=== PATIENT | female | born 1990 | race Caucasian/White ===

== ENCOUNTER 2017-09-09 11:28 | Emergency (ER) | payer MEDICAID, SELFPAY ==
[2017-09-09 11:29] VITALS: BP 152/120; PULSE 106; RESP 18; TEMP 37.2; O2SAT 98; BMI 27.8
[2017-09-09] MEDS: 0.9% Normal Saline 1,000 ML 1000 ML IV (12:28)
[2017-09-09] MEDS: proMETHazine 25 MG/ML Syringe 12.5 MG IV ×2 (12:28→13:21)
[2017-09-09 13:51] VITALS: BP 133/89; PULSE 85; RESP 16; O2SAT 100
[2017-09-09] MEDS: Ondansetron 4 MG/2 ML Vial IV (14:03)
[2017-09-09 14:20] VITALS: TEMP 37.2
[2017-09-09 14:34] LABS: Absolute Lymphocyte Count 2.16 X10^3/ul (0.83-4.51); Absolute Neutrophil Count 10.6 X10^3/uL (2.0-7.7); Basophil# 0.02 X10^3/uL; Basophil% 0.1 % (0-1); Hematocrit 43.4 % (37-47); Hemoglobin 14.8 g/dl (12.0-15.0); Lymphocyte # 2.16 X10^3/ul (4.0); Lymphocyte % 15.5 % (19-41); Mean Corp Hgb Conc 34.1 g/gl (32-36); Mean Corpuscular Volume 84.9 fL (81-99); Mean Platelet Vol. 9.8 fl (6.2-12.0); Monocyte# 1.13 X10^3/uL; Monocyte% 8.1 % (0-10); Neutrophil # 10.59 X10^3/uL (2.7-7.7); Platelet Count 330 K/mm3 (150-450); RBC Distribution Width CV 13.2 % (11.6-14.6); RBC Distribution Width SD 40.5 fl (35.1-43.9); Red Blood Count 5.11 M/mm3 (4.2-5.4); White Blood Count 13.9 K/mm3 (4.4-11.0)
[2017-09-09 14:36] LABS: POSITIVE COUNT NO; POSITIVE DIFFERENTIAL NO; POSITIVE MORPHOLOGY NO
[2017-09-09 14:54] LABS: AST(SGOT) 46 U/L (15-37); Alanine Aminotransfer ALT/SGPT 60 U/L (13-56); Albumin, Serum 3.9 g/dL (3.2-5.0); Alkaline Phosphatase 70 U/L (45-117); Anion Gap 11 (5-15); BUN 10 mg/dL (7-18); BUN/Creat Ratio 17.2 RATIO (10-20); Bilirubin, Direct 0.28 mg/dL (0.00-0.30); Calcium,Total 7.9 mg/dL (8.5-10.1); Chloride 103 mmol/L (98-107); Creatinine, Serum 0.58 mg/dL (0.55-1.02); EST Glomerular Filtration Rate 133 mL/min (>60); Est Glom Filt Rate - Afr Amer 161 mL/min (>60); Estimated Creatinine Clearance 132.26 ml/min; Globulin 3.6 g/dL (2.2-4.2); Glucose 91 mg/dL (74-106); Lipase 107 U/L (73-393); Potassium 3.1 mmol/L (3.5-5.1); Protein, Total 7.5 g/dL (6.4-8.2); Sodium Level 140 mmol/L (136-145)
[2017-09-09 16:26] VITALS: RESP 18
--- NOTE | 2017-09-09 17:14 | ED.VISSUMM ---
- ER Visit Summary Date of Service: 09/09/17 Chief Complaint: Nausea and vomiting History of Present Illness: The patient is a 27 F prior cholecystectomy and prior . Patient complaining of nausea and vomiting for the last 4 days. Subjective fever no chills. No dysuria. No melena. She did have some loose stools since resolved. Her last menstrual period was 3 weeks ago. She was seen in [facility] ER ?2. States she has Zofran but even morning it underneath her tongue she continues to vomit. She denies any significant abdominal pain. She denies any melena. Physical Examination: Female no acute distress vital signs are stable. Her initial blood pressure is 152/120. However that is improved. Current blood pressure is 133/89. HEENT exam unremarkable. Mildly dry mucous membranes. Neck nontender no meningismus. No lymphadenopathy. Lungs clear to auscultation bilaterally. Heart regular rhythm rate about 105 no murmur. Abdomen is soft. Nondistended normal bowel sounds no peritoneal signs. No hernias or masses. No signs of obstruction. Patient is moving all 4 extremities. Neurovascularly intact. Calves nontender without edema. Neurologically she is awake and alert. Back exam nontender. She has no focal motor deficits. Test Results: CBC shows white count 13.9 which I think is secondary to her vomiting. H&H normal. No bands. Electrolytes show potassium at 3.1 otherwise normal gap and normal creatinine. Liver enzymes are unremarkable and actually bilirubin 1.1. Lipase is normal. Emergency Department Course and Treatment: Treated with a liter normal saline. Initially given Phenergan IV. Second dose of Phenergan along with IV Pepcid. And then most recently Zofran. Clinically she is doing better. And will be discharged home. Treatment Plan: [] Disposition: Discharge Impression: Acute nausea and vomiting of uncertain etiology Mild hypokalemia This note was generated with [employer] dictation software. It may contain incorrect words, spelling, and punctuation that were not noted in review of the chart prior to signing ED Disposition - Plan for ED Patient: Chief Complaint: Nausea/Vomiting Referrals: Benedict Sharp DO [Primary Care Provider] -
--- NOTE | 2017-09-09 17:18 | ED.DEP ---
ED Disposition - Plan for ED Patient: Disposition: Home or Assisted Living Chief Complaint: Nausea/Vomiting Instructions: ED Nausea Vomiting Prescriptions: proMETHazine suppository [Phenergan] 25 mg RECTAL Q4H PRN PRN #10 suppos. PRN Reason: Nausea Referrals: Benedict Sharp DO [Primary Care Provider] - Additional Instructions: Plenty of fluids and rest. Will increase diet as tolerated. Zofran as needed for nausea which he may swallow or hold underneath her tongue. If that is not working you can use the rectal suppository Phenergan.
[2017-09-09 17:37] VITALS: BP 140/87; PULSE 87; RESP 14; O2SAT 100
== END 2017-09-09 17:38 | disposition home or self-care (01) ==
PROVIDERS: Emergency Provider Emergency Medicine; Family Provider Preventive Medicine Occupational Medicine; PCP Preventive Medicine Occupational Medicine
DX: R11.2 Nausea with vomiting, unspecified (principal); E87.6 Hypokalemia; Z90.49 Acquired absence of other specified parts of digestive tract
CPT/HCPCS: 80048; 80076; 83690; 85025; 96365; 96375; 96376; 99283; J7030; A4216; J2405

== ENCOUNTER 2017-09-10 17:51 | Observation (INO) | payer MEDICAID, SELFPAY ==
[2017-09-10 17:52] VITALS: BP 164/114; PULSE 110; RESP 18; TEMP 36.9; O2SAT 94; BMI 27.6
[2017-09-10] MEDS: proMETHazine 25 MG/ML Syringe 6.25 MG IV (18:37)
[2017-09-10] MEDS: 0.9% Normal Saline 1,000 ML 1000 ML IV (18:37)
[2017-09-10 18:44] LABS: Absolute Lymphocyte Count 1.68 X10^3/ul (0.83-4.51); Absolute Neutrophil Count 15.9 X10^3/uL (2.0-7.7); Basophil# 0.03 X10^3/uL; Basophil% 0.2 % (0-1); Eosinophil# 0.02 X10^3/uL; Eosinophils% 0.1 % (0-5); Hematocrit 45.2 % (37-47); Hemoglobin 15.4 g/dl (12.0-15.0); Lymphocyte # 1.68 X10^3/ul (4.0); Lymphocyte % 8.8 % (19-41); Mean Corp Hgb Conc 34.1 g/gl (32-36); Mean Corpuscular Hgb 28.8 pg (27.0-32.0); Mean Corpuscular Volume 84.5 fL (81-99); Mean Platelet Vol. 9.7 fl (6.2-12.0); Monocyte# 1.33 X10^3/uL; Neutrophil # 15.88 X10^3/uL (2.7-7.7); Neutrophil % 83.6 % (47-70); Platelet Count 393 K/mm3 (150-450); RBC Distribution Width SD 39.6 fl (35.1-43.9); Red Blood Count 5.35 M/mm3 (4.2-5.4)
[2017-09-10 18:45] LABS: POSITIVE COUNT NO; POSITIVE DIFFERENTIAL NO; POSITIVE MORPHOLOGY NO
[2017-09-10] MEDS: LORazepam 2 MG/ML Syringe 1 MG IV (19:06)
[2017-09-10 19:19] LABS: AST(SGOT) 43 U/L (15-37); Alanine Aminotransfer ALT/SGPT 79 U/L (13-56); Albumin, Serum 4.2 g/dL (3.2-5.0); Alkaline Phosphatase 79 U/L (45-117); Anion Gap 9 (5-15); BUN 16 mg/dL (7-18); BUN/Creat Ratio 17.1 RATIO (10-20); Calcium,Total 9.1 mg/dL (8.5-10.1); Chloride 98 mmol/L (98-107); Creatinine, Serum 0.94 mg/dL (0.55-1.02); EST Glomerular Filtration Rate 77 mL/min (>60); Est Glom Filt Rate - Afr Amer 93 mL/min (>60); Estimated Creatinine Clearance 81.61 ml/min; Globulin 4.1 g/dL (2.2-4.2); Glucose 105 mg/dL (74-106); Lipase 103 U/L (73-393); Potassium 2.9 mmol/L (3.5-5.1); Protein, Total 8.3 g/dL (6.4-8.2); Sodium Level 137 mmol/L (136-145)
[2017-09-10 19:40] LABS: Bacteria 0 SEEN /hpf (None Seen); Squamous Epithelial Cells - UA 0 SEEN /hpf (5-10); White Blood Cells 0 SEEN /hpf (0-5)
[2017-09-10] MEDS: DiphenhydrAMINE 50 MG/ML Syringe 25 MG IV (19:43)
[2017-09-10] MEDS: proCHLORPERazine 10 MG/2 ML Vial IV (19:43)
[2017-09-10 19:54] VITALS: RESP 14
[2017-09-10 19:55] LABS: Color, Urine Yellow (Yellow); Glucose, Dipstick Normal (Normal); Leukocyte Esterase-Dipstick Negative /ul (Negative); Nitrite-Dipstick Negative (Negative); Occult Blood-Urine 10 /ul (Negative); Protein-Dipstick 15 mg/dl (Negative); Specific Gravity, Urine 1.015 (1.002-1.030); Urine Bilirubin Dipstick Negative (Negative); Urine Clarity Clear (Clear); Urine Urobilinogen 1 mg/dl (Normal)
[2017-09-10 19:56] LABS: Ketone-Dipstick 150 mg/dl (Negative)
[2017-09-10 19:57] LABS: Internal QC Validated? YES +Cl - CLEAR BKGD; Pregnancy, Urine Negative Negative
--- NOTE | 2017-09-10 19:58 | ED.RN ---
lab called with critical lab results. urine ketones 150. Dr. Quintero made aware. no new orders at this time
[2017-09-10 20:09] LABS: Mucous, Urine 1+ /hpf (<or=2+); Red Blood Cells-Urine 0-5 SEEN /hpf (0-5)
--- NOTE | 2017-09-10 20:52 | CT_ITS ---
STUDY: CT ABDOMEN AND PELVIS WITHOUT CONTRAST REASON FOR EXAM: Female, 27 years old. History, Signs T Symptoms N/V/D/ X 5 DAYS, GB, HX KS RADIATION DOSAGE (If Supplied By Facility): CTDIvol = ( 6.96 ) mGy, DLP = ( 394.70 ) mGycm TECHNIQUE: Transaxial images were obtained from the dome of the diaphragm to the symphysis pubis without oral contrast, and without intravenous contrast. Sagittal and coronal images were reconstructed. Individualized dose optimization techniques were used for this CT. COMPARISON: None. FINDINGS: The visualized lung bases are unremarkable. The visualized portions of the heart are within normal limits. Normal liver. There are surgical clips in the gallbladder fossa consistent with a prior cholecystectomy. Normal spleen. Normal pancreas. Normal bilateral adrenal glands. Normal right kidney. Normal left kidney. Normal visualized stomach. Normal small intestine. Normal colon. The appendix is visualized and appears normal. Normal abdominal aorta. Normal inferior vena cava. Normal retroperitoneum. Normal urinary bladder. Normal visualized uterus. There is a linear heterogeneous density in the vagina. This a tampon. There is a small umbilical hernia containing fat. Normal osseous structures. CT/Abdomen/Pelvis without Cont IMPRESSION: Normal unenhanced CT of the abdomen and pelvis. Electronically Signed: Aristeo Blount MD at 22:09 EDT , Service support ,
[2017-09-10 21:50] VITALS: BP 163/104; PULSE 94; RESP 14; O2SAT 97
--- NOTE | 2017-09-10 22:40 | ED.VISSUMM ---
- ER Visit Summary Date of Service: 09/10/17 Chief Complaint: Nausea and vomiting History of Present Illness: The patient is a 27 F who presents with nausea and vomiting that has been constant for the past 5 days. Patient was seen here recently and had lab work done which showed a mild leukocytosis of 13. Patient states she has been unable to keep anything down for the past 5 days. Patient denies any fevers or chills. Patient admits to pain over the upper abdomen. Patient admits to some diarrhea but denies any melena or hematochezia. Patient states she has a history of irritable bowel syndrome and kidney stones. Patient denies any alcohol or drug use. Patient denies any urinary complaints. Physical Examination: Vital signs showed a blood pressure of 164/114 and a tachycardia of 110. Patient is afebrile. Oral mucosa is pink and moist. Neck is supple. Trachea is midline. Heart was regular and tachycardic. Lungs are clear and equal bilaterally. There is good respiratory effort noted. Abdomen is soft. There is upper abdominal tenderness. There is no rebound or guarding noted. Skin is warm and dry. There is a superficial ulceration over the right breast. There were no masses palpated. Cranial nerves II through XII are intact. There are no focal motor or sensory deficits noted. The remaining physical exam is within normal limits. Test Results: CBC shows a leukocytosis of 19 today. Potassium was low at 2.9. Total bilirubin was elevated at 1.7. ALT was slightly elevated at 79 AST was slightly elevated at 43. Urinalysis showed elevated ketones of 150 but no signs of urinary tract infection. Emergency Department Course and Treatment: Patient was given IV fluids, Phenergan, Ativan, Compazine, and Benadryl. Patient had minimal relief of her nausea and vomiting after this. Case was discussed with the hospitalist. We will admit the patient to the hospital for observation. Patient and family understood and were agreeable with the plan. All questions were answered. Disposition: Admit for observation Impression: Abdominal pain, leukocytosis This note was generated with [employer] dictation software. It may contain incorrect words, spelling, and punctuation that were not noted in review of the chart prior to signing ED Disposition - Plan for ED Patient: Disposition: Acute Care Hospital [facility] Chief Complaint: Nausea/Vomiting Diagnosis: Abdominal pain, Leukocytosis, unspecified Referrals: Benedict Sharp DO [Primary Care Provider] -
[2017-09-10] MEDS: BACITRACIN/POLYMYXIN B 15 GM Tube 1 APPLIC TOPICAL (23:13)
[2017-09-10 23:14] LABS: Magnesium 2.1 mg/dL (1.6-2.6); Phosphorus 1.5 mg/dL (2.5-4.9)
--- NOTE | 2017-09-10 23:14 | HP.PCM_ITS ---
Problem List (1) Intractable nausea and vomiting Status: Acute (2) Abdominal pain Status: Acute (3) Leukocytosis, unspecified Status: Acute (4) Diarrhea Status: Acute Qualifiers: Diarrhea type: presumed infectious Qualified Code(s): R19.7 - Diarrhea, unspecified (5) Gastroenteritis Status: Acute (6) Nausea and vomiting Status: Acute Qualifiers: Vomiting type: unspecified Vomiting Intractability: non-intractable Qualified Code(s): R11.2 - Nausea with vomiting, unspecified (7) Hx of cannabis abuse Status: Chronic (8) Viable intrauterine Status: Chronic (9) Hyperemesis gravidarum Status: Suspected History of Present Illness Date of Admission: 09/10/17 Chief Complaint: Intractable nausea and vomiting for 5 days and recurrent ER visits The patient is a 27 year old F with history of IBS, hyperemesis gravidarum came to ER with severe nausea and vomiting and had 2 ER visits in [place] ER and here ER yesterday for similar problem. Patient having vomiting for almost 1 week and complain of epigastric pain along with lower lip pain most probably secondary to retching from vomiting. No GI bleed. Patient also had lose bowel movement about 1 or 2 per day, today had 2 bowel movement. Denies fever but sometimes feel cold. No sore throat or sinus symptoms. Patient has history of recurrent vomiting and IBS has been ER for multiple times . CT abdomen does not show any acute change. Basic lab work in ER is suggestive of leukocytosis with left shift, K2.9 and elevated LFT with ALT 79, AST 43 and total bili 1.7. Magnesium is 2.1, phosphorus 1.5. [] Past Medical History Past Medical History (Chronic Problems): Chronic Problems Viable intrauterine (Chronic) Hx of cannabis abuse (Chronic) Allergies No Known Allergies Allergy (Verified 09/10/17 17:51) Home Medications: Ambulatory Orders Medication Instructions Recorded proMETHazine suppository 25 mg RECTAL Q4H PRN PRN #10 09/09/17 [Phenergan] suppos. Dicyclomine HCl [Bentyl] 20 mg PO ACHS 09/10/17 Surgical History: cholecystectomy, - - x 1. Psychiatric History: No pertinent psych hx [employer] History: No pertinent [employer] history Smoking Status: Never smoker - *Family History Maternal History Items: No pertinent history Paternal History Items: No pertinent history VTE Information - Inpt Only VTE Present on Admission: No VTE Mechan Device Prophylaxis: None Reason prophylaxis not ordered:: Procedure Not Indicated - Low risk Patient Problems: Active and Suspected Problems Abdominal pain (Acute) Leukocytosis, unspecified (Acute) Intractable nausea and vomiting (Acute) - Physical Exam General: Alert, Oriented x3, Cooperative HEENT: Atraumatic, PERRLA, EOMI, Normocephalic Oral: Dry Mucosa Neck: Supple, No JVD, Negative Carotid Bruits Lungs: Clear to auscultation, Normal air movement Cardiovascular: Regular rate, Regular Rhythm, Normal S1, Normal S2, No murmurs Abdomen: Bowel Sounds Present, Soft, Non-Distended, No Hepato-splenomegaly, Tender - Mild epigastric tenderness Extremities: No edema, Capillary Refill Less than 3 Seconds Skin: No rashes, No breakdown Musculoskeletal: No Tenderness to Palpation of Joints or Extremities Neurological: Cranial nerves II-XII grossly intact Psych/Mental Status: Normal Affect, Appropriate Vital Signs Temp Pulse Resp BP Pulse Ox 98.4 F 94 14 163/104 H 97 09/10/17 17:52 09/10/17 21:50 09/10/17 21:50 09/10/17 21:50 09/10/17 21:50 Oxygen Delivery Method Room Air Weight: 166 lb 0.129 oz Body Mass Index (BMI) 27.6 Laboratory Tests Past 24 Hrs 09/10/17 09/10/17 09/10/17 18:28 18:28 18:28 WBC 19.0 H RBC 5.35 Hgb 15.4 H Hct 45.2 MCV 84.5 MCH 28.8 MCHC 34.1 RDW 13.0 RDW Differential 39.6 Plt Count 393 MPV 9.7 Immature Gran % (Auto) 0.300 Neut % (Auto) 83.6 H Lymph % (Auto) 8.8 L [place] % (Auto) 7.0 Eos % (Auto) 0.1 Baso % (Auto) 0.2 Absolute Neuts (auto) 15.9 H Absolute Lymphs (auto) 1.68 Total Counted Not Reportable Sodium 137 Potassium 2.9 L Chloride 98 Carbon Dioxide 30.0 Anion Gap 9 BUN 16 Creatinine 0.94 Estim Creat Clear Calc 81.61 Est GFR (MDRD) Af Amer 93 Est GFR (MDRD) Non-Af 77 BUN/Creatinine Ratio 17.1 Glucose 105 Calcium 9.1 Phosphorus Pending Magnesium Pending Total Bilirubin 1.70 H AST 43 H ALT 79 H Alkaline Phosphatase 79 Total Protein 8.3 H Albumin 4.2 Globulin 4.1 Albumin/Globulin Ratio 1.0 Lipase 103 Urine Color Urine Clarity Urine pH Ur Specific [place] Urine Protein Urine Glucose (UA) Urine Ketones Urine Occult Blood Urine Nitrite Urine Bilirubin Urine Urobilinogen Ur Leukocyte Esterase Urine RBC Urine WBC Ur Squamous Epith Cells Urine Bacteria Urine Mucus Urine Test 09/10/17 09/10/17 19:34 19:34 WBC RBC Hgb Hct MCV MCH MCHC RDW RDW Differential Plt Count MPV Immature Gran % (Auto) Neut % (Auto) Lymph % (Auto) [place] % (Auto) Eos % (Auto) Baso % (Auto) Absolute Neuts (auto) Absolute Lymphs (auto) Total Counted Sodium Potassium Chloride Carbon Dioxide Anion Gap BUN Creatinine Estim Creat Clear Calc Est GFR (MDRD) Af Amer Est GFR (MDRD) Non-Af BUN/Creatinine Ratio Glucose Calcium Phosphorus Magnesium Total Bilirubin AST ALT Alkaline Phosphatase Total Protein Albumin Globulin Albumin/Globulin Ratio Lipase Urine Color Yellow Urine Clarity Clear Urine pH 7.0 Ur Specific [place] 1.015 Urine Protein 15 H Urine Glucose (UA) Normal Urine Ketones 150 H Urine Occult Blood 10 H Urine Nitrite Negative Urine Bilirubin Negative Urine Urobilinogen 1 H Ur Leukocyte Esterase Negative Urine RBC 0-5 SEEN Urine WBC 0 SEEN Ur Squamous Epith Cells 0 SEEN Urine Bacteria 0 SEEN Urine Mucus 1+ Urine Test Negative Assessment/Plan Active and Suspected Problems Abdominal pain (Acute) Leukocytosis, unspecified (Acute) Intractable nausea and vomiting (Acute) The patient is a 27 year old F with history of IBS, hyperemesis gravidarum came to ER with severe nausea and vomiting and had 2 ER visits in [place] ER and here ER yesterday for similar problem. Patient having vomiting for almost 1 week and complain of epigastric pain along with lower lip pain most probably secondary to retching from vomiting. No GI bleed. Patient also had lose bowel movement about 1 or 2 per day, today had 2 bowel movement. Denies fever but sometimes feel cold. No sore throat or sinus symptoms. Patient has history of recurrent vomiting and IBS has been ER for multiple times . CT abdomen does not show any acute change. Basic lab work in ER is suggestive of leukocytosis with left shift, K2.9 and elevated LFT with ALT 79, AST 43 and total bili 1.7. Magnesium is 2.1, phosphorus 1.5. 1. Intractable nausea no vomiting, acute on recurrent in nature etiology unclear possible history of cyclical vomiting syndrome; possible viral gastroenteritis: [facility] Symptomatic management for nausea and vomiting. Normal saline 1 L bolus and then 150 mL/h. IV fluid rehydration, aggressive with monitoring of intake and output. Stool for occult blood, leukocytosis and enteric bacteriology panel ordered. 2. Electrolyte disturbance: Severe hypokalemia and hypophosphatemia: K-Phos ordered. Monitor and replace accordingly. 3. Epigastric abdominal pain most probably secondary to retching from vomiting : Normal abdominal exam and abdominal CT is benign 4. Elevated LFT; possible secondary to severe dehydration/rule out viral hepatitis or drug-induced liver injury: Patient has elevated transaminases which got worse as compared to yesterday. total bili 1.5 possible secondary to severe dehydration. Right upper quadrant sonogram ordered. Viral hepatitis panel ordered. Monitor LFT. Serum alcohol, GGT and U tox ordered. Hold dicyclomine. DVT prophylaxis, low risk does not require prophylaxis. Early ambulation encouraged Code Visit OBSV E&M: [id number] Initial observation care L3
[2017-09-10 23:20] VITALS: BP 169/115; PULSE 97; RESP 20; TEMP 37.2; O2SAT 95
[2017-09-11 00:14] VITALS: BMI 27.6
[2017-09-11 00:20] VITALS: BMI 27.6
[2017-09-11 00:24] VITALS: BP 157/97; PULSE 89; RESP 18; TEMP 37.2; O2SAT 97
[2017-09-11] MEDS: 0.9% Normal Saline 1,000 ML 999 ML IV (00:36)
[2017-09-11 00:50] LABS: GGTP 25 U/L (5-55)
[2017-09-11 01:03] LABS: Amphetamine Urine VISTA NEGATIVE (<1000 ng/mL); Barbiturate Urine VISTA NEGATIVE (< 200 ng/mL); Benzodiazepine Urine VISTA NEGATIVE (< 200 ng/mL); Cocaine Urine VISTA NEGATIVE (< 300 ng/mL); Ecstacy Urine VISTA NEGATIVE (< 500 ng/mL); Methadone Urine VISTA NEGATIVE (< 300 ng/mL); PCP Urine VISTA NEGATIVE (< 25 ng/mL); THC Urine VISTA POSITIVE (< 50 ng/mL)
[2017-09-11 01:12] LABS: Alcohol, Blood (Medical)-Serum < 3.0 mg/dL
[2017-09-11] MEDS: proCHLORPERazine 10 MG/2 ML Vial IV (04:15)
[2017-09-11] MEDS: 0.9% NaCl Peripheral Flush Adult/Peds IV (04:15)
[2017-09-11 06:02] VITALS: BP 102/62; PULSE 71; RESP 14; TEMP 36.9; O2SAT 99
[2017-09-11 06:16] LABS: Absolute Lymphocyte Count 2.25 X10^3/ul (0.83-4.51); Absolute Neutrophil Count 6.8 X10^3/uL (2.0-7.7); Basophil# 0.03 X10^3/uL; Basophil% 0.3 % (0-1); Eosinophil# 0.02 X10^3/uL; Eosinophils% 0.2 % (0-5); Hematocrit 40.8 % (37-47); Hemoglobin 13.9 g/dl (12.0-15.0); Lymphocyte # 2.25 X10^3/ul (4.0); Lymphocyte % 22.7 % (19-41); Mean Corp Hgb Conc 34.1 g/gl (32-36); Mean Corpuscular Volume 85.2 fL (81-99); Monocyte# 0.82 X10^3/uL; Monocyte% 8.3 % (0-10); Neutrophil # 6.76 X10^3/uL (2.7-7.7); Neutrophil % 68.3 % (47-70); Platelet Count 296 K/mm3 (150-450); RBC Distribution Width CV 12.9 % (11.6-14.6); RBC Distribution Width SD 39.6 fl (35.1-43.9); Red Blood Count 4.79 M/mm3 (4.2-5.4); White Blood Count 9.9 K/mm3 (4.4-11.0)
[2017-09-11 06:17] LABS: POSITIVE COUNT NO; POSITIVE DIFFERENTIAL NO; POSITIVE MORPHOLOGY NO
[2017-09-11 06:52] LABS: AST(SGOT) 29 U/L (15-37); Alanine Aminotransfer ALT/SGPT 55 U/L (13-56); Albumin, Serum 3.2 g/dL (3.2-5.0); Alkaline Phosphatase 66 U/L (45-117); Anion Gap 9 (5-15); BUN 6 mg/dL (7-18); BUN/Creat Ratio 12.8 RATIO (10-20); Bilirubin, Direct 0.23 mg/dL (0.00-0.30); Calcium,Total 7.3 mg/dL (8.5-10.1); Chloride 107 mmol/L (98-107); Creatinine, Serum 0.47 mg/dL (0.55-1.02); EST Glomerular Filtration Rate 170 mL/min (>60); Est Glom Filt Rate - Afr Amer 206 mL/min (>60); Estimated Creatinine Clearance 163.22 ml/min; Globulin 3.4 g/dL (2.2-4.2); Glucose 91 mg/dL (74-106); Phosphorus 2.3 mg/dL (2.5-4.9); Potassium 3.4 mmol/L (3.5-5.1); Protein, Total 6.6 g/dL (6.4-8.2); Sodium Level 140 mmol/L (136-145)
[2017-09-11 07:22] LABS: Vista UDS pH Range 6
[2017-09-11 08:04] VITALS: BP 109/69; PULSE 65; RESP 16; TEMP 37.1; O2SAT 99
[2017-09-11] MEDS: Famotidine 20 MG Tablet PO (09:00)
--- NOTE | 2017-09-11 09:19 | PCM.DC ---
- Discharge Diagnoses Current Active Problems: Current Active and Chronic Problems Abdominal pain (Acute) Leukocytosis, unspecified (Acute) Intractable nausea and vomiting (Acute) You will use the following diet at home:: No restrictions Discharge Activity: Return to Normal Activity Allergies/Adverse Reactions: Allergies No Known Allergies Allergy (Verified 09/10/17 17:51) Medications to take at Discharge proMETHazine suppository [Phenergan Suppository] 25 mg RECTAL Q4H PRN PRN #10 suppos. 09/09/17 Dicyclomine HCl [Bentyl] 20 mg PO ACHS 09/10/17 Primary Care Physician: Benedict Sharp DO [Primary Care Provider] - Please follow up with your Primary Care Physician in: 1 Week Proposed Discharge Date: 09/11/17
--- NOTE | 2017-09-11 09:22 | PCM.DC.SUM ---
Discharge Date and Diagnosis Date of Admission: 09/10/17 Date of Discharge: 09/11/17 - Primary Discharge Diagnosis Active and Suspected Problems 1. 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 Hypokalemia 3. Hypophosphatemia - Secondary Discharge Diagnosis Chronic Problems Viable intrauterine (Chronic) Hx of cannabis abuse (Chronic) Hospital Course and Treatment Imaging Results: Diagnostic Data Abdomen/Pelvis CT 09/10/17 20:52 IMPRESSION: Normal unenhanced CT of the abdomen and pelvis. Electronically Signed: Aristeo Blount MD at 22:09 EDT , Service support , Operations: None Procedures: None Summary of Care Provided: The patient is a 27 year old F admitted 09/10/2017 due to intractable nausea and vomiting for 5 days with recurrent emergency room visits. She has a past medical history of irritable bowel syndrome. CT of abdomen and pelvis unremarkable. Urine tox screen positive for cannabinoids. Urinalysis unremarkable. Cyclical vomiting syndrome suspected secondary to marijuana use. Patient was advised to discontinue marijuana use. Patient was noted to have hypokalemia and hypophosphatemia secondary to nausea, vomiting. Replaced per protocol and stable at discharge. Patient with leukocytosis on admission which resolved, suspect reactive secondary to dehydration. Patient was also noted to have elevated AST and ALT, suspected secondary to dehydration. Now within normal limits. Hepatitis panel was drawn during admission and pending at discharge. To be followed by primary care physician. Patient has had no further nausea, vomiting overnight. Afebrile. Vital signs stable. Patient seen and examined prior to discharge. Heart rate regular rate and rhythm. Lungs clear. Abdomen soft, nontender. Neuro grossly intact. Patient stable for discharge home with follow-up with primary care physician in 1 week. This patient was seen by STEFANIA Quintero under the supervision of Dr. Clemens. Discharge Diet: No Restrictions Discharge Activity: Return to Normal Activity Home Medications: Medications to take at Discharge proMETHazine suppository [Phenergan Suppository] 25 mg RECTAL Q4H PRN PRN #10 suppos. 09/09/17 Dicyclomine HCl [Bentyl] 20 mg PO ACHS 09/10/17 Primary Care Physician: Benedict Sharp DO [Primary Care Provider] - Please follow up with your Primary Care Physician in: 1 Week Disposition: Home Minutes spent on discharge:: 35 Patient Condition:: Stable Medical Necessity - Tobacco Use Smoking Status: Never smoker Meaningful Use Info Meaningful Use Diagnoses (Choose all that apply): None applicable
[2017-09-11 11:21] VITALS: BP 125/85; PULSE 78; RESP 18; TEMP 37; O2SAT 98
[2017-09-12 09:38] LABS: HEPATITIS B SURFACE AG Negative (Negative); Hepatitis A IgM Antibody Negative (Negative); Hepatitis B Core AB IgM Negative (Negative)
[2017-09-12 11:48] LABS: Hep C Antibodies <0.1 s/co ratio (0.0-0.9)
== END 2017-09-11 11:23 | disposition home or self-care (01) ==
LOC: ED 22:47 → MS2 23:53
PROVIDERS: Admitting Provider Internal Medicine; Emergency Provider Emergency Medicine; Family Provider Preventive Medicine Occupational Medicine; PCP Preventive Medicine Occupational Medicine; Visit Provider Internal Medicine
DX: G43.A0 Cyclical vomiting, in migraine, not intractable (principal); E87.6 Hypokalemia; E83.39 Other disorders of phosphorus metabolism; K58.9 Irritable bowel syndrome, unspecified; F12.10 Cannabis abuse, uncomplicated
CPT/HCPCS: 36415; 74176; 80048; 80053; 80074; 80076; 80307; 80320; 81001; 81025; 82977; 83690; 83735; 84100; 85025; 96361; 96365; 96375; 96376; 99218; 99283; J7030; J7050; A4216; G0378; G0480

== ENCOUNTER 2017-09-12 19:24 | Emergency (ER) | payer MEDICAID, SELFPAY ==
[2017-09-12 19:26] VITALS: BP 167/126; PULSE 127; RESP 16; TEMP 37.1; O2SAT 98; BMI 29.1
[2017-09-12] MEDS: proMETHazine 25 MG/ML Syringe 12.5 MG IV (21:22)
[2017-09-12] MEDS: 0.9% Normal Saline 1,000 ML 1000 ML IV (21:23)
[2017-09-12 21:26] VITALS: BP 169/117; PULSE 107; RESP 22; TEMP 37; O2SAT 99
[2017-09-12 21:34] LABS: Absolute Lymphocyte Count 1.52 X10^3/ul (0.83-4.51); Absolute Neutrophil Count 9.5 X10^3/uL (2.0-7.7); Basophil# 0.01 X10^3/uL; Basophil% 0.1 % (0-1); Hematocrit 43.4 % (37-47); Hemoglobin 14.7 g/dl (12.0-15.0); Lymphocyte # 1.52 X10^3/ul (4.0); Mean Corp Hgb Conc 33.9 g/gl (32-36); Mean Corpuscular Hgb 28.5 pg (27.0-32.0); Mean Corpuscular Volume 84.1 fL (81-99); Mean Platelet Vol. 9.6 fl (6.2-12.0); Monocyte# 0.65 X10^3/uL; Monocyte% 5.5 % (0-10); Neutrophil # 9.53 X10^3/uL (2.7-7.7); Neutrophil % 81.2 % (47-70); POSITIVE COUNT NO; POSITIVE DIFFERENTIAL NO; POSITIVE MORPHOLOGY NO; Platelet Count 382 K/mm3 (150-450); RBC Distribution Width SD 39.8 fl (35.1-43.9); Red Blood Count 5.16 M/mm3 (4.2-5.4); White Blood Count 11.7 K/mm3 (4.4-11.0)
[2017-09-12 21:57] LABS: AST(SGOT) 18 U/L (15-37); Alanine Aminotransfer ALT/SGPT 44 U/L (13-56); Albumin, Serum 4.1 g/dL (3.2-5.0); Alkaline Phosphatase 72 U/L (45-117); Anion Gap 10 (5-15); BUN 7 mg/dL (7-18); BUN/Creat Ratio 11.4 RATIO (10-20); Bilirubin, Direct 0.24 mg/dL (0.00-0.30); Calcium,Total 8.6 mg/dL (8.5-10.1); Chloride 102 mmol/L (98-107); Creatinine, Serum 0.61 mg/dL (0.55-1.02); EST Glomerular Filtration Rate 125 mL/min (>60); Est Glom Filt Rate - Afr Amer 151 mL/min (>60); Estimated Creatinine Clearance 125.76 ml/min; Globulin 3.7 g/dL (2.2-4.2); Glucose 98 mg/dL (74-106); Potassium 3.3 mmol/L (3.5-5.1); Protein, Total 7.8 g/dL (6.4-8.2); Sodium Level 138 mmol/L (136-145)
[2017-09-12] MEDS: Haloperidol Lactate 5 MG/ML Vial 1 MG IM (21:57)
[2017-09-12 23:00] VITALS: RESP 16
--- NOTE | 2017-09-13 00:20 | ED.VISSUMM ---
- ER Visit Summary Date of Service: 09/13/17 Chief Complaint: Abdominal pain, nausea, vomiting History of Present Illness: The patient is a 27 F discharged from the hospital yesterday after an overnight admission for nausea and vomiting. She also been seen in the emergency room earlier in the week. Patient states she is out of her Zofran at home and has had continuous vomiting today. She is complaining some upper abdominal pain. She has had prior cholecystectomy. Patient does admit to a history of marijuana use and states that her last use was 1 week ago. Her vomiting is felt to be secondary to hyperemesis from cannabis. Physical Examination: Blood pressure is 167/126, temperature 98.8, heart rate 127, respiratory rate 16, pulse ox 98% on room air. Line patient's lying on her side. She is in no acute distress but does appear uncomfortable. Heart is tachycardic and regular. Lung sounds are clear. Abdomen is soft with mild tenderness in the upper abdomen. There is no guarding or rebound and she allows deep palpation throughout. Hypoactive bowel sounds are present. Test Results: CBC was a white count 11.7 with 81% neutrophils. This is decreased when compared to prior labs. Chemistry studies are significant only for potassium of 3.3. LFTs are normal. Emergency Department Course and Treatment: I did review the patient's recent visits and admission along with her imaging studies. Patient was given IV fluids, IV Phenergan, and 1 mg of IM Haldol. On repeat evaluation patient is resting comfortably. At this time she is able to tolerate ice chips. She will be discharged with prescriptions for Phenergan and Zofran. I she is working on finding a ride home at this time. Treatment Plan: [] Disposition: Discharge Impression: Nausea and vomiting, improved This note was generated with [employer] dictation software. It may contain incorrect words, spelling, and punctuation that were not noted in review of the chart prior to signing ED Disposition - Plan for ED Patient: Chief Complaint: Nausea/Vomiting Referrals: Benedict Sharp DO [Primary Care Provider] -
--- NOTE | 2017-09-13 00:41 | ED.DEP ---
ED Disposition - Plan for ED Patient: Disposition: Home or Assisted Living Chief Complaint: Nausea/Vomiting Instructions: ED Nausea Vomiting Prescriptions: proMETHazine tablet [Phenergan] 25 mg PO Q6H PRN PRN #10 tablet PRN Reason: Nausea Ondansetron [Zofran Odt] 4 mg PO Q8H PRN PRN #10 tablet PRN Reason: Nausea Referrals: Benedict Sharp DO [Primary Care Provider] - 1 Week
[2017-09-13 01:10] VITALS: BP 143/77; PULSE 91; RESP 18; O2SAT 97
[2017-09-13] MEDS: Ondansetron ODT 4 MG Tablet PO (01:10)
== END 2017-09-13 01:59 | disposition home or self-care (01) ==
PROVIDERS: Emergency Provider Emergency Medicine; Family Provider Preventive Medicine Occupational Medicine; PCP Preventive Medicine Occupational Medicine
DX: R11.2 Nausea with vomiting, unspecified (principal); R10.9 Unspecified abdominal pain; F12.90 Cannabis use, unspecified, uncomplicated; Z90.49 Acquired absence of other specified parts of digestive tract
CPT/HCPCS: 80048; 80076; 85025; 99283; J7030; A4216

== ENCOUNTER 2017-09-16 12:53 | Observation (INO) | payer MEDICAID, SELFPAY ==
[2017-09-16 12:53] VITALS: BP 155/112; PULSE 119; RESP 26; TEMP 36.6; O2SAT 96; BMI 29.2
--- NOTE | 2017-09-16 13:19 | CT_ITS ---
STUDY: CT ABDOMEN AND PELVIS WITH CONTRAST REASON FOR EXAM: Female, 27 years old. Severe pain cholecystectomy RADIATION DOSAGE (If Supplied By Facility): CTDIvol = ( 8.12 ) mGy, DLP = ( 567.51 ) mGycm TECHNIQUE: Transaxial images were obtained from the dome of the diaphragm to the symphysis pubis with oral contrast. 100 ml of Isovue 300 contrast was administered. Sagittal and coronal images were reconstructed. Individualized dose optimization techniques were used for this CT. COMPARISON: September 10, 2017 CT scan abdomen and pelvis FINDINGS: The visualized lung bases are unremarkable. The visualized portions of the heart are within normal limits. There is mild intrahepatic ductal dilatation. There is mild extrahepatic ductal dilatation up to 8.5 mm. This is newly visualized since prior study. There are surgical clips in the gallbladder fossa consistent with a prior cholecystectomy. Normal spleen. Normal pancreas. Normal bilateral adrenal glands. Normal right kidney. Normal left kidney. There is contrast in the stomach. There mildly distended loops of small bowel. There is a decompressed appearance of most of the colon. The appendix is visualized and appears normal. Normal abdominal aorta. Normal inferior vena cava. Normal retroperitoneum. Normal urinary bladder. Normal visualized uterus. Normal abdominal wall. Normal osseous structures. CT/Abdomen/Pelvis WITH Contrast IMPRESSION: Since prior study there is been interval distention of the intra and extrahepatic ducts. There is a small focal echogenicity just at the sphincter of [place] which potentially represent a small focus of sludge or stones. Recommend consideration for follow-up ultrasound potentially HIDA scan. Status post cholecystectomy. Electronically Signed: Tejal Carbajal MD at 16:22 EDT Tel , Service support ,
--- NOTE | 2017-09-16 13:27 | ED.DCSUM_ITS ---
- ER Visit Summary Date of Service: 09/16/17 Chief Complaint: Abdominal pain History of Present Illness: The patient is a 27 F presenting with abdominal pain which started today. Patient states she has been vomiting for the past 6 days. She has a history of gastroparesis. She called her GI doctor and they were unable to see her until February. She complains of diffuse abdominal cramping. She denies possibility of . Denies fever. She has history of previous cholecystectomy. Denies other complaints. Physical Examination: Vitals are stable. Patient is afebrile. Alert no acute distress. HEENT exam is unremarkable. Neck is supple. Lungs are clear and equal bilaterally. Heart is regular rate and rhythm. Abdomen is soft diffuse tenderness with no rebound or guarding. Extremities are unremarkable. Skin is warm and dry. No focal neurologic deficit. Remainder of exam is unremarkable. Emergency Department Course and Treatment: Patient is given IV fluids, morphine , Phenergan. She continues to have nausea and was given Zofran. CBC shows white count of 12.7. Urinalysis is contaminated with 10-25 epithelial cells. HCG negative. Chemistry normal except for potassium 2.9. Liver enzymes show total bili 1.2, ALT 78, AST 41, lipase is 91. CT abdomen pelvis with IV and oral contrast shows since prior study there is been interval distention of the intra and extrahepatic ducts. There is a small focal echogenicity just at the sphincter of Panchito which potentially represent a small focus of sludge or stones. Recommend consideration for follow-up ultrasound potentially HIDA scan. Status post cholecystectomy. Discussed with Dr. Morris who discussed with Dr. Vazquez. Patient will be admitted to surgery. Disposition: Admission Impression: Abdominal pain This note was generated with Synchro dictation software. It may contain incorrect words, spelling, and punctuation that were not noted in review of the chart prior to signing ED Disposition - Plan for ED Patient: Chief Complaint: Abd Pain Referrals: Benedict Sharp DO [Primary Care Provider] -
[2017-09-16] MEDS: Morphine 4 MG/ML Syringe IV ×3 (13:37→19:47)
[2017-09-16] MEDS: proMETHazine 25 MG/ML Syringe 6.25 MG IV (13:37)
[2017-09-16] MEDS: 0.9% Normal Saline 1,000 ML 1000 ML IV (13:38)
[2017-09-16 13:52] LABS: Red Blood Cells-Urine 0 SEEN /hpf (0-5)
--- NOTE | 2017-09-16 13:52 | ED.RN ---
PT IS WAITING A BIT TO SEE IF NAUSEA/VOMITING CALMS DOWN WITH MEDS. SHE DID VOMIT AFTER MEDS, SHE WAS WALKING TO BATHROOM FOR URINE SAMPLE.
[2017-09-16 13:56] LABS: Color, Urine Yellow (Yellow); Glucose, Dipstick Normal (Normal); Leukocyte Esterase-Dipstick 500 /ul (Negative); Nitrite-Dipstick Negative (Negative); Occult Blood-Urine 250 /ul (Negative); Protein-Dipstick 30 mg/dl (Negative); Urine Clarity Sl. Cloudy (Clear); Urine Urobilinogen 4 mg/dl (Normal)
[2017-09-16 13:58] LABS: Absolute Lymphocyte Count 1.79 X10^3/ul (0.83-4.51); Absolute Neutrophil Count 10.1 X10^3/uL (2.0-7.7); Basophil# 0.02 X10^3/uL; Basophil% 0.2 % (0-1); Hematocrit 43.8 % (37-47); Hemoglobin 15.3 g/dl (12.0-15.0); Lymphocyte # 1.79 X10^3/ul (4.0); Lymphocyte % 14.1 % (19-41); Mean Corp Hgb Conc 34.9 g/gl (32-36); Mean Corpuscular Volume 83.1 fL (81-99); Monocyte# 0.69 X10^3/uL; Monocyte% 5.5 % (0-10); Neutrophil # 10.12 X10^3/uL (2.7-7.7); Neutrophil % 79.9 % (47-70); Platelet Count 426 K/mm3 (150-450); RBC Distribution Width SD 38.9 fl (35.1-43.9); Red Blood Count 5.27 M/mm3 (4.2-5.4); White Blood Count 12.7 K/mm3 (4.4-11.0)
[2017-09-16 13:59] LABS: POSITIVE COUNT NO; POSITIVE DIFFERENTIAL NO; POSITIVE MORPHOLOGY NO
[2017-09-16 14:08] LABS: Urine Bilirubin Dipstick 1 mg/dL (Negative)
[2017-09-16 14:09] LABS: Bacteria 2+ /hpf (None Seen); Ketone-Dipstick 150 mg/dl (Negative); Mucous, Urine 3+ /hpf (<or=2+); Squamous Epithelial Cells - UA 10-25 SEEN /hpf (5-10); White Blood Cells 5-10 SEEN /hpf (0-5)
[2017-09-16 14:18] LABS: Pregnancy, Serum, hCG Quali. NEGATIVE Negative (0-9 Nonpreg)
[2017-09-16] MEDS: Ondansetron 4 MG/2 ML Vial IV (14:31)
[2017-09-16] MEDS: Ketorolac 30 MG/ML Syringe IV (14:46)
--- NOTE | 2017-09-16 15:55 | ED.RN ---
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 She is actively looking for tube and/or results.
[2017-09-16 16:10] LABS: AST(SGOT) 41 U/L (15-37); Alanine Aminotransfer ALT/SGPT 78 U/L (13-56); Albumin, Serum 4.2 g/dL (3.2-5.0); Alkaline Phosphatase 70 U/L (45-117); Anion Gap 15 (5-15); BUN 9 mg/dL (7-18); Calcium,Total 9.2 mg/dL (8.5-10.1); Chloride 98 mmol/L (98-107); Creatinine, Serum 0.82 mg/dL (0.55-1.02); EST Glomerular Filtration Rate 89 mL/min (>60); Est Glom Filt Rate - Afr Amer 108 mL/min (>60); Estimated Creatinine Clearance 93.55 ml/min; Glucose 100 mg/dL (74-106); Lipase 91 U/L (73-393); Potassium 2.9 mmol/L (3.5-5.1); Protein, Total 8.2 g/dL (6.4-8.2); Sodium Level 136 mmol/L (136-145)
--- NOTE | 2017-09-16 16:29 | ED.RN ---
wants to hold k-dur until further notice, possible surgical candidate.
[2017-09-16 16:59] VITALS: BP 140/90; PULSE 90; RESP 16; O2SAT 100
[2017-09-16 18:19] VITALS: BP 132/94; PULSE 110; RESP 16; TEMP 36.9; O2SAT 95; O2SAT 96
--- NOTE | 2017-09-16 18:22 | ED.RN ---
DR. KWOK AT BEDSIDE WITH PT, S/O AND MOM.
--- NOTE | 2017-09-16 18:27 | PCM.HP.STD ---
Problem List (1) Obstructive jaundice Status: Acute (2) Cholangitis due to bile duct calculus with obstruction Status: Acute History of Present Illness Date of Admission: 09/16/17 The patient is a 27 year old F who has been having 10 days of nausea and vomiting and right upper quadrant pain as well as fevers and chills. She was recently seen in several emergency rooms and had a CT scan done last week which was normal. She reports she was recently discharged home but she continues to have vomiting and pain and chills. Today she reported to the emergency room saying that she was unable to tolerate any food. She reports she is having right upper quadrant pain as well as epigastric pain. She also reports that she has been having darkening of urine and lightening of her stools. She had a cholecystectomy 5 years ago but does not remember where. Past Medical History Past Medical History (Chronic Problems): Chronic Problems Viable intrauterine (Chronic) Hx of cannabis abuse (Chronic) Allergies No Known Allergies Allergy (Verified 09/16/17 12:56) Home Medications: Ambulatory Orders Medication Instructions Recorded proMETHazine suppository 25 mg RECTAL Q4H PRN PRN #10 09/09/17 [Phenergan Suppository] suppos. Dicyclomine HCl [Bentyl] 20 mg PO ACHS 09/10/17 Ondansetron [Zofran Odt] 4 mg PO Q8H PRN PRN #10 tablet 09/13/17 proMETHazine tablet [Phenergan] 25 mg PO Q6H PRN PRN #10 tablet 09/13/17 Surgical History: cholecystectomy, - - x 2. 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 Smoking Status: Current every day smoker Alcohol: None Drugs: Marijuana - *Family History Maternal History Items: Asthma, Stroke Paternal History Items: No pertinent history Review of Systems Constitutional: Reports: Anorexia, Chills HEENT: Denies: Difficulty Swallowing Cardiovascular: Denies: Chest Pain Respiratory: Denies: Cough, Shortness of Breath Gastrointestinal: Reports: Abdominal Pain, Nausea, Vomiting Genitourinary: Denies: Dysuria Musculoskeletal: Denies: Joint Tenderness Skin: Denies: Dryness Neurological: Denies: Difficulty swallowing Psychiatric: Denies: Anxiety, Depression Hematologic/ Lymphatic: Denies: Anemia VTE Information - Inpt Only VTE Present on Admission: No VTE Mechan Device Prophylaxis: SCD's VTE Pharm Prophylaxis ordered?: No Patient Problems: Active and Suspected Problems Obstructive jaundice (Acute) Cholangitis due to bile duct calculus with obstruction (Acute) - Physical Exam General: Alert, Oriented x3, Cooperative HEENT: Atraumatic Oral: Dry Mucosa Lungs: Normal air movement Cardiovascular: Regular rate, Regular Rhythm Abdomen: Soft, Non-Distended, Tender - Tender in the epigastric and right upper quadrants. No guarding. Extremities: No clubbing Skin: No rashes Musculoskeletal: No Muscle Wasting Neurological: Cranial nerves II-XII grossly intact Psych/Mental Status: Normal Affect Vital Signs Temp Pulse Resp BP Pulse Ox 98.4 F 110 H 16 132/94 H 96 09/16/17 18:19 09/16/17 18:19 09/16/17 18:19 09/16/17 18:19 09/16/17 18:19 Oxygen Delivery Method Room Air Weight: 175 lb 12.943 oz Body Mass Index (BMI) 29.2 Laboratory Tests Past 24 Hrs 09/16/17 09/16/17 09/16/17 13:30 13:30 13:30 WBC 12.7 H RBC 5.27 Hgb 15.3 H Hct 43.8 MCV 83.1 MCH 29.0 MCHC 34.9 RDW 13.0 RDW Differential 38.9 Plt Count 426 MPV 10.0 Immature Gran % (Auto) 0.300 Neut % (Auto) 79.9 H Lymph % (Auto) 14.1 L [place] % (Auto) 5.5 Eos % (Auto) 0.0 Baso % (Auto) 0.2 Absolute Neuts (auto) 10.1 H Absolute Lymphs (auto) 1.79 Total Counted Not Reportable Sodium 136 Potassium 2.9 L Chloride 98 Carbon Dioxide 23.0 Anion Gap 15 BUN 9 Creatinine 0.82 Estim Creat Clear Calc 93.55 Est GFR (MDRD) Af Amer 108 Est GFR (MDRD) Non-Af 89 BUN/Creatinine Ratio 11.0 Glucose 100 Calcium 9.2 Total Bilirubin 1.20 H AST 41 H ALT 78 H Alkaline Phosphatase 70 Total Protein 8.2 Albumin 4.2 Globulin 4.0 Albumin/Globulin Ratio 1.0 Lipase 91 Serum , Qual NEGATIVE Urine Color Urine Clarity Urine pH Ur Specific [place] Urine Protein Urine Glucose (UA) Urine Ketones Urine Occult Blood Urine Nitrite Urine Bilirubin Urine Urobilinogen Ur Leukocyte Esterase Urine RBC Urine WBC Ur Squamous Epith Cells Urine Bacteria Urine Mucus 09/16/17 13:43 WBC RBC Hgb Hct MCV MCH MCHC RDW RDW Differential Plt Count MPV Immature Gran % (Auto) Neut % (Auto) Lymph % (Auto) [place] % (Auto) Eos % (Auto) Baso % (Auto) Absolute Neuts (auto) Absolute Lymphs (auto) Total Counted Sodium Potassium Chloride Carbon Dioxide Anion Gap BUN Creatinine Estim Creat Clear Calc Est GFR (MDRD) Af Amer Est GFR (MDRD) Non-Af BUN/Creatinine Ratio Glucose Calcium Total Bilirubin AST ALT Alkaline Phosphatase Total Protein Albumin Globulin Albumin/Globulin Ratio Lipase Serum , Qual Urine Color Yellow Urine Clarity Sl. Cloudy Urine pH 6.0 Ur Specific [place] 1.020 Urine Protein 30 H Urine Glucose (UA) Normal Urine Ketones 150 H Urine Occult Blood 250 H Urine Nitrite Negative Urine Bilirubin 1 H Urine Urobilinogen 4 H Ur Leukocyte Esterase 500 H Urine RBC 0 SEEN Urine WBC 5-10 SEEN Ur Squamous Epith Cells 10-25 SEEN Urine Bacteria 2+ Urine Mucus 3+ Clinical Impression(s) from Imaging Studies Abdomen/Pelvis CT 09/16/17 13:19 IMPRESSION: Since prior study there is been interval distention of the intra and extrahepatic ducts. There is a small focal echogenicity just at the sphincter of Panchito which potentially represent a small focus of sludge or stones. Recommend consideration for follow-up ultrasound potentially HIDA scan. Status post cholecystectomy. Electronically Signed: Tejal Carbajal MD at 16:22 EDT Tel , Service support , Assessment/Plan Active and Suspected Problems Obstructive jaundice (Acute) Cholangitis due to bile duct calculus with obstruction (Acute) 27-year-old female with obstructive jaundice possible CBD stone 1. The patient has developed dilated intra-and extrahepatic bile ducts on her CT scan. Her LFTs are elevated. She is also having right upper quadrant pain and subjective chills. She may have cholangitis and bile duct obstruction. 2. Plan is to admit her to the floor and give her IV hydration as well as IV antibiotics. I will recheck LFTs in the morning and if LFTs are still elevated and she still having pain I will take her for ERCP. 3. I explained ERCP in detail to the patient and her family. I explained the risks including but not limited to bleeding, infection, perforation of the bile duct or bowel, pancreatitis. I also explained the possibility of placing a stent if I encountered any purulent material or what I was unable to remove the stone. The patient and her family understand the risks and are willing to proceed. 4. Hypokalemia--will replace 5. N.p.o./IV fluids. Antibiotics. Anti-nausea medicine. SCDs. Mikal Vazquez MD Pager: [facility] [address] [place] [address], [address] [place] [address] Office:
--- NOTE | 2017-09-16 18:33 | HP.PCM_ITS ---
Problem List (1) Obstructive jaundice Status: Acute (2) Cholangitis due to bile duct calculus with obstruction Status: Acute History of Present Illness Date of Admission: 09/16/17 The patient is a 27 year old F who has been having 10 days of nausea and vomiting and right upper quadrant pain as well as fevers and chills. She was recently seen in several emergency rooms and had a CT scan done last week which was normal. She reports she was recently discharged home but she continues to have vomiting and pain and chills. Today she reported to the emergency room saying that she was unable to tolerate any food. She reports she is having right upper quadrant pain as well as epigastric pain. She also reports that she has been having darkening of urine and lightening of her stools. She had a cholecystectomy 5 years ago but does not remember where. Past Medical History Past Medical History (Chronic Problems): Chronic Problems Viable intrauterine (Chronic) Hx of cannabis abuse (Chronic) Allergies No Known Allergies Allergy (Verified 09/16/17 12:56) Home Medications: Ambulatory Orders Medication Instructions Recorded proMETHazine suppository 25 mg RECTAL Q4H PRN PRN #10 09/09/17 [Phenergan Suppository] suppos. Dicyclomine HCl [Bentyl] 20 mg PO ACHS 09/10/17 Ondansetron [Zofran Odt] 4 mg PO Q8H PRN PRN #10 tablet 09/13/17 proMETHazine tablet [Phenergan] 25 mg PO Q6H PRN PRN #10 tablet 09/13/17 Surgical History: cholecystectomy, - - x 2. 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 Smoking Status: Current every day smoker Alcohol: None Drugs: Marijuana - *Family History Maternal History Items: Asthma, Stroke Paternal History Items: No pertinent history Review of Systems Constitutional: Reports: Anorexia, Chills HEENT: Denies: Difficulty Swallowing Cardiovascular: Denies: Chest Pain Respiratory: Denies: Cough, Shortness of Breath Gastrointestinal: Reports: Abdominal Pain, Nausea, Vomiting Genitourinary: Denies: Dysuria Musculoskeletal: Denies: Joint Tenderness Skin: Denies: Dryness Neurological: Denies: Difficulty swallowing Psychiatric: Denies: Anxiety, Depression Hematologic/ Lymphatic: Denies: Anemia VTE Information - Inpt Only VTE Present on Admission: No VTE Mechan Device Prophylaxis: SCD's VTE Pharm Prophylaxis ordered?: No Patient Problems: Active and Suspected Problems Obstructive jaundice (Acute) Cholangitis due to bile duct calculus with obstruction (Acute) - Physical Exam General: Alert, Oriented x3, Cooperative HEENT: Atraumatic Oral: Dry Mucosa Lungs: Normal air movement Cardiovascular: Regular rate, Regular Rhythm Abdomen: Soft, Non-Distended, Tender - Tender in the epigastric and right upper quadrants. No guarding. Extremities: No clubbing Skin: No rashes Musculoskeletal: No Muscle Wasting Neurological: Cranial nerves II-XII grossly intact Psych/Mental Status: Normal Affect Vital Signs Temp Pulse Resp BP Pulse Ox 98.4 F 110 H 16 132/94 H 96 09/16/17 18:19 09/16/17 18:19 09/16/17 18:19 09/16/17 18:19 09/16/17 18:19 Oxygen Delivery Method Room Air Weight: 175 lb 12.943 oz Body Mass Index (BMI) 29.2 Laboratory Tests Past 24 Hrs 09/16/17 09/16/17 09/16/17 13:30 13:30 13:30 WBC 12.7 H RBC 5.27 Hgb 15.3 H Hct 43.8 MCV 83.1 MCH 29.0 MCHC 34.9 RDW 13.0 RDW Differential 38.9 Plt Count 426 MPV 10.0 Immature Gran % (Auto) 0.300 Neut % (Auto) 79.9 H Lymph % (Auto) 14.1 L [place] % (Auto) 5.5 Eos % (Auto) 0.0 Baso % (Auto) 0.2 Absolute Neuts (auto) 10.1 H Absolute Lymphs (auto) 1.79 Total Counted Not Reportable Sodium 136 Potassium 2.9 L Chloride 98 Carbon Dioxide 23.0 Anion Gap 15 BUN 9 Creatinine 0.82 Estim Creat Clear Calc 93.55 Est GFR (MDRD) Af Amer 108 Est GFR (MDRD) Non-Af 89 BUN/Creatinine Ratio 11.0 Glucose 100 Calcium 9.2 Total Bilirubin 1.20 H AST 41 H ALT 78 H Alkaline Phosphatase 70 Total Protein 8.2 Albumin 4.2 Globulin 4.0 Albumin/Globulin Ratio 1.0 Lipase 91 Serum , Qual NEGATIVE Urine Color Urine Clarity Urine pH Ur Specific [place] Urine Protein Urine Glucose (UA) Urine Ketones Urine Occult Blood Urine Nitrite Urine Bilirubin Urine Urobilinogen Ur Leukocyte Esterase Urine RBC Urine WBC Ur Squamous Epith Cells Urine Bacteria Urine Mucus 09/16/17 13:43 WBC RBC Hgb Hct MCV MCH MCHC RDW RDW Differential Plt Count MPV Immature Gran % (Auto) Neut % (Auto) Lymph % (Auto) [place] % (Auto) Eos % (Auto) Baso % (Auto) Absolute Neuts (auto) Absolute Lymphs (auto) Total Counted Sodium Potassium Chloride Carbon Dioxide Anion Gap BUN Creatinine Estim Creat Clear Calc Est GFR (MDRD) Af Amer Est GFR (MDRD) Non-Af BUN/Creatinine Ratio Glucose Calcium Total Bilirubin AST ALT Alkaline Phosphatase Total Protein Albumin Globulin Albumin/Globulin Ratio Lipase Serum , Qual Urine Color Yellow Urine Clarity Sl. Cloudy Urine pH 6.0 Ur Specific [place] 1.020 Urine Protein 30 H Urine Glucose (UA) Normal Urine Ketones 150 H Urine Occult Blood 250 H Urine Nitrite Negative Urine Bilirubin 1 H Urine Urobilinogen 4 H Ur Leukocyte Esterase 500 H Urine RBC 0 SEEN Urine WBC 5-10 SEEN Ur Squamous Epith Cells 10-25 SEEN Urine Bacteria 2+ Urine Mucus 3+ Clinical Impression(s) from Imaging Studies Abdomen/Pelvis CT 09/16/17 13:19 IMPRESSION: Since prior study there is been interval distention of the intra and extrahepatic ducts. There is a small focal echogenicity just at the sphincter of Panchito which potentially represent a small focus of sludge or stones. Recommend consideration for follow-up ultrasound potentially HIDA scan. Status post cholecystectomy. Electronically Signed: Tejal Carbajal MD at 16:22 EDT Tel , Service support , Assessment/Plan Active and Suspected Problems Obstructive jaundice (Acute) Cholangitis due to bile duct calculus with obstruction (Acute) 27-year-old female with obstructive jaundice possible CBD stone 1. The patient has developed dilated intra-and extrahepatic bile ducts on her CT scan. Her LFTs are elevated. She is also having right upper quadrant pain and subjective chills. She may have cholangitis and bile duct obstruction. 2. Plan is to admit her to the floor and give her IV hydration as well as IV antibiotics. I will recheck LFTs in the morning and if LFTs are still elevated and she still having pain I will take her for ERCP. 3. I explained ERCP in detail to the patient and her family. I explained the risks including but not limited to bleeding, infection, perforation of the bile duct or bowel, pancreatitis. I also explained the possibility of placing a stent if I encountered any purulent material or what I was unable to remove the stone. The patient and her family understand the risks and are willing to proceed. 4. Hypokalemia--will replace 5. N.p.o./IV fluids. Antibiotics. Anti-nausea medicine. SCDs. Mikal Vazquez MD Pager: [facility] [address] [place] [address], [address] [place] [address] Office:
[2017-09-16] MEDS: 0.9% Normal Saline 1,000 ML 999 ML IV (19:47)
[2017-09-16 19:50] VITALS: BMI 26.7; BMI 26.8
[2017-09-16 20:06] VITALS: BP 136/89; PULSE 79; RESP 16; TEMP 36.9; O2SAT 95
[2017-09-16] MEDS: Dextrose 5%-Lactated Ringers 1,000 ML 125 ML IV (20:27)
[2017-09-16] MEDS: HYDROmorphone 0.5 MG/0.5 ML SYRINGE IV ×2 (21:33→23:34)
[2017-09-16] MEDS: 0.9% NaCl Peripheral Flush Adult/Peds IV ×2 (21:33→23:34)
[2017-09-16] MEDS: DiphenhydrAMINE 25 MG Capsule PO (23:08)
[2017-09-17] VITALS (12 sets, daily range): BP systolic 117–151; BP diastolic 78–98; PULSE 60–108; RESP 16–18; TEMP 36.6–37.7; O2SAT 91–99; BMI 26.7
[2017-09-17 02:19] LABS: Absolute Lymphocyte Count 3.42 X10^3/ul (0.83-4.51); Basophil# 0.02 X10^3/uL; Basophil% 0.2 % (0-1); Eosinophil# 0.08 X10^3/uL; Hematocrit 36.6 % (37-47); Hemoglobin 12.8 g/dl (12.0-15.0); Lymphocyte # 3.42 X10^3/ul (4.0); Lymphocyte % 41.9 % (19-41); Mean Corpuscular Hgb 29.6 pg (27.0-32.0); Mean Corpuscular Volume 84.7 fL (81-99); Mean Platelet Vol. 9.7 fl (6.2-12.0); Monocyte# 0.69 X10^3/uL; Monocyte% 8.4 % (0-10); Neutrophil # 3.95 X10^3/uL (2.7-7.7); Neutrophil % 48.4 % (47-70); Platelet Count 343 K/mm3 (150-450); RBC Distribution Width CV 12.8 % (11.6-14.6); RBC Distribution Width SD 38.8 fl (35.1-43.9); Red Blood Count 4.32 M/mm3 (4.2-5.4); White Blood Count 8.2 K/mm3 (4.4-11.0)
[2017-09-17 02:20] LABS: POSITIVE COUNT NO; POSITIVE DIFFERENTIAL NO; POSITIVE MORPHOLOGY NO
[2017-09-17 02:35] LABS: ALB/GLOB Ratio 1.1 RATIO (0.9-2.4); AST(SGOT) 23 U/L (15-37); Alanine Aminotransfer ALT/SGPT 55 U/L (13-56); Albumin, Serum 3.3 g/dL (3.2-5.0); Alkaline Phosphatase 52 U/L (45-117); Anion Gap 7 (5-15); BUN 5 mg/dL (7-18); BUN/Creat Ratio 9.1 RATIO (10-20); Calcium,Total 7.9 mg/dL (8.5-10.1); Chloride 104 mmol/L (98-107); Creatinine, Serum 0.55 mg/dL (0.55-1.02); EST Glomerular Filtration Rate 142 mL/min (>60); Est Glom Filt Rate - Afr Amer 172 mL/min (>60); Estimated Creatinine Clearance 139.48 ml/min; Globulin 2.9 g/dL (2.2-4.2); Glucose 102 mg/dL (74-106); Magnesium 1.8 mg/dL (1.6-2.6); Phosphorus 2.6 mg/dL (2.5-4.9); Potassium 3.1 mmol/L (3.5-5.1); Protein, Total 6.2 g/dL (6.4-8.2); Sodium Level 137 mmol/L (136-145)
[2017-09-17] MEDS: 0.9% NaCl Peripheral Flush Adult/Peds IV ×9 (04:42→22:20)
[2017-09-17] MEDS: Dextrose 5%-Lactated Ringers 1,000 ML 125 ML IV ×2 (04:42→14:38)
[2017-09-17] MEDS: HYDROmorphone 0.5 MG/0.5 ML SYRINGE IV ×7 (04:43→22:20)
[2017-09-17] MEDS: Piperacil/Tazobactam 3.375 GM/50 ML ML IV ×3 (06:33→22:23)
[2017-09-17] MEDS: Ondansetron 4 MG/2 ML Vial IV ×2 (07:20→18:59)
--- NOTE | 2017-09-17 08:54 | NURSING ---
Report called to Blanquita SNEED.
--- NOTE | 2017-09-17 08:57 | PN.SURG_ITS ---
Patient Problems: Active and Suspected Problems Obstructive jaundice (Acute) Cholangitis due to bile duct calculus with obstruction (Acute) Subjective: Patient reports she is still having epigastric pain. No vomiting overnight. - Physical Exam General: Alert, Oriented x3, Cooperative HEENT: Atraumatic Lungs: Normal air movement Cardiovascular: Regular rate, Regular Rhythm Abdomen: Soft, Non-Distended, Tender - Epigastric tenderness Psych/Mental Status: Normal Affect Vital Signs Temp Pulse Resp BP Pulse Ox 97.9 F 60 18 117/78 99 09/17/17 08:29 09/17/17 08:29 09/17/17 08:29 09/17/17 08:29 09/17/17 08:29 Oxygen Delivery Method Room Air Weight: 160 lb 14.999 oz Body Mass Index (BMI) 26.7 Intake and Output for Last 24 Hours 09/15/17 09/16/17 09/17/17 23:59 23:59 23:59 Intake Total 2801 / 2801 Balance 2801 / 2801 Laboratory Tests Past 24 Hrs 09/17/17 09/17/17 09/17/17 02:00 02:00 02:00 WBC 8.2 RBC 4.32 Hgb 12.8 Hct 36.6 L MCV 84.7 MCH 29.6 MCHC 35.0 RDW 12.8 RDW Differential 38.8 Plt Count 343 MPV 9.7 Immature Gran % (Auto) 0.100 Neut % (Auto) 48.4 Lymph % (Auto) 41.9 H [place] % (Auto) 8.4 Eos % (Auto) 1.0 Baso % (Auto) 0.2 Absolute Neuts (auto) 4.0 Absolute Lymphs (auto) 3.42 Total Counted Not Reportable Sodium Cancelled 137 Potassium Cancelled 3.1 L Chloride Cancelled 104 Carbon Dioxide Cancelled 26.0 Anion Gap Cancelled 7 BUN Cancelled 5 L Creatinine Cancelled 0.55 Estim Creat Clear Calc Cancelled 139.48 Est GFR (MDRD) Af Amer Cancelled 172 Est GFR (MDRD) Non-Af Cancelled 142 BUN/Creatinine Ratio Cancelled 9.1 L Glucose Cancelled 102 Calcium Cancelled 7.9 L Phosphorus Cancelled 2.6 Magnesium Cancelled 1.8 Total Bilirubin Cancelled 0.90 AST Cancelled 23 ALT Cancelled 55 Alkaline Phosphatase Cancelled 52 Total Protein Cancelled 6.2 L Albumin Cancelled 3.3 Globulin Cancelled 2.9 Albumin/Globulin Ratio Cancelled 1.1 Clinical Impression(s) from Imaging Studies Abdomen/Pelvis CT 09/16/17 13:19 IMPRESSION: Since prior study there is been interval distention of the intra and extrahepatic ducts. There is a small focal echogenicity just at the sphincter of Panchito which potentially represent a small focus of sludge or stones. Recommend consideration for follow-up ultrasound potentially HIDA scan. Status post cholecystectomy. Electronically Signed: Tejal Carbajal MD at 16:22 EDT Tel , Service support , Medical Necessity - Tobacco Use Smoking Status: Never smoker Assessment/Plan Active and Suspected Problems Obstructive jaundice (Acute) Cholangitis due to bile duct calculus with obstruction (Acute) 27-year-old female with possible choledocholithiasis 1. The patient's CT scan yesterday showed dilated intra-and extrahepatic bile ducts. It also showed a possible stone in the common bile duct. Today her LFTs have decreased slightly but she is still having epigastric pain. I would still proceed with ERCP as the stone may have just moved out of the way to allow the LFTs decreased with the patient still having pain. 2. Plan for ERCP this morning. Mikal Vazquez MD Pager: [facility] [address] [place] [address], [address] [place] [address] Office:
--- NOTE | 2017-09-17 10:30 | RAD_ITS ---
STUDY: ERCP. REASON FOR EXAM: Female, 27 years old. Possible common bile duct stones. FLUOROSCOPY TIME (if supplied): (7:27) minutes/seconds TECHNIQUE: An ERCP was performed by the surgeon. Imaging was provided. COMPARISON: None. FINDINGS: The patient is status post cholecystectomy. The common bile duct is not dilated. No intraluminal filling defect is seen. A balloon catheter is seen sweeping the common bile duct. RAD/ERCP Biliary Only IMPRESSION: Unremarkable examination. Electronically Signed: Addi Nails MD at 14:47 EDT Tel [phone], Service support ,
--- NOTE | 2017-09-17 11:58 | PCA ---
pt off floor
--- NOTE | 2017-09-17 12:38 | PCM.OPRPT ---
Problem List (1) Obstructive jaundice Status: Acute (2) Cholangitis due to bile duct calculus with obstruction Status: Acute Report of Operation Date of Procedure: 09/17/17 Pre-Operative Diagnosis: Elevated LFTs and common bile duct dilation Post-Operative Diagnosis: Common bile duct dilation Surgery/Procedure Performed:: ERCP with sphincterotomy Description of Procedure: After describing the risks of the procedure as well as the procedure in detail informed consent was obtained. Patient was brought to the operating room and general anesthesia was induced. The patient was then placed in a semi-prone position. Next, the side-viewing endoscope was placed into the mouth and down into the stomach and advanced into the duodenum. The ampulla was located. A sphinctertome was used to cannulate the common bile duct and location was confirmed on fluoroscopy. The common bile duct was difficult to cannulate. There was a very tight area in the ampulla. The guidewire was placed in the common bile duct and using sphincterotome and electrocautery a sphincterotomy was performed. There was good bile drainage of the common bile duct. The bile appeared clear and there was no purulence. I was unsure if there was a stone as after the sphincterotomy many bubbles went up into the common bile duct. Next the sphincterotome was removed leaving the guidewire in the common bile duct. A balloon was then introduced over the guidewire and the common bile duct and several sweeps were performed. There did not appear to be any filling defects while the sweeps were being performed. No obvious stone was removed from the common bile duct. The balloon was removed and a trapezoid basket was placed in the common bile duct. This was brought out of the bile duct and no stones were caught in it. Next the guidewire was removed. The side-viewing scope was then withdrawn back into the stomach and the stomach was suctioned. Next, the scope was removed. The patient was taken to PACU in stable condition. The patient tolerated the procedure well. - Admit VTE Documentation VTE Mechan Device Prophylaxis: SCD's
[2017-09-17] MEDS: Phenol/Sodium Phenolate 180ML 3 SPRAY MM ×2 (16:59→18:58)
--- NOTE | 2017-09-17 20:15 | NURSING ---
Pt called out, passed some blood vaginally, Valerie, CABINET BUILDER saw a tampax in toilet with blood on it. Pt denied being on her menses. Stated she was on her menses a week ago, but still had a tampax in. About 30 minutes later pt vomited brown emesis (not coffee grounds substance), per Valerie, approx. 120cc.
--- NOTE | 2017-09-17 23:53 | NURSING ---
Pt up to bathroom and then vomited water brown of about 200cc.
[2017-09-18] MEDS: Dextrose 5%-Lactated Ringers 1,000 ML 125 ML IV (00:01)
[2017-09-18] MEDS: Ondansetron 4 MG/2 ML Vial IV ×3 (01:14→15:53)
[2017-09-18 03:15] VITALS: BP 118/72; PULSE 71; RESP 16; TEMP 37; O2SAT 96
[2017-09-18] MEDS: Piperacil/Tazobactam 3.375 GM/50 ML ML IV (05:56)
[2017-09-18 08:13] VITALS: BP 134/77; PULSE 85; RESP 18; TEMP 37.1; O2SAT 100
[2017-09-18] MEDS: HYDROmorphone 0.5 MG/0.5 ML SYRINGE IV ×2 (08:20→11:03)
[2017-09-18] MEDS: Dextrose 5%-Lactated Ringers 1,000 ML 60 ML IV (08:21)
--- NOTE | 2017-09-18 13:27 | PCM.DC ---
- Discharge Diagnoses Current Active Problems: Current Active and Chronic Problems Obstructive jaundice (Acute) Cholangitis due to bile duct calculus with obstruction (Acute) You will use the following diet at home:: No restrictions Your food should be the consistency of: Regular Discharge Activity: Return to Normal Activity, No Restrictions Call your doctor if you observe: Fever of 101 or Higher, Uncontrolled pain Allergies/Adverse Reactions: Allergies No Known Allergies Allergy (Verified 09/16/17 12:56) Medications to take at Discharge proMETHazine suppository [Phenergan Suppository] 25 mg RECTAL Q4H PRN PRN #10 suppos. 09/09/17 Dicyclomine HCl [Bentyl] 20 mg PO ACHS 09/10/17 Ondansetron [Zofran Odt] 4 mg PO Q8H PRN PRN #10 tablet 09/13/17 proMETHazine tablet [Phenergan tablet] 25 mg PO Q6H PRN PRN #10 tablet 09/13/17 Primary Care Physician: Benedict Sharp DO [Primary Care Provider] -
--- NOTE | 2017-09-18 13:28 | PCM.DC.SUM ---
Discharge Date and Diagnosis Date of Admission: 09/16/17 Date of Discharge: 09/18/17 - Primary Discharge Diagnosis Active and Suspected Problems Obstructive jaundice (Acute) Cholangitis due to bile duct calculus with obstruction (Acute) - Secondary Discharge Diagnosis Chronic Problems Viable intrauterine (Chronic) Hx of cannabis abuse (Chronic) Hospital Course and Treatment Imaging Results: Clinical Impression(s) from Imaging Studies Abdomen/Pelvis CT 09/16/17 13:19 IMPRESSION: Since prior study there is been interval distention of the intra and extrahepatic ducts. There is a small focal echogenicity just at the sphincter of Panchito which potentially represent a small focus of sludge or stones. Recommend consideration for follow-up ultrasound potentially HIDA scan. Status post cholecystectomy. Electronically Signed: Tejal Carbajal MD at 16:22 EDT Tel , Service support , ERCP X-Ray 09/17/17 10:30 IMPRESSION: Unremarkable examination. Electronically Signed: Addi Nails MD at 14:47 EDT Tel [phone], Service support , Operations: ERCP Procedures: None Summary of Care Provided: The patient is a 27 year old F presented to the emergency department with abdominal pain. CT revealed dilated common bile duct. There was a concern for a stone on the CT scan. She was admitted and the following morning she was taken for ERCP with sphincterotomy. She was admitted to the floor postoperatively but was still having abdominal pain and nausea. Following day her abdominal pain was much improved and she was tolerating a diet and discharged home in stable condition. Discharge Activity: Return to Normal Activity, No Restrictions Call your doctor if you observe: Fever of 101 or Higher, Uncontrolled pain Home Medications: Medications to take at Discharge proMETHazine suppository [Phenergan Suppository] 25 mg RECTAL Q4H PRN PRN #10 suppos. 09/09/17 Dicyclomine HCl [Bentyl] 20 mg PO ACHS 09/10/17 Ondansetron [Zofran Odt] 4 mg PO Q8H PRN PRN #10 tablet 09/13/17 proMETHazine tablet [Phenergan tablet] 25 mg PO Q6H PRN PRN #10 tablet 09/13/17 Primary Care Physician: Benedict Sharp DO [Primary Care Provider] - Medical Necessity - Tobacco Use Smoking Status: Never smoker Meaningful Use Info Meaningful Use Diagnoses (Choose all that apply): None applicable
[2017-09-18 13:53] VITALS: BP 139/90; PULSE 88; RESP 18; TEMP 36.9; O2SAT 98
[2017-09-18] MEDS: 0.9% NaCl Peripheral Flush Adult/Peds IV (15:53)
== END 2017-09-18 16:20 | disposition home or self-care (01) ==
LOC: ED 18:53 → MS3 19:08
PROVIDERS: Admitting Provider Surgery; Emergency Provider Emergency Medicine; Family Provider Preventive Medicine Occupational Medicine; PCP Preventive Medicine Occupational Medicine; Visit Provider Surgery
PROC: (CPT 43260; principal; 2017-09-17 10:00)
DX: K80.33 Calculus of bile duct with acute cholangitis with obstruction (principal); F17.200 Nicotine dependence, unspecified, uncomplicated; E87.6 Hypokalemia; K58.9 Irritable bowel syndrome, unspecified; Z79.899 Other long term (current) drug therapy
CPT/HCPCS: 43262; 36415; 74177; 74328; 76000; 80053; 81001; 83690; 83735; 84100; 84703; 85025; 93005; 96361; 96365; 96366; 96367; 96375; 96376; 99218; 99282; J7030; Q9967; A4216; G0378; J2405

== ENCOUNTER 2017-12-06 13:30 | Emergency (ER) | payer MEDICAID, SELFPAY ==
[2017-12-06 13:31] VITALS: BP 154/93; PULSE 115; RESP 18; TEMP 36.6; O2SAT 97; BMI 28.1
[2017-12-06 14:11] VITALS: BP 145/113; PULSE 72; RESP 15; O2SAT 100
[2017-12-06 14:33] LABS: Absolute Lymphocyte Count 1.33 X10^3/ul (0.83-4.51); Absolute Neutrophil Count 10.1 X10^3/uL (2.0-7.7); Basophil# 0.04 X10^3/uL; Basophil% 0.3 % (0-1); Eosinophil# 0.01 X10^3/uL; Eosinophils% 0.1 % (0-5); Hematocrit 43.9 % (37-47); Hemoglobin 15.3 g/dl (12.0-15.0); Lymphocyte # 1.33 X10^3/ul (4.0); Lymphocyte % 11.1 % (19-41); Mean Corp Hgb Conc 34.9 g/gl (32-36); Mean Corpuscular Hgb 29.5 pg (27.0-32.0); Mean Corpuscular Volume 84.7 fL (81-99); Mean Platelet Vol. 9.5 fl (6.2-12.0); Monocyte# 0.41 X10^3/uL; Monocyte% 3.4 % (0-10); Neutrophil # 10.14 X10^3/uL (2.7-7.7); Neutrophil % 84.9 % (47-70); POSITIVE COUNT NO; POSITIVE DIFFERENTIAL NO; POSITIVE MORPHOLOGY NO; Platelet Count 425 K/mm3 (150-450); RBC Distribution Width CV 12.9 % (11.6-14.6); RBC Distribution Width SD 40.2 fl (35.1-43.9); Red Blood Count 5.18 M/mm3 (4.2-5.4)
[2017-12-06] MEDS: Haloperidol Lactate 5 MG/ML Vial IV ×2 (14:34→16:12)
[2017-12-06] MEDS: 0.9% Normal Saline 1,000 ML 1000 ML IV (14:34)
[2017-12-06] MEDS: Ondansetron 4 MG/2 ML Vial IV (14:35)
[2017-12-06] MEDS: LORazepam 2 MG/ML Syringe 1 MG IV (14:35)
[2017-12-06 14:49] LABS: ALB/GLOB Ratio 0.9 RATIO (0.9-2.4); AST(SGOT) 16 U/L (15-37); Alanine Aminotransfer ALT/SGPT 14 U/L (13-56); Albumin, Serum 4.1 g/dL (3.2-5.0); Alkaline Phosphatase 83 U/L (45-117); Anion Gap 8 (5-15); BUN 10 mg/dL (7-18); BUN/Creat Ratio 11.6 RATIO (10-20); Calcium,Total 9.1 mg/dL (8.5-10.1); Chloride 104 mmol/L (98-107); Creatinine, Serum 0.86 mg/dL (0.55-1.02); EST Glomerular Filtration Rate 84 mL/min (>60); Est Glom Filt Rate - Afr Amer 102 mL/min (>60); Globulin 4.6 g/dL (2.2-4.2); Glucose 112 mg/dL (74-106); Lipase 70 U/L (73-393); Potassium 3.4 mmol/L (3.5-5.1); Protein, Total 8.7 g/dL (6.4-8.2); Sodium Level 139 mmol/L (136-145)
[2017-12-06 15:09] LABS: Pregnancy, Serum, hCG Quali. NEGATIVE Negative (0-9 Nonpreg)
--- NOTE | 2017-12-06 15:41 | ED.DCSUM_ITS ---
- ER Visit Summary Date of Service: 12/06/17 Chief Complaint: Persistent vomiting History of Present Illness: The patient is a 27 F who states that beginning last night she began to have vomiting. It is more severe today. She did smoke some marijuana today. She states that cyclic vomiting syndrome has been mentioned to her in the past. She has had ERCP. She has had cholecystectomy. She is seeing Dr. Vazquez. No fever or diarrhea. Patient states that she is only bringing up bile at this time. Physical Examination: Afebrile vital signs are stable Gen: Well-nourished well-developed patient is actively retching Head: Normocephalic atraumatic Eyes: Perrl EOMI ENT: TMs clear no rhinorrhea moist mucous membranes Neck: Supple no lymphadenopathy no JVD nontender CVS: Regular rate and tachycardic rhythm no murmurs normal S1-S2 Respiratory: No distress clear to auscultation bilaterally chest nontender Abdomen: Soft nondistended normal bowel sounds no masses Back: Nontender Extremity: Nontender no edema Skin: Normal color no rash Neuro: alert orientated ?3 CN II-XII intact normal strength sensation reflexes gait cerebellar Psych: Normal affect normal mood Test Results: White count slightly elevated at 12. CMP lipase negative. HCG is negative Emergency Department Course and Treatment: I believe this most likely cyclic vomiting syndrome. I gave the patient Haldol Ativan Zofran and fluids. Impression: 1. Cyclic vomiting syndrome This note was generated with [email or web address] dictation software. It may contain incorrect words, spelling, and punctuation that were not noted in review of the chart prior to signing <AntonioShahriar - Last Filed: 12/06/17 15:37> - ER Visit Summary Patient was turned over to me to check CT scan and reevaluate her. CT scan reveals pancolitis/gastritis. Findings could be seen in Crohn's disease. She denies a history of Crohn's disease but she does follow with a surgeon. On reexamination, her abdomen is soft and nontender. She is feeling completely back to normal. She is tolerating p.o. No evidence of an acute surgical abdomen. I talked at length with her regarding the importance of close follow- up with a surgeon. Because of her CT findings, I do think it is reasonable to treat her with Cipro and Flagyl and have her follow closely with her surgeon. She will return to the emergency department if she is any worse. In terms of her vomiting, she does have a history of one abuse and what sounds like hyperemesis based on the history she reports. This certainly could be related to cannabis use and I discussed this with her. She looks well and I do feel she can safely be discharged home at this point but I strongly encouraged her to return if worse. #1-nausea vomiting #2-pancolitis This note was generated with [employer] dictation software. It may contain incorrect words, spelling, and punctuation that were not noted in review of the chart prior to signing <Jagdish Degroot - Last Filed: 12/06/17 19:09> ED Disposition <Shahriar Alvarez - Last Filed: 12/06/17 15:37> <Jagdish Degroot - Last Filed: 12/06/17 19:09> - Plan for ED Patient: Disposition: Home or Assisted Living Chief Complaint: Nausea/Vomiting Instructions: When Your Child Has Cyclic Vomiting Syndrome ([facility]), ED Marijuana Abuse Prescriptions: Ondansetron [Zofran Odt] 4 mg PO Q8H PRN PRN #10 tab PRN Reason: Nausea Ondansetron [Zofran Odt] 4 mg PO Q8H PRN PRN #10 tablet PRN Reason: Nausea Metronidazole [Flagyl] 500 mg PO Q8H #21 tablet Ciprofloxacin [Cipro] 500 mg PO BID #14 tablet Referrals: Mikal Vazquez MD [STAFF PHYSICIAN] -
[2017-12-06] MEDS: Morphine 4 MG/ML Syringe IV (16:13)
[2017-12-06] MEDS: Ketorolac 30 MG/ML Syringe IV (16:15)
[2017-12-06] MEDS: proMETHazine 25 MG/ML Syringe 12.5 MG IV (16:16)
[2017-12-06 18:28] VITALS: PULSE 89; RESP 18; O2SAT 98
--- NOTE | 2017-12-06 19:10 | ED.VISSUMM ---
- ER Visit Summary Date of Service: 12/06/17 Chief Complaint: [] History of Present Illness: The patient is a 27 F [] Physical Examination: [] Test Results: [] Emergency Department Course and Treatment: [] Treatment Plan: [] Disposition: [] Impression: [] This note was generated with [employer] dictation software. It may contain incorrect words, spelling, and punctuation that were not noted in review of the chart prior to signing ED Disposition - Plan for ED Patient: Disposition: Home or Assisted Living Chief Complaint: Nausea/Vomiting Instructions: When Your Child Has Cyclic Vomiting Syndrome ([facility]), ED Marijuana Abuse Prescriptions: Ondansetron [Zofran Odt] 4 mg PO Q8H PRN PRN #10 tab PRN Reason: Nausea Ondansetron [Zofran Odt] 4 mg PO Q8H PRN PRN #10 tablet PRN Reason: Nausea Metronidazole [Flagyl] 500 mg PO Q8H #21 tablet Ciprofloxacin [Cipro] 500 mg PO BID #14 tablet Referrals: Mikal Vazquez MD [STAFF PHYSICIAN] -
[2017-12-06 19:29] VITALS: PULSE 102; RESP 18
== END 2017-12-06 19:30 | disposition home or self-care (01) ==
PROVIDERS: Emergency Provider Emergency Medicine; Family Provider Preventive Medicine Occupational Medicine; PCP Preventive Medicine Occupational Medicine
DX: G43.A0 Cyclical vomiting, in migraine, not intractable (principal); K51.00 Ulcerative (chronic) pancolitis without complications; Z90.49 Acquired absence of other specified parts of digestive tract
CPT/HCPCS: 74177; 80053; 83690; 84703; 85025; 99283; J7030; Q9967; A4216; J2405

== ENCOUNTER 2017-12-07 16:31 | Inpatient (IN) | payer MEDICAID, SELFPAY ==
[2017-12-07 16:32] VITALS: BP 145/80; PULSE 111; RESP 22; TEMP 36.6; BMI 28.2
[2017-12-07] MEDS: Metoclopramide 10 MG/2 ML Vial IV (17:53)
[2017-12-07] MEDS: 0.9% Normal Saline 1,000 ML 1000 ML IV (17:53)
[2017-12-07 17:54] LABS: Absolute Lymphocyte Count 1.83 X10^3/ul (0.83-4.51); Absolute Neutrophil Count 7.8 X10^3/uL (2.0-7.7); Basophil# 0.05 X10^3/uL; Basophil% 0.5 % (0-1); Hematocrit 41.3 % (37-47); Hemoglobin 14.2 g/dl (12.0-15.0); Lymphocyte # 1.83 X10^3/ul (4.0); Lymphocyte % 17.7 % (19-41); Mean Corp Hgb Conc 34.4 g/gl (32-36); Mean Corpuscular Hgb 29.3 pg (27.0-32.0); Mean Corpuscular Volume 85.2 fL (81-99); Mean Platelet Vol. 9.4 fl (6.2-12.0); Monocyte# 0.68 X10^3/uL; Monocyte% 6.6 % (0-10); Neutrophil # 7.75 X10^3/uL (2.7-7.7); Neutrophil % 75.1 % (47-70); Platelet Count 389 K/mm3 (150-450); RBC Distribution Width CV 12.9 % (11.6-14.6); RBC Distribution Width SD 39.8 fl (35.1-43.9); Red Blood Count 4.85 M/mm3 (4.2-5.4); White Blood Count 10.3 K/mm3 (4.4-11.0)
[2017-12-07 18:00] LABS: POSITIVE COUNT NO; POSITIVE DIFFERENTIAL NO; POSITIVE MORPHOLOGY NO
[2017-12-07 18:03] LABS: Anion Gap 8 (5-15); BUN 9 mg/dL (7-18); BUN/Creat Ratio 11.5 RATIO (10-20); Calcium,Total 8.6 mg/dL (8.5-10.1); Chloride 105 mmol/L (98-107); Creatinine, Serum 0.78 mg/dL (0.55-1.02); EST Glomerular Filtration Rate 94 mL/min (>60); Est Glom Filt Rate - Afr Amer 114 mL/min (>60); Estimated Creatinine Clearance 98.35 ml/min; Glucose 103 mg/dL (74-106); Potassium 3.1 mmol/L (3.5-5.1); Sodium Level 140 mmol/L (136-145)
[2017-12-07] MEDS: Ondansetron 4 MG/2 ML Vial IV (18:50)
[2017-12-07] MEDS: LORazepam 2 MG/ML Syringe 0.5 MG IV (18:50)
[2017-12-07 18:56] VITALS: BP 133/86; PULSE 64; RESP 22; O2SAT 98
[2017-12-07] MEDS: Ciprofloxacin 400 MG/200 ML BAG 200 MG IV (19:02)
--- NOTE | 2017-12-07 19:04 | ED.VISSUMM ---
- ER Visit Summary Date of Service: 12/07/17 Chief Complaint: Patient was seen yesterday returns because of nausea vomiting abdominal pain History of Present Illness: The patient is a 27 F who presents because of persistent nausea and vomiting abdominal pain. She was seen yesterday. Records were reviewed and CT of the abdomen pelvis reveals pancolitis and findings suggestive of Crohn's disease. She has no history of inflammatory bowel disorder. There is no family history of inflammatory bowel disorder. She lives with her 1 and 5-year-old. Parents are helping her since she is single mom. She denies fever, chills night sweats. She denies any ocular, visual auditory symptoms. She denies any cardiac or respiratory symptoms. He does report decreased urine output. She denies dysuria, urgency or hematuria. She denies history of renal or ureteral calculi. There is no history of trauma. Please read written note for complete detail Physical Examination: Patient appears anxious. She is actively vomiting. Vital signs are marked for an elevated blood pressure 145/80. Heart rate is 111. Respiratory is 22. HEENT exam is remarkable dry mucosa. Sclerae anicteric. Conjunctive is not injected. Heart is rapid and regular without murmur, gallop or rub. Lungs are clear to auscultation. Abdomen minimal tenderness epigastric and right lower quadrant greater than left lower quadrant. There is no CVA tenderness noted. There is no skin lesions noted. Neuro exam is nonfocal. Please read written note for complete detail Test Results: White count is unremarkable. Electro panel reveals slight decrease potassium 3.1. Imaging was not repeated. Emergency Department Course and Treatment: Patient initially was treated with Reglan 10 mg. Since she had continued vomiting cyclic vomiting order set was initiated. After reading yesterday's report and specifically CAT scan results. Patient was treated with 400 mg of ciprofloxacin 500 mg of metronidazole. Treatment Plan: IV hydration, antibiotics and anti-emetics Disposition: Medical surgical unit Impression: 1. Pancolitis evaluate for new diagnosis Crohn's disease 2. Intractable vomiting 3. Hypokalemia 4. Dehydration This note was generated with [employer] dictation software. It may contain incorrect words, spelling, and punctuation that were not noted in review of the chart prior to signing ED Disposition - Plan for ED Patient: Chief Complaint: Nausea/Vomiting Referrals: Beneidct Sharp DO [Primary Care Provider] -
[2017-12-07] MEDS: Morphine 4 MG/ML Syringe IV (19:21)
[2017-12-07 20:16] VITALS: BMI 28.3
[2017-12-07 20:17] VITALS: BMI 28.3
[2017-12-07 20:40] VITALS: BP 108/61; PULSE 111; RESP 18; TEMP 37.3; O2SAT 92
[2017-12-07] MEDS: 0.9% Normal Saline 1,000 ML 150 ML IV (21:01)
[2017-12-07 21:08] LABS: Lipase 72 U/L (73-393)
--- NOTE | 2017-12-07 21:09 | PCM.HP.STD ---
Problem List (1) Pancolitis Status: Acute (2) Abdominal pain Status: Acute (3) Cholangitis due to bile duct calculus with obstruction Status: Acute (4) Diarrhea Status: Acute Qualifiers: Diarrhea type: presumed infectious Qualified Code(s): R19.7 - Diarrhea, unspecified (5) Gastroenteritis Status: Acute (6) Intractable nausea and vomiting Status: Acute (7) Nausea and vomiting Status: Acute Qualifiers: Vomiting type: unspecified Vomiting Intractability: non-intractable Qualified Code(s): R11.2 - Nausea with vomiting, unspecified (8) Obstructive jaundice Status: Acute History of Present Illness Date of Admission: 12/07/17 Chief Complaint: Pancolitis The patient is a 27 year old female w/ h/o marijuana abuse, obstructive jaundice, and hypokalemia admitted for pancolitis. She lives with her son and boyfriend. She developed sudden onset lower abdominal pain yesterday. Pain is cramping and occasional dull aching. Pain is severe. Nothing made pain better or worse. Pain is constant. Pain is not associated food. She also has been n/v. N/v is persistent and severe. She is not able to tolerate any PO intake. She want to the ED yesterday and workup disclosed pancolitis. She came back to the ED given that there is no improvement of her symptoms. Past Medical History Past Medical History (Chronic Problems): Chronic Problems Viable intrauterine (Chronic) Hx of cannabis abuse (Chronic) Allergies No Known Allergies Allergy (Verified 12/06/17 13:31) Home Medications: Ambulatory Orders Medication Instructions Recorded Dicyclomine HCl [Bentyl] 20 mg PO ACHS 09/10/17 Ondansetron [Zofran Odt] 4 mg PO Q8H PRN PRN #10 tablet 09/13/17 Ciprofloxacin [Cipro] 500 mg PO BID #14 tablet 12/06/17 Metronidazole [Flagyl] 500 mg PO Q8H #21 tablet 12/06/17 Ondansetron [Zofran Odt] 4 mg PO Q8H PRN PRN #10 tab 12/06/17 Ondansetron [Zofran Odt] 4 mg PO Q8H PRN PRN #10 tablet 12/06/17 Surgical History: cholecystectomy, - - x 2. Psychiatric History: No pertinent psych hx [employer] History: No pertinent [employer] history Lives: With Family Smoking Status: Never smoker Alcohol: None - *Family History Maternal History Items: Asthma, Stroke Paternal History Items: No pertinent history Review of Systems Constitutional: Denies: Chills, Fever, Weight Change HEENT: Denies: Head Aches, Sinus Congestion, Sinus Drainage Cardiovascular: Denies: Chest Pain, Palpitations Respiratory: Denies: Cough, Shortness of breath at rest, Sputum production Gastrointestinal: Reports: Abdominal Pain, Nausea, Vomiting Genitourinary: Denies: Dysuria Musculoskeletal: Denies: Joint Pain, Joint Tenderness Skin: Denies: Rash, Wounds Neurological: Denies: Numbness, Tingling, Focal weakness Psychiatric: Denies: Anxiety, Depression, Homicidal Ideations, Suicidal Ideations Hematologic/ Lymphatic: Denies: Easy Bruising, Easy Bleeding VTE Information - Inpt Only VTE Present on Admission: No VTE Mechan Device Prophylaxis: SCD's VTE Pharm Prophylaxis ordered?: Yes Patient Problems: Active and Suspected Problems Pancolitis (Acute) - Physical Exam General: Alert, Oriented x3, Cooperative HEENT: Atraumatic, PERRLA, EOMI, Normocephalic Neck: Supple, No JVD, Negative Carotid Bruits Lungs: Clear to auscultation, Normal air movement Cardiovascular: Regular rate, No murmurs Abdomen: Bowel Sounds Present, Soft, Tender Extremities: No edema, Capillary Refill Less than 3 Seconds Skin: No rashes, No breakdown Musculoskeletal: No Tenderness to Palpation of Joints or Extremities Neurological: Cranial nerves II-XII grossly intact Psych/Mental Status: Normal Affect, Appropriate Vital Signs Temp Pulse Resp BP Pulse Ox 97.9 F 64 22 H 133/86 H 98 12/07/17 16:32 12/07/17 18:56 12/07/17 18:56 12/07/17 18:56 12/07/17 18:56 Weight: 77.2 kg Body Mass Index (BMI) 28.3 Laboratory Tests Past 24 Hrs 12/07/17 20:15 Lipase 72 L Assessment/Plan All Active Problems Obstructive jaundice (Acute) Cholangitis due to bile duct calculus with obstruction (Acute) Pancolitis (Acute) Abdominal pain (Acute) Leukocytosis, unspecified (Acute) Intractable nausea and vomiting (Acute) Gastroenteritis (Acute) Diarrhea (Acute) Nausea and vomiting (Acute) 27 year old female w/ h/o marijuana abuse, obstructive jaundice, and hypokalemia admitted for pancolitis. 1) Pancolitis: CT disclosed pancolitis and gastritis, concerning for crohn's disease. Extensive workup in the past for possible Crohn's disease including colonoscopy. Past workup negative. Will start cipro and flagyl. Will send for C. diff and stool cultures. Hydration and pain controlled. Will get LFTs. May need colonoscopy outpt. 2) Gastritis: Will start protonix. Supportive care. 3) Hypokalemia: Replace. Serial labs. 4) Prophylaxis: SCD / lovenox.
[2017-12-07 22:24] VITALS: PULSE 106
[2017-12-07 22:25] VITALS: BP 107/64; PULSE 95; RESP 16; TEMP 37.3; O2SAT 96
[2017-12-08] VITALS (10 sets, daily range): BP systolic 115–150; BP diastolic 69–91; PULSE 64–98; RESP 16–20; TEMP 36.6–36.9; O2SAT 97–100
[2017-12-08] MEDS: 0.9% NaCl Peripheral Flush Adult/Peds IV ×3 (01:58→18:26)
[2017-12-08] MEDS: Morphine 2 MG/ML Syringe IV ×3 (01:58→10:12)
[2017-12-08] MEDS: 0.9% Normal Saline 1,000 ML 150 ML IV ×2 (03:01→10:16)
[2017-12-08 06:56] LABS: ALB/GLOB Ratio 0.9 RATIO (0.9-2.4); AST(SGOT) 12 U/L (15-37); Alanine Aminotransfer ALT/SGPT 10 U/L (13-56); Albumin, Serum 2.9 g/dL (3.2-5.0); Alkaline Phosphatase 56 U/L (45-117); Anion Gap 7 (5-15); BUN 6 mg/dL (7-18); BUN/Creat Ratio 11.4 RATIO (10-20); Calcium,Total 7.6 mg/dL (8.5-10.1); Chloride 111 mmol/L (98-107); Creatinine, Serum 0.52 mg/dL (0.55-1.02); EST Glomerular Filtration Rate 149 mL/min (>60); Est Glom Filt Rate - Afr Amer 180 mL/min (>60); Estimated Creatinine Clearance 147.52 ml/min; Globulin 3.2 g/dL (2.2-4.2); Glucose 84 mg/dL (74-106); Potassium 3.6 mmol/L (3.5-5.1); Protein, Total 6.1 g/dL (6.4-8.2); Sodium Level 144 mmol/L (136-145)
[2017-12-08] MEDS: Ciprofloxacin 400 MG/200 ML BAG 200 MG IV ×2 (10:16→23:09)
[2017-12-08] MEDS: Enoxaparin 40 MG/0.4 ML Syringe SC (10:18)
--- NOTE | 2017-12-08 11:01 | PCM.PN.HOSP ---
Patient Problems: Active and Suspected Problems Pancolitis (Acute) Subjective: Still in significant pain and would not tolerate PO. Most of her pain is on the right side of her abdomen. No N/V Vitals/I&O's: Vital Signs Temp Pulse Resp BP Pulse Ox 98.0 F 75 16 127/83 H 100 12/08/17 10:28 12/08/17 10:28 12/08/17 10:28 12/08/17 10:28 12/08/17 10:28 Oxygen Delivery Method Room Air Weight: 170 lb 3.15 oz Body Mass Index (BMI) 28.3 Intake and Output for Last 24 Hours 12/06/17 12/07/17 12/08/17 23:59 23:59 23:59 Intake Total 929 / 929 Balance 929 / 929 General: Alert, Oriented x3, Cooperative HEENT: Atraumatic, EOMI, Normocephalic Oral: Moist Mucosa Neck: Supple, No JVD Lungs: Clear to auscultation, Normal air movement, No rhonchi, No wheeze, No rales Cardiovascular: Regular rate, Regular Rhythm, Normal S1, Normal S2, No murmurs Abdomen: Soft, Non-Distended, No Hepato-splenomegaly, Tender - mostly in RLQ Extremities: No edema Psych/Mental Status: Normal Affect, Appropriate Laboratory Results 12/07/17 20:15: Lipase 72 L 12/08/17 05:35: WBC Pending, RBC Pending, Hgb Pending, Hct Pending, MCV Pending, MCH Pending, MCHC Pending, RDW Pending, RDW Differential Pending, Plt Count Pending, Neut % (Auto) Pending, Absolute Neuts (auto) Pending, Total Counted Pending 12/08/17 05:35: Sodium 144, Potassium 3.6, Chloride 111 H, Carbon Dioxide 26.0, Anion Gap 7, BUN 6 L, Creatinine 0.52 L, Estim Creat Clear Calc 147.52, Est GFR (MDRD) Af Amer 180, Est GFR (MDRD) Non-Af 149, BUN/Creatinine Ratio 11.4, Glucose 84, Calcium 7.6 L, Total Bilirubin 0.60, AST 12 L, ALT 10 L, Alkaline Phosphatase 56, Total Protein 6.1 L, Albumin 2.9 L, Globulin 3.2, Albumin/Globulin Ratio 0.9 Current Medications Enoxaparin Sodium (Lovenox) 40 mg SC DAILY [facility] Last Admin: 12/08/17 10:18 Dose: 40 mg Hydromorphone HCl (Dilaudid Inj) 1 mg IV Q2H PRN PRN PRN Reason: SEVERE PAIN (6-10/10) Diphenhydramine HCl 25 mg/Chlorpromazine HCl 35 mg/Sodium Chloride 51.9 mls @ 202 mls/hr IV X1 PRN PRN Reason: IF UNRESOLVED AFTER STEP #1 Last Admin: 12/07/17 19:42 Dose: 202 mls/hr Sodium Chloride () 1,000 mls @ 150 mls/hr IV .[id number] [facility] Last Admin: 12/08/17 10:16 Dose: 150 mls/hr Ciprofloxacin (Cipro) 400 mg in 200 mls @ 200 mls/hr IV Q12 [facility] Last Admin: 12/08/17 10:16 Dose: 200 mls/hr Metronidazole (Flagyl) 500 mg in 100 mls @ 100 mls/hr IV Q8 [facility] Last Admin: 12/08/17 06:18 Dose: 100 mls/hr Pantoprazole Sodium 40 mg/ (Sodium Chloride) 110 mls @ 330 mls/hr IV Q12 [facility] Last Admin: 12/08/17 10:10 Dose: 330 mls/hr Sodium Chloride () 250 mls @ 15 mls/hr IV .[id number] PRN PRN Reason: SALINE FLUSH Morphine Sulfate () 2 mg IV Q2H PRN PRN PRN Reason: SEVERE PAIN (6-10/10) Last Admin: 12/08/17 10:12 Dose: 2 mg Ondansetron HCl (Zofran) 4 mg IV Q6H PRN PRN PRN Reason: NAUSEA/VOMITING Prochlorperazine Edisylate (Compazine Iv) 5 mg IV Q4H PRN PRN PRN Reason: NAUSEA/VOMITING Sodium Chloride () 5 - 30 ml IV UD PRN PRN Reason: SALINE FLUSH Last Admin: 12/08/17 01:58 Dose: 10 ml Medical Necessity - Tobacco Use Smoking Status: Never smoker Assessment/Plan All Active Problems Obstructive jaundice (Acute) Cholangitis due to bile duct calculus with obstruction (Acute) Pancolitis (Acute) Abdominal pain (Acute) Leukocytosis, unspecified (Acute) Intractable nausea and vomiting (Acute) Gastroenteritis (Acute) Diarrhea (Acute) Nausea and vomiting (Acute) 1. Pancolitis and gastritis - I am concerned for IBD over infectious colitis given that she has been having symptoms intermittently since she was 15 yo - stool studies are pending, and will continue with cipro/flagyl for now - If the stool studies are negative and she continues to not improve, will start steroids and see if they help - CT abdomen with a normal appendix and wall thickening most evident in the cecum, very little fat stranding - c/w pain control, zofran and compazine - IVF@150 will monitor for now DVT: Lovenox Diet: NPO Code: FULL Dispo: Pending Code Visit Inpatient E&M: [id number] Subs Hosp L2
--- NOTE | 2017-12-08 11:45 | CASEMGMT ---
NAREN CHAVEZ Face to Face with patient for initial transition planning/care coordination assessment. RN CM introduced self and role at [facility]. Patient lying in bed, alert and oriented. Patient willing to participate in assessment and is able to answer all questions appropriately. Care providers, pharmacy, and demographics verified. Patient live with fiance and children in 2nd floor apt. Patient independent at home and drives self. Patient wishes to discharge home, denies need for home health at this time. Patient states she has no further needs or concerns at this time. CM to follow for discharge planning needs that may arise. Disposition Plan: Patient to discharge home with family support and follow-up plans in place.
[2017-12-08] MEDS: HYDROmorphone 1 MG/ML Syringe IV ×4 (12:38→21:17)
[2017-12-08 15:28] LABS: Absolute Lymphocyte Count 2.59 X10^3/ul (0.83-4.51); Absolute Neutrophil Count 4.1 X10^3/uL (2.0-7.7); Basophil# 0.02 X10^3/uL; Basophil% 0.3 % (0-1); Eosinophil# 0.05 X10^3/uL; Eosinophils% 0.7 % (0-5); Hematocrit 35.9 % (37-47); Hemoglobin 11.5 g/dl (12.0-15.0); Lymphocyte # 2.59 X10^3/ul (4.0); Lymphocyte % 35.4 % (19-41); Mean Corpuscular Hgb 28.4 pg (27.0-32.0); Mean Corpuscular Volume 88.6 fL (81-99); Mean Platelet Vol. 9.5 fl (6.2-12.0); Monocyte# 0.54 X10^3/uL; Monocyte% 7.4 % (0-10); Neutrophil % 56.1 % (47-70); Platelet Count 287 K/mm3 (150-450); RBC Distribution Width CV 13.2 % (11.6-14.6); RBC Distribution Width SD 42.7 fl (35.1-43.9); Red Blood Count 4.05 M/mm3 (4.2-5.4); White Blood Count 7.3 K/mm3 (4.4-11.0)
[2017-12-08 15:42] LABS: POSITIVE COUNT NO; POSITIVE DIFFERENTIAL NO; POSITIVE MORPHOLOGY NO
[2017-12-08] MEDS: 0.9% Normal Saline 1,000 ML 100 ML IV (18:28)
--- NOTE | 2017-12-08 19:45 | NURSING ---
Upon review of telemetry alarms, noted a strip where pt. was in 2:1 heart block at 0514. This strip was not posted in chart. This nurse charted on this and posted in chart. No further alarms noted for a Mobitz type 2 block. Continue to monitor.
[2017-12-08] MEDS: Ondansetron 4 MG/2 ML Vial IV (21:33)
[2017-12-09] VITALS (11 sets, daily range): BP systolic 112–149; BP diastolic 70–88; PULSE 58–121; RESP 16–20; TEMP 36.4–36.8; O2SAT 94–99
[2017-12-09] MEDS: HYDROmorphone 1 MG/ML Syringe IV ×5 (01:12→14:56)
[2017-12-09 05:42] LABS: Absolute Neutrophil Count 3.7 X10^3/uL (2.0-7.7); Basophil# 0.03 X10^3/uL; Basophil% 0.5 % (0-1); Eosinophils% 1.6 % (0-5); Hematocrit 35.5 % (37-47); Hemoglobin 11.7 g/dl (12.0-15.0); Lymphocyte % 32.9 % (19-41); Mean Corpuscular Hgb 28.7 pg (27.0-32.0); Mean Platelet Vol. 9.2 fl (6.2-12.0); Monocyte# 0.44 X10^3/uL; Monocyte% 6.9 % (0-10); Neutrophil % 57.9 % (47-70); Platelet Count 273 K/mm3 (150-450); RBC Distribution Width CV 12.7 % (11.6-14.6); RBC Distribution Width SD 39.7 fl (35.1-43.9); Red Blood Count 4.08 M/mm3 (4.2-5.4); White Blood Count 6.4 K/mm3 (4.4-11.0)
[2017-12-09 05:51] LABS: POSITIVE COUNT NO; POSITIVE DIFFERENTIAL NO; POSITIVE MORPHOLOGY NO
[2017-12-09 06:03] LABS: Anion Gap 11 (5-15); BUN 3 mg/dL (7-18); BUN/Creat Ratio 5.5 RATIO (10-20); Calcium,Total 7.8 mg/dL (8.5-10.1); Chloride 104 mmol/L (98-107); Creatinine, Serum 0.55 mg/dL (0.55-1.02); EST Glomerular Filtration Rate 141 mL/min (>60); Est Glom Filt Rate - Afr Amer 171 mL/min (>60); Estimated Creatinine Clearance 139.48 ml/min; Glucose 80 mg/dL (74-106); Potassium 3.3 mmol/L (3.5-5.1); Sodium Level 141 mmol/L (136-145)
[2017-12-09] MEDS: 0.9% Normal Saline 1,000 ML 100 ML IV ×2 (06:27→17:47)
[2017-12-09] MEDS: Ciprofloxacin 400 MG/200 ML BAG 200 MG IV ×2 (10:28→22:15)
[2017-12-09] MEDS: Enoxaparin 40 MG/0.4 ML Syringe SC (10:32)
--- NOTE | 2017-12-09 10:41 | PCM.PN.HOSP ---
Patient Problems: Active and Suspected Problems Pancolitis (Acute) Subjective: States that her pain is improving though not resolved and she still has discomfort in the RLQ Objective: General: Alert, Oriented x3, Cooperative HEENT: Atraumatic, EOMI, Normocephalic Oral: Moist Mucosa Neck: Supple, No JVD Lungs: Clear to auscultation, Normal air movement, No rhonchi, No wheeze, No rales Cardiovascular: Regular rate, Regular Rhythm, Normal S1, Normal S2, No murmurs Abdomen: Soft, Non-Distended, No Hepato-splenomegaly, Tender - mostly in RLQ Extremities: No edema Skin: Bruise with edema and ecchymosis at lovenox injection site Psych/Mental Status: Normal Affect, Appropriate Vitals/I&O's: Vital Signs Temp Pulse Resp BP Pulse Ox 97.5 F L 58 L 20 H 149/88 H 94 12/09/17 02:00 12/09/17 02:54 12/09/17 02:00 12/09/17 02:00 12/09/17 02:00 Oxygen Delivery Method Room Air Weight: 170 lb 3.15 oz Body Mass Index (BMI) 28.3 Intake and Output for Last 24 Hours 12/07/17 12/08/17 12/09/17 23:59 23:59 23:59 Intake Total 929 / 929 2582 / 2582 285 / 285 Output Total 900 / 900 350 / 350 Balance 929 / 929 1682 / 1682 -65 / -65 Microbiology Past 72 Hours 12/08/17 00:20 Urine, Clean Catch Urine Culture - Preliminary Culture exhibits no growth. 12/07/17 20:15 Blood Culture (Wb) #2 - Line Draw Blood Culture - Preliminary 12/07/17 20:15 Blood Culture (Wb) #2 - Line Draw Blood Culture - Preliminary Laboratory Results 12/08/17 05:35: WBC 7.3, RBC 4.05 L, Hgb 11.5 L, Hct 35.9 L, MCV 88.6, MCH 28.4, MCHC 32.0, RDW 13.2, RDW Differential 42.7, Plt Count 287, MPV 9.5, Immature Gran % (Auto) 0.100, Neut % (Auto) 56.1, Lymph % (Auto) 35.4, [place] % (Auto) 7.4, Eos % (Auto) 0.7, Baso % (Auto) 0.3, Absolute Neuts (auto) 4.1, Absolute Lymphs (auto) 2.59, Total Counted Not Reportable 12/08/17 20:18: Stool H. pylori Ag Pending 12/09/17 05:10: WBC 6.4, RBC 4.08 L, Hgb 11.7 L, Hct 35.5 L, MCV 87.0, MCH 28.7, MCHC 33.0, RDW 12.7, RDW Differential 39.7, Plt Count 273, MPV 9.2, Immature Gran % (Auto) 0.200, Neut % (Auto) 57.9, Lymph % (Auto) 32.9, [place] % (Auto) 6.9, Eos % (Auto) 1.6, Baso % (Auto) 0.5, Absolute Neuts (auto) 3.7, Absolute Lymphs (auto) 2.10, Total Counted Not Reportable 12/09/17 05:10: Sodium 141, Potassium 3.3 L, Chloride 104, Carbon Dioxide 26.0, Anion Gap 11, BUN 3 L, Creatinine 0.55, Estim Creat Clear Calc 139.48, Est GFR (MDRD) Af Amer 171, Est GFR (MDRD) Non-Af 141, BUN/Creatinine Ratio 5.5 L, Glucose 80, Calcium 7.8 L Current Medications Enoxaparin Sodium (Lovenox) 40 mg SC DAILY [facility] Last Admin: 12/09/17 10:32 Dose: 40 mg Hydromorphone HCl (Dilaudid Inj) 1 mg IV Q2H PRN PRN PRN Reason: SEVERE PAIN (6-10/10) Last Admin: 12/09/17 10:24 Dose: 1 mg Diphenhydramine HCl 25 mg/Chlorpromazine HCl 35 mg/Sodium Chloride 51.9 mls @ 202 mls/hr IV X1 PRN PRN Reason: IF UNRESOLVED AFTER STEP #1 Last Admin: 12/07/17 19:42 Dose: 202 mls/hr Ciprofloxacin (Cipro) 400 mg in 200 mls @ 200 mls/hr IV Q12 [facility] Last Admin: 12/09/17 10:28 Dose: 200 mls/hr Metronidazole (Flagyl) 500 mg in 100 mls @ 100 mls/hr IV Q8 [facility] Last Admin: 12/09/17 06:03 Dose: 100 mls/hr Pantoprazole Sodium 40 mg/ (Sodium Chloride) 110 mls @ 330 mls/hr IV Q12 [facility] Last Admin: 12/09/17 10:24 Dose: 330 mls/hr Sodium Chloride () 250 mls @ 15 mls/hr IV .[id number] PRN PRN Reason: SALINE FLUSH Sodium Chloride () 1,000 mls @ 100 mls/hr IV .Q10H [facility] Last Admin: 12/09/17 06:27 Dose: 100 mls/hr Morphine Sulfate () 2 mg IV Q2H PRN PRN PRN Reason: SEVERE PAIN (6-10/10) Last Admin: 12/08/17 10:12 Dose: 2 mg Ondansetron HCl (Zofran) 4 mg IV Q6H PRN PRN PRN Reason: NAUSEA/VOMITING Last Admin: 12/08/17 21:33 Dose: 4 mg Prochlorperazine Edisylate (Compazine Iv) 5 mg IV Q4H PRN PRN PRN Reason: NAUSEA/VOMITING Sodium Chloride () 5 - 30 ml IV UD PRN PRN Reason: SALINE FLUSH Last Admin: 12/08/17 18:26 Dose: 10 ml Medical Necessity - Tobacco Use Smoking Status: Never smoker Assessment/Plan All Active Problems Obstructive jaundice (Acute) Cholangitis due to bile duct calculus with obstruction (Acute) Pancolitis (Acute) Abdominal pain (Acute) Leukocytosis, unspecified (Acute) Intractable nausea and vomiting (Acute) Gastroenteritis (Acute) Diarrhea (Acute) Nausea and vomiting (Acute) 1. Pancolitis and gastritis - I am concerned for IBD over infectious colitis given that she has been having symptoms intermittently since she was 15 yo - stool studies have not been collected as she has not had a BM, and will continue with cipro/flagyl for now - Since she states that she feels better will c/w abx for now and try her later on today on a full liquid diet, will ADAT - If she has worsening symptoms with the diet will start steroids - CT abdomen with a normal appendix and wall thickening most evident in the cecum, very little fat stranding - c/w pain control, zofran and compazine - IVF@100 DVT: Lovenox Diet: NPO Code: FULL Dispo: Pending Code Visit Inpatient E&M: 56367 Subs Hosp L2
[2017-12-09] MEDS: proCHLORPERazine 10 MG/2 ML Vial 5 MG IV ×2 (11:00→20:35)
[2017-12-09] MEDS: 0.9% NaCl Peripheral Flush Adult/Peds IV (14:14)
[2017-12-09] MEDS: Ondansetron 4 MG/2 ML Vial IV (14:14)
--- NOTE | 2017-12-09 15:05 | NURSING ---
Short episode of tachycardia noted on monitor, HR 140's. This nurse into room, pt had small light brown emesis. Pt stated that RN had just given her medicine for nausea. Support given, pt denies further needs at this time. Will monitor.
[2017-12-09] MEDS: Acetaminophen 325 MG Tablet 650 MG PO (20:35)
[2017-12-10] VITALS (10 sets, daily range): BP systolic 115–137; BP diastolic 62–90; PULSE 57–105; RESP 16–18; TEMP 36.3–37.1; O2SAT 94–98
[2017-12-10 06:53] LABS: Anion Gap 15 (5-15); BUN 5 mg/dL (7-18); BUN/Creat Ratio 9.2 RATIO (10-20); Calcium,Total 8.5 mg/dL (8.5-10.1); Chloride 106 mmol/L (98-107); Creatinine, Serum 0.54 mg/dL (0.55-1.02); EST Glomerular Filtration Rate 144 mL/min (>60); Est Glom Filt Rate - Afr Amer 174 mL/min (>60); Estimated Creatinine Clearance 142.06 ml/min; Glucose 69 mg/dL (74-106); Potassium 3.8 mmol/L (3.5-5.1); Sodium Level 140 mmol/L (136-145)
[2017-12-10] MEDS: Morphine 2 MG/ML Syringe IV ×3 (07:02→23:12)
[2017-12-10] MEDS: 0.9% NaCl Peripheral Flush Adult/Peds IV ×7 (07:03→23:04)
[2017-12-10] MEDS: 0.9% Normal Saline 1,000 ML 100 ML IV ×2 (10:18→23:45)
[2017-12-10] MEDS: Enoxaparin 40 MG/0.4 ML Syringe SC (10:22)
[2017-12-10] MEDS: Ciprofloxacin 400 MG/200 ML BAG 200 MG IV ×2 (11:13→22:58)
--- NOTE | 2017-12-10 12:29 | PCM.PN.HOSP ---
Patient Problems: Active and Suspected Problems Pancolitis (Acute) Subjective: Hungry but still with pain to palpation on the right. Last night she did have emesis with broth. Objective: General: Alert, Oriented x3, Cooperative HEENT: Atraumatic, EOMI, Normocephalic Oral: Moist Mucosa Neck: Supple, No JVD Lungs: Clear to auscultation, Normal air movement, No rhonchi, No wheeze, No rales Cardiovascular: Regular rate, Regular Rhythm, Normal S1, Normal S2, No murmurs Abdomen: Soft, Non-Distended, No Hepato-splenomegaly, Tender - mostly in RLQ Extremities: No edema Psych/Mental Status: Normal Affect, Appropriate Vitals/I&O's: Vital Signs Temp Pulse Resp BP Pulse Ox 98.7 F 94 17 137/69 H 98 12/10/17 08:10 12/10/17 11:09 12/10/17 08:10 12/10/17 08:10 12/10/17 08:10 Oxygen Delivery Method Room Air Weight: 170 lb 3.15 oz Body Mass Index (BMI) 28.3 Intake and Output for Last 24 Hours 12/08/17 12/09/17 12/10/17 23:59 23:59 23:59 Intake Total 2582 / 2582 3982 / 3982 1742 / 1742 Output Total 900 / 900 850 / 850 Balance 1682 / 1682 3132 / 3132 1742 / 1742 Microbiology Past 72 Hours 12/08/17 00:20 Urine, Clean Catch Urine Culture - Final Culture exhibits no growth. 12/07/17 20:15 Blood Culture (Wb) #2 - Line Draw Blood Culture - Preliminary 12/07/17 20:15 Blood Culture (Wb) #2 - Line Draw Blood Culture - Preliminary Laboratory Results 12/10/17 05:30: Sodium 140, Potassium 3.8, Chloride 106, Carbon Dioxide 19.0 L, Anion Gap 15, BUN 5 L, Creatinine 0.54 L, Estim Creat Clear Calc 142.06, Est GFR (MDRD) Af Amer 174, Est GFR (MDRD) Non-Af 144, BUN/Creatinine Ratio 9.2 L, Glucose 69 L, Calcium 8.5 Current Medications Acetaminophen (Tylenol) 650 mg PO Q4H PRN PRN PRN Reason: PAIN Last Admin: 12/09/17 20:35 Dose: 650 mg Enoxaparin Sodium (Lovenox) 40 mg SC DAILY [facility] Last Admin: 12/10/17 10:22 Dose: 40 mg Hydromorphone HCl (Dilaudid Inj) 1 mg IV Q2H PRN PRN PRN Reason: SEVERE PAIN (6-10/10) Last Admin: 12/09/17 14:56 Dose: 1 mg Diphenhydramine HCl 25 mg/Chlorpromazine HCl 35 mg/Sodium Chloride 51.9 mls @ 202 mls/hr IV X1 PRN PRN Reason: IF UNRESOLVED AFTER STEP #1 Last Admin: 12/07/17 19:42 Dose: 202 mls/hr Ciprofloxacin (Cipro) 400 mg in 200 mls @ 200 mls/hr IV Q12 [facility] Last Admin: 12/10/17 11:13 Dose: 200 mls/hr Metronidazole (Flagyl) 500 mg in 100 mls @ 100 mls/hr IV Q8 [facility] Last Admin: 12/10/17 06:34 Dose: 100 mls/hr Pantoprazole Sodium 40 mg/ (Sodium Chloride) 110 mls @ 330 mls/hr IV Q12 [facility] Last Admin: 12/10/17 10:20 Dose: 330 mls/hr Sodium Chloride () 250 mls @ 15 mls/hr IV .[id number] PRN PRN Reason: SALINE FLUSH Sodium Chloride () 1,000 mls @ 100 mls/hr IV .Q10H [facility] Last Admin: 12/10/17 10:18 Dose: 100 mls/hr Methylprednisolone (Solu-Medrol) 40 mg IV BID [facility] Last Admin: 12/10/17 11:49 Dose: 40 mg Morphine Sulfate () 2 mg IV Q2H PRN PRN PRN Reason: SEVERE PAIN (6-10/10) Last Admin: 12/10/17 10:15 Dose: 2 mg Ondansetron HCl (Zofran) 4 mg IV Q6H PRN PRN PRN Reason: NAUSEA/VOMITING Last Admin: 12/09/17 14:14 Dose: 4 mg Prochlorperazine Edisylate (Compazine Iv) 5 mg IV Q4H PRN PRN PRN Reason: NAUSEA/VOMITING Last Admin: 12/09/17 20:35 Dose: 5 mg Sodium Chloride () 5 - 30 ml IV UD PRN PRN Reason: SALINE FLUSH Last Admin: 12/10/17 11:52 Dose: 20 ml Medical Necessity - Tobacco Use Smoking Status: Never smoker Assessment/Plan All Active Problems Obstructive jaundice (Acute) Cholangitis due to bile duct calculus with obstruction (Acute) Pancolitis (Acute) Abdominal pain (Acute) Leukocytosis, unspecified (Acute) Intractable nausea and vomiting (Acute) Gastroenteritis (Acute) Diarrhea (Acute) Nausea and vomiting (Acute) 1. Pancolitis and gastritis - I am concerned for IBD over infectious colitis given that she has been having symptoms intermittently since she was 15 yo - stool studies have not been collected as she has not had a BM, and will continue with cipro/flagyl for now - Since she states that she feels better will c/w abx for now and try her later on today on a full liquid diet, will ADAT - Start with solumedrol 40 mg IV BID, if improved by tomorrow, will DC on a taper and finish PO abx - CT abdomen with a normal appendix and wall thickening most evident in the cecum, very little fat stranding - c/w pain control, zofran and compazine - IVF@100 DVT: Lovenox Diet: ADAT (low fat) Code: FULL Dispo: Pending Code Visit Inpatient E&M: 18915 Subs Hosp L2
[2017-12-10] MEDS: HYDROmorphone 1 MG/ML Syringe IV ×3 (13:07→20:11)
[2017-12-10] MEDS: proCHLORPERazine 10 MG/2 ML Vial 5 MG IV (18:45)
[2017-12-11 02:15] VITALS: BP 132/88; PULSE 67; RESP 18; TEMP 37.1; O2SAT 95
[2017-12-11 03:00] VITALS: PULSE 64
[2017-12-11] MEDS: Morphine 2 MG/ML Syringe IV ×2 (04:09→08:57)
[2017-12-11] MEDS: 0.9% NaCl Peripheral Flush Adult/Peds IV (04:10)
[2017-12-11 07:12] VITALS: PULSE 79
[2017-12-11 08:15] VITALS: BP 126/80; PULSE 66; RESP 16; TEMP 36.4; O2SAT 95
[2017-12-11] MEDS: proCHLORPERazine 10 MG/2 ML Vial 5 MG IV (08:57)
[2017-12-11] MEDS: Enoxaparin 40 MG/0.4 ML Syringe SC (09:01)
[2017-12-11] MEDS: Ciprofloxacin 400 MG/200 ML BAG 200 MG IV (09:30)
--- NOTE | 2017-12-11 12:55 | PCM.DC ---
- Discharge Diagnoses Current Active Problems: Current Active and Chronic Problems Pancolitis (Acute) You will use the following diet at home:: No restrictions Your food should be the consistency of: Regular Your liquids should be the consistency of: Regular/Thin Discharge Activity: Return to Normal Activity Allergies/Adverse Reactions: Allergies No Known Allergies Allergy (Verified 12/06/17 13:31) Medications to take at Discharge Ondansetron [Zofran Odt] 4 mg PO Q8H PRN PRN #10 tablet 09/13/17 Ciprofloxacin [Cipro] 500 mg PO BID #14 tablet 12/11/17 Metronidazole [Flagyl] 500 mg PO Q8H #21 tablet 12/11/17 Prednisone 20 mg PO BID #14 tab 12/11/17 The following prescriptions were given: Prednisone 20 mg PO BID #14 tab Primary Care Physician: Benedict Sharp DO [Primary Care Provider] - Please follow up with your Primary Care Physician in: In 3-5 days Test Results: Test results from this visit will be discussed in further detail at your follow-up appointment, if applicable.
--- NOTE | 2017-12-11 12:57 | PCM.DC.SUM ---
Discharge Date and Diagnosis - Problem List Patient Problems: Active and Suspected Problems Pancolitis (Acute) Date of Admission: 12/07/17 Date of Discharge: 12/11/17 - Primary Discharge Diagnosis Active and Suspected Problems Pancolitis (Acute) - Secondary Discharge Diagnosis Chronic Problems Viable intrauterine (Chronic) Hx of cannabis abuse (Chronic) Hospital Course and Treatment Imaging Results: CT abd/pel 12/06/2017: FINDINGS: The visualized lung bases are unremarkable. The visualized portions of the heart are within normal limits. There is intrahepatic ductal dilation. There are surgical clips in the gallbladder fossa consistent with a prior cholecystectomy. Normal spleen. Normal pancreas. Normal bilateral adrenal glands. Normal right kidney. Normal left kidney. Retroaortic left renal vein. Focal wall thickening of the antrum of stomach. This can suggest a gastritis. Normal small intestine. There is wall thickening of the entire colon. There is also questionable inflammation around the colon. This can suggest a colitis. The appendix is visualized and appears normal. Normal abdominal aorta. Normal inferior vena cava. Normal retroperitoneum. Normal urinary bladder. Normal visualized uterus. Ovaries appear normal. There is a small umbilical hernia containing fat. Normal osseous structures. Consults: None Operations: None Procedures: None Summary of Care Provided: HPI: The patient is a 27 year old female w/ h/o marijuana abuse, obstructive jaundice, and hypokalemia admitted for pancolitis. She lives with her son and boyfriend. She developed sudden onset lower abdominal pain yesterday. Pain is cramping and occasional dull aching. Pain is severe. Nothing made pain better or worse. Pain is constant. Pain is not associated food. She also has been n/v. N/v is persistent and severe. She is not able to tolerate any PO intake. She want to the ED yesterday and workup disclosed pancolitis. She came back to the ED given that there is no improvement of her symptoms. Vital Signs - 24 hr Temp Pulse Resp BP Pulse Ox 12/11/17 08:15 97.6 F L 66 16 126/80 H 95 12/11/17 07:12 79 12/11/17 03:00 64 12/11/17 02:15 98.7 F 67 18 132/88 H 95 12/10/17 23:00 69 12/10/17 20:10 98.3 F 88 16 122/90 H 98 12/10/17 19:00 83 12/10/17 15:48 105 H 12/10/17 14:20 97.9 F 104 H 18 115/85 H 94 General: Alert, Oriented x3, Cooperative HEENT: Atraumatic, EOMI, Normocephalic Oral: Moist Mucosa Neck: Supple, No JVD Lungs: Clear to auscultation, Normal air movement, No rhonchi, No wheeze, No rales Cardiovascular: Regular rate, Regular Rhythm, Normal S1, Normal S2, No murmurs Abdomen: Soft, Non-Distended, No Hepato-splenomegaly, Tender - mostly in RLQ Extremities: No edema Psych/Mental Status: Normal Affect, Appropriate Hospital Course: 1. Pancolitis and gastritis - Based on her history I am concerned that she has IBD. She has had a colonoscopy at 15 for symptoms but she states she was told she had crohns but her father was told she has IBS. That said, IBS does not cause colitis. She was initially discharged from the ER on cipro/flagyl but came back the next day and was admitted. She was continued on IV fluids and the IV abx, however she did not have much improvement until she was started on solumedrol. The day after she was started on solumedrol she was stable for DC. 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 In the mean time, she will complete the course of cipro/flagyl and she will also be discharged on a prednisone taper as well and will need outpatient follow-up. She also has zofran at home for any nausea. She is to return if she has worsening symptoms. Discharge Activity: Return to Normal Activity Call your doctor if you observe: Fever of 101 or Higher Home Medications: Medications to take at Discharge Ondansetron [Zofran Odt] 4 mg PO Q8H PRN PRN #10 tablet 09/13/17 Ciprofloxacin [Cipro] 500 mg PO BID #14 tablet 12/11/17 Metronidazole [Flagyl] 500 mg PO Q8H #21 tablet 12/11/17 Prednisone 20 mg PO BID #14 tab 12/11/17 Following Prescrptions Were Given to Patient: Prednisone 20 mg PO BID #14 tab Primary Care Physician: Benedict Sharp DO [Primary Care Provider] - Please follow up with your Primary Care Physician in: In 3-5 days Disposition: Home Minutes spent on discharge:: 35 Patient Condition:: Good Medical Necessity - Tobacco Use Smoking Status: Never smoker Meaningful Use Info Meaningful Use Diagnoses (Choose all that apply): None applicable Code Visit Inpatient E&M: 87691 Disch Hosp
[2017-12-11 14:47] VITALS: BP 132/85; PULSE 72; RESP 14; TEMP 36.6; O2SAT 100
[2017-12-12 13:39] LABS: H. PYLORI STOOL AG Negative (Negative)
--- NOTE | 2017-12-12 14:52 | CASEMGMT ---
RN CM Discharge Follow-up Phone Call: AMBER: Mando Strata: 3 Call Date: 12/12/17 Discharge Date: 12/11/17 Time of Call: 1450 Duration: 1 min Admitting Diagnosis: Dehydration, Pain colitis RN CM attempted to complete follow-up phone call after recent hospitalization. No answer and no voice mail set up to leave message.
== END 2017-12-11 15:24 | disposition home or self-care (01) | DRG 179 ==
LOC: ED 17:35 → MS3 19:32
PROVIDERS: Admitting Provider Internal Medicine; Emergency Provider Emergency Medicine; Family Provider Preventive Medicine Occupational Medicine; PCP Preventive Medicine Occupational Medicine; Visit Provider Family Medicine
DX: K51.00 Ulcerative (chronic) pancolitis without complications (principal); E87.6 Hypokalemia; K29.70 Gastritis, unspecified, without bleeding
CPT/HCPCS: 36415; 74018; 74177; 80048; 80053; 82274; 83630; 83690; 84703; 85025; 87040; 87086; 96361; 96374; 96375; 96376; 99282; 99283; J7030; Q9967; A4216; J0744; J2405; J3490

== ENCOUNTER 2017-12-23 22:41 | Emergency (ER) | payer MEDICAID, SELFPAY ==
[2017-12-23 22:45] VITALS: BP 160/100; PULSE 118; RESP 19; TEMP 36.4; O2SAT 97; BMI 27.4
[2017-12-23 23:28] LABS: Absolute Lymphocyte Count 2.71 X10^3/ul (0.83-4.51); Absolute Neutrophil Count 6.5 X10^3/uL (2.0-7.7); Basophil# 0.02 X10^3/uL; Basophil% 0.2 % (0-1); Eosinophil# 0.03 X10^3/uL; Eosinophils% 0.3 % (0-5); Hematocrit 41.2 % (37-47); Hemoglobin 13.7 g/dl (12.0-15.0); Lymphocyte # 2.71 X10^3/ul (4.0); Lymphocyte % 27.3 % (19-41); Mean Corp Hgb Conc 33.3 g/gl (32-36); Mean Corpuscular Hgb 28.5 pg (27.0-32.0); Mean Corpuscular Volume 85.8 fL (81-99); Mean Platelet Vol. 9.5 fl (6.2-12.0); Monocyte# 0.61 X10^3/uL; Monocyte% 6.2 % (0-10); Neutrophil # 6.54 X10^3/uL (2.7-7.7); Platelet Count 458 K/mm3 (150-450); RBC Distribution Width CV 13.8 % (11.6-14.6); RBC Distribution Width SD 43.2 fl (35.1-43.9); White Blood Count 9.9 K/mm3 (4.4-11.0)
[2017-12-23 23:31] LABS: POSITIVE COUNT NO; POSITIVE DIFFERENTIAL NO; POSITIVE MORPHOLOGY NO
[2017-12-23 23:32] LABS: Anion Gap 12 (5-15); BUN 11 mg/dL (7-18); BUN/Creat Ratio 13.3 RATIO (10-20); Chloride 106 mmol/L (98-107); Creatinine, Serum 0.83 mg/dL (0.55-1.02); EST Glomerular Filtration Rate 88 mL/min (>60); Est Glom Filt Rate - Afr Amer 107 mL/min (>60); Estimated Creatinine Clearance 92.42 ml/min; Glucose 122 mg/dL (74-106); Potassium 3.2 mmol/L (3.5-5.1); Sodium Level 139 mmol/L (136-145)
--- NOTE | 2017-12-23 23:35 | ED.VISSUMM ---
- ER Visit Summary Date of Service: 12/23/17 Chief Complaint: Abdominal pain, nausea and vomiting History of Present Illness: The patient is a 27 F who presents with 1 day of abdominal pain, nausea and vomiting. Patient has recurrent episodes, and was recently hospitalized for the same. She has a colonoscopy scheduled on the of this month for further workup. Patient has been taking ODT Zofran without relief. Abdominal pain is epigastric in nature. Patient denies fever or diarrhea. No urinary symptoms. Patient has history of cannabis use but states she has not smoked for 2 weeks since her last hospitalization. Physical Examination: Vital signs: afebrile, hemodynamically stable, no hypoxia on room air General: well nourished, well developed, appears uncomfortable, dry heaving in bed Skin: warm, moist, pale, no rash HEENT: normocephalic and atraumatic; PERRL, EOMI, moist mucous membranes Cardiovascular: Tachycardic rate and rhythm without murmurs, no peripheral edema, 2+ pulses all distal extremities Respiratory: No increased work of breathing, lungs are clear to auscultation bilaterally, no rales, rhonchi or wheezing Abdominal: Abdomen is soft, mild tenderness in the epigastrium with normoactive bowel sounds, no guarding or rebound, no masses MSK: Moves all extremities, no deformities, normal strength Neuro: Awake and alert, oriented ?4. No facial droop, sensation and motor function intact and symmetric Test Results: Abnormal Lab Results 12/23/17 12/23/17 12/23/17 23:15 23:15 23:15 WBC 9.9 RBC 4.80 Hgb 13.7 Hct 41.2 MCV 85.8 MCH 28.5 MCHC 33.3 RDW 13.8 RDW Differential 43.2 Plt Count 458 H MPV 9.5 Immature Gran % (Auto) 0.000 Neut % (Auto) 66.0 Lymph % (Auto) 27.3 [place] % (Auto) 6.2 Eos % (Auto) 0.3 Baso % (Auto) 0.2 Absolute Neuts (auto) 6.5 Absolute Lymphs (auto) 2.71 Total Counted Not Reportable Sodium 139 Potassium 3.2 L Chloride 106 Carbon Dioxide 21.0 Anion Gap 12 BUN 11 Creatinine 0.83 Estim Creat Clear Calc 92.42 Est GFR (MDRD) Af Amer 107 Est GFR (MDRD) Non-Af 88 BUN/Creatinine Ratio 13.3 Glucose 122 H Calcium 9.0 Total Bilirubin Direct Bilirubin AST ALT Alkaline Phosphatase Total Protein Albumin Globulin Serum , Qual NEGATIVE Urine Color Urine Clarity Urine pH Ur Specific [place] Urine Protein Urine Glucose (UA) Urine Ketones Urine Occult Blood Urine Nitrite Urine Bilirubin Urine Urobilinogen Ur Leukocyte Esterase Urine RBC Urine WBC Ur Squamous Epith Cells Urine Bacteria Urine Mucus 12/23/17 12/24/17 23:15 00:20 WBC RBC Hgb Hct MCV MCH MCHC RDW RDW Differential Plt Count MPV Immature Gran % (Auto) Neut % (Auto) Lymph % (Auto) [place] % (Auto) Eos % (Auto) Baso % (Auto) Absolute Neuts (auto) Absolute Lymphs (auto) Total Counted Sodium Potassium Chloride Carbon Dioxide Anion Gap BUN Creatinine Estim Creat Clear Calc Est GFR (MDRD) Af Amer Est GFR (MDRD) Non-Af BUN/Creatinine Ratio Glucose Calcium Total Bilirubin 1.20 H Direct Bilirubin 0.22 AST 16 ALT 23 Alkaline Phosphatase 70 Total Protein 7.8 Albumin 4.1 Globulin 3.7 Serum , Qual Urine Color Yellow Urine Clarity Cloudy Urine pH 6.0 Ur Specific [place] 1.025 Urine Protein 30 H Urine Glucose (UA) Normal Urine Ketones 150 H Urine Occult Blood 10 H Urine Nitrite Negative Urine Bilirubin Negative Urine Urobilinogen 1 H Ur Leukocyte Esterase 500 H Urine RBC 0 SEEN Urine WBC 5-10 SEEN Ur Squamous Epith Cells 50-100 SEEN Urine Bacteria 0 SEEN Urine Mucus 3+ Medications Given Capsaicin (Zostrix) 1 applic TOPICAL TID PRN PRN; Protocol PRN Reason: NAUSEA Last Admin: 12/23/17 23:43 Dose: 1 applicatio Sodium Chloride () 1,000 mls @ 999 mls/hr IV .Q1H1M ONE Stop: 12/24/17 02:29 Last Admin: 12/24/17 01:32 Dose: 999 mls/hr Discontinued Medications Al Hydroxide/Mg Hydroxide (Mylanta Ii) 30 ml PO X1 ONE Stop: 12/24/17 02:15 Haloperidol Lactate (Haldol) 5 mg IV X1 ONE Stop: 12/23/17 23:34 Last Admin: 12/23/17 23:39 Dose: 5 mg Sodium Chloride () 1,000 mls @ 999 mls/hr IV .Q1H1M ONE Stop: 12/24/17 01:43 Last Admin: 12/24/17 01:00 Dose: 999 mls/hr Lidocaine HCl (Xylocaine Viscous) 15 ml PO X1 ONE Stop: 12/24/17 02:15 Lorazepam (Ativan) 1 mg IV X1 ONE Stop: 12/24/17 01:10 Last Admin: 12/24/17 01:14 Dose: 1 mg Multi-Ingredient GI Drug () 1 ea PO X1 ONE Stop: 12/24/17 02:15 Emergency Department Course and Treatment: Patient presents for nausea, vomiting and abdominal pain. Patient has these recurrent symptoms and has had multiple workups and hospitalizations for the same. Patient was given IV fluids and Haldol for her symptoms. Patient had improvement but then return of the nausea and vomiting. She was then given IV Ativan for additional symptomatic relief. Capsaicin cream was tried on her abdomen topically, but patient stated she got no relief from and it just burned. On reevaluation patient was sleeping. When awakened she stated that she still felt uncomfortable and nauseated. We discussed possible admission for intractable nausea and abdominal pain, and patient stated she needed to go home because of family. She was offered and accepted a GI cocktail. Patient felt well enough to go home. She was discharged with a ride. Treatment Plan: [] Disposition: [] Impression: Cyclic vomiting syndrome This note was generated with [employer] dictation software. It may contain incorrect words, spelling, and punctuation that were not noted in review of the chart prior to signing ED Disposition - Plan for ED Patient: Disposition: Home or Assisted Living Chief Complaint: Abd Pain Instructions: ED Nausea Vomiting Prescriptions: proMETHazine tablet [Phenergan] 25 mg PO Q6H PRN PRN #10 tab PRN Reason: Nausea Referrals: Benedict Sharp DO [Primary Care Provider] - 1-2 Days if not improving Additional Instructions: Keep your appointment as scheduled for your colonoscopy. Use the promethazine as needed for further nausea and vomiting. You may find some relief from [id number] stomach medicines to help with abdominal pain, such as Mylanta or Pepto-Bismol. If you have any worsening of your condition or any new concerning symptoms, please return immediately to the emergency department for another evaluation.
[2017-12-23] MEDS: Haloperidol Lactate 5 MG/ML Vial IV (23:39)
[2017-12-23] MEDS: Capsaicin 0.025% 1 APPLIC Tube TOPICAL (23:43)
[2017-12-24 00:01] LABS: AST(SGOT) 16 U/L (15-37); Alanine Aminotransfer ALT/SGPT 23 U/L (13-56); Albumin, Serum 4.1 g/dL (3.2-5.0); Alkaline Phosphatase 70 U/L (45-117); Bilirubin, Direct 0.22 mg/dL (0.00-0.30); Globulin 3.7 g/dL (2.2-4.2); Protein, Total 7.8 g/dL (6.4-8.2)
[2017-12-24 00:04] LABS: Pregnancy, Serum, hCG Quali. NEGATIVE Negative (0-9 Nonpreg)
[2017-12-24 00:29] LABS: Bacteria 0 SEEN /hpf (None Seen); Red Blood Cells-Urine 0 SEEN /hpf (0-5)
[2017-12-24 00:30] LABS: Color, Urine Yellow (Yellow); Glucose, Dipstick Normal (Normal); Leukocyte Esterase-Dipstick 500 /ul (Negative); Nitrite-Dipstick Negative (Negative); Occult Blood-Urine 10 /ul (Negative); Protein-Dipstick 30 mg/dl (Negative); Specific Gravity, Urine 1.025 (1.002-1.030); Urine Bilirubin Dipstick Negative (Negative); Urine Clarity Cloudy (Clear); Urine Urobilinogen 1 mg/dl (Normal)
[2017-12-24 00:41] LABS: Ketone-Dipstick 150 mg/dl (Negative); Mucous, Urine 3+ /hpf (<or=2+); Squamous Epithelial Cells - UA 50-100 SEEN /hpf (5-10); White Blood Cells 5-10 SEEN /hpf (0-5)
--- NOTE | 2017-12-24 00:41 | ED.RN ---
lab called with critical lab results. urine ketones 150. Dr. Lawson made aware. no new orders at this time
[2017-12-24] MEDS: 0.9% Normal Saline 1,000 ML 999 ML IV ×2 (01:00→01:32)
[2017-12-24 01:05] VITALS: RESP 18
[2017-12-24] MEDS: LORazepam 2 MG/ML Syringe 1 MG IV (01:14)
[2017-12-24] MEDS: Mag Hydrox/Al Hydrox/Simeth 30 ML UDC PO (02:46)
[2017-12-24 03:25] VITALS: BP 127/70; PULSE 90; RESP 18; O2SAT 94
--- NOTE | 2017-12-24 03:31 | DCINST.ED_ITS ---
ED Disposition - Plan for ED Patient: Disposition: Home or Assisted Living Chief Complaint: Abd Pain Instructions: ED Nausea Vomiting Prescriptions: proMETHazine tablet [Phenergan] 25 mg PO Q6H PRN PRN #10 tab PRN Reason: Nausea Referrals: Benedict Sharp DO [Primary Care Provider] - 1-2 Days if not improving Additional Instructions: Keep your appointment as scheduled for your colonoscopy. Use the promethazine as needed for further nausea and vomiting. You may find some relief from over- the-counter stomach medicines to help with abdominal pain, such as Mylanta or Pepto-Bismol. If you have any worsening of your condition or any new concerning symptoms, please return immediately to the emergency department for another evaluation.
[2017-12-24] MEDS: proMETHazine 25 MG/ML Syringe 12.5 MG IV (03:42)
[2017-12-24 03:51] VITALS: BP 123/78; PULSE 88; RESP 17; O2SAT 99
== END 2017-12-24 03:53 | disposition home or self-care (01) ==
PROVIDERS: Emergency Provider Emergency Medicine; Family Provider Preventive Medicine Occupational Medicine; PCP Preventive Medicine Occupational Medicine
DX: G43.A0 Cyclical vomiting, in migraine, not intractable (principal)
CPT/HCPCS: 80048; 80076; 81001; 84703; 85025; 96374; 96375; 99285; J7030; A4216

== ENCOUNTER 2018-06-12 11:33 | Emergency (ER) | payer SELFPAY ==
[2018-06-12 11:34] VITALS: BP 169/99; PULSE 85; RESP 16; TEMP 36.6; BMI 26.8
--- NOTE | 2018-06-12 11:52 | ED.DCSUM_ITS ---
History of Present Illness Chief Complaint: Sore Throat Informant: Patient Onset: Yesterday Context: Sudden Onset Timing: Continuous Quality: Pain Location: Throat Current Severity: Mild Maximum Severity: Severe Worsened by: Swallowing Relieved by: Nothing Associated Symptoms: Respiratory and GI Narrative: Patient is a 28-year-old female who presents with nasal congestion, sore throat, nonproductive cough, mild headache, nausea with diarrhea. She has a child at home that has viral-like symptoms. Child was ill before her. She is a non- smoker. She denies skin lesions or rash. She denies auditory or visual symptoms. She denies photophobia, neck pain or neck stiffness. She denies urologic symptoms. She states she was concerned because she had a white coat on her tongue. Prior similar symptoms: No Recent Illness/Hospitalization: No Past Medical History - Allergies and Home Meds Allergies/Adverse Reactions: Allergies No Known Allergies Allergy (Verified 12/23/17 22:49) Primary Care Physician: Benedict Sharp DO [Primary Care Provider] - Past Medical History: - - Migraine headaches and vomiting Surgical History: cholecystectomy, - - x 2. Lives: With Family Smoking Status: Never smoker Alcohol: None Drugs: None - Family History Maternal Family History: Reports: Asthma, Stroke Paternal Family History: Reports: No pertinent history Review of Systems General: Reports: Fever, Subjective. Denies: Chills, Sweats, Weight loss Eyes: Denies: Visual changes - bilaterally, Blurred Vision - bilaterally, Diplopia ENT: Reports: Rhinorrhea, Sore throat. Denies: Bilateral ear pain Cardiovascular: Denies: Chest pain, Palpitations Respiratory: Reports: Cough. Denies: Dyspnea, Sputum, Dyspnea on exertion Gastrointestinal: Reports: Nausea. Denies: Abdominal pain, Vomiting, Diarrhea Genitourinary: Denies: Dysuria, Hematuria, Frequency Musculoskeletal: Reports: Myalgias, Arthralgias. Denies: Neck pain, Back pain, Swelling Neurological: Reports: Headache. Denies: Weakness, Parasthesia, Numbness Hematologic: Denies: Easy bruising, Easy bleeding Allergy: Denies: Uticaria, Swelling of the mouth Physical Exam Vital Signs/Narrative: Vital Signs Temp Pulse Resp BP 06/12/18 11:34 97.9 F 85 16 169/99 H Inital Vital Signs reviewed: Yes General: Well nourished, Well developed, No Acute Distress Head: Normocephalic, Atraumatic Eyes: Perrl, EOMI. Negative for: Pale conjunctiva, Scleral icterus ENT: Moist mucous membranes, TM's clear, Nasal congestion. Negative for: No rhinorrhea Neck: Supple, Nontender. Negative for: No lymphadenopathy Cardiovascular: Regular rate, Regular rhythm, No murmurs Respiratory: No distress, CTA bilaterally, Chest nontender Abdomen: Soft, Nontender, Nondistended, Normal bowel sounds, No masses. Negative for: Hepatomegaly, Splenomegaly Extremities: Nontender, No edema Skin: Normal color, No rash Neurological: Alert, Oriented x3, Cranial nerves II-XII grossly intact, Normal Strength, Normal Sensation Psychological: Normal affect Diagnostic/Tx/Re-eval - Medical Decision Making Patient appears no distress. Patient's history is consistent with a viral illn ess. With a unremarkable exam will treat symptomatically. There is no need or indication for imaging or laboratory testing. ED Disposition - Plan for ED Patient: Disposition: Home or Assisted Living Diagnosis: Acute viral disease, Diarrhea Instructions: ED Viral Syndrome Referrals: Benedict Sharp DO [Primary Care Provider] - 1 Week if not improving Additional Instructions: Drink plenty of fluids. Take Tylenol or ibuprofen for subjective fever and discomfort. You may be ill for additional 7-10 days.
== END 2018-06-12 12:06 | disposition home or self-care (01) ==
PROVIDERS: Emergency Provider Emergency Medicine; Family Provider Preventive Medicine Occupational Medicine; PCP Preventive Medicine Occupational Medicine
DX: B34.9 Viral infection, unspecified (principal); R19.7 Diarrhea, unspecified; Z90.49 Acquired absence of other specified parts of digestive tract
CPT/HCPCS: 99282

== ENCOUNTER 2018-06-17 00:31 | Emergency (ER) | payer MEDICAID, SELFPAY ==
[2018-06-17 00:32] VITALS: PULSE 76; RESP 12; TEMP 36.7; O2SAT 100; BMI 26.7
--- NOTE | 2018-06-17 00:39 | ED.DCSUM_ITS ---
- ER Visit Summary Date of Service: 06/17/18 Chief Complaint: Nausea, vomiting History of Present Illness: The patient is a 28 F with history of recurrent nausea and vomiting presents to the emergency department with nausea and vomiting. The patient symptoms began tonight about 630. She states that it hap pens every time that she ate [employer]. She had [employer] this evening and shortly after developed cramping abdominal pain. She is had multiple episodes of nausea and vomiting. She states that she is vomited so much, she is had chest tightness. The patient does have a history of IBS. She also has a history of marijuana abuse. She denies any fevers or chills. She denies any focal points of pain. She denies any weight loss, night sweats, or other systemic symptoms. She denies any change in bowel habits. Physical Examination: Vital signs reviewed General: Well-nourished, well-developed Head: Normocephalic, atraumatic Eyes: Pupils equal and reactive, extraocular muscles intact Neck, supple, no lymphadenopathy Heart: Regular rate and rhythm Respiratory: No distress, clear bilaterally Abdomen: Soft, nontender, nondistended, no peritoneal signs Back: Nontender Extremities: Nontender, no edema, no cords Skin: Normal color no rash Neuro: Alert and oriented, no focal or lateralizing deficits Test Results: [] Emergency Department Course and Treatment: The patient presents with midepigastric abdominal pain, nausea, and vomiting. IV was established. EKG was obtained as the patient had complained of chest pain after vomiting. This is unremarkable. She is a normal axis and intervals. Patient was given IV fluids, Phenergan, morphine. She did have improvement of her pain but still had persistent nausea. Screening labs are unremarkable except for hypokalemia. This was replaced. In review of the records, patient has had hyperemesis before thought to be secondary to marijuana use. Patient was given Ativan and Haldol and was observed. She was given 2 L of fluids. She had no further vomiting. On reevaluation, she is resting comfortably. At this time, I do feel that the patient is safe for outpatient therapy. I will prescribe Zofran and Phenergan for symptom control. She was counseled to abstain from marijuana. Treatment Plan: [] Disposition: Discharge Impression: 1. Nausea and vomiting This note was generated with Dragon dictation software. It may contain incorrect words, spelling, and punctuation that were not noted in review of the chart prior to signing ED Disposition - Plan for ED Patient: Instructions: ED Nausea Vomiting Prescriptions: proMETHazine suppository [Phenergan Suppository] 25 mg RECTAL Q6H PRN PRN #6 suppos. PRN Reason: Nausea Ondansetron [Zofran Odt] 4 mg PO Q8H PRN PRN #10 tab PRN Reason: Nausea Dicyclomine HCl [Bentyl] 20 mg PO TIDAC #20 cap Referrals: Benedict Sharp DO [Primary Care Provider] -
[2018-06-17] MEDS: proMETHazine 25 MG/ML Syringe 12.5 MG IV (00:42)
[2018-06-17] MEDS: 0.9% Normal Saline 1,000 ML 1000 ML IV (00:42)
[2018-06-17] MEDS: Morphine 4 MG/ML Syringe IV (00:43)
[2018-06-17 00:45] LABS: Absolute Lymphocyte Count 1.01 X10^3/ul (0.83-4.51); Absolute Neutrophil Count 6.9 X10^3/uL (2.0-7.7); Basophil# 0.03 X10^3/uL; Basophil% 0.4 % (0-1); Hematocrit 43.7 % (37-47); Hemoglobin 14.5 g/dl (12.0-15.0); Lymphocyte # 1.01 X10^3/ul (4.0); Lymphocyte % 12.3 % (19-41); Mean Corp Hgb Conc 33.2 g/gl (32-36); Mean Corpuscular Hgb 28.6 pg (27.0-32.0); Mean Corpuscular Volume 86.2 fL (81-99); Mean Platelet Vol. 10.3 fl (6.2-12.0); Monocyte# 0.32 X10^3/uL; Monocyte% 3.9 % (0-10); Neutrophil # 6.86 X10^3/uL (2.7-7.7); Neutrophil % 83.2 % (47-70); POSITIVE COUNT NO; POSITIVE DIFFERENTIAL NO; POSITIVE MORPHOLOGY NO; Platelet Count 470 K/mm3 (150-450); RBC Distribution Width CV 13.1 % (11.6-14.6); RBC Distribution Width SD 40.7 fl (35.1-43.9); Red Blood Count 5.07 M/mm3 (4.2-5.4); White Blood Count 8.2 K/mm3 (4.4-11.0)
[2018-06-17 00:59] LABS: ALB/GLOB Ratio 0.9 RATIO (0.9-2.4); AST(SGOT) 18 U/L (15-37); Alanine Aminotransfer ALT/SGPT 20 U/L (13-56); Albumin, Serum 3.8 g/dL (3.2-5.0); Alkaline Phosphatase 70 U/L (45-117); Anion Gap 10 (5-15); BUN 6 mg/dL (7-18); BUN/Creat Ratio 6.7 RATIO (10-20); Chloride 102 mmol/L (98-107); EST Glomerular Filtration Rate 80 mL/min (>60); Est Glom Filt Rate - Afr Amer 96 mL/min (>60); Globulin 4.2 g/dL (2.2-4.2); Glucose 147 mg/dL (74-106); Lipase 76 U/L (73-393); Potassium 2.9 mmol/L (3.5-5.1); Sodium Level 139 mmol/L (136-145)
[2018-06-17] MEDS: Potassium Chloride 10mEq/100mL 10 MEQ/100 ML IV.SOLN. 100 MEQ IV BOLUS ×2 (01:21→02:31)
[2018-06-17 01:25] LABS: Pregnancy, Serum, hCG Quali. NEGATIVE Negative (0-9 Nonpreg)
[2018-06-17] MEDS: Haloperidol Lactate 5 MG/ML Vial 2 MG IV (01:57)
[2018-06-17] MEDS: LORazepam 2 MG/ML Syringe 1 MG IV (01:57)
[2018-06-17 02:32] VITALS: BP 154/104; PULSE 60; RESP 18; O2SAT 98
[2018-06-17 04:03] VITALS: BP 154/100; PULSE 78; RESP 14; O2SAT 100
== END 2018-06-17 04:04 | disposition home or self-care (01) ==
PROVIDERS: Emergency Provider Emergency Medicine; Family Provider Preventive Medicine Occupational Medicine; PCP Preventive Medicine Occupational Medicine
DX: R11.2 Nausea with vomiting, unspecified (principal); R10.9 Unspecified abdominal pain; F12.10 Cannabis abuse, uncomplicated
CPT/HCPCS: 80053; 83690; 84703; 85025; 99283; J7030; A4216

== ENCOUNTER 2018-06-17 17:46 | Emergency (ER) | payer SELFPAY ==
[2018-06-17 00:32] VITALS: BMI 26.7
[2018-06-17 17:47] VITALS: BP 141/94; PULSE 87; RESP 18; TEMP 37.2; O2SAT 95; BMI 26.6
--- NOTE | 2018-06-17 18:12 | ED.DCSUM_ITS ---
- ER Visit Summary Date of Service: 06/17/18 Chief Complaint: Vomiting History of Present Illness: The patient is a 28 F who presents emergency department with nausea vomiting. She states that she was seen last night for the same. Patient states the symptoms began after eating [employer]. From reviewing the chart and speaking with the patient she has a history of cyclic vomiting syndrome. She still smokes marijuana and last smoked marijuana a few days ago. The patient did not fill her prescriptions for Zofran or Phenergan today because she states she was at home with the kids. She called an ambulance to bring her to the emergency department cb and her boyfriend is watching the kids. She states her mother will be up with her. She states she went to the vomiting to stop. She notes burning in her chest. EKG last night that was negative. Physical Examination: Afebrile vital signs are stable Gen: Well-nourished well-developed Head: Normocephalic atraumatic Eyes: Perrl EOMI ENT: TMs clear no rhinorrhea moist mucous membranes Neck: Supple no lymphadenopathy no JVD nontender CVS: Regular rate rhythm no murmurs normal S1-S2 Respiratory: No distress clear to auscultation bilaterally chest nontender Abdomen: Soft tender without guarding or rebound nondistended normal bowel sounds no masses Back: Nontender Extremity: Nontender no edema Skin: Normal color no rash Neuro: alert orientated ?3 CN II-XII intact normal strength Psych: Normal affect normal mood Test Results: Potassium returned low at 2.9. No evidence of biliary obstruction. Emergency Department Course and Treatment: IV was established and we found cyclic vomiting syndrome protocol. She received a liter of IV fluids and Zofran and Ativan. Patient was reassessed. She states that she is no better. Thorazine and Benadryl was ordered. Her mother is upset because she has not gotten the medicines yet and is explained to her that medicines were being mixed from pharmacy. Since the patient has had the Thorazine and Benadryl she has not had any vomiting. She is gotten up out of the bed to urinate. We gave her potassium chloride for her low potassium and she has kept that down. She states she does not understand why we cannot fix her. I asked what she needed to be fixed. She has soreness in her throat, soreness in her abdomen and soreness in her chest. This is probably because she has been vomiting. I advised her she needs to fill the Phenergan. She is to stop smoking marijuana. She needs to avoid the foods that trigger her cyclic vomiting such as talked about but she had yesterday. Her feeling poorly cannot be fixed with a simple pill. This will take time for her body to recover from this illness. Impression: 1. Cyclic vomiting syndrome This note was generated with [employer] dictation software. It may contain incorrect words, spelling, and punctuation that were not noted in review of the chart prior to signing ED Disposition - Plan for ED Patient: Disposition: Home or Assisted Living Instructions: When Your Child Has Cyclic Vomiting Syndrome ([facility]) Referrals: Benedict Sharp DO [Primary Care Provider] - 3-5 Days Additional Instructions: You must stop smoking marijuana
[2018-06-17] MEDS: 0.9% Normal Saline 1,000 ML 999 ML IV (18:40)
[2018-06-17] MEDS: Ondansetron 4 MG/2 ML Vial IV (18:44)
[2018-06-17] MEDS: LORazepam 2 MG/ML Syringe 0.5 MG IV (18:44)
[2018-06-17 19:01] LABS: ALB/GLOB Ratio 0.9 RATIO (0.9-2.4); AST(SGOT) 20 U/L (15-37); Alanine Aminotransfer ALT/SGPT 20 U/L (13-56); Albumin, Serum 4.1 g/dL (3.2-5.0); Alkaline Phosphatase 73 U/L (45-117); Anion Gap 11 (5-15); BUN 4 mg/dL (7-18); BUN/Creat Ratio 4.8 RATIO (10-20); Chloride 102 mmol/L (98-107); Creatinine, Serum 0.84 mg/dL (0.55-1.02); EST Glomerular Filtration Rate 87 mL/min (>60); Est Glom Filt Rate - Afr Amer 105 mL/min (>60); Estimated Creatinine Clearance 90.52 ml/min; Globulin 4.5 g/dL (2.2-4.2); Glucose 105 mg/dL (74-106); Potassium 2.9 mmol/L (3.5-5.1); Protein, Total 8.6 g/dL (6.4-8.2); Sodium Level 139 mmol/L (136-145)
[2018-06-17 20:01] VITALS: BP 154/72; PULSE 86; RESP 20; O2SAT 99
[2018-06-17] MEDS: DiphenhydrAMINE 50 MG/ML Syringe 25 MG IV (22:18)
[2018-06-17 22:23] VITALS: BP 161/84; PULSE 81; RESP 16; O2SAT 99
[2018-06-17 23:04] VITALS: BP 148/71; PULSE 78; RESP 16; O2SAT 99
== END 2018-06-17 23:10 | disposition home or self-care (01) ==
PROVIDERS: Emergency Provider Emergency Medicine; Family Provider Preventive Medicine Occupational Medicine; PCP Preventive Medicine Occupational Medicine
DX: G43.A0 Cyclical vomiting, in migraine, not intractable (principal); F12.90 Cannabis use, unspecified, uncomplicated; E87.6 Hypokalemia
CPT/HCPCS: 80053; 83690; 84703; 85025; 96361; 96365; 96366; 96374; 96375; 99283; 99284; J7030; J7040; A4216; J2405; J3490

== ENCOUNTER 2018-06-18 07:59 | Emergency (ER) | payer MEDICAID, SELFPAY ==
[2018-06-17 17:47] VITALS: BMI 26.6
[2018-06-18 08:01] VITALS: BP 138/104; PULSE 77; RESP 16; TEMP 36.6; O2SAT 97; BMI 27.1
--- NOTE | 2018-06-18 08:24 | ED.VISSUMM ---
- ER Visit Summary Date of Service: 06/18/18 Chief Complaint: Nausea and vomiting History of Present Illness: The patient is a 28 F who presents with nausea and vomiting for the past few days. Patient states she ate [employer] 2 days ago which triggered her cyclic vomiting syndrome. Patient was seen here in the emergency department the past 2 days. Patient was given antiemetics and fluids at that time. Patient was given a prescription for Phenergan. Patient states she has pain over the epigastric area. Patient describes the pain as cramping burning and aching. Patient denies any diarrhea. Patient denies any urinary complaints. Patient states her last menstrual period was 1 week ago and was normal. She states she has some pain in her chest with vomiting. Physical Examination: Vital signs are stable. Patient is afebrile. Patient is in no acute distress. Oral mucosa is pink and moist. Neck is supple. Trachea is midline. There is no JVD noted. Heart was regular rate and rhythm. Lungs are clear and equal bilateral. Abdomen is soft. Bowel sounds are normal. There is epigastric tenderness. There is no rebound or guarding noted. Skin is warm dry. Cranial nerves II through XII are intact. There are no focal motor or sensory deficits noted. The remaining physical exam is within normal limits. Test Results: CBC, comprehensive metabolic profile, lipase, and hCG were obtained. Potassium was low at 2.9. The remaining labs were all within normal limits. Emergency Department Course and Treatment: Patient was given IV fluids and Zofran. Patient had some vomiting after this. Patient was given Phenergan and Ativan. Patient was given potassium 10 mEq IV and 40 mEq p.o. Patient was resting comfortably on reevaluation. Patient was instructed to take her Phenergan as prescribed at home. Patient was instructed to start with sips of fluids and advance as tolerated. Patient was instructed to stop smoking marijuana. Patient understood and was agreeable with the plan. All questions were answered. Disposition: Discharge home Impression: Cyclic vomiting syndrome This note was generated with [employer] dictation software. It may contain incorrect words, spelling, and punctuation that were not noted in review of the chart prior to signing ED Disposition - Plan for ED Patient: Disposition: Home or Assisted Living Diagnosis: Nausea and vomiting, Cyclic vomiting syndrome Instructions: ED Nausea Vomiting Referrals: Benedict Sharp DO [Primary Care Provider] -
--- NOTE | 2018-06-18 08:27 | ED.DCSUM_ITS ---
- ER Visit Summary Date of Service: 06/18/18 Chief Complaint: Nausea and vomiting History of Present Illness: The patient is a 28 F who presents with nausea and vomiting for the past few days. Patient states she ate [employer] 2 days ago which triggered her cyclic vomiting syndrome. Patient was seen here in the emergency department the past 2 days. Patient was given antiemetics and fluids at that time. Patient was given a prescription for Phenergan. Patient states she has pain over the epigastric area. Patient describes the pain as cramping burning and aching. Patient denies any diarrhea. Patient denies any urinary complaints. Patient states her last menstrual period was 1 week ago and was n ormal. She states she has some pain in her chest with vomiting. Physical Examination: Vital signs are stable. Patient is afebrile. Patient is in no acute distress. Oral mucosa is pink and moist. Neck is supple. Trachea is midline. There is no JVD noted. Heart was regular rate and rhythm. Lungs are clear and equal bilateral. Abdomen is soft. Bowel sounds are normal. There is epigastric tenderness. There is no rebound or guarding noted. Skin is warm dry. Cranial nerves II through XII are intact. There are no focal motor or sensory deficits noted. The remaining physical exam is within normal limits. Test Results: CBC, comprehensive metabolic profile, lipase, and hCG were obtained. Potassium was low at 2.9. The remaining labs were all within normal limits. Emergency Department Course and Treatment: Patient was given IV fluids and Zofran. Patient had some vomiting after this. Patient was given Phenergan and Ativan. Patient was given potassium 10 mEq IV and 40 mEq p.o. Patient was resting comfortably on reevaluation. Patient was instructed to take her Phenergan as prescribed at home. Patient was instructed to start with sips of fluids and advance as tolerated. Patient was instructed to stop smoking marijuana. Patient understood and was agreeable with the plan. All questions were answered. Disposition: Discharge home Impression: Cyclic vomiting syndrome This note was generated with [employer] dictation software. It may contain incorrect words, spelling, and punctuation that were not noted in review of the chart prior to signing ED Disposition - Plan for ED Patient: Disposition: Home or Assisted Living Diagnosis: Nausea and vomiting, Cyclic vomiting syndrome Instructions: ED Nausea Vomiting Referrals: Benedict Sharp DO [Primary Care Provider] -
[2018-06-18] MEDS: 0.9% Normal Saline 1,000 ML 1000 ML IV (08:39)
[2018-06-18] MEDS: Ondansetron 4 MG/2 ML Vial IV (08:39)
[2018-06-18 08:42] LABS: Absolute Lymphocyte Count 1.55 X10^3/ul (0.83-4.51); Basophil# 0.02 X10^3/uL; Basophil% 0.3 % (0-1); Hematocrit 46.4 % (37-47); Hemoglobin 14.9 g/dl (12.0-15.0); Lymphocyte # 1.55 X10^3/ul (4.0); Lymphocyte % 22.2 % (19-41); Mean Corp Hgb Conc 32.1 g/gl (32-36); Mean Corpuscular Volume 87.1 fL (81-99); Mean Platelet Vol. 9.9 fl (6.2-12.0); Monocyte# 0.39 X10^3/uL; Monocyte% 5.6 % (0-10); Neutrophil % 71.6 % (47-70); Platelet Count 373 K/mm3 (150-450); RBC Distribution Width CV 13.5 % (11.6-14.6); RBC Distribution Width SD 42.8 fl (35.1-43.9); Red Blood Count 5.33 M/mm3 (4.2-5.4)
[2018-06-18 08:48] LABS: POSITIVE COUNT NO; POSITIVE DIFFERENTIAL NO; POSITIVE MORPHOLOGY NO
[2018-06-18 08:59] LABS: AST(SGOT) 17 U/L (15-37); Alanine Aminotransfer ALT/SGPT 19 U/L (13-56); Alkaline Phosphatase 71 U/L (45-117); Anion Gap 9 (5-15); BUN 4 mg/dL (7-18); BUN/Creat Ratio 4.9 RATIO (10-20); Calcium,Total 8.7 mg/dL (8.5-10.1); Chloride 103 mmol/L (98-107); Creatinine, Serum 0.81 mg/dL (0.55-1.02); EST Glomerular Filtration Rate 90 mL/min (>60); Est Glom Filt Rate - Afr Amer 109 mL/min (>60); Estimated Creatinine Clearance 93.88 ml/min; Globulin 4.1 g/dL (2.2-4.2); Glucose 108 mg/dL (74-106); Lipase 86 U/L (73-393); Potassium 2.9 mmol/L (3.5-5.1); Protein, Total 8.1 g/dL (6.4-8.2); Sodium Level 139 mmol/L (136-145)
[2018-06-18] MEDS: LORazepam 2 MG/ML Syringe 0.5 MG IV (08:59)
[2018-06-18] MEDS: proMETHazine 25 MG/ML Syringe 6.25 MG IV (08:59)
[2018-06-18 09:34] LABS: Pregnancy, Serum, hCG Quali. NEGATIVE Negative (0-9 Nonpreg)
[2018-06-18 10:27] VITALS: BP 119/62; PULSE 74; RESP 16; O2SAT 98
== END 2018-06-18 10:27 | disposition home or self-care (01) ==
PROVIDERS: Emergency Provider Emergency Medicine; Family Provider Preventive Medicine Occupational Medicine; PCP Preventive Medicine Occupational Medicine
DX: G43.A0 Cyclical vomiting, in migraine, not intractable (principal); M54.9 Dorsalgia, unspecified; G89.29 Other chronic pain; F12.90 Cannabis use, unspecified, uncomplicated
CPT/HCPCS: 80053; 83690; 84703; 85025; 99284; J7030; J2405

== ENCOUNTER 2018-06-18 21:07 | Emergency (ER) | payer SELFPAY ==
[2018-06-18 08:01] VITALS: BMI 27.1
[2018-06-18 21:08] VITALS: BP 134/101; PULSE 69; RESP 18; TEMP 36.6; O2SAT 94; BMI 27.9
[2018-06-18] MEDS: DiphenhydrAMINE 50 MG/ML Syringe 25 MG IV (21:49)
[2018-06-18] MEDS: Haloperidol Lactate 5 MG/ML Vial 2 MG IV (21:50)
[2018-06-18] MEDS: 0.9% Normal Saline 1,000 ML 999 ML IV ×2 (21:50→23:51)
--- NOTE | 2018-06-18 22:06 | ED.DCSUM_ITS ---
- ER Visit Summary Date of Service: 06/18/18 Chief Complaint: Nausea, vomiting History of Present Illness: The patient is a 28 F presenting with nausea, vomiting. Patient states this started 2 days ago. She was seen in the ED earlier with similar complaints. This is her fourth ED visit in 48 hours. She was sent home with Bentyl and Zofran. She states she was unable to fill these medications because she does not currently have insurance. She states she has continued to vomit all day at home. She has a history of cyclic vomiting syndrome, IBS, kidney stones. History of marijuana use she states she has not used in the past week. Denies other complaints. Physical Examination: Vitals are stable. Patient is afebrile. Alert no acute distress. HEENT exam is unremarkable. Neck is supple. Lungs are clear and equal bilaterally. Heart is regular rate and rhythm. Abdomen is soft epigastric tenderness with no rebound or guarding Extremities are unremarkable. Skin is warm and dry. Remainder of exam is unremarkable. Emergency Department Course and Treatment: Patient was given IV fluids, Haldol, Benadryl, topical capsaicin. Chemistries show potassium 2.6, lipase of 71. She was given KCL 40 meq IV over several hours. She will be checked out to the oncoming physician for re-evaluation. Disposition: pending Impression: Cyclic vomiting syndrome, hypokalemia This note was generated with [employer] dictation software. It may contain incorrect words, spelling, and punctuation that were not noted in review of the chart prior to signing ED Disposition - Plan for ED Patient: Instructions: ED Nausea Vomiting Referrals: Benedict Sharp DO [Primary Care Provider] -
[2018-06-18] MEDS: Capsaicin 0.025% 1 APPLIC Tube TOPICAL (22:26)
[2018-06-18 23:00] LABS: BUN 4 mg/dL (7-18); BUN/Creat Ratio 7.3 RATIO (10-20); Calcium,Total 7.7 mg/dL (8.5-10.1); Creatinine, Serum 0.55 mg/dL (0.55-1.02); Estimated Creatinine Clearance 138.25 ml/min; Glucose 95 mg/dL (74-106)
[2018-06-18 23:01] LABS: Anion Gap 8 (5-15); Chloride 104 mmol/L (98-107); Sodium Level 138 mmol/L (136-145)
--- NOTE | 2018-06-18 23:09 | ED.RN ---
lab called with critical lab results. potassium level 2.6. Dr. Alvarez made aware. orders to be placed at this time
[2018-06-18 23:10] LABS: Lipase 71 U/L (73-393)
[2018-06-18 23:11] LABS: EST Glomerular Filtration Rate 140 mL/min (>60); Est Glom Filt Rate - Afr Amer 170 mL/min (>60); Potassium 2.6 mmol/L (3.5-5.1)
[2018-06-18 23:49] VITALS: BP 124/78; PULSE 62; RESP 16; O2SAT 94
[2018-06-18] MEDS: Potassium Chloride 10mEq/100mL 10 MEQ/100 ML IV.SOLN. 100 MEQ IV BOLUS (23:53)
--- NOTE | 2018-06-19 00:11 | ED.DEP ---
ED Disposition - Plan for ED Patient: Instructions: ED Nausea Vomiting Referrals: Benedict Sharp DO [Primary Care Provider] -
[2018-06-19 00:22] VITALS: BP 126/81; PULSE 60; RESP 16; O2SAT 97
[2018-06-19] MEDS: Potassium Chloride 10mEq/100mL 10 MEQ/100 ML IV.SOLN. 100 MEQ IV BOLUS ×3 (01:06→04:04)
[2018-06-19 01:09] VITALS: BP 134/89; PULSE 57; RESP 16; O2SAT 97
[2018-06-19 02:33] VITALS: BP 119/71; PULSE 66; RESP 16; O2SAT 96
[2018-06-19] MEDS: Ondansetron 4 MG/2 ML Vial IV (03:08)
[2018-06-19] MEDS: LORazepam 2 MG/ML Syringe 1 MG IV (03:28)
[2018-06-19] MEDS: Ketorolac 15 MG/ML Vial IV (05:03)
[2018-06-19 06:34] VITALS: BP 156/78; PULSE 73; RESP 14; O2SAT 96
== END 2018-06-19 06:59 | disposition home or self-care (01) ==
PROVIDERS: Emergency Medicine; Emergency Provider Emergency Medicine; Family Provider Preventive Medicine Occupational Medicine; PCP Preventive Medicine Occupational Medicine
DX: G43.A0 Cyclical vomiting, in migraine, not intractable (principal); E87.6 Hypokalemia; K58.9 Irritable bowel syndrome, unspecified; Z87.442 Personal history of urinary calculi; F12.90 Cannabis use, unspecified, uncomplicated
CPT/HCPCS: 80048; 80053; 83690; 84703; 85025; 96361; 96374; 96375; 99283; 99284; J7030; J7050; A4216; J2405

== ENCOUNTER 2018-06-19 16:04 | Emergency (ER) | payer MEDICAID, SELFPAY ==
[2018-06-18 21:08] VITALS: BMI 27.9
[2018-06-19 16:05] VITALS: BP 149/122; PULSE 109; RESP 24; TEMP 37; O2SAT 98; BMI 26.4
--- NOTE | 2018-06-19 16:17 | ED.RN ---
PT DRINKING GATORADE IN THE WAITING ROOM
--- NOTE | 2018-06-19 16:45 | ED.DCSUM_ITS ---
- ER Visit Summary Date of Service: 06/19/18 Chief Complaint: Nausea and vomiting History of Present Illness: The patient is a 28 F history of irritable bowel and kidney stones. Questionable history of cyclic vomiting syndrome. Patient has been seen here for 5 times already this week since Friday for vomiting. He denies any fever. Normal bowel movements. No diarrhea. Physical Examination: Young female anxious but no acute distress. Vital signs are stable initial blood pressure 149/122 to be rechecked. HEENT exam arteries memories. Pupils round reactive light. Neck nontender no lymphadenopathy. Lungs clear to auscultation bilaterally. Heart regular rhythm rate about 105 no murmur. Abdomen is soft. Nondistended. Normal bowel sounds. No peritoneal signs. No hernias. No signs of obstruction. Patient moving all 4 extremities. Neurovascular intact. Back nontender. Skin unremarkable. No petechiae or purpura no rashes. Neurologically she is awake and alert with no focal motor deficits. Test Results: Patient was treated with a liter normal saline. IV Phenergan and IV Ativan. Reassess. Emergency Department Course and Treatment: Multiple repeat exams patient is doing well. She keeps requesting narcotic pain medications as I explained to her is not the way to treat nausea and vomiting. She will be discharged home with a Zofran home pack ODT. A prescription for Zofran and also for p.o. potassium. Treatment Plan: Discharged home. Fluids and rest. Disposition: Discharge Impression: Acute on chronic cyclic vomiting syndrome Hypokalemia This note was generated with [employer] dictation software. It may contain incorrect words, spelling, and punctuation that were not noted in review of the chart prior to signing ED Disposition - Plan for ED Patient: Referrals: Benedict Shrap DO [Primary Care Provider] -
[2018-06-19] MEDS: proMETHazine 25 MG/ML Syringe 12.5 MG IV ×2 (16:58→18:45)
[2018-06-19] MEDS: 0.9% Normal Saline 1,000 ML 1000 ML IV (16:58)
[2018-06-19] MEDS: LORazepam 2 MG/ML Syringe 1 MG IV ×2 (16:59→18:44)
[2018-06-19 19:02] LABS: Anion Gap 10 (5-15); BUN 5 mg/dL (7-18); BUN/Creat Ratio 6.8 RATIO (10-20); Calcium,Total 8.8 mg/dL (8.5-10.1); Chloride 99 mmol/L (98-107); Creatinine, Serum 0.74 mg/dL (0.55-1.02); EST Glomerular Filtration Rate 100 mL/min (>60); Est Glom Filt Rate - Afr Amer 122 mL/min (>60); Estimated Creatinine Clearance 102.76 ml/min; Glucose 96 mg/dL (74-106); Potassium 2.9 mmol/L (3.5-5.1); Sodium Level 135 mmol/L (136-145)
--- NOTE | 2018-06-19 20:35 | ED.DEP ---
ED Disposition - Plan for ED Patient: Disposition: Home or Assisted Living Instructions: ED Nausea Vomiting Prescriptions: Ondansetron [Zofran Odt] 4 mg PO Q8H PRN PRN #10 tab PRN Reason: Nausea Potassium Chloride [K-Dur] 40 meq PO DAILY 10 Days #10 tab Referrals: Benedict Sharp DO [Primary Care Provider] - 1-2 Days if not improving Additional Instructions: Fluids and rest. Increase diet slowly. Zofran as needed for nausea. Daily potassium to bring her potassium level up to normal.
[2018-06-19 20:46] VITALS: BP 182/104; PULSE 65; PULSE 66; RESP 17
[2018-06-19] MEDS: Ondansetron ODT 4 MG Tablet PO (20:53)
== END 2018-06-19 21:08 | disposition home or self-care (01) ==
PROVIDERS: Emergency Provider Emergency Medicine; Family Provider Preventive Medicine Occupational Medicine; PCP Preventive Medicine Occupational Medicine
DX: G43.A0 Cyclical vomiting, in migraine, not intractable (principal); E87.6 Hypokalemia; K58.9 Irritable bowel syndrome, unspecified; Z87.442 Personal history of urinary calculi
CPT/HCPCS: 80048; 96361; 96374; 96375; 96376; 99281; A4216; J2405; J3490

== ENCOUNTER 2018-06-20 06:32 | Observation (INO) | payer MEDICAID, SELFPAY ==
[2018-06-19 16:05] VITALS: BMI 26.4
[2018-06-20] VITALS (11 sets, daily range): BP systolic 117–157; BP diastolic 81–113; PULSE 87–141; RESP 13–20; TEMP 36.2–37; O2SAT 95–98; BMI 26.9; BMI 24.0; BMI 24.3
[2018-06-20] MEDS: Ketorolac 15 MG/ML Vial IV (07:11)
--- NOTE | 2018-06-20 07:12 | CT_ITS ---
STUDY: CT ABDOMEN AND PELVIS WITH CONTRAST REASON FOR EXAM: Female, 28 years old. Nausea and vomiting for 2 days. History of cholecystectomy and prior C-sections. RADIATION DOSAGE (If Supplied By Facility): CTDIvol = ( 13.99 ) mGy, DLP = ( 830.29 ) mGycm TECHNIQUE: Transaxial images were obtained from the dome of the diaphragm to the symphysis pubis without oral contrast. Isovue 300 100 IV was administered. Sagittal and coronal images were reconstructed. Individualized dose optimization techniques were used for this CT. COMPARISON: December 06, 2017 FINDINGS: The visualized lung bases are unremarkable. The visualized portions of the heart are within normal limits. Normal liver. Normal spleen. Normal pancreas. Normal bilateral adrenal glands. Normal right kidney. Normal left kidney. Normal visualized stomach. Normal small intestine. Again seen is nondistention of the colon from the cecum to the sigmoid. This appears unchanged from previous study suggesting colitis. The appendix is visualized and appears normal. Normal abdominal aorta. Normal inferior vena cava. Normal retroperitoneum. Normal urinary bladder. Normal uterus. There is thought to be 1.5 cm dominant follicle versus small cyst in the right ovary. Normal left ovary. No pelvic lymphadenopathy or mass. No free air or free fluid is seen within the peritoneal cavity. Normal abdominal wall. Normal osseous structures. CT/Abdomen/Pelvis W IV Cont ONLY IMPRESSION: 1. Nondistention of the colon from the cecum to the sigmoid which is unchanged from the prior study. Question colitis. 2. No other evidence of abdominal or pelvic abnormality. Electronically Signed: Jj George DO at 8:12 EST Tel [phone], Service support ,
[2018-06-20 07:16] LABS: Anion Gap 9 (5-15); BUN 7 mg/dL (7-18); Calcium,Total 8.6 mg/dL (8.5-10.1); Chloride 99 mmol/L (98-107); Creatinine, Serum 0.88 mg/dL (0.55-1.02); EST Glomerular Filtration Rate 82 mL/min (>60); Est Glom Filt Rate - Afr Amer 99 mL/min (>60); Estimated Creatinine Clearance 86.41 ml/min; Glucose 130 mg/dL (74-106); Potassium 2.9 mmol/L (3.5-5.1); Sodium Level 134 mmol/L (136-145)
--- NOTE | 2018-06-20 07:19 | EKG12_ITS ---
Test Reason : NAUSEA Blood Pressure : / mmHG Vent. Rate : 090 BPM Atrial Rate : 090 BPM P-R Int : 156 ms QRS Dur : 076 ms QT Int : 386 ms P-R-T Axes : 080 070 064 degrees QTc Int : 472 ms Sinus rhythm with marked sinus arrhythmia Right atrial enlargement Borderline ECG Confirmed by MARVA LOPEZ, LINA ([id number]), photograph editor JUNIOR CEVALLOS ([id number]) on 06/22/2018 2:08:41 PM Referred By: ALYX Confirmed By:LINA DURHAM MD
--- NOTE | 2018-06-20 07:20 | ED.VISSUMM ---
- ER Visit Summary Date of Service: 06/20/18 Chief Complaint: Vomiting History of Present Illness: The patient is a 28 F who has a history of cyclic vomiting syndrome. She was seen twice on every , twice on June 18, once on June 19, and again today. She has Phenergan and Zofran at home. Patient admitted to me the other day that she has marijuana several days before this episode began. She states that it is the only thing that helps her get an appetite she does not believe that it is a potential cause for cyclic vomiting. No fevers. Her blood work has shown hypokalemia. Physical Examination: 151/107 heart rate of 115 respirations are 16 pulse ox is 97% on room air temperature 97.2 Gen: Well-nourished well-developed Head: Normocephalic atraumatic Eyes: Perrl EOMI ENT: TMs clear no rhinorrhea moist mucous membranes Neck: Supple no lymphadenopathy no JVD nontender CVS: Regular rate tachycardic rhythm no murmurs normal S1-S2 Respiratory: No distress clear to auscultation bilaterally chest nontender Abdomen: Soft patient reports diffuse tenderness to palpation however the abdomen is soft. There is no rebound. Nondistended normal bowel sounds no masses Back: Nontender Extremity: Nontender no edema Skin: Normal color no rash Neuro: alert orientated ?3 CN II-XII intact normal strength sensation reflexes gait cerebellar Psych: Crying and shaking Test Results: White count is normal at 10.9. Potassium 2.9. Liver total bilirubin 1.4 [address] of [address] pelvis does not demonstrate any obstruction. Emergency Department Course and Treatment: Patient received IV fluids, IV potassium chloride, as well as Thorazine and Benadryl. Initial step 1 of cyclic vomiting protocol was bypassed as the patient has already been taking those medications. Given that this is her sixth visit since the of last plan will be admission. Impression: 1. Cyclic vomiting syndrome 2. Hypokalemia 3. Abdominal wall strain secondary to vomiting This note was generated with [employer] dictation software. It may contain incorrect words, spelling, and punctuation that were not noted in review of the chart prior to signing ED Disposition - Plan for ED Patient: Referrals: Benedict Sharp DO [Primary Care Provider] -
[2018-06-20 07:30] LABS: Absolute Lymphocyte Count 2.16 X10^3/ul (0.83-4.51); Absolute Neutrophil Count 7.7 X10^3/uL (2.0-7.7); Basophil# 0.06 X10^3/uL; Basophil% 0.5 % (0-1); Eosinophil# 0.01 X10^3/uL; Eosinophils% 0.1 % (0-5); Hematocrit 46.4 % (37-47); Hemoglobin 15.3 g/dl (12.0-15.0); Lymphocyte # 2.16 X10^3/ul (4.0); Lymphocyte % 19.7 % (19-41); Mean Corpuscular Hgb 27.9 pg (27.0-32.0); Mean Corpuscular Volume 84.7 fL (81-99); Mean Platelet Vol. 10.2 fl (6.2-12.0); Monocyte# 0.99 X10^3/uL; Neutrophil # 7.69 X10^3/uL (2.7-7.7); Neutrophil % 70.4 % (47-70); Platelet Count 463 K/mm3 (150-450); RBC Distribution Width CV 13.2 % (11.6-14.6); RBC Distribution Width SD 40.3 fl (35.1-43.9); Red Blood Count 5.48 M/mm3 (4.2-5.4); White Blood Count 10.9 K/mm3 (4.4-11.0)
[2018-06-20] MEDS: 0.9% Normal Saline 1,000 ML 150 ML IV ×2 (07:30→11:08)
[2018-06-20 07:35] LABS: POSITIVE COUNT NO; POSITIVE DIFFERENTIAL NO; POSITIVE MORPHOLOGY NO
[2018-06-20 07:39] LABS: AST(SGOT) 87 U/L (15-37); Alanine Aminotransfer ALT/SGPT 87 U/L (13-56); Albumin, Serum 3.9 g/dL (3.2-5.0); Alkaline Phosphatase 78 U/L (45-117); Lipase 97 U/L (73-393); Magnesium 1.8 mg/dL (1.6-2.6); Protein, Total 7.9 g/dL (6.4-8.2)
--- NOTE | 2018-06-20 07:54 | ED.RN ---
PT MOTHER IS RUDE AND DISRESPECTFUL TO STAFF, CONTINUES TO COMPLAIN ABOUT [facility].
[2018-06-20] MEDS: Potassium Chloride 10mEq/100mL 10 MEQ/100 ML IV.SOLN. 100 MEQ IV BOLUS (08:08)
--- NOTE | 2018-06-20 08:54 | HP.PCM_ITS ---
Problem List (1) Abdominal pain Status: Acute (2) Cholangitis due to bile duct calculus with obstruction Status: Acute (3) Diarrhea Status: Acute Qualifiers: Diarrhea type: presumed infectious Qualified Code(s): R19.7 - Diarrhea, unspecified (4) Gastroenteritis Status: Acute (5) Intractable nausea and vomiting Status: Acute (6) Leukocytosis, unspecified Status: Acute (7) Nausea and vomiting Status: Acute Qualifiers: Vomiting type: unspecified Vomiting Intractability: non-intractable Qualified Code(s): R11.2 - Nausea with vomiting, unspecified (8) Obstructive jaundice Status: Acute (9) Pancolitis Status: Acute (10) Hx of cannabis abuse Status: Chronic (11) Viable intrauterine Status: Chronic (12) Hyperemesis gravidarum Status: Suspected History of Present Illness Date of Admission: 06/20/18 Chief Complaint: Intractable nausea and vomiting The patient is a 28 year old F past medical history significant for irritable bowel syndrome, history of previous cholecystectomy, history of intermittent marijuana use who presents with intractable nausea and vomiting. Patient symptoms have been ongoing for the past 6 days. Had apparently been seen in the emergency department however symptoms have gotten progressively worse. Finally presented again on the day of admission found to have potassium of 2.9 with slightly elevated liver function test. Patient admitted to regular nursing floor for further management Past Medical History Past Medical History (Chronic Problems): Chronic Problems Viable intrauterine (Chronic) Hx of cannabis abuse (Chronic) Allergies No Known Allergies Allergy (Verified 06/20/18 06:38) Home Medications: Ambulatory Orders Medication Instructions Recorded Amitriptyline HCl 50 mg PO QHS 06/12/18 Ondansetron [Zofran Odt] 4 mg PO Q8H PRN PRN #10 tab 06/17/18 proMETHazine suppository 25 mg RECTAL Q6H PRN PRN #6 suppos. 06/17/18 [Phenergan Suppository] Potassium Chloride [K-Dur] 40 meq PO DAILY 10 Days #10 tab 06/19/18 Surgical History: cholecystectomy, - - x 2. Smoking Status: Never smoker - *Family History Maternal History Items: Asthma, Stroke Paternal History Items: No pertinent history Review of Systems Constitutional: Reports: Anorexia. Denies: Chills, Fever, Night Sweats, Weight Change HEENT: Denies: Head Aches, Sinus Congestion, Sinus Drainage Cardiovascular: Denies: Chest Pain, Orthopnea, Palpitations, Paroxysmal Noc. Dyspnea Respiratory: Denies: Cough, Shortness of breath at rest, Shortness of breath upon exertion, Sputum production Gastrointestinal: Reports: Abdominal Pain, Nausea, Vomiting. Denies: Hematemesis, Hematochezia, Melena Genitourinary: Denies: Dysuria, Frequency, Hematuria, Urgency Musculoskeletal: Denies: Joint Pain, Joint Tenderness Skin: Denies: Rash Neurological: Denies: Focal weakness, Numbness, Tingling Psychiatric: Denies: Homicidal Ideations, Suicidal Ideations Hematologic/ Lymphatic: Denies: Easy Bruising, Easy Bleeding VTE Information - Inpt Only VTE Present on Admission: No VTE Mechan Device Prophylaxis: None VTE Pharm Prophylaxis ordered?: No Reason prophylaxis not ordered:: Treatment Not Indicated Objective: GENERAL: cooperative HEENT: Atraumatic; moist oral mucosa EYES; Anicteric, Normal Conjunctiva NECK; supple, normal thyroid, n RESPIRATORY: Diminished to auscultation bilaterally, CARDIOVASCULAR: Regular S1 S2, GI: Epigastric tenderness : No Renal angle tenderness; EXTREMITIES: No edema, no clubbing, no cyanosis. MUSCULOSKELETAL: No Joint Tenderness; NEURO: Awake; no lateralizing signs. SKIN: No Rash PSYCH; Normal affect - Physical Exam Vital Signs Temp Pulse Resp BP Pulse Ox 97.2 F L 115 H 16 151/107 H 97 06/20/18 06:34 06/20/18 06:34 06/20/18 06:34 06/20/18 06:34 06/20/18 06:34 Oxygen Delivery Method Room Air Weight: 73.4 kg Body Mass Index (BMI) 26.9 Laboratory Tests Past 24 Hrs 06/20/18 06/20/18 06/20/18 06:42 06:42 06:42 WBC 10.9 RBC 5.48 H Hgb 15.3 H Hct 46.4 MCV 84.7 MCH 27.9 MCHC 33.0 RDW 13.2 RDW Differential 40.3 Plt Count 463 H MPV 10.2 Immature Gran % (Auto) 0.300 Neut % (Auto) 70.4 H Lymph % (Auto) 19.7 Meeker % (Auto) 9.0 Eos % (Auto) 0.1 Baso % (Auto) 0.5 Absolute Neuts (auto) 7.7 Absolute Lymphs (auto) 2.16 Total Counted Not Reportable Sodium 134 L Potassium 2.9 L Chloride 99 Carbon Dioxide 26.0 Anion Gap 9 BUN 7 Creatinine 0.88 Estim Creat Clear Calc 86.41 Est GFR (MDRD) Af Amer 99 Est GFR (MDRD) Non-Af 82 BUN/Creatinine Ratio 8.0 L Glucose 130 H Calcium 8.6 Magnesium Total Bilirubin 1.40 H Direct Bilirubin 0.30 AST 87 H ALT 87 H Alkaline Phosphatase 78 Total Protein 7.9 Albumin 3.9 Globulin 4.0 Lipase 06/20/18 06:42 WBC RBC Hgb Hct MCV MCH MCHC RDW RDW Differential Plt Count MPV Immature Gran % (Auto) Neut % (Auto) Lymph % (Auto) Meeker % (Auto) Eos % (Auto) Baso % (Auto) Absolute Neuts (auto) Absolute Lymphs (auto) Total Counted Sodium Potassium Chloride Carbon Dioxide Anion Gap BUN Creatinine Estim Creat Clear Calc Est GFR (MDRD) Af Amer Est GFR (MDRD) Non-Af BUN/Creatinine Ratio Glucose Calcium Magnesium 1.8 Total Bilirubin Direct Bilirubin AST ALT Alkaline Phosphatase Total Protein Albumin Globulin Lipase 97 Assessment/Plan All Active Problems Obstructive jaundice (Acute) Cholangitis due to bile duct calculus with obstruction (Acute) Pancolitis (Acute) Abdominal pain (Acute) Leukocytosis, unspecified (Acute) Intractable nausea and vomiting (Acute) Gastroenteritis (Acute) Diarrhea (Acute) Nausea and vomiting (Acute) Patient is a 28-year-old lady with history of marijuana use presented with intr actable nausea vomiting 1. Intractable nausea vomiting suspected to be secondary to cannabinoid induced hyperemesis: Patient has been admitted to regular nursing floor for symptomatic management with pain meds, as well as antinausea medication 2. Abnormal LFTs right upper quadrant ultrasound ordered for subsequent evaluation. Of note patient has had her gallbladder taken out 3. Hypokalemia corrected per protocol 4. Irritable bowel syndrome patient treated with amitriptyline 5. Marijuana use counseled on cessation Code Visit OBSV E&M: 09988 Initial observation care L3
--- NOTE | 2018-06-20 08:57 | ED.RN ---
per md slowed kcl to 50ml/hr.
--- NOTE | 2018-06-20 10:52 | US_ITS ---
STUDY: ABDOMINAL ULTRASOUND - RIGHT UPPER QUADRANT REASON FOR VISIT: Female, 28 years old. Elevated liver function tests TECHNIQUE: Ultrasound evaluation of the right upper quadrant was performed with real-time and static linder-scale imaging. TECHNICAL QUALITY: Adequate. COMPARISON: None. FINDINGS: Liver: The liver measures 12 cm. Relatively diminished echogenicity throughout the liver with prominent portal triad echogenicity ([place] pattern) can be associated with hepatitis. The bile ducts are within normal limits. There is hepatic color flow. The direction of portal flow is hepatopetal. There is no demonstrated mass lesion. Gallbladder: The gallbladder is not visualized. Common Bile Duct (C.B.D.): The common bile duct measures 5-6 mm. Pancreas: There is normal echogenicity of the visualized pancreas. There is no demonstrated pancreatic mass or cyst. Right Kidney: Normal size of the right kidney. The right kidney measures 10.9 cm. Normal renal cortex. The right cortex measures 1.6 cm. There is no demonstrated renal mass or cyst. There is no right hydronephrosis. US/Gallbladder IMPRESSION: 1. Echogenic portal triads with diminished hepatic echogenicity ([place] pattern) can be associated with hepatitis. 2. Cholecystectomy. Electronically Signed: Martir Morris MD at 14:31 EST , Service support ,
[2018-06-20] MEDS: Morphine 2 MG/ML Syringe IV (11:10)
[2018-06-20] MEDS: Ondansetron 4 MG/2 ML Vial IV (11:10)
[2018-06-20] MEDS: oxyCODONE 5 MG Tablet PO (13:25)
[2018-06-20] MEDS: proMETHazine 25 MG Suppos. RECTAL ×2 (13:40→19:29)
--- NOTE | 2018-06-20 13:47 | NURSING ---
pt vomitted oxyir and potassium pill right back up. BP still remains elevated, see intervention. Dr. Vidales aware and not concerned of high bp. Dr. Vidales was going to order potassium IV kriders.
[2018-06-20] MEDS: Morphine 4 MG/ML Syringe IV ×3 (14:13→21:12)
[2018-06-20] MEDS: 0.9% NaCl Peripheral Flush Adult/Peds IV (14:14)
--- NOTE | 2018-06-20 16:07 | NURSING ---
PT C/O INTENSE BURNING W/K-RIDER. RATE SLOWED TO 80M/HR. PRIMARY RN AWARE.
[2018-06-20] MEDS: Amitriptyline 25 MG Tablet 50 MG PO (21:36)
--- NOTE | 2018-06-20 21:49 | NURSING ---
Pt asked what patch was on arm, pointed to nicotine patch. Informed pt what it was. States she does not smoke cigarettes and never has. Removed patch at this time. Charge nurse made Karma aware.
[2018-06-21] VITALS (8 sets, daily range): BP systolic 112–129; BP diastolic 69–78; PULSE 60–91; RESP 16; TEMP 36.5–37.1; O2SAT 95–100
[2018-06-21] MEDS: Morphine 2 MG/ML Syringe IV (03:55)
[2018-06-21 07:13] LABS: Hematocrit 40.6 % (37-47); Hemoglobin 13.2 g/dl (12.0-15.0); Mean Corp Hgb Conc 32.5 g/gl (32-36); Mean Corpuscular Hgb 28.2 pg (27.0-32.0); Mean Corpuscular Volume 86.8 fL (81-99); Mean Platelet Vol. 9.8 fl (6.2-12.0); Platelet Count 296 K/mm3 (150-450); RBC Distribution Width CV 13.2 % (11.6-14.6); RBC Distribution Width SD 40.7 fl (35.1-43.9); Red Blood Count 4.68 M/mm3 (4.2-5.4); White Blood Count 5.5 K/mm3 (4.4-11.0)
[2018-06-21 07:24] LABS: Anion Gap 8 (5-15); BUN 4 mg/dL (7-18); BUN/Creat Ratio 6.8 RATIO (10-20); Calcium,Total 8.2 mg/dL (8.5-10.1); Chloride 106 mmol/L (98-107); Creatinine, Serum 0.59 mg/dL (0.55-1.02); EST Glomerular Filtration Rate 131 mL/min (>60); Est Glom Filt Rate - Afr Amer 158 mL/min (>60); Estimated Creatinine Clearance 128.88 ml/min; Glucose 85 mg/dL (74-106); Magnesium 1.6 mg/dL (1.6-2.6); Potassium 3.4 mmol/L (3.5-5.1); Scan Indicated on CBC? Y/N NO; Sodium Level 142 mmol/L (136-145)
[2018-06-21] MEDS: proMETHazine 25 MG Suppos. RECTAL ×2 (09:02→15:28)
[2018-06-21] MEDS: Morphine 4 MG/ML Syringe IV ×3 (09:02→16:11)
[2018-06-21] MEDS: 0.9% NaCl Peripheral Flush Adult/Peds IV ×3 (09:04→18:28)
--- NOTE | 2018-06-21 16:49 | PN_ITS ---
Subjective: She was seen and examined today, she still complains of some nausea and vague abdominal pain, patient states she ran out of her amitriptyline at home, she states she lost her insurance coverage and cannot afford to get it refilled. - Physical Exam General: Alert, Oriented x3, Cooperative, No apparent distress, Well developed, Well nourished HEENT: Atraumatic, PERRLA, EOMI, Normocephalic Oral: Moist Mucosa Neck: Supple, No Nuchal Rigidity, Trachea Midline, Thyroid Normal Size and Texture Lungs: Clear to auscultation, Normal air movement, No rhonchi, No wheeze, No rales Cardiovascular: Regular rate, Regular Rhythm, Normal S1, Normal S2, No murmurs, No Ectopic Activity, PMI Normal, No rub noted, No Gallop Abdomen: Bowel Sounds Present, Soft, Non Tender, Non-Distended, No hernias noted Extremities: No clubbing, No cyanosis, No edema, Capillary Refill Less than 3 Seconds Skin: No rashes, No breakdown Musculoskeletal: No Tenderness to Palpation of Joints or Extremities Neurological: Cranial nerves II-XII grossly intact, Sensory exam intact to light touch and pain Psych/Mental Status: Normal Affect, Appropriate, Alert and oriented to time, place, person, mood and affect Vital Signs Temp Pulse Resp BP Pulse Ox 98.0 F 91 16 115/78 98 06/21/18 15:00 06/21/18 15:00 06/21/18 15:00 06/21/18 15:00 06/21/18 15:00 Oxygen Delivery Method Room Air Weight: 66.224 kg Body Mass Index (BMI) 24.3 Intake and Output for Last 24 Hours 06/19/18 06/20/18 06/21/18 23:59 23:59 23:59 Intake Total 1278 / 1278 3141 / 3141 Output Total 500 / 500 1000 / 1000 Balance 778 / 778 2141 / 2141 Laboratory Tests Past 24 Hrs 06/21/18 06/21/18 05:46 05:46 WBC 5.5 RBC 4.68 Hgb 13.2 Hct 40.6 MCV 86.8 MCH 28.2 MCHC 32.5 RDW 13.2 RDW Differential 40.7 Plt Count 296 MPV 9.8 Sodium 142 Potassium 3.4 L Chloride 106 Carbon Dioxide 28.0 Anion Gap 8 BUN 4 L Creatinine 0.59 Estim Creat Clear Calc 128.88 Est GFR (MDRD) Af Amer 158 Est GFR (MDRD) Non-Af 131 BUN/Creatinine Ratio 6.8 L Glucose 85 Calcium 8.2 L Magnesium 1.6 Medical Necessity - Tobacco Use Smoking Status: Never smoker Assessment/Plan All Active Problems Obstructive jaundice (Resolved) Cholangitis due to bile duct calculus with obstruction (Resolved) Pancolitis (Resolved) Abdominal pain (Acute) Leukocytosis, unspecified (Resolved) Intractable nausea and vomiting (Acute) Hyperemesis gravidarum (Resolved) Viable intrauterine (Resolved) Gastroenteritis (Resolved) Diarrhea (Resolved) Nausea and vomiting (Acute) #1 hypokalemia-resolved at this time #2 intractable nausea and vomiting-questionable cyclic vomiting syndrome- continue antiemetics, encourage fluids, patient's Protonix will be switched to oral #3 elevated liver enzymes-etiology unclear at this point, gallbladder ultrasound showed diminished hepatic echogenicity-read out states that this could be associated with hepatitis, liver enzymes will be repeated tomorrow Code Visit OBSV E&M: 88417 Subsequent observation care L2
[2018-06-21] MEDS: Ondansetron 4 MG/2 ML Vial IV (18:28)
[2018-06-21] MEDS: oxyCODONE 5 MG Tablet PO (19:30)
[2018-06-21] MEDS: Amitriptyline 25 MG Tablet 50 MG PO (20:44)
[2018-06-22 05:52] VITALS: BP 113/60; PULSE 66; RESP 16; TEMP 36.5; O2SAT 98
[2018-06-22 06:29] LABS: Hematocrit 39.7 % (37-47); Hemoglobin 12.8 g/dl (12.0-15.0); Mean Corp Hgb Conc 32.2 g/gl (32-36); Mean Corpuscular Hgb 28.1 pg (27.0-32.0); Mean Corpuscular Volume 87.3 fL (81-99); Mean Platelet Vol. 9.7 fl (6.2-12.0); Platelet Count 288 K/mm3 (150-450); RBC Distribution Width CV 13.5 % (11.6-14.6); RBC Distribution Width SD 42.8 fl (35.1-43.9); Red Blood Count 4.55 M/mm3 (4.2-5.4); White Blood Count 6.9 K/mm3 (4.4-11.0)
[2018-06-22 06:35] LABS: AST(SGOT) 30 U/L (15-37); Alanine Aminotransfer ALT/SGPT 63 U/L (13-56); Albumin, Serum 2.9 g/dL (3.2-5.0); Alkaline Phosphatase 60 U/L (45-117); Anion Gap 9 (5-15); BUN 7 mg/dL (7-18); BUN/Creat Ratio 11.6 RATIO (10-20); Bilirubin, Direct 0.22 mg/dL (0.00-0.30); Calcium,Total 8.1 mg/dL (8.5-10.1); Chloride 104 mmol/L (98-107); EST Glomerular Filtration Rate 127 mL/min (>60); Est Glom Filt Rate - Afr Amer 154 mL/min (>60); Estimated Creatinine Clearance 126.73 ml/min; Globulin 2.8 g/dL (2.2-4.2); Glucose 85 mg/dL (74-106); Potassium 3.6 mmol/L (3.5-5.1); Protein, Total 5.7 g/dL (6.4-8.2); Sodium Level 139 mmol/L (136-145)
[2018-06-22 06:37] LABS: Scan Indicated on CBC? Y/N NO
[2018-06-22] MEDS: oxyCODONE 5 MG Tablet PO (07:23)
[2018-06-22] MEDS: proMETHazine 25 MG Suppos. RECTAL (07:24)
--- NOTE | 2018-06-22 09:49 | DCINST_ITS ---
You will use the following diet at home:: No restrictions Your food should be the consistency of: Regular Your liquids should be the consistency of: Regular/Thin Discharge Activity: Return to Normal Activity Weight Bearing Status: Full weight bearing Allergies/Adverse Reactions: Allergies No Known Allergies Allergy (Verified 06/20/18 06:38) Medications to take at Discharge Amitriptyline HCl 50 mg PO QHS #30 tablet 06/21/18 proMETHazine tablet [Phenergan tablet] 12.5 - 25 mg PO Q4H PRN PRN #30 tablet 06/21/18 The following prescriptions were given: proMETHazine tablet [Phenergan tablet] 12.5 - 25 mg PO Q4H PRN PRN #30 tablet PRN Reason: Nausea/Vomiting Amitriptyline HCl 50 mg PO QHS #30 tablet Primary Care Physician: Benedict Sharp DO [Primary Care Provider] - Please follow up with your Primary Care Physician in: in 2-3 weeks Test Results: Test results from this visit will be discussed in further detail at your follow- up appointment, if applicable.
[2018-06-22 10:41] VITALS: BP 114/67; PULSE 83; RESP 16; TEMP 36.7; O2SAT 99
--- NOTE | 2018-06-22 18:51 | PCM.DC.SUM ---
Discharge Date and Diagnosis Date of Admission: 06/20/18 Date of Discharge: 06/22/18 - Primary Discharge Diagnosis #1 hypokalemia-secondary to uncontrolled nausea and vomiting #2 intractable nausea and vomiting-secondary to cyclic vomiting syndrome #3 elevated liver enzymes-etiology unclear - Secondary Discharge Diagnosis Chronic Problems Hx of cannabis abuse (Chronic) Hospital Course and Treatment Operations: None Procedures: None Summary of Care Provided: The patient is a 28 year old F was seen in the emergency room at [facility] with chief complaint of uncontrolled nausea and vomiting. Patient had a history of cyclic vomiting syndrome and had been taking amitriptyline but she ran out of the medication at home due to finances. Patient also had ingested marijuana several days before her vomiting episode began. Lab work obtained in the emergency room showed a normal white blood cell count, potassium was low 2.9, bilirubin was slightly elevated at 1.4 and her AST and ALT were elevated also. Patient was placed in observation status on MedSurg 3, she was given IV fluids and supplemental potassium, labs were followed, and repeat liver enzymes declined. Patient had an ultrasound of the liver which showed indirect evidence of hepatitis-this examiner did not feel the patient had hepatitis. Patient was started back on her amitriptyline, patient's vomiting resolved. On 06/22/18, patient was seen and examined: On examination she appeared in good health and spirits. Vital signs as documented. Skin warm and dry and without overt rashes. Neck without JVD. Lungs clear. Heart exam notable for regular rhythm, normal sounds and absence of murmurs, rubs or gallops. Abdomen unremarkable and without evidence of organomegaly, masses, or abdominal aortic enlargement. Extremities nonedematous. Neuro: Cranial nerves II through XII are grossly intact, no focal motor deficits were noted, sensation to light touch and pinprick is intact. Psych: Patient is alert and oriented x3, she does not appear anxious or depressed On 06/22/18, patient was seen and examined and discharged home in stable condition. - Physical Exam Vital Signs Temp Pulse Resp BP Pulse Ox 98.0 F 83 16 114/67 99 06/22/18 10:41 06/22/18 10:41 06/22/18 10:41 06/22/18 10:41 06/22/18 10:41 Oxygen Delivery Method Room Air Weight: 66.224 kg Body Mass Index (BMI) 24.3 Intake and Output for Last 24 Hours 06/20/18 06/21/18 06/22/18 23:59 23:59 23:59 Intake Total 1278 / 1278 4028 / 4028 340 / 340 Output Total 500 / 500 1000 / 1000 Balance 778 / 778 3028 / 3028 340 / 340 Laboratory Tests Past 24 Hrs 06/22/18 06/22/18 06:00 06:00 WBC 6.9 RBC 4.55 Hgb 12.8 Hct 39.7 MCV 87.3 MCH 28.1 MCHC 32.2 RDW 13.5 RDW Differential 42.8 Plt Count 288 MPV 9.7 Sodium 139 Potassium 3.6 Chloride 104 Carbon Dioxide 26.0 Anion Gap 9 BUN 7 Creatinine 0.60 Estim Creat Clear Calc 126.73 Est GFR (MDRD) Af Amer 154 Est GFR (MDRD) Non-Af 127 BUN/Creatinine Ratio 11.6 Glucose 85 Calcium 8.1 L Total Bilirubin 0.90 Direct Bilirubin 0.22 AST 30 ALT 63 H Alkaline Phosphatase 60 Total Protein 5.7 L Albumin 2.9 L Globulin 2.8 Discharge Activity: Return to Normal Activity Weight Bearing Status: Full weight bearing Home Medications: Medications to take at Discharge Amitriptyline HCl 50 mg PO QHS #30 tablet 06/21/18 proMETHazine tablet [Phenergan tablet] 12.5 - 25 mg PO Q4H PRN PRN #30 tablet 06/21/18 Following Prescrptions Were Given to Patient: proMETHazine tablet [Phenergan tablet] 12.5 - 25 mg PO Q4H PRN PRN #30 tablet PRN Reason: Nausea/Vomiting Amitriptyline HCl 50 mg PO QHS #30 tablet Primary Care Physician: Benedict Sharp DO [Primary Care Provider] - Please follow up with your Primary Care Physician in: in 2-3 weeks Disposition: Home Minutes spent on discharge:: 30 Patient Condition:: Stable Medical Necessity - Tobacco Use Smoking Status: Never smoker Meaningful Use Info Meaningful Use Diagnoses (Choose all that apply): None applicable Code Visit OBSV E&M: 59149 Observation care discharge
== END 2018-06-22 11:35 | disposition home or self-care (01) ==
LOC: ED 07:20 → MS3 10:06
PROVIDERS: Admitting Provider Internal Medicine; Emergency Provider Emergency Medicine; Family Provider Preventive Medicine Occupational Medicine; PCP Preventive Medicine Occupational Medicine; Visit Provider Internal Medicine
DX: G43.A0 Cyclical vomiting, in migraine, not intractable (principal); E87.6 Hypokalemia; R74.8 Abnormal levels of other serum enzymes; S39.011A Strain of muscle, fascia and tendon of abdomen, initial encounter; X58.XXXA Exposure to other specified factors, initial encounter; Y93.89 Activity, other specified; Y92.9 Unspecified place or not applicable; K58.9 Irritable bowel syndrome, unspecified; Z79.899 Other long term (current) drug therapy; F12.10 Cannabis abuse, uncomplicated
CPT/HCPCS: 36415; 74177; 76705; 80048; 80076; 83690; 83735; 85025; 85027; 93005; 96361; 96365; 96366; 96367; 96375; 96376; 97802; 99218; 99285; J7030; Q9967; A4216; G0378; J2405; J3490

== ENCOUNTER 2018-06-23 16:18 | Emergency (ER) | payer MEDICAID, SELFPAY ==
[2018-06-20 11:27] VITALS: BMI 24.3
[2018-06-23 16:19] VITALS: BP 159/117; PULSE 108; RESP 28; TEMP 36.6; O2SAT 95; BMI 24.1
--- NOTE | 2018-06-23 16:26 | ED.VISSUMM ---
- ER Visit Summary Date of Service: 06/23/18 Chief Complaint: [] intractable vomiting history of cyclic vomiting syndrome History of Present Illness: The patient is a 28 F [] just discharged recently related to cyclic vomiting indicates eat chicken sandwich today and then began vomiting stomach content much indicates an extensive prior evaluation for her cyclic vomiting EGDs, ultrasound CAT scans no obstructive issues no history of hepatobiliary dysfunction just the vomiting, she indicates she was fine before she ate a sandwich she is actively vomiting up stomach content she denies Physical Examination: [] General vomiting HEENT is generally unremarkable The neck is supple no adenopathy Cardiovascular, regular rate and rhythm Lungs, clear bilateral Abdomen, soft nontender Extremities, no clubbing cyanosis or edema Neurologic, awake alert answering questions appropriately moving all 4 extremities Test Results: [] Emergency Department Course and Treatment: [] Is not indicating that she has a food impaction she indicates this happens to her when she eats this time we will medicate her and reevaluate her Treatment Plan: [] Patient's been medicated with Ativan and morphine Zofran Phenergan she is able to fall asleep she has no further vomiting no further issues she will be discharged home to continue all of her discharge instructions from her discharge to the hospital yesterday and follow-up with all of her outpatient providers return for change in symptoms, I should note that her white count was slightly elevated 16 but she is feeling better back to baseline and is comfortable discharge Disposition: [] Home stable Impression: [] Nausea and vomiting resolved history of cyclic vomiting syndrome This note was generated with [employer] dictation software. It may contain incorrect words, spelling, and punctuation that were not noted in review of the chart prior to signing ED Disposition - Plan for ED Patient: Referrals: Benedict Sharp DO [Primary Care Provider] -
[2018-06-23 16:54] LABS: Absolute Lymphocyte Count 1.12 X10^3/ul (0.83-4.51); Absolute Neutrophil Count 14.7 X10^3/uL (2.0-7.7); Basophil# 0.02 X10^3/uL; Basophil% 0.1 % (0-1); Eosinophil# 0.02 X10^3/uL; Eosinophils% 0.1 % (0-5); Hematocrit 45.5 % (37-47); Hemoglobin 15.1 g/dl (12.0-15.0); Lymphocyte # 1.12 X10^3/ul (4.0); Lymphocyte % 6.8 % (19-41); Mean Corp Hgb Conc 33.2 g/gl (32-36); Mean Corpuscular Hgb 28.3 pg (27.0-32.0); Mean Corpuscular Volume 85.4 fL (81-99); Mean Platelet Vol. 9.8 fl (6.2-12.0); Monocyte# 0.71 X10^3/uL; Monocyte% 4.3 % (0-10); Neutrophil # 14.67 X10^3/uL (2.7-7.7); Neutrophil % 88.5 % (47-70); Platelet Count 388 K/mm3 (150-450); RBC Distribution Width CV 13.6 % (11.6-14.6); RBC Distribution Width SD 41.9 fl (35.1-43.9); Red Blood Count 5.33 M/mm3 (4.2-5.4); White Blood Count 16.6 K/mm3 (4.4-11.0)
[2018-06-23] MEDS: morphine 8 MG/ML Syringe IV (16:56)
[2018-06-23] MEDS: 0.9% Normal Saline 1,000 ML 1000 ML IV (16:56)
[2018-06-23] MEDS: LORazepam 2 MG/ML Syringe 1 MG IV ×2 (16:57→17:26)
[2018-06-23] MEDS: Ondansetron 4 MG/2 ML Vial IV (16:57)
[2018-06-23 17:01] LABS: POSITIVE COUNT NO; POSITIVE DIFFERENTIAL NO; POSITIVE MORPHOLOGY NO
[2018-06-23 17:10] LABS: AST(SGOT) 25 U/L (15-37); Alanine Aminotransfer ALT/SGPT 58 U/L (13-56); Albumin, Serum 4.2 g/dL (3.2-5.0); Alkaline Phosphatase 84 U/L (45-117); Anion Gap 11 (5-15); BUN 7 mg/dL (7-18); BUN/Creat Ratio 7.9 RATIO (10-20); Bilirubin, Direct 0.23 mg/dL (0.00-0.30); Calcium,Total 9.1 mg/dL (8.5-10.1); Chloride 102 mmol/L (98-107); Creatinine, Serum 0.88 mg/dL (0.55-1.02); EST Glomerular Filtration Rate 81 mL/min (>60); Est Glom Filt Rate - Afr Amer 99 mL/min (>60); Estimated Creatinine Clearance 86.41 ml/min; Globulin 3.7 g/dL (2.2-4.2); Glucose 115 mg/dL (74-106); Lipase 88 U/L (73-393); Potassium 3.1 mmol/L (3.5-5.1); Protein, Total 7.9 g/dL (6.4-8.2); Sodium Level 138 mmol/L (136-145)
[2018-06-23] MEDS: Morphine 4 MG/ML Syringe IV (17:26)
[2018-06-23 17:28] VITALS: BP 159/113; PULSE 94; RESP 18; O2SAT 99
[2018-06-23] MEDS: proMETHazine 25 MG/ML Syringe 12.5 MG IV (17:40)
[2018-06-23 17:59] LABS: Pregnancy, Serum, hCG Quali. NEGATIVE Negative (0-9 Nonpreg)
--- NOTE | 2018-06-23 20:09 | ED.DEP ---
ED Disposition - Plan for ED Patient: Instructions: ED Nausea Vomiting Referrals: Benedict Sharp DO [Primary Care Provider] -
[2018-06-23 20:18] VITALS: BP 158/100; PULSE 100; RESP 18; O2SAT 99
== END 2018-06-23 20:19 | disposition home or self-care (01) ==
LOC: ED 16:51
PROVIDERS: Emergency Provider Emergency Medicine; Family Provider Preventive Medicine Occupational Medicine; PCP Preventive Medicine Occupational Medicine
DX: R11.2 Nausea with vomiting, unspecified (principal); R10.9 Unspecified abdominal pain
CPT/HCPCS: 80048; 80076; 83690; 84703; 85025; 96361; 96374; 96375; 96376; 99285; J7030; A4216; J2405

== ENCOUNTER 2018-06-25 02:28 | Emergency (ER) | payer MEDICAID, SELFPAY ==
[2018-06-25 02:30] VITALS: BP 174/130; PULSE 103; RESP 20; TEMP 36.2; O2SAT 96; BMI 23.3
--- NOTE | 2018-06-25 02:50 | ED.DCSUM_ITS ---
History of Present Illness Chief Complaint: Nausea/Vomiting Informant: Patient Narrative: Patient's had multiple visits for nausea and vomiting. Over the last 2 weeks she had daily nausea and vomiting. She had multiple visits to the emergency department. She was admitted last week for several days for treatment of this. She has history of reported cyclic vomiting syndrome and irritable bowel syndrome. She was discharged from the hospital and Phenergan and amitriptyline. She was just seen in the hospital 2 days ago after eating chicken and having vomiting again. She is been trying to use Phenergan but is having difficulty keeping it down. She has had multiple episodes of vomiting today after eating just chicken broth. She does have a history of chronic low potassium as well. This was replaced on her last admission. The patient has been seen many times in the last 2 weeks for this. 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 Her vomiting is intermittent. Current severity is moderate. Maximum severity is moderate to severe. Worsened by eating. Relieved by nothing. She denies any abdominal pain. Denies any diarrhea. Denies any other associated symptoms. She recently had ultrasound of her liver and CT of her abdomen pelvis while she was admitted. Past Medical History - Allergies and Home Meds Allergies/Adverse Reactions: Allergies No Known Allergies Allergy (Verified 06/25/18 02:29) Primary Care Physician: Benedict Sharp DO [Primary Care Provider] - Past Medical History: - - Cyclic vomiting, irritable bowel syndrome Surgical History: cholecystectomy, - - x 2. Lives: With Family Smoking Status: Never smoker - Family History Maternal Family History: Reports: Asthma, Stroke Paternal Family History: Reports: No pertinent history Review of Systems All systems negative except as indicated General: Denies: Chills, Fever, Sweats Eyes: Denies: Visual changes - bilaterally, Diplopia ENT: Denies: Rhinorrhea, Sore throat Cardiovascular: Denies: Chest pain, Palpitations Respiratory: Denies: Dyspnea, Cough, Dyspnea on exertion Gastrointestinal: Reports: Nausea, Vomiting. Denies: Abdominal pain, Diarrhea, Melena, Hematochezia Genitourinary: Denies: Dysuria, Hematuria, Frequency Musculoskeletal: Denies: Back pain, Extremity Pain Skin: Denies: Rash, Wounds Neurological: Denies: Headache, Weakness, Numbness Physical Exam Vital Signs/Narrative: Vital Signs Temp Pulse Resp BP Pulse Ox 06/25/18 02:30 97.2 F L 103 H 20 H 174/130 H 96 Inital Vital Signs reviewed: Yes General: Well nourished, Well developed, No Acute Distress Head: Normocephalic, Atraumatic Eyes: Perrl, EOMI ENT: Moist mucous membranes, No rhinorrhea Neck: Supple, Nontender Cardiovascular: Regular rate, Regular rhythm, No murmurs Respiratory: No distress, CTA bilaterally, Chest nontender Abdomen: Soft, Nontender, Nondistended, Normal bowel sounds Back: Nontender, Normal Inspection Extremities: Nontender, No edema Skin: Normal color, No rash Neurological: Alert, Oriented x3, Cranial nerves II-XII grossly intact, Normal Strength, Normal Sensation Psychological: Normal affect, Normal Mood Diagnostic/Tx/Re-eval - Medical Decision Making Patient given IV fluid bolus as well as Phenergan, Ativan, Benadryl to try to calm her vomiting. Lab work obtained lab work shows a white count of 11.9 down from 16.6. Glucose 125. Sodium and rest of her renal function unremarkable. Patient did calm down with treatment however continues to have intermittent vomiting. Was given Zofran as well as Toradol for stomach soreness. I do not think she needs to be readmitted. Discussed at length with the patient and her mother. This is her eighth visit in 14 days. She is having a cyclic vomiting exacerbation that will continue to have to run its course. Given a prescription for rectal Phenergan and Zofran home pack. She has amitriptyline at home. She will follow-up as an outpatient ED Disposition - Plan for ED Patient: Disposition: Against Medical Advice Diagnosis: Cyclic vomiting syndrome Instructions: ED Nausea Vomiting Prescriptions: proMETHazine suppository [Phenergan] 25 mg RECTAL Q4H PRN PRN #10 suppos. PRN Reason: Nausea/Vomiting Referrals: Benedict Sharp DO [Primary Care Provider] -
[2018-06-25] MEDS: 0.9% Normal Saline 1,000 ML 1000 ML IV (03:01)
[2018-06-25] MEDS: proMETHazine 25 MG/ML Syringe 12.5 MG IV (03:02)
[2018-06-25] MEDS: LORazepam 2 MG/ML Syringe 1 MG IV (03:04)
[2018-06-25] MEDS: DiphenhydrAMINE 50 MG/ML Syringe 25 MG IV (03:06)
[2018-06-25 03:16] LABS: Absolute Lymphocyte Count 1.32 X10^3/ul (0.83-4.51); Absolute Neutrophil Count 10.1 X10^3/uL (2.0-7.7); Basophil# 0.02 X10^3/uL; Basophil% 0.2 % (0-1); Hematocrit 45.4 % (37-47); Hemoglobin 14.9 g/dl (12.0-15.0); Lymphocyte # 1.32 X10^3/ul (4.0); Lymphocyte % 11.1 % (19-41); Mean Corp Hgb Conc 32.8 g/gl (32-36); Mean Corpuscular Volume 85.3 fL (81-99); Mean Platelet Vol. 10.1 fl (6.2-12.0); Monocyte% 4.2 % (0-10); Neutrophil # 10.05 X10^3/uL (2.7-7.7); Neutrophil % 84.2 % (47-70); POSITIVE COUNT NO; POSITIVE DIFFERENTIAL NO; POSITIVE MORPHOLOGY NO; Platelet Count 415 K/mm3 (150-450); RBC Distribution Width CV 13.7 % (11.6-14.6); RBC Distribution Width SD 42.2 fl (35.1-43.9); Red Blood Count 5.32 M/mm3 (4.2-5.4); White Blood Count 11.9 K/mm3 (4.4-11.0)
[2018-06-25 03:28] LABS: Anion Gap 12 (5-15); BUN 8 mg/dL (7-18); BUN/Creat Ratio 9.1 RATIO (10-20); Calcium,Total 9.1 mg/dL (8.5-10.1); Chloride 100 mmol/L (98-107); Creatinine, Serum 0.88 mg/dL (0.55-1.02); EST Glomerular Filtration Rate 81 mL/min (>60); Est Glom Filt Rate - Afr Amer 99 mL/min (>60); Estimated Creatinine Clearance 86.41 ml/min; Glucose 125 mg/dL (74-106); Potassium 3.7 mmol/L (3.5-5.1); Sodium Level 139 mmol/L (136-145)
[2018-06-25] MEDS: Ketorolac 15 MG/ML Vial IV (03:59)
[2018-06-25] MEDS: Ondansetron 4 MG/2 ML Vial IV (03:59)
[2018-06-25 04:30] VITALS: BP 160/120; PULSE 61; RESP 21; O2SAT 97
[2018-06-25] MEDS: Ondansetron ODT 4 MG Tablet PO (04:37)
== END 2018-06-25 04:39 | disposition left against medical advice (07) ==
PROVIDERS: Emergency Provider Emergency Medicine; Family Provider Preventive Medicine Occupational Medicine; PCP Preventive Medicine Occupational Medicine
DX: G43.A0 Cyclical vomiting, in migraine, not intractable (principal); Z90.49 Acquired absence of other specified parts of digestive tract; K58.9 Irritable bowel syndrome, unspecified
CPT/HCPCS: 80048; 85025; 96361; 96374; 96375; 99285; A4216; J2405

== ENCOUNTER 2018-10-19 19:12 | Emergency (ER) | payer MEDICAID, SELFPAY ==
[2018-10-19 19:13] VITALS: BP 179/113; PULSE 67; PULSE 76; RESP 18; TEMP 35.9; O2SAT 96; O2SAT 98; BMI 23.6
[2018-10-19] MEDS: LORazepam 2 MG/ML Syringe 0.5 MG IV (20:59)
[2018-10-19] MEDS: Ondansetron 4 MG/2 ML Vial IV (20:59)
[2018-10-19] MEDS: 0.9% Normal Saline 1,000 ML 150 ML IV (21:00)
[2018-10-19 21:10] LABS: Internal QC Validated? YES +Cl - CLEAR BKGD; Pregnancy, Serum, hCG Quali. NEGATIVE Negative
[2018-10-19 21:12] LABS: Absolute Lymphocyte Count 0.42 X10^3/ul (0.83-4.51); Absolute Neutrophil Count 9.9 X10^3/uL (2.0-7.7); Differential Indicated SCAN CRITERIA MET; Hematocrit 42.6 % (37-47); Hemoglobin 14.4 g/dl (12.0-15.0); Lymphocyte # 0.42 X10^3/ul (4.0); Mean Corp Hgb Conc 33.8 g/gl (32-36); Mean Corpuscular Hgb 29.5 pg (27.0-32.0); Mean Corpuscular Volume 87.3 fL (81-99); Mean Platelet Vol. 10.1 fl (6.2-12.0); Monocyte# 0.08 X10^3/uL; Monocyte% 0.8 % (0-10); Neutrophil # 9.89 X10^3/uL (2.7-7.7); Neutrophil % 95.1 % (47-70); POSITIVE COUNT NO; POSITIVE DIFFERENTIAL YES; POSITIVE MORPHOLOGY NO; Platelet Count 438 K/mm3 (150-450); RBC Distribution Width CV 13.8 % (11.6-14.6); RBC Distribution Width SD 43.7 fl (35.1-43.9); Red Blood Count 4.88 M/mm3 (4.2-5.4); White Blood Count 10.4 K/mm3 (4.4-11.0)
[2018-10-19 21:17] LABS: AST(SGOT) 12 U/L (15-37); Alanine Aminotransfer ALT/SGPT 16 U/L (13-56); Albumin, Serum 4.3 g/dL (3.2-5.0); Alkaline Phosphatase 77 U/L (45-117); Anion Gap 10 (5-15); BUN 8 mg/dL (7-18); BUN/Creat Ratio 9.9 RATIO (10-20); Calcium,Total 9.3 mg/dL (8.5-10.1); Chloride 107 mmol/L (98-107); Creatinine, Serum 0.81 mg/dL (0.55-1.02); EST Glomerular Filtration Rate 90 mL/min (>60); Est Glom Filt Rate - Afr Amer 109 mL/min (>60); Estimated Creatinine Clearance 93.88 ml/min; Globulin 4.1 g/dL (2.2-4.2); Glucose 150 mg/dL (74-106); Lipase 39 U/L (73-393); Potassium 3.6 mmol/L (3.5-5.1); Protein, Total 8.4 g/dL (6.4-8.2); Sodium Level 141 mmol/L (136-145)
[2018-10-19 21:25] VITALS: BP 177/100; PULSE 67; RESP 18; O2SAT 98
[2018-10-19 21:33] LABS: Differential Comment SCANNED
--- NOTE | 2018-10-19 22:59 | ED.DCSUM_ITS ---
- ER Visit Summary Date of Service: 10/19/18 Chief Complaint: [Nausea and vomiting] History of Present Illness: The patient is a 28 F [sent to the emergency department nausea and vomiting started 3 days ago. Patient states that she cannot keep anything down. Patient's been thrown up about every 30 minutes. Patient used her Phenergan suppository today but did not seem to help. Patient states she has similar episodes about every 3 months and last time she went to [facility] she was given some sort of a cocktail including Haldol which is really seem to help her. Patient has history of IBS as well as cyclic vomiting syndrome. She denies any fevers. She does not think she is . Symptoms are similar as her prior episodes of cyclic vomiting.] Physical Examination: [HEENT-PERRLA, EOMI. Cranial nerves II through XII grossly intact. TMs clear. Mucous membranes moist. No adenopathy. Cardiovascular-regular rate and rhythm without murmur or ectopy Lungs-clear to auscultation, chest wall stable without crepitus or subcu emphysema Abdomen-normoactive bowel sounds, soft. Patient has some mild diffuse tenderness palpation. There is no rebound, rigidity, cranial signs. Extremities-intact ?4, normal range of motion, normal pulses, atraumatic] Test Results: [CBC with differential 10.4, hemoglobin 14, hematocrit 43, platelet count was 430. Chemistries unremarkable. LFTs were normal. hCG was negative.] Emergency Department Course and Treatment: [Patient was medicated with Zofran, Ativan, Thorazine, and Benadryl. Patient was given normal saline. Patient had no further vomiting.] Treatment Plan: [Patient to continue with current antiemetics at home.] Disposition: [Discharged home stable condition. Patient advised to return if worsening abdominal pain, persistent vomiting, dehydration, or conditions worsen anyway.] Impression: [Cyclic vomiting syndrome] This note was generated with [employer]dor dictation software. It may contain incorrect words, spelling, and punctuation that were not noted in review of the chart prior to signing ED Disposition - Plan for ED Patient: Referrals: Benedict Sharp DO [Primary Care Provider] -
--- NOTE | 2018-10-19 23:03 | ED.DEP ---
ED Disposition - Plan for ED Patient: Instructions: When Your Child Has Cyclic Vomiting Syndrome ([facility]) Referrals: Benedict Sharp DO [Primary Care Provider] - 3-5 Days
[2018-10-19 23:38] VITALS: BP 155/104; PULSE 98; RESP 16; O2SAT 99
== END 2018-10-19 23:39 | disposition home or self-care (01) ==
PROVIDERS: Emergency Provider Emergency Medicine; Family Provider Preventive Medicine Occupational Medicine; PCP Preventive Medicine Occupational Medicine
DX: G43.A0 Cyclical vomiting, in migraine, not intractable (principal); K58.9 Irritable bowel syndrome, unspecified; Z90.49 Acquired absence of other specified parts of digestive tract
CPT/HCPCS: 80053; 83690; 84703; 85025; 99284; J7030; A4216; J2405; J3490

== ENCOUNTER 2018-10-20 09:40 | Emergency (ER) | payer MEDICAID, SELFPAY ==
[2018-10-19 19:13] VITALS: BMI 23.6
[2018-10-20 09:42] VITALS: BP 168/115; PULSE 74; RESP 18; TEMP 36.6; O2SAT 98; BMI 23.3
--- NOTE | 2018-10-20 09:54 | EKG12_ITS ---
Test Reason : N AND VOMIT Blood Pressure : / mmHG Vent. Rate : 063 BPM Atrial Rate : 063 BPM P-R Int : 140 ms QRS Dur : 094 ms QT Int : 434 ms P-R-T Axes : 056 071 060 degrees QTc Int : 444 ms Normal sinus rhythm Normal ECG Confirmed by PHILLY LOPEZ, GREG ([id number]), news copy editor ALRFED BRADY ([id number]) on 10/21/2018 12:26:57 PM Referred By: MR Confirmed By:GREG FRAGA MD
--- NOTE | 2018-10-20 10:08 | ED.VIS.GI ---
History of Present Illness Chief Complaint: Nausea/Vomiting Narrative: Patient presenting for evaluation secondary to nausea and vomiting. Patient has an underlying history of cyclic vomiting syndrome. Patient reports that over the course of the last 4 days she has been dealing with an exacerbation of this. She reports profuse nausea and vomiting and some epigastric crampy abdominal pain. She denies any presence of fevers diarrhea or constipation. Patient was seen in the emergency department for this yesterday and was treated with a dose of Thorazine and had laboratory work-up that was unremarkable and was discharged. She reports that when she woke up from the Thorazine at home, she started to feel nauseous and started vomiting again. Patient states that she has a very strict diet as multiple foods seem to trigger this, and she reports that she ate at a wedding on Friday and had something different than mashed potatoes and crackers which is what she typically eats and she feels that that may have caused this exacerbation. Past Medical History - Allergies and Home Meds Allergies/Adverse Reactions: Allergies No Known Allergies Allergy (Verified 10/20/18 09:43) Primary Care Physician: Benedict Sharp DO [Primary Care Provider] - Surgical History: cholecystectomy, - - x 2. Smoking Status: Never smoker - Family History Maternal Family History: Reports: Asthma, Stroke Paternal Family History: Reports: No pertinent history Review of Systems All systems negative except as indicated General: Denies: Fever Gastrointestinal: Reports: Abdominal pain, Nausea, Vomiting. Denies: Diarrhea, Constipation Physical Exam Vital Signs/Narrative: Vital Signs Temp Pulse Resp BP Pulse Ox 10/20/18 09:42 97.9 F 74 18 168/115 H 98 General: Well nourished, Well developed, No Acute Distress Head: Normocephalic, Atraumatic Eyes: Perrl, EOMI ENT: Moist mucous membranes, No rhinorrhea Neck: Supple, Nontender Cardiovascular: Regular rate, Regular rhythm, No murmurs Respiratory: No distress, CTA bilaterally, Chest nontender Abdomen: Soft, Nondistended, Normal bowel sounds, Tender - Minimal epigastric Back: Nontender, Normal Inspection Extremities: Nontender, No edema Skin: Normal color, No rash Neurological: Alert, Oriented x3, Cranial nerves II-XII grossly intact, Normal Strength, Normal Sensation Psychological: Tearful Diagnostic/Tx/Re-eval - EKG Initial EKG Interpretation: - - Normal sinus rhythm at [address] segments normal T waves normal GA and QTc intervals. QTc is 444. - Medical Decision Making Patient with a history of cyclic vomiting syndrome is presenting with an exacerbation. Patient's abdominal exam is benign, I do not believe that imaging is indicated. IV was established repeat labs were obtained and compared to yesterday's labs and were found to be grossly unremarkable except for mild hypokalemia. Patient was given IV saline hydration. Patient was given Ativan and Haldol and Benadryl this time, and on repeat evaluation after 2-1/2 hours of observation the patient was found to be sleeping and no longer having any more vomiting episodes. She continues to have a benign abdomen. I believe the patient's can be dispositioned to home at this point. She is recommended to take her home medications. She will follow-up with primary care. Disposition: Home ED Disposition - Plan for ED Patient: Disposition: Home or Assisted Living Diagnosis: Cyclic vomiting syndrome Referrals: Benedict Sharp DO [Primary Care Provider] - 1-2 Days if not improving
[2018-10-20] MEDS: Haloperidol Lactate 5 MG/ML Vial 2 MG IV (10:43)
[2018-10-20] MEDS: 0.9% Normal Saline 1,000 ML 1000 ML IV ×2 (10:43→10:54)
[2018-10-20 10:45] VITALS: BP 155/119; PULSE 88; RESP 20; O2SAT 97
[2018-10-20] MEDS: LORazepam 2 MG/ML Syringe 1 MG IV (10:45)
[2018-10-20] MEDS: DiphenhydrAMINE 50 MG/ML Syringe IV (11:00)
[2018-10-20 11:54] LABS: Absolute Lymphocyte Count 0.97 X10^3/ul (0.83-4.51); Absolute Neutrophil Count 7.4 X10^3/uL (2.0-7.7); Hematocrit 40.8 % (37-47); Hemoglobin 13.4 g/dl (12.0-15.0); Lymphocyte # 0.97 X10^3/ul (4.0); Lymphocyte % 10.8 % (19-41); Mean Corp Hgb Conc 32.8 g/gl (32-36); Mean Corpuscular Hgb 28.9 pg (27.0-32.0); Mean Corpuscular Volume 88.1 fL (81-99); Mean Platelet Vol. 9.6 fl (6.2-12.0); Monocyte# 0.61 X10^3/uL; Monocyte% 6.8 % (0-10); Neutrophil # 7.37 X10^3/uL (2.7-7.7); Neutrophil % 82.3 % (47-70); POSITIVE COUNT NO; POSITIVE DIFFERENTIAL NO; POSITIVE MORPHOLOGY NO; Platelet Count 333 K/mm3 (150-450); RBC Distribution Width CV 14.1 % (11.6-14.6); RBC Distribution Width SD 45.3 fl (35.1-43.9); Red Blood Count 4.63 M/mm3 (4.2-5.4)
[2018-10-20 11:56] LABS: Anion Gap 6 (5-15); BUN 7 mg/dL (7-18); BUN/Creat Ratio 11.1 RATIO (10-20); Calcium,Total 8.4 mg/dL (8.5-10.1); Chloride 107 mmol/L (98-107); Creatinine, Serum 0.63 mg/dL (0.55-1.02); EST Glomerular Filtration Rate 120 mL/min (>60); Est Glom Filt Rate - Afr Amer 146 mL/min (>60); Glucose 94 mg/dL (74-106); Potassium 3.3 mmol/L (3.5-5.1); Sodium Level 140 mmol/L (136-145)
[2018-10-20 12:04] LABS: Internal QC Validated? YES +Cl - CLEAR BKGD; Pregnancy, Serum, hCG Quali. NEGATIVE Negative
[2018-10-20 13:24] VITALS: BP 162/95
== END 2018-10-20 13:25 | disposition home or self-care (01) ==
PROVIDERS: Emergency Provider Emergency Medicine; Family Provider Preventive Medicine Occupational Medicine; PCP Preventive Medicine Occupational Medicine
DX: G43.A0 Cyclical vomiting, in migraine, not intractable (principal); Z90.49 Acquired absence of other specified parts of digestive tract
CPT/HCPCS: 36415; 80048; 84703; 85025; 93005

== ENCOUNTER 2018-10-20 17:43 | Emergency (ER) | payer MEDICAID, SELFPAY ==
[2018-10-20 09:42] VITALS: BMI 23.3
[2018-10-20 17:44] VITALS: BP 167/120; PULSE 67; RESP 16; TEMP 36.7; O2SAT 98; BMI 24.7
--- NOTE | 2018-10-20 17:58 | ED.DCSUM_ITS ---
- ER Visit Summary Date of Service: 10/20/18 Chief Complaint: Vomiting History of Present Illness: The patient is a 28 F presenting with vomiting. Patient has a history of cyclic vomiting syndrome. She states that she has had vomiting since Friday this feels typical of her cyclic vomiting flareups. She was seen in the ED earlier today. At that time she was given Ativan, Haldol, Benadryl. She states she felt sleepy when she left. When she returned home she began vomiting again. She complains of diffuse abdominal pain. Denies possibility of . Denies diarrhea or constipation. Denies other complaints. Physical Examination: Vitals are stable. Patient is afebrile. Alert no acute distress. HEENT exam is unremarkable. Neck is supple. Lungs are clear and equal bilaterally. Heart is regular rate and rhythm. Abdomen is soft mild epigastric tenderness with no rebound or guarding Extremities are unremarkable. Skin is warm and dry. No focal neurologic deficit. Remainder of exam is unremarkable. Emergency Department Course and Treatment: Patient given IV fluids, Ativan, Benadryl. Blood work from earlier showed mild hypokalemia, negative . On reevaluation, she is resting comfortably. She is requesting discharge home. Advised to follow-up with her primary care physician. Advised return to ED for worsening complaints. Disposition: Discharge home Impression: Cyclic vomiting syndrome This note was generated with [employer]back dictation software. It may contain incorrect words, spelling, and punctuation that were not noted in review of the chart prior to signing ED Disposition - Plan for ED Patient: Referrals: Benedict Sharp DO [Primary Care Provider] -
[2018-10-20] MEDS: 0.9% Normal Saline 1,000 ML 999 ML IV (18:07)
[2018-10-20] MEDS: Ondansetron 4 MG/2 ML Vial IV (18:08)
[2018-10-20] MEDS: LORazepam 2 MG/ML Syringe 0.5 MG IV (18:08)
--- NOTE | 2018-10-20 20:48 | ED.DEP ---
ED Disposition - Plan for ED Patient: Instructions: VOMITING (7y-Adult) Referrals: Benedict Sharp DO [Primary Care Provider] -
[2018-10-20 20:58] VITALS: BP 160/100; PULSE 80; RESP 17; O2SAT 100
== END 2018-10-20 20:59 | disposition home or self-care (01) ==
PROVIDERS: Emergency Provider Emergency Medicine; Family Provider Preventive Medicine Occupational Medicine; PCP Preventive Medicine Occupational Medicine
DX: G43.A0 Cyclical vomiting, in migraine, not intractable (principal)
CPT/HCPCS: 36415; 80048; 84703; 85025; 93005; 99285; J7030; A4216; J2405

== ENCOUNTER 2018-10-21 10:25 | Emergency (ER) | payer MEDICAID, SELFPAY ==
[2018-10-20 17:44] VITALS: BMI 24.7
[2018-10-21 10:25] VITALS: BP 141/116; PULSE 90; RESP 18; TEMP 36.9; O2SAT 98; BMI 23.3
--- NOTE | 2018-10-21 10:45 | ED.DCSUM_ITS ---
History of Present Illness Chief Complaint: Nausea/Vomiting Informant: Patient Onset: Days Current Severity: Mild Narrative: Protracted vomiting history of cyclic vomiting patient indicates 4 days she has had protracted vomiting she indicates she has a prior extensive history of vomiting syndrome, she is been seen by multiple outpatient providers including physicians either [facility] or who told her that she has what sounds like gastric outlet obstruction poor gi emptying at one time was told she requires a pacemaker for her stomach There were insurance issues other issues and she could not continue her care with these physicians in [place] she indicates that she lost her insurance so she has no real outpatient providers were manage her condition. She indicates a few days ago she developed protracted vomiting she is been seen in the emergency department for times the last few days she improved with therapy is able to go home and then the symptoms recur last time she was seen she was treated medicated indicates she improved had no vomiting went home and then a few hours ago began vomiting again, she indicates she has rectal Phenergan that is ineffective This is identical to prior episodes of vomiting and not different anyway she denies any exposures to sick individuals tainted food no antibiotics she is never been told she needs surgery for this condition she denies Past Medical History - Allergies and Home Meds Allergies/Adverse Reactions: Allergies No Known Allergies Allergy (Verified 10/21/18 10:30) Primary Care Physician: Benedict Sharp DO [Primary Care Provider] - Past Medical History: - - See above Surgical History: cholecystectomy, - - x 2. Smoking Status: Never smoker - Family History Maternal Family History: Reports: Asthma, Stroke Paternal Family History: Reports: No pertinent history Review of Systems General: Denies: Chills, Fever, Sweats Eyes: Denies: Visual changes - bilaterally, Diplopia ENT: Denies: Rhinorrhea, Sore throat Cardiovascular: Denies: Chest pain, Palpitations Respiratory: Denies: Dyspnea, Cough, Dyspnea on exertion Gastrointestinal: Reports: Nausea, Vomiting. Denies: Abdominal pain, Diarrhea, Melena, Hematochezia Genitourinary: Denies: Dysuria, Hematuria, Frequency Musculoskeletal: Denies: Back pain, Extremity Pain Skin: Denies: Rash, Wounds Neurological: Denies: Headache, Weakness, Numbness Physical Exam Vital Signs/Narrative: Vital Signs Temp Pulse Resp BP Pulse Ox 10/21/18 10:25 98.5 F 90 18 141/116 H 98 General: Well nourished, Well developed, No Acute Distress Head: Normocephalic, Atraumatic Eyes: Perrl, EOMI ENT: Moist mucous membranes, No rhinorrhea Neck: Supple, Nontender Cardiovascular: Regular rate, Regular rhythm, No murmurs Respiratory: No distress, CTA bilaterally, Chest nontender Abdomen: Soft, Nontender, Nondistended, Normal bowel sounds, - - She is dry heaving in the room at times producing clear stomach content, abdomen soft and nontender Back: Nontender, Normal Inspection Extremities: Nontender, No edema Skin: Normal color, No rash Neurological: Alert, Oriented x3, Cranial nerves II-XII grossly intact, Normal Strength, Normal Sensation Psychological: Normal affect, Normal Mood Diagnostic/Tx/Re-eval - Medical Decision Making At this time given all the above screening labs are obtained IV fluids management with different meds she has been medicated with Ativan psychotropic medication such as Haldol that have helped at this time we will try Ativan and Geodon IV fluids Zofran and attempt to break the cycle of vomiting, There does not appear to be any indication for imaging as again she is had multiple imaging procedures in the past she has a nontender abdomen and this by her history is identical to previous episodes On reevaluation the patient has no symptoms now she is no longer nauseated she is gone to the bathroom at least twice to urinate she feels better we discussed further management options she is comfortable with discharge home she again does have providers in the [facility] system she has been instructed to follow-up with them for further management of this condition Home stable Impression Final Recurrent vomiting syndrome ED Disposition - Plan for ED Patient: Diagnosis: Intractable nausea and vomiting Instructions: VOMITING AND DIARRHEA, Nonspecific (Adult) Referrals: Benedict Sharp DO [Primary Care Provider] -
[2018-10-21] MEDS: 0.9% Normal Saline 1,000 ML 1000 ML IV ×2 (11:12→12:07)
[2018-10-21] MEDS: Ondansetron 4 MG/2 ML Vial IV (11:12)
[2018-10-21] MEDS: LORazepam 2 MG/ML Syringe 1 MG IV (11:12)
[2018-10-21 11:24] LABS: Red Blood Cells-Urine 0 SEEN /hpf (0-5); Squamous Epithelial Cells - UA 0 SEEN /hpf (5-10)
[2018-10-21] MEDS: Ziprasidone IM 20 MG/ML VIAL IM (11:24)
[2018-10-21 11:27] LABS: Absolute Lymphocyte Count 1.48 X10^3/ul (0.83-4.51); Absolute Neutrophil Count 7.9 X10^3/uL (2.0-7.7); Basophil# 0.02 X10^3/uL; Basophil% 0.2 % (0-1); Hematocrit 46.6 % (37-47); Hemoglobin 15.7 g/dl (12.0-15.0); Lymphocyte # 1.48 X10^3/ul (4.0); Lymphocyte % 14.5 % (19-41); Mean Corp Hgb Conc 33.7 g/gl (32-36); Mean Corpuscular Hgb 28.4 pg (27.0-32.0); Mean Corpuscular Volume 84.4 fL (81-99); Mean Platelet Vol. 9.6 fl (6.2-12.0); Monocyte# 0.79 X10^3/uL; Monocyte% 7.7 % (0-10); Neutrophil # 7.89 X10^3/uL (2.7-7.7); Neutrophil % 77.4 % (47-70); Platelet Count 402 K/mm3 (150-450); RBC Distribution Width CV 13.3 % (11.6-14.6); RBC Distribution Width SD 41.2 fl (35.1-43.9); Red Blood Count 5.52 M/mm3 (4.2-5.4); White Blood Count 10.2 K/mm3 (4.4-11.0)
[2018-10-21 11:32] LABS: POSITIVE COUNT NO; POSITIVE DIFFERENTIAL NO; POSITIVE MORPHOLOGY NO
[2018-10-21 11:35] LABS: Color, Urine Yellow (Yellow); Glucose, Dipstick Normal (Normal); Leukocyte Esterase-Dipstick 100 /ul (Negative); Nitrite-Dipstick Positive (Negative); Occult Blood-Urine 25 /ul (Negative); Protein-Dipstick 100 mg/dl (Negative); Specific Gravity, Urine 1.015 (1.002-1.030); Urine Bilirubin Dipstick Negative (Negative); Urine Clarity Sl. Cloudy (Clear); Urine Urobilinogen 1 mg/dl (Normal)
[2018-10-21 11:40] LABS: Ketone-Dipstick 150 mg/dl (Negative)
[2018-10-21 11:47] LABS: AST(SGOT) 20 U/L (15-37); Alanine Aminotransfer ALT/SGPT 19 U/L (13-56); Albumin, Serum 4.4 g/dL (3.2-5.0); Alkaline Phosphatase 80 U/L (45-117); Anion Gap 7 (5-15); BUN 7 mg/dL (7-18); BUN/Creat Ratio 9.2 RATIO (10-20); Bilirubin, Direct 0.25 mg/dL (0.00-0.30); Calcium,Total 9.7 mg/dL (8.5-10.1); Chloride 99 mmol/L (98-107); Creatinine, Serum 0.76 mg/dL (0.55-1.02); EST Glomerular Filtration Rate 97 mL/min (>60); Est Glom Filt Rate - Afr Amer 117 mL/min (>60); Estimated Creatinine Clearance 100.05 ml/min; Globulin 4.1 g/dL (2.2-4.2); Glucose 106 mg/dL (74-106); Lipase 75 U/L (73-393); Potassium 3.2 mmol/L (3.5-5.1); Protein, Total 8.5 g/dL (6.4-8.2); Sodium Level 134 mmol/L (136-145); White Blood Cells 5-10 SEEN /hpf (0-5)
[2018-10-21 11:48] LABS: Bacteria 2+ /hpf (None Seen); Mucous, Urine 3+ /hpf (<or=2+)
[2018-10-21 12:08] VITALS: BP 125/82; PULSE 87; RESP 14; O2SAT 100
[2018-10-21 13:56] VITALS: BP 130/88; PULSE 87; RESP 16; O2SAT 99
== END 2018-10-21 14:04 | disposition home or self-care (01) ==
PROVIDERS: Emergency Provider Emergency Medicine; Family Provider Preventive Medicine Occupational Medicine; PCP Preventive Medicine Occupational Medicine
DX: R11.2 Nausea with vomiting, unspecified (principal); Z90.49 Acquired absence of other specified parts of digestive tract
CPT/HCPCS: 80048; 80076; 81001; 83690; 85025; 96361; 96372; 96374; 96375; 99285; J7030; J2405; J3486

== ENCOUNTER 2018-10-21 17:27 | Observation (INO) | payer MEDICAID, SELFPAY ==
[2018-10-21 10:25] VITALS: BMI 23.3
[2018-10-21 17:28] VITALS: BP 167/119; PULSE 116; RESP 20; TEMP 36.4; O2SAT 100; BMI 23.3
[2018-10-21] MEDS: LORazepam 2 MG/ML Syringe 0.5 MG IV (18:16)
[2018-10-21] MEDS: 0.9% Normal Saline 1,000 ML 1000 ML IV (18:16)
[2018-10-21] MEDS: Ondansetron 4 MG/2 ML Vial IV (18:16)
--- NOTE | 2018-10-21 18:42 | ED.VIS.GEN ---
History of Present Illness Chief Complaint: Nausea/Vomiting Narrative: 28-year-old female presents with nausea, vomiting, and abdominal cramps. She has a history of cyclic vomiting syndrome and she has been here twice a day for the past 3 days or a flareup. She also reports urinary tract infection symptoms-dysuria and frequency. She denies back pain or localized abdominal pain. No fever, chills, or other symptoms. This feels similar to her previous flareups. Past Medical History - Allergies and Home Meds Allergies/Adverse Reactions: Allergies No Known Allergies Allergy (Verified 10/21/18 17:34) Primary Care Physician: Benedict Sharp DO [Primary Care Provider] - Prior records reviewed: Yes Surgical History: cholecystectomy, - - x 2. Smoking Status: Never smoker - Family History Maternal Family History: Reports: Asthma, Stroke Paternal Family History: Reports: No pertinent history Review of Systems All systems negative except as indicated General: Denies: Chills, Fever, Sweats Eyes: Denies: Visual changes - bilaterally, Diplopia ENT: Denies: Rhinorrhea, Sore throat Cardiovascular: Denies: Chest pain, Palpitations Respiratory: Denies: Dyspnea, Cough, Dyspnea on exertion Gastrointestinal: Reports: Nausea, Vomiting. Denies: Abdominal pain, Diarrhea, Melena, Hematochezia Genitourinary: Denies: Dysuria, Hematuria, Frequency Musculoskeletal: Denies: Back pain, Extremity Pain Skin: Denies: Rash, Wounds Neurological: Denies: Headache, Weakness, Numbness Physical Exam Vital Signs/Narrative: Vital Signs Temp Pulse Resp BP Pulse Ox 10/21/18 17:28 97.5 F L 116 H 20 H 167/119 H 100 General: Well nourished, Well developed, No Acute Distress Head: Normocephalic, Atraumatic Eyes: Perrl, EOMI ENT: No rhinorrhea, Dry mucous membranes Neck: Supple, Nontender Cardiovascular: Regular rate, Regular rhythm, No murmurs Respiratory: No distress, CTA bilaterally, Chest nontender Abdomen: Soft, Nontender, Nondistended, Normal bowel sounds Back: Nontender, Normal Inspection Extremities: Nontender, No edema Skin: Normal color, No rash Neurological: Alert, Oriented x3, Cranial nerves II-XII grossly intact, Normal Strength, Normal Sensation Psychological: Normal affect, Normal Mood Diagnostic/Tx/Re-eval - Medical Decision Making I did not repeat her labs because they were just performed earlier today. She was given IV fluids and multiple antiemetics without improvement. She is still vomiting and unable to tolerate p.o. This is her fifth visit in 48 hours so I feel that she cannot safely be discharged home and I do feel she meets criteria for observation in the hospital, serial exams, and dehydration. ED Disposition - Plan for ED Patient: Disposition: Acute Care Hospital [facility] Diagnosis: Intractable nausea and vomiting Referrals: Benedict Sharp DO [Primary Care Provider] -
[2018-10-21 20:09] VITALS: BP 159/117; PULSE 72; RESP 18; O2SAT 97
--- NOTE | 2018-10-21 20:17 | HP.PCM_ITS ---
Problem List (1) Intractable nausea and vomiting Status: Acute History of Present Illness Date of Admission: 10/22/18 Chief Complaint: nausea and vomiting The patient is a 28 year old F with a significant history of irritable bowel syndrome; anxiety disorder; and cyclic vomiting who presented to the ED with persistent nausea and vomiting. Her symptoms started after eating at a friends wedding three days ago. This is patients 3rd visit to the ED in 3 days for the same symptom. Associated with abdominal pain that she rates as 7 on a scale of 1 to 10. Her last bowel movement was 2 days prior to presentation. Patient reports that at baseline her bowels move every day. Importantly she admits to smoking marijuana. In the past consideration was being made for gastric pacemaker. But because of insurance issues she could not follow through. Past Medical History Past Medical History (Chronic Problems): Chronic Problems Hx of cannabis abuse (Chronic) Allergies No Known Allergies Allergy (Verified 10/21/18 17:34) Home Medications: Ambulatory Orders Medication Instructions Recorded proMETHazine suppository 25 mg RECTAL Q4H PRN PRN #10 06/25/18 [Phenergan] suppos. Amitriptyline HCl 50 mg PO QHS 10/21/18 Surgical History: cholecystectomy, - - x 2. 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 Lives: With Family Smoking Status: Never smoker Drugs: Marijuana - *Family History Maternal History Items: Asthma, COPD, Stroke Paternal History Items: Heart Disease, Hypertension Review of Systems Constitutional: Denies: Chills, Fever, Weight Change HEENT: Denies: Head Aches, Sinus Congestion, Sinus Drainage Cardiovascular: Denies: Chest Pain, Palpitations Respiratory: Denies: Cough, Shortness of breath at rest, Sputum production Gastrointestinal: Reports: Abdominal Pain, Constipation, Nausea, Vomiting Genitourinary: Denies: Dysuria Musculoskeletal: Denies: Joint Pain, Joint Tenderness Skin: Denies: Rash, Wounds Neurological: Denies: Numbness, Tingling, Focal weakness Psychiatric: Denies: Anxiety, Depression, Homicidal Ideations, Suicidal Ideations Hematologic/ Lymphatic: Denies: Easy Bruising, Easy Bleeding VTE Information - Inpt Only VTE Present on Admission: No VTE Mechan Device Prophylaxis: None VTE Pharm Prophylaxis ordered?: No Reason prophylaxis not ordered:: Treatment Not Indicated - Low risk. Encouraged to ambulate Patient Problems: Active and Suspected Problems Intractable nausea and vomiting (Acute) - Physical Exam General: Alert, Oriented x3, Cooperative HEENT: Atraumatic, PERRLA, EOMI, Normocephalic Neck: Supple, No JVD, Negative Carotid Bruits Lungs: Clear to auscultation, Normal air movement Cardiovascular: Regular rate, No murmurs Abdomen: Bowel Sounds Present, Soft, Tender Extremities: No edema, Capillary Refill Less than 3 Seconds Skin: No rashes, No breakdown Musculoskeletal: No Tenderness to Palpation of Joints or Extremities Neurological: Neuro grossly intact Psych/Mental Status: Depressed Vital Signs Temp Pulse Resp BP Pulse Ox 97.5 F L 72 18 159/117 H 97 10/21/18 17:28 10/21/18 20:09 10/21/18 20:09 10/21/18 20:09 10/21/18 20:09 Oxygen Delivery Method Room Air Weight: 63.503 kg Body Mass Index (BMI) 23.3 Assessment/Plan All Active Problems Obstructive jaundice (Resolved) Cholangitis due to bile duct calculus with obstruction (Resolved) Pancolitis (Resolved) Abdominal pain (Acute) Leukocytosis, unspecified (Resolved) Intractable nausea and vomiting (Acute) Hyperemesis gravidarum (Resolved) Viable intrauterine (Resolved) Gastroenteritis (Resolved) Diarrhea (Resolved) Nausea and vomiting (Acute) The patient is a 28 year old F with a significant history of irritable bowel syndrome; anxiety disorder; and cyclic vomiting who presented to the ED with persistent nausea and vomiting. Intractable nausea and vomiting Cannot rule out cyclic vomiting due to marijuana use or gastroparesis for which reason she was previously been evaluated for a pacemaker. Received Zofran; Phenergan and thoraxine at the ED. Received normal saline bolus and emergency department. Supportive treatment with IV fluids; antiemetics with Zofran IV; Phenergan and Reglan IV. Pain management with IV Toradol as needed We will keep patient n.p.o. as she stated that the mere site of food makes her through up. Hypokalemia Likely secondary to vomiting On her first emergency department visit on the same day of presentation potassium was 3.2. Repeat potassium on the second presentation was 2.7. In itially started on normal saline IV fluid. Will change to lactated Ringer's of potassium. We will give potassium 40 mg IV and repeat potassium. Check magnesium. Depression/anxiety Elavil continued DVT prophylaxis Low risk Encouraged to ambulate Code Visit OBSV E&M: [id number] Initial observation care L3
[2018-10-21 21:56] VITALS: BMI 23.3
[2018-10-21 22:00] VITALS: BP 151/111; PULSE 85; RESP 14; TEMP 36.6; O2SAT 98
[2018-10-21 22:35] VITALS: O2SAT 98
[2018-10-21] MEDS: 0.9% NaCl Peripheral Flush Adult/Peds IV (23:22)
[2018-10-21] MEDS: Lactated Ringers 1,000 ML 100 ML IV (23:22)
[2018-10-21] MEDS: Ketorolac 15 MG/ML Vial IV (23:29)
[2018-10-22] VITALS (7 sets, daily range): BP systolic 150–186; BP diastolic 88–128; PULSE 72–89; RESP 16–18; TEMP 36.8–37.2; O2SAT 96–99
[2018-10-22 00:16] LABS: Anion Gap 7 (5-15); BUN 6 mg/dL (7-18); BUN/Creat Ratio 11.3 RATIO (10-20); Calcium,Total 8.4 mg/dL (8.5-10.1); Chloride 104 mmol/L (98-107); Creatinine, Serum 0.53 mg/dL (0.55-1.02); EST Glomerular Filtration Rate 146 mL/min (>60); Est Glom Filt Rate - Afr Amer 177 mL/min (>60); Estimated Creatinine Clearance 143.47 ml/min; Glucose 104 mg/dL (74-106); Potassium 2.7 mmol/L (3.5-5.1); Sodium Level 138 mmol/L (136-145)
--- NOTE | 2018-10-22 00:20 | NURSING ---
Lab called with K+ 2.7 gave the result to primary NAREN Conley.
[2018-10-22 00:57] LABS: Magnesium 1.9 mg/dL (1.6-2.6)
[2018-10-22] MEDS: Potassium Chloride 10mEq/100mL 10 MEQ/100 ML IV.SOLN. 100 MEQ IV BOLUS ×4 (01:06→08:11)
[2018-10-22] MEDS: 0.9% NaCl Peripheral Flush Adult/Peds IV ×3 (01:07→21:30)
[2018-10-22] MEDS: Ondansetron 4 MG/2 ML Vial IV ×3 (04:06→21:25)
[2018-10-22] MEDS: Ketorolac 15 MG/ML Vial IV ×3 (06:23→20:00)
[2018-10-22 06:26] LABS: Bedside Glucose 84 mg/dL (70-110)
[2018-10-22 07:58] LABS: Hematocrit 43.4 % (37-47); Hemoglobin 14.6 g/dl (12.0-15.0); Mean Corp Hgb Conc 33.6 g/gl (32-36); Mean Corpuscular Hgb 28.6 pg (27.0-32.0); Mean Corpuscular Volume 85.1 fL (81-99); Mean Platelet Vol. 9.7 fl (6.2-12.0); Platelet Count 345 K/mm3 (150-450); RBC Distribution Width CV 13.2 % (11.6-14.6); RBC Distribution Width SD 40.5 fl (35.1-43.9); White Blood Count 9.6 K/mm3 (4.4-11.0)
[2018-10-22 08:02] LABS: Scan Indicated on CBC? Y/N NO
[2018-10-22] MEDS: Metoclopramide 10 MG/2 ML Vial 5 MG IV ×2 (08:18→19:59)
[2018-10-22 08:23] LABS: Anion Gap 10 (5-15); BUN 7 mg/dL (7-18); BUN/Creat Ratio 11.6 RATIO (10-20); Calcium,Total 8.8 mg/dL (8.5-10.1); Chloride 101 mmol/L (98-107); EST Glomerular Filtration Rate 126 mL/min (>60); Est Glom Filt Rate - Afr Amer 152 mL/min (>60); Estimated Creatinine Clearance 126.73 ml/min; Glucose 92 mg/dL (74-106); Potassium 3.5 mmol/L (3.5-5.1); Sodium Level 137 mmol/L (136-145)
--- NOTE | 2018-10-22 10:50 | PN_ITS ---
Patient Problems: Active and Suspected Problems Intractable nausea and vomiting (Acute) Subjective: The patient did vomit after coming to the floor. Patient does not have abdominal cramps or pain. Patient denies any reflux symptoms but feels little nausea. Previous CT scan and right upper quadrant sonogram reviewed with the patient's family Vitals/I&O's: Vital Signs Temp Pulse Resp BP Pulse Ox 98.2 F 78 16 150/88 H 98 10/22/18 08:57 10/22/18 08:57 10/22/18 08:57 10/22/18 08:57 10/22/18 08:57 Oxygen Delivery Method Room Air Weight: 140 lb Body Mass Index (BMI) 23.3 Intake and Output for Last 24 Hours 10/20/18 10/21/18 10/22/18 23:59 23:59 23:59 Intake Total 927 / 927 Output Total 750 / 750 Balance 177 / 177 General: Alert, Oriented x3, Cooperative HEENT: Atraumatic, PERRLA, EOMI, Normocephalic Neck: Supple, No JVD, Negative Carotid Bruits Lungs: Clear to auscultation, Normal air movement, No rhonchi, No wheeze, No rales Cardiovascular: Regular rate, Regular Rhythm, Normal S1, Normal S2, No murmurs Abdomen: Bowel Sounds Present, Soft, Non Tender, Non-Distended Extremities: No edema, Capillary Refill Less than 3 Seconds Skin: No rashes, No breakdown Musculoskeletal: No Tenderness to Palpation of Joints or Extremities Lymphatic: No Cervical, Supraclavicular, or Inguinal Adenopathy Neurological: Cranial nerves II-XII grossly intact, Deep Tendon Reflexes 2+/4 and Symmetrical, Neuro grossly intact, Motor Exam 5/5 strength throughout Psych/Mental Status: Normal Affect, Appropriate Laboratory Results 10/21/18 23:13: Sodium 138, Potassium 2.7 L*, Chloride 104, Carbon Dioxide 27.0, Anion Gap 7, BUN 6 L, Creatinine 0.53 L, Estim Creat Clear Calc 143.47, Est GFR (MDRD) Af Amer 177, Est GFR (MDRD) Non-Af 146, BUN/Creatinine Ratio 11.3, Glucose 104, Calcium 8.4 L 10/21/18 23:13: Magnesium 1.9 10/22/18 06:19: POC Glucose 84 10/22/18 07:45: WBC 9.6, RBC 5.10, Hgb 14.6, Hct 43.4, MCV 85.1, MCH 28.6, MCHC 33.6, RDW 13.2, RDW Differential 40.5, Plt Count 345, MPV 9.7 10/22/18 07:45: Sodium 137, Potassium 3.5, Chloride 101, Carbon Dioxide 26.0, Anion Gap 10, BUN 7, Creatinine 0.60, Estim Creat Clear Calc 126.73, Est GFR (MDRD) Af Amer 152, Est GFR (MDRD) Non-Af 126, BUN/Creatinine Ratio 11.6, Glucose 92, Calcium 8.8 Current Medications Amitriptyline HCl (Elavil) 50 mg PO QHS [facility] Dextrose (D50w Syringe) 0 gm IV X1 PRN; Protocol PRN Reason: Hypoglycemia Glucagon () 1 mg IM .X1 PRN PRN Reason: Hypoglycemia Sodium Chloride () 250 mls @ 15 mls/hr IV .[id number] PRN PRN Reason: SALINE FLUSH Potassium Chloride 40 meq/ (Lactated Ringer's) 1,020 mls @ 100 mls/hr IV .[id number] [facility] Stop: 10/22/18 15:29 Last Admin: 10/22/18 00:52 Dose: 100 mls/hr Documented by: Ketorolac Tromethamine (Toradol) 15 mg IV Q6H PRN PRN PRN Reason: PAIN Stop: 10/26/18 22:47 Last Admin: 10/22/18 06:23 Dose: 15 mg Documented by: Metoclopramide HCl (Reglan) 5 mg IV Q8H PRN PRN PRN Reason: NAUSEA/VOMITING Last Admin: 10/22/18 08:18 Dose: 5 mg Documented by: Ondansetron HCl (Zofran) 4 mg IV Q6H PRN PRN PRN Reason: NAUSEA/VOMITING Last Admin: 10/22/18 04:06 Dose: 4 mg Documented by: Promethazine HCl (Phenergan Suppository) 25 mg RECTAL Q4H PRN PRN PRN Reason: NAUSEA/VOMITING Sodium Chloride () 10 - 40 ml IV UD PRN PRN Reason: SALINE FLUSH Last Admin: 10/22/18 08:18 Dose: 10 ml Documented by: Medical Necessity - Tobacco Use Smoking Status: Never smoker Assessment/Plan All Active Problems Obstructive jaundice (Resolved) Cholangitis due to bile duct calculus with obstruction (Resolved) Pancolitis (Resolved) Abdominal pain (Acute) Leukocytosis, unspecified (Resolved) Intractable nausea and vomiting (Acute) Hyperemesis gravidarum (Resolved) Viable intrauterine (Resolved) Gastroenteritis (Resolved) Diarrhea (Resolved) Nausea and vomiting (Acute) The patient is a 28 year old F with a significant history of irritable bowel syndrome; anxiety disorder; and cyclic vomiting with multiple recurrent ER visits admission for similar problem admitted to [facility] with persistent nausea and vomiting. Patient also has history of migraine and has sumatriptan at home. I think patient has not followed any neurologist for long time and does not have maintenance medicine for migraine. 1. Intractable nausea and vomiting, exact etiology unclear but possible marijuana use, cyclical vomiting syndrome, GI/somatic manifestation of neurological/psychiatric disorder like migraine disorder, anxiety and depression: Currently, patient symptoms controlled on Zofran, Phenergan and thorax and. Patient is well resuscitated with IV fluid. Will start on clear liquid. Different possible causes of vomiting discussed with the patient's parent both mother and father. Advised follow-up with her neurologist for migraine as an outpatient. 2. Mild hypokalemia: Secondary to vomiting: Being monitored and corrected. Last K 3.5. 3. Anxiety and depression: Amitriptyline continued. DVT prophylaxis: Low risk. Early ambulation encouraged. Laboratory Results 10/21/18 23:13: Sodium 138, Potassium 2.7 L*, Chloride 104, Carbon Dioxide 27.0, Anion Gap 7, BUN 6 L, Creatinine 0.53 L, Estim Creat Clear Calc 143.47, Est GFR (MDRD) Af Amer 177, Est GFR (MDRD) Non-Af 146, BUN/Creatinine Ratio 11.3, Glucose 104, Calcium 8.4 L 10/21/18 23:13: Magnesium 1.9 10/22/18 06:19: POC Glucose 84 10/22/18 07:45: WBC 9.6, RBC 5.10, Hgb 14.6, Hct 43.4, MCV 85.1, MCH 28.6, MCHC 33.6, RDW 13.2, RDW Differential 40.5, Plt Count 345, MPV 9.7 10/22/18 07:45: Sodium 137, Potassium 3.5, Chloride 101, Carbon Dioxide 26.0, Anion Gap 10, BUN 7, Creatinine 0.60, Estim Creat Clear Calc 126.73, Est GFR (MDRD) Af Amer 152, Est GFR (MDRD) Non-Af 126, BUN/Creatinine Ratio 11.6, Glucose 92, Calcium 8.8 Active Medications Amitriptyline HCl (Elavil) 50 mg PO QHS [facility] Dextrose (D50w Syringe) 0 gm IV X1 PRN; Protocol PRN Reason: Hypoglycemia Glucagon () 1 mg IM .X1 PRN PRN Reason: Hypoglycemia Sodium Chloride () 250 mls @ 15 mls/hr IV .[id number] PRN PRN Reason: SALINE FLUSH Potassium Chloride 40 meq/ (Lactated Ringer's) 1,020 mls @ 100 mls/hr IV .[id number] [facility] Stop: 10/22/18 15:29 Last Admin: 10/22/18 00:52 Dose: 100 mls/hr Documented by: Ketorolac Tromethamine (Toradol) 15 mg IV Q6H PRN PRN PRN Reason: PAIN Stop: 10/26/18 22:47 Last Admin: 10/22/18 06:23 Dose: 15 mg Documented by: Metoclopramide HCl (Reglan) 5 mg IV Q8H PRN PRN PRN Reason: NAUSEA/VOMITING Last Admin: 10/22/18 08:18 Dose: 5 mg Documented by: Ondansetron HCl (Zofran) 4 mg IV Q6H PRN PRN PRN Reason: NAUSEA/VOMITING Last Admin: 10/22/18 04:06 Dose: 4 mg Documented by: Promethazine HCl (Phenergan Suppository) 25 mg RECTAL Q4H PRN PRN PRN Reason: NAUSEA/VOMITING Sodium Chloride () 10 - 40 ml IV UD PRN PRN Reason: SALINE FLUSH Last Admin: 10/22/18 08:18 Dose: 10 ml Documented by: Code Visit Inpatient E&M: [id number] Subs Hosp L2
[2018-10-22] MEDS: Metoclopramide 10 MG Tablet 5 MG PO ×2 (12:35→16:39)
[2018-10-22] MEDS: Dext 5%-0.45% NS 1,000 ML 75 ML IV (13:37)
[2018-10-22] MEDS: hydrALAZINE 20 MG/ML Vial 5 MG IV (21:25)
[2018-10-22] MEDS: Amitriptyline 25 MG Tablet 50 MG PO (21:25)
[2018-10-22] MEDS: DiphenhydrAMINE 25 MG Capsule PO (21:25)
[2018-10-23] VITALS (8 sets, daily range): BP systolic 115–184; BP diastolic 75–121; PULSE 93–122; RESP 16–18; TEMP 36.6–37; O2SAT 96–98
[2018-10-23] MEDS: hydrALAZINE 20 MG/ML Vial 5 MG IV ×2 (02:36→06:48)
[2018-10-23] MEDS: Mag Hydrox/Al Hydrox/Simeth 30 ML UDC 15 ML PO ×2 (02:36→08:21)
[2018-10-23] MEDS: Ketorolac 15 MG/ML Vial IV ×2 (02:36→08:22)
[2018-10-23] MEDS: proMETHazine 25 MG Suppos. RECTAL (02:37)
[2018-10-23] MEDS: Ondansetron 4 MG/2 ML Vial IV ×3 (06:12→20:30)
[2018-10-23] MEDS: Dext 5%-0.45% NS 1,000 ML 75 ML IV (06:16)
[2018-10-23] MEDS: Metoclopramide 10 MG Tablet 5 MG PO (06:52)
[2018-10-23 07:33] LABS: BUN 7 mg/dL (7-18); Creatinine, Serum 0.52 mg/dL (0.55-1.02); EST Glomerular Filtration Rate 150 mL/min (>60); Estimated Creatinine Clearance 146.23 ml/min; Glucose 124 mg/dL (74-106)
[2018-10-23 07:34] LABS: Anion Gap 11 (5-15); BUN/Creat Ratio 13.5 RATIO (10-20); Calcium,Total 8.9 mg/dL (8.5-10.1); Chloride 97 mmol/L (98-107); Est Glom Filt Rate - Afr Amer 181 mL/min (>60); Potassium 2.8 mmol/L (3.5-5.1); Sodium Level 137 mmol/L (136-145)
[2018-10-23] MEDS: 0.9% NaCl Peripheral Flush Adult/Peds IV ×2 (08:22→08:44)
--- NOTE | 2018-10-23 09:49 | PCM.PN.HOSP ---
Patient Problems: Active and Suspected Problems Status migrainosus (Acute) Intractable nausea and vomiting (Acute) Subjective: The patient is complaining of headache mainly on the left amish, 7/10 intensity with photophobia and feels lethargic. She feels this is her migraine headache. She has not not seen neurologist perhaps ever. She has not vomited since yesterday. Vitals/I&O's: Vital Signs Temp Pulse Resp BP Pulse Ox 97.8 F 122 H 16 164/114 H 96 10/23/18 08:20 10/23/18 08:20 10/23/18 08:20 10/23/18 08:20 10/23/18 08:20 Oxygen Delivery Method Room Air Weight: 140 lb Body Mass Index (BMI) 23.3 Intake and Output for Last 24 Hours 10/21/18 10/22/18 10/23/18 23:59 23:59 23:59 Intake Total 1927 / 2490 1037 / 1037 Output Total 750 / 850 100 / 100 Balance 1177 / 1640 937 / 937 General: Alert, Oriented x3, Cooperative HEENT: Atraumatic, PERRLA, EOMI, Normocephalic Neck: Supple, No JVD, Negative Carotid Bruits Lungs: Clear to auscultation, Normal air movement, No rhonchi, No wheeze, No rales Cardiovascular: Regular rate, Regular Rhythm, Normal S1, Normal S2, No murmurs Abdomen: Bowel Sounds Present, Soft, Non Tender, Non-Distended Extremities: No edema, Capillary Refill Less than 3 Seconds Skin: No rashes, No breakdown Musculoskeletal: No Tenderness to Palpation of Joints or Extremities Neurological: Cranial nerves II-XII grossly intact, Deep Tendon Reflexes 2+/4 and Symmetrical, Neuro grossly intact Psych/Mental Status: Normal Affect, Appropriate Laboratory Results 10/23/18 06:35: Sodium 137, Potassium 2.8 L, Chloride 97 L, Carbon Dioxide 29.0, Anion Gap 11, BUN 7, Creatinine 0.52 L, Estim Creat Clear Calc 146.23, Est GFR (MDRD) Af Amer 181, Est GFR (MDRD) Non-Af 150, BUN/Creatinine Ratio 13.5, Glucose 124 H, Calcium 8.9 10/23/18 06:35: Magnesium Pending 10/23/18 06:35: Phosphorus Pending 10/23/18 09:25: Urine Opiates Screen Pending, Urine Methadone Screen Pending, Ur Barbiturates Screen Pending, Ur Phencyclidine Scrn Pending, Ur Amphetamines Screen Pending, U Methamphetamin-MDMA Pending, U Benzodiazepines Scrn Pending, Urine Cocaine Screen Pending, U Cannabinoids Screen Pending, Ur Drug Screen Comment Current Medications Al Hydroxide/Mg Hydroxide (Mylanta Ii) 15 ml PO Q4H PRN PRN PRN Reason: INDIGESTION Last Admin: 10/23/18 08:21 Dose: 15 ml Documented by: Amitriptyline HCl (Elavil) 50 mg PO QHS [facility] Last Admin: 10/22/18 21:25 Dose: 50 mg Documented by: Dexamethasone Sodium Phosphate (Decadron) 4 mg IV Q8 [facility] Dextrose (D50w Syringe) 0 gm IV X1 PRN; Protocol PRN Reason: Hypoglycemia Diphenhydramine HCl (Benadryl) 25 mg PO QHS PRN PRN PRN Reason: INSOMNIA Last Admin: 10/22/18 21:25 Dose: 25 mg Documented by: Glucagon () 1 mg IM .X1 PRN PRN Reason: Hypoglycemia Hydralazine HCl (Apresoline Iv) 5 mg IV Q4H PRN PRN PRN Reason: SBP > 160 Last Admin: 10/23/18 06:48 Dose: 5 mg Documented by: Sodium Chloride () 250 mls @ 15 mls/hr IV .[id number] PRN PRN Reason: SALINE FLUSH Valproic Acid 500 mg/ Dextrose 55 mls @ 50 mls/hr IV Q8 [facility] Lactated Ringer's () 1,000 mls @ 100 mls/hr IV .Q10H [facility] Ketorolac Tromethamine (Toradol) 15 mg IV Q6H PRN PRN PRN Reason: PAIN Stop: 10/26/18 22:47 Last Admin: 10/23/18 08:22 Dose: 15 mg Documented by: Metoclopramide HCl (Reglan) 5 mg IV Q8H PRN PRN PRN Reason: NAUSEA/VOMITING Last Admin: 10/22/18 19:59 Dose: 5 mg Documented by: Metoclopramide HCl (Reglan) 5 mg PO TIDAC [facility] Last Admin: 10/23/18 06:52 Dose: 5 mg Documented by: Ondansetron HCl (Zofran) 4 mg IV Q6H PRN PRN PRN Reason: NAUSEA/VOMITING Last Admin: 10/23/18 06:12 Dose: 4 mg Documented by: Potassium Chloride (K-Dur) 60 meq PO Q4H [facility] Stop: 10/23/18 12:31 Last Admin: 10/23/18 08:44 Dose: 60 meq Documented by: Promethazine HCl (Phenergan Suppository) 25 mg RECTAL Q4H PRN PRN PRN Reason: NAUSEA/VOMITING Last Admin: 10/23/18 02:37 Dose: 25 mg Documented by: Sodium Chloride () 10 - 40 ml IV UD PRN PRN Reason: SALINE FLUSH Last Admin: 10/23/18 08:44 Dose: 10 ml Documented by: Medical Necessity - Tobacco Use Smoking Status: Never smoker Assessment/Plan All Active Problems Status migrainosus (Acute) Obstructive jaundice (Resolved) Cholangitis due to bile duct calculus with obstruction (Resolved) Pancolitis (Resolved) Abdominal pain (Acute) Leukocytosis, unspecified (Resolved) Intractable nausea and vomiting (Acute) Hyperemesis gravidarum (Resolved) Viable intrauterine (Resolved) Gastroenteritis (Resolved) Diarrhea (Resolved) Nausea and vomiting (Acute) The patient is a 28 year old F with a significant history of irritable bowel syndrome; anxiety disorder; and cyclic vomiting with multiple recurrent ER visits admission for similar problem admitted to [facility] with persistent nausea and vomiting. Patient also has history of migraine and has sumatriptan at home. I think patient has not followed any neurologist for long time and does not have maintenance medicine for migraine. 1. Intractable nausea and vomiting, exact etiology unclear but possible marijuana use, cyclical vomiting syndrome, GI/somatic manifestation of neurological/psychiatric disorder like migraine disorder, anxiety and depression: Currently, patient symptoms controlled on Zofran, Phenergan and thorax and. Patient is well resuscitated with IV fluid. Diet is advanced to soft diet 2. Severe migraine headache: Patient admits she takes sumatriptan at home but does not have maintenance medicine. Started on Depakote and Decadron. Neurologist consult reviewed. test is negative. Neurologist agreed and recommended Depakote 500 mg IV every 8 hourly and Decadron 4 mg IV every 8 hours for 24 to 28 hours. IV magnesium sulfate, 1 g 1 dose. 2. Mild hypokalemia: Secondary to vomiting: Being monitored and corrected. K2.8. Replace potassium. Recheck K. Magnesium is phosphorus are normal 3. Anxiety and depression: Amitriptyline continued. DVT prophylaxis: Low risk. Early ambulation encouraged. Laboratory Results 10/23/18 06:35: Sodium 137, Potassium 2.8 L, Chloride 97 L, Carbon Dioxide 29.0, Anion Gap 11, BUN 7, Creatinine 0.52 L, Estim Creat Clear Calc 146.23, Est GFR (MDRD) Af Amer 181, Est GFR (MDRD) Non-Af 150, BUN/Creatinine Ratio 13.5, Glucose 124 H, Calcium 8.9 10/23/18 06:35: Phosphorus 3.5, Magnesium 1.9 10/23/18 06:35: Phosphorus Cancelled 10/23/18 06:35: Serum , Qual NEGATIVE 10/23/18 09:25: Urine Opiates Screen NEGATIVE, Urine Methadone Screen NEGATIVE, Ur Barbiturates Screen NEGATIVE, Ur Phencyclidine Scrn NEGATIVE, Ur Amphetamines Screen NEGATIVE, U Methamphetamin-MDMA NEGATIVE, U Benzodiazepines Scrn NEGATIVE, Urine Cocaine Screen NEGATIVE, U Cannabinoids Screen POSITIVE H, Ur Drug Screen Comment Active Medications Al Hydroxide/Mg Hydroxide (Mylanta Ii) 15 ml PO Q4H PRN PRN PRN Reason: INDIGESTION Last Admin: 10/23/18 08:21 Dose: 15 ml Documented by: Amitriptyline HCl (Elavil) 75 mg PO HS [facility] Dexamethasone Sodium Phosphate (Decadron) 4 mg IV Q8 [facility] Stop: 10/24/18 14:00 Last Admin: 10/23/18 10:55 Dose: 4 mg Documented by: Dextrose (D50w Syringe) 0 gm IV X1 PRN; Protocol PRN Reason: Hypoglycemia Diphenhydramine HCl (Benadryl) 25 mg PO QHS PRN PRN PRN Reason: INSOMNIA Last Admin: 10/22/18 21:25 Dose: 25 mg Documented by: Glucagon () 1 mg IM .X1 PRN PRN Reason: Hypoglycemia Hydralazine HCl (Apresoline Iv) 5 mg IV Q4H PRN PRN PRN Reason: SBP > 160 Last Admin: 10/23/18 06:48 Dose: 5 mg Documented by: Sodium Chloride () 250 mls @ 15 mls/hr IV .[id number] PRN PRN Reason: SALINE FLUSH Lactated Ringer's () 1,000 mls @ 100 mls/hr IV .Q10H [facility] Last Admin: 10/23/18 10:55 Dose: 100 mls/hr Documented by: Valproic Acid 500 mg/ Dextrose 55 mls @ 50 mls/hr IV Q8 [facility] Stop: 10/24/18 14:00 Last Admin: 10/23/18 10:55 Dose: 50 mls/hr Documented by: Ketorolac Tromethamine (Toradol) 30 mg IV Q6H PRN PRN PRN Reason: HEADACHE Stop: 10/24/18 10:34 Ondansetron HCl (Zofran) 4 mg IV Q6H PRN PRN PRN Reason: NAUSEA/VOMITING Last Admin: 10/23/18 06:12 Dose: 4 mg Documented by: Potassium Chloride (K-Dur) 60 meq PO Q4H [facility] Stop: 10/23/18 12:31 Last Admin: 10/23/18 08:44 Dose: 60 meq Documented by: Promethazine HCl (Phenergan Suppository) 25 mg RECTAL Q4H PRN PRN PRN Reason: NAUSEA/VOMITING Last Admin: 10/23/18 02:37 Dose: 25 mg Documented by: Sodium Chloride () 10 - 40 ml IV UD PRN PRN Reason: SALINE FLUSH Last Admin: 10/23/18 08:44 Dose: 10 ml Documented by: Code Visit Inpatient E&M: [id number] [place] [id number]
[2018-10-23 09:59] LABS: Amphetamine Urine VISTA NEGATIVE (<1000 ng/mL); Barbiturate Urine VISTA NEGATIVE (< 200 ng/mL); Benzodiazepine Urine VISTA NEGATIVE (< 200 ng/mL); Cocaine Urine VISTA NEGATIVE (< 300 ng/mL); Ecstacy Urine VISTA NEGATIVE (< 500 ng/mL); Methadone Urine VISTA NEGATIVE (< 300 ng/mL); PCP Urine VISTA NEGATIVE (< 25 ng/mL); THC Urine VISTA POSITIVE (< 50 ng/mL); Vista UDS pH Range 7
[2018-10-23 10:04] LABS: Magnesium 1.9 mg/dL (1.6-2.6); Phosphorus 3.5 mg/dL (2.5-4.9)
--- NOTE | 2018-10-23 10:06 | CASEMGMT ---
Social Work Note DORENE met with pt in regards to Marijuana use. SW introduced self and role at [facility]. Pt is alert and orientated x4, states that her head hurts really bad. Pt states that she lives with her boyfriend and she states she feels safe at home and in the relationship. Pt states that she has additional family and friends that are good support for her as well. Pt states that she is currently unemployed. Pt denied any substance abuse or use and when this worker specifically asked pt about marijuana use pt didn't answer. Per H+P, pt did admit to using marijuana in ED. Pt states that she also has anxiety and denied counseling. SW asked pt about counseling. Pt states I don't know in regards to going to counseling. SW offered pt resources in regards to counseling and pt was agreeable to taking resources. SW provided pt with counseling resources and behavior health pamphlet. Pt denied additional needs or concerns at this time. Vickie Lancaster PARTS IDENTIFIER, FERMENTATION MANAGER
--- NOTE | 2018-10-23 10:20 | CON.PCM_ITS ---
Problem List (1) Status migrainosus Status: Acute Reason for Consult Date of Consultation: 10/23/18 Reason for Consultation: Migraine, headache History of Present Illness: The patient is a 28 year old F with PMH migraine, IBS, anxiety disorder admitted with nausea and vomiting as well as headache. Per patient her headache started yesterday 10/22/2018 is generalized, has lasted more than 24 hours now, is about 7/10 intensity, denies any vomiting at present, has severe photophobia and phonophobia. She is on amitriptyline 50 mg p.o. nightly. Does admit to using marijuana. Per patient she lives with her boyfriend has 2 children 5-year-old and 2 years old and denies being at present. At present patient denies any focal motor weakness, sensory loss, visual disturbances, dizziness, or speech disturbances. [] Past Medical History Past Medical History (Chronic Problems): Chronic Problems Hx of cannabis abuse (Chronic) Allergies No Known Allergies Allergy (Verified 10/21/18 17:34) Home Medications: Ambulatory Orders Medication Instructions Recorded proMETHazine suppository 25 mg RECTAL Q4H PRN PRN #10 06/25/18 [Phenergan] suppos. Amitriptyline HCl 50 mg PO QHS 10/21/18 Surgical History: cholecystectomy, - - x 2. Psychiatric History: No pertinent psych hx [employer] History: No pertinent [employer] history Lives: With Family Smoking Status: Never smoker Alcohol: None Drugs: Marijuana - *Family History Maternal History Items: Asthma, COPD, Stroke Paternal History Items: Heart Disease, Hypertension Review of Systems Constitutional: Reports: - - Complete ROS negative except as documented in HPI Patient Problems: Active and Suspected Problems Status migrainosus (Acute) Intractable nausea and vomiting (Acute) - Physical Exam General: Alert HEENT: Normocephalic Neck: Supple Lungs: Normal air movement Cardiovascular: Normal S1, Normal S2 Abdomen: Bowel Sounds Present Extremities: No cyanosis Neurological: - - Conscious, awake, CN II through XII grossly intact, power 5 x 5 both upper and lower extremities, no sensory loss, no cerebellar signs, gait deferred, fundus not visualized, no NR, reflexes + B/L B/S/T/K/A Psych/Mental Status: Normal Affect Vital Signs Temp Pulse Resp BP Pulse Ox 97.8 F 122 H 16 164/114 H 96 10/23/18 08:20 10/23/18 08:20 10/23/18 08:20 10/23/18 08:20 10/23/18 08:20 Oxygen Delivery Method Room Air Weight: 63.503 kg Body Mass Index (BMI) 23.3 Intake and Output for Last 24 Hours 10/21/18 10/22/18 10/23/18 23:59 23:59 23:59 Intake Total 1927 / 2490 1037 / 1037 Output Total 750 / 850 100 / 100 Balance 1177 / 1640 937 / 937 Laboratory Tests Past 24 Hrs 10/23/18 10/23/18 10/23/18 06:35 06:35 06:35 Sodium 137 Potassium 2.8 L Chloride 97 L Carbon Dioxide 29.0 Anion Gap 11 BUN 7 Creatinine 0.52 L Estim Creat Clear Calc 146.23 Est GFR (MDRD) Af Amer 181 Est GFR (MDRD) Non-Af 150 BUN/Creatinine Ratio 13.5 Glucose 124 H Calcium 8.9 Phosphorus 3.5 Cancelled Magnesium 1.9 Urine Opiates Screen Urine Methadone Screen Ur Barbiturates Screen Ur Phencyclidine Scrn Ur Amphetamines Screen U Methamphetamin-MDMA U Benzodiazepines Scrn Urine Cocaine Screen U Cannabinoids Screen Ur Drug Screen Comment 10/23/18 09:25 Sodium Potassium Chloride Carbon Dioxide Anion Gap BUN Creatinine Estim Creat Clear Calc Est GFR (MDRD) Af Amer Est GFR (MDRD) Non-Af BUN/Creatinine Ratio Glucose Calcium Phosphorus Magnesium Urine Opiates Screen NEGATIVE Urine Methadone Screen NEGATIVE Ur Barbiturates Screen NEGATIVE Ur Phencyclidine Scrn NEGATIVE Ur Amphetamines Screen NEGATIVE U Methamphetamin-MDMA NEGATIVE U Benzodiazepines Scrn NEGATIVE Urine Cocaine Screen NEGATIVE U Cannabinoids Screen POSITIVE H Ur Drug Screen Comment Assessment/Plan All Active Problems Status migrainosus (Acute) Obstructive jaundice (Resolved) Cholangitis due to bile duct calculus with obstruction (Resolved) Pancolitis (Resolved) Abdominal pain (Acute) Leukocytosis, unspecified (Resolved) Intractable nausea and vomiting (Acute) Hyperemesis gravidarum (Resolved) Viable intrauterine (Resolved) Gastroenteritis (Resolved) Diarrhea (Resolved) Nausea and vomiting (Acute) The patient is a 28 year old F with PMH migraine, IBS, anxiety disorder admitted with nausea and vomiting as well as headache. Per patient her headache started yesterday 10/22/2018 is generalized, has lasted more than 24 hours now, is about 7/10 intensity, denies any vomiting at present, has severe photophobia and phonophobia. She is on amitriptyline 50 mg p.o. nightly. Does admit to using marijuana. Per patient she lives with her boyfriend has 2 children 5-year-old and 2 years old and denies being at present. At present patient denies any focal motor weakness, sensory loss, visual disturbances, dizziness, or speech disturbances. [] Impression Likely status migrainosus Plan ?MRI brain without contrast ? testing stat ?Check LFTs ?Once the testing is negative, trial of Depacon 500 mg IV q. 8 hourly for 24 to 48 hours and then stop ?Magnesium sulfate 1 g IV once ?Dexamethasone 4 mg IV every 6 hourly for 24 to 48 hours and then stop ?Toradol 30 mg IV every 6 hourly as needed moderate to severe headaches for 24 hours and then stop ?Increase amitriptyline to 75 mg p.o. nightly. Tolerating medication well. Denies any suicidal ideation at present. ?GI/DVT prophylaxis ?Fall precautions ?Further medical management per hospitalist team ?Follow-up with neurology in 6 weeks as outpatient ?Please call with questions if any ?Thank you for allowing us to participate in patient's care and management Code Visit Inpatient E&M: [id number] Init Hosp L3
--- NOTE | 2018-10-23 10:28 | MRI_ITS ---
STUDY: MRI BRAIN WITHOUT CONTRAST REASON FOR EXAM: Female, 28 years old. Migraine for 4 days, vomiting TECHNIQUE: Standardized multiplanar fat and water weighted pulse sequences were obtained. COMPARISON: None. FINDINGS: Normal size of the ventricles and extra-axial spaces for the patient's age. Normal white matter tracts of the supratentorial brain. Normal bilateral basal ganglia. Normal thalami. There is no extra-axial fluid accumulation. Normal flow voids within the major intracranial circulation suggesting patency by spin echo criteria. Normal sella turcica, pituitary gland, infundibular stalk, optic chiasm and hypothalamus. Normal tectal plate and pineal gland. Normal midbrain, audrey and medulla. Normal cerebellum. Normal basal cisterns. Normal bilateral temporal bones. Normal bilateral internal auditory canals. No demonstrated orbital abnormality, within the constraints of a routine brain study. Normal visualized paranasal sinuses. Normal calvarium and skull base. Normal visualized soft tissue structures. Normal visualized upper cervical spine. MRI/Brain without Contrast IMPRESSION: Normal unenhanced MRI of the brain. Electronically Signed: Umm Celestin, at 16:48 EDT Tel , Service support ,
[2018-10-23 10:45] LABS: Internal QC Validated? YES +Cl - CLEAR BKGD; Pregnancy, Serum, hCG Quali. NEGATIVE Negative
[2018-10-23] MEDS: Lactated Ringers 1,000 ML 100 ML IV (10:55)
[2018-10-23] MEDS: dexAMETHasone 4 MG/ML Vial IV ×3 (10:55→21:42)
[2018-10-23 13:42] LABS: Potassium 3.8 mmol/L (3.5-5.1)
[2018-10-23] MEDS: Magnesium Sulfate 1 GM in 0.9% Normal Saline 100 ML IV (14:23)
[2018-10-23] MEDS: Amitriptyline 25 MG Tablet 75 MG PO (21:40)
[2018-10-23] MEDS: DiphenhydrAMINE 25 MG Capsule PO (21:42)
--- NOTE | 2018-10-23 22:14 | EKG12_ITS ---
Test Reason : CP Blood Pressure : / mmHG Vent. Rate : 097 BPM Atrial Rate : 097 BPM P-R Int : 138 ms QRS Dur : 078 ms QT Int : 362 ms P-R-T Axes : 072 069 044 degrees QTc Int : 459 ms Normal sinus rhythm Normal ECG When compared with ECG of 20-OCT-2018 10:05, Vent. rate has increased BY 34 BPM Confirmed by MARVA LOPEZ, LINA ([id number]), society editor ALFRED BRADY ([id number]) on 10/27/2018 2:11:10 PM Referred By: ODALIS Confirmed By:LINA DURHAM MD
[2018-10-24 03:10] VITALS: BP 115/72; PULSE 69; RESP 16; TEMP 36.9; O2SAT 96
[2018-10-24] MEDS: Lactated Ringers 1,000 ML 100 ML IV (04:39)
[2018-10-24 06:06] LABS: HEPATITIS B SURFACE AG Negative (Negative); Hepatitis A IgM Antibody Negative (Negative); Hepatitis B Core AB IgM Negative (Negative)
--- NOTE | 2018-10-24 06:36 | NURSING ---
Pt initially had a HIPPA password so her father wouldn't be able to find out her medical info. Pt has changed mind and no longer wants password stating my dad will find out from me anyway.
[2018-10-24 10:23] VITALS: BP 114/74; PULSE 90; RESP 17; TEMP 36.6; O2SAT 97
--- NOTE | 2018-10-24 10:58 | DCINST_ITS ---
- Discharge Diagnoses Current Active Problems: Current Active and Chronic Problems Status migrainosus (Acute) Intractable nausea and vomiting (Acute) You will use the following diet at home:: Regular Your food should be the consistency of: Regular Your liquids should be the consistency of: Regular/Thin Discharge Activity: May Not Drive - For 7 days until she follows PCP Allergies/Adverse Reactions: Allergies No Known Allergies Allergy (Verified 10/21/18 17:34) Medications to take at Discharge proMETHazine suppository [Phenergan Suppository] 25 mg RECTAL Q4H PRN PRN #10 suppos. 06/25/18 Amitriptyline HCl 75 mg PO QHS #0 10/24/18 Smz/Tmp Ds [Bactrim Ds] 1 tab PO BID #6 tab 10/24/18 The following prescriptions were given: Smz/Tmp Ds [Bactrim Ds] 1 tab PO BID #6 tab Transmission Status: Pending to [facility] Primary Care Physician: Benedict Sharp DO [Primary Care Provider] - Please follow up with your Primary Care Physician in: in 1-2 week Test Results: Test results from this visit will be discussed in further detail at your follow- up appointment, if applicable. Please Follow Up With: Nathen Mancini MD When: in 4 week
[2018-10-24] MEDS: 0.9% NaCl Peripheral Flush Adult/Peds IV ×3 (10:59→17:42)
[2018-10-24] MEDS: Ketorolac 30 MG/ML Syringe IV (10:59)
--- NOTE | 2018-10-24 10:59 | DS.PCM_ITS ---
Discharge Date and Diagnosis - Problem List Patient Problems: Active and Suspected Problems Status migrainosus (Acute) Intractable nausea and vomiting (Acute) Date of Admission: 10/22/18 Date of Discharge: 10/24/18 - Primary Discharge Diagnosis Active and Suspected Problems Status migrainosus (Acute) Intractable nausea and vomiting (Acute) - Secondary Discharge Diagnosis Chronic Problems Hx of cannabis abuse (Chronic) Hospital Course and Treatment Operations: None Summary of Care Provided: [] The patient is a 28 year old F with a significant history of irritable bowel syndrome; anxiety disorder; and cyclic vomiting with multiple recurrent ER visits admission for similar problem admitted to [facility] with persistent nausea and vomiting. Patient also has history of migraine and has sumatriptan at home. I think patient has not followed any neurologist for long time and does not have maintenance medicine for migraine. 1. Intractable nausea and vomiting, exact etiology unclear but possible marijuana use, cyclical vomiting syndrome, GI/somatic manifestation of neurological/psychiatric disorder like migraine disorder, anxiety and depression: Her vomiting were controlled by Zofran, Phenergan and Reglan. Patient has Phenergan suppository at home. Prescription for Phenergan tablets sent to home. Patient tolerated regular diet. 2. Severe migraine headache: Patient admits she takes sumatriptan at home but does not have maintenance medicine. Started on Depakote and Decadron. N eurologist consult reviewed. test is negative. Neurologist agreed and recommended Depakote 500 mg IV every 8 hourly and Decadron 4 mg IV every 8 hours for 24 to 28 hours. IV magnesium sulfate, 1 g 1 dose. Patient has amitriptyline at home dose increased to 75 mg nightly. Patient also has some amitriptyline at home for as needed severe headache migraine headache resolved. 3. Possible midcycle spotting/bleeding with hematuria: Repeat CBC was done H&H 14.2/41.6. Leukocytosis 13,000 most probably secondary to Decadron she received inpatient. Patient was advised to follow-up with the media analytics manager in 2 weeks. test was negative. Patient also complained of burning micturition therefore concern of possible UTI. Patient failed to give a urine sample for testing and therefore empirically treated with 1 dose of IV ceftriaxone. Prescription for Bactrim DS 1 tablet twice daily for 3 days sent to pharmacy. Mild hypokalemia: Secondary to vomiting: Being monitored and corrected. K2.8. Replace potassium. Recheck K. Magnesium is phosphorus are normal 3. Anxiety and depression: Amitriptyline continued. DVT prophylaxis: Low risk. Early ambulation encouraged. Discharge medication reconciliation done. Discharge follow-up instructions completed. Discharge process discussed with the patient and all questions were answered to patient's satisfaction. Follow-up with PCP in 1 to 2 weeks. Total time spent, exact 35 minutes on discharge meds reconciliation, examination, review of imaging and blood test and discussion with the patient on follow-up instructions. Patient Problems: Active and Suspected Problems Status migrainosus (Acute) Intractable nausea and vomiting (Acute) - Physical Exam Vital Signs Temp Pulse Resp BP Pulse Ox 97.8 F 90 17 114/74 97 10/24/18 10:23 10/24/18 10:23 10/24/18 10:23 10/24/18 10:23 10/24/18 10:23 Oxygen Delivery Method Room Air Weight: 140 lb Body Mass Index (BMI) 23.3 Intake and Output for Last 24 Hours 10/22/18 10/23/18 10/24/18 23:59 23:59 23:59 Intake Total 1927 / 2490 1445 / 2695 1903 / 1903 Output Total 750 / 850 100 / 100 Balance 1177 / 1640 1345 / 2595 1903 / 1903 Laboratory Tests Past 24 Hrs 10/23/18 10/23/18 10/23/18 13:05 13:05 22:40 Potassium 3.8 Troponin I < 0.015 Hepatitis A IgM Ab Pending Hep Bs Antigen Pending Hep B Core IgM Ab Pending Hepatitis C Ab (EIA) Pending 10/24/18 10/24/18 01:07 04:17 Potassium Troponin I < 0.015 < 0.015 Hepatitis A IgM Ab Hep Bs Antigen Hep B Core IgM Ab Hepatitis C Ab (EIA) Home Medications: Medications to take at Discharge proMETHazine suppository [Phenergan Suppository] 25 mg RECTAL Q4H PRN PRN #10 suppos. 06/25/18 Amitriptyline HCl 75 mg PO QHS #0 10/24/18 Smz/Tmp Ds [Bactrim Ds] 1 tab PO BID #6 tab 10/24/18 Following Prescrptions Were Given to Patient: Smz/Tmp Ds [Bactrim Ds] 1 tab PO BID #6 tab Transmission Status: Pending to [facility] #30 Primary Care Physician: Benedict Sharp DO [Primary Care Provider] - Medical Necessity - Tobacco Use Smoking Status: Never smoker Meaningful Use Info Meaningful Use Diagnoses (Choose all that apply): None applicable Code Visit Inpatient E&M: 14405 Disch Hosp
[2018-10-24 11:32] LABS: Absolute Lymphocyte Count 1.53 X10^3/ul (0.83-4.51); Absolute Neutrophil Count 10.5 X10^3/uL (2.0-7.7); Basophil# 0.02 X10^3/uL; Basophil% 0.2 % (0-1); Hematocrit 41.6 % (37-47); Hemoglobin 14.2 g/dl (12.0-15.0); Lymphocyte # 1.53 X10^3/ul (4.0); Lymphocyte % 11.7 % (19-41); Mean Corp Hgb Conc 34.1 g/gl (32-36); Mean Corpuscular Hgb 29.1 pg (27.0-32.0); Mean Corpuscular Volume 85.2 fL (81-99); Mean Platelet Vol. 9.7 fl (6.2-12.0); Monocyte# 0.91 X10^3/uL; Neutrophil # 10.53 X10^3/uL (2.7-7.7); Neutrophil % 80.8 % (47-70); Platelet Count 374 K/mm3 (150-450); RBC Distribution Width CV 13.7 % (11.6-14.6); RBC Distribution Width SD 41.5 fl (35.1-43.9); Red Blood Count 4.88 M/mm3 (4.2-5.4)
[2018-10-24 11:33] LABS: POSITIVE COUNT NO; POSITIVE DIFFERENTIAL NO; POSITIVE MORPHOLOGY NO
[2018-10-24] MEDS: Ceftriaxone 1 GM/50 ML BAG IV (12:21)
[2018-10-24 16:38] VITALS: BP 115/58; PULSE 70; RESP 16; TEMP 36.7; O2SAT 96
--- NOTE | 2018-10-24 16:58 | NURSING ---
PT states her Migraine has resolved but she is having a little bit of pain in her ABd. Still wants to eat dinner. Toradol X1 order obtained. Dr. Mccartney is aware that pt produced urine for Culture but was sitting in sterile specimen cup for over an hour now despite pt telling program facilitator. This nurse never was informed it was ready to be collected and sent to lab. Dr. Mccartney stated it is okay to still send her home despite having it.
[2018-10-24 17:00] VITALS: BP 115/58; PULSE 70; RESP 18; TEMP 36.7; O2SAT 98
[2018-10-24] MEDS: Ketorolac 15 MG/ML Vial IV (17:41)
[2018-10-25 16:17] LABS: Hep C Antibodies <0.1 s/co ratio (0.0-0.9)
== END 2018-10-24 18:13 | disposition home or self-care (01) ==
LOC: ED 21:00 → MS3 21:20
PROVIDERS: Psychiatry & Neurology Neurology; Admitting Provider Hospitalist; Emergency Provider Emergency Medicine; Family Provider Preventive Medicine Occupational Medicine; PCP Preventive Medicine Occupational Medicine; Visit Provider Internal Medicine
DX: G43.A0 Cyclical vomiting, in migraine, not intractable (principal); R30.0 Dysuria; R35.0 Frequency of micturition; F12.10 Cannabis abuse, uncomplicated; F41.9 Anxiety disorder, unspecified; F32.9 Major depressive disorder, single episode, unspecified; Z79.899 Other long term (current) drug therapy; E87.6 Hypokalemia; K58.9 Irritable bowel syndrome, unspecified; G43.909 Migraine, unspecified, not intractable, without status migrainosus
CPT/HCPCS: 36415; 70551; 80048; 80074; 80076; 80307; 81001; 82962; 83690; 83735; 84100; 84132; 84484; 84703; 85025; 85027; 93005; 96361; 96365; 96366; 96367; 96372; 96374; 96375; 96376; 99218; 99285; J7030; J7120; A4216; G0378; J2405; J3486; J3490; J7799

== ENCOUNTER 2019-02-22 19:44 | Emergency (ER) | payer MEDICAID, SELFPAY ==
[2018-10-21 21:56] VITALS: BMI 23.3
[2019-02-22 19:45] VITALS: BP 143/82; PULSE 98; RESP 17; O2SAT 98
[2019-02-22 19:47] VITALS: BP 143/82; PULSE 107; RESP 18; TEMP 36.8; O2SAT 96; BMI 21.6
--- NOTE | 2019-02-22 20:54 | US_ITS ---
HISTORY: Heavy bleeding and passing clots. Pain. Previous C-sections. LMP 01/08/2019. No comparison imaging this . Endovaginal imaging only. Findings: The uterus measures 8.3 x 4 x 6.1 cm. Within the uterine fundus, the endometrial stripe is homogeneous at 3 mm. Myometrium is homogeneous. There is some hypoechoic but not anechoic tissue at the lower uterine segment likely representing blood. This tissue is hypovascular. There is blood flow around it. Scarring is present in the anterior lower uterine segment consistent with a history of C-sections. A physiologic amount of free fluid is present within the cul-de-sac. The right ovary measures 2.2 x 2.6 x 2 cm. Color Doppler imaging suggests possible flow within this right ovary. Pulse-wave Doppler imaging suggests probable flow within the right ovary. The left ovary is not identified. US/Transvaginal w/Preg US IMPRESSION: No perceived. Tissue within the lower uterine segment versus internal cervical os likely representing blood. In the setting of a it is possible that this tissue represents hemorrhagic gestational sac that is in the process of being aborted. No tissue identified as a fetus. No ectopic perceived. at 2231 Reported and signed by: Farhan Holley MD Electronically Signed: Farhan Holley MD at 22:30 EST Tel , Service support ,
[2019-02-22] MEDS: 0.9% Normal Saline 1,000 ML 1000 ML IV (21:30)
[2019-02-22] MEDS: Morphine 4 MG/ML Syringe IV ×2 (21:31→23:05)
[2019-02-22] MEDS: Ondansetron 4 MG/2 ML Vial IV ×2 (21:31→23:03)
[2019-02-22 21:39] LABS: Absolute Neutrophil Count 3.7 X10^3/uL (2.0-7.7); Basophil# 0.04 X10^3/uL; Basophil% 0.7 % (0-1); Eosinophil# 0.25 X10^3/uL; Eosinophils% 4.2 % (0-5); Hematocrit 39.7 % (37-47); Hemoglobin 12.7 g/dL (12.0-15.0); Lymphocyte % 26.7 % (19-41); Mean Corpuscular Hgb 28.5 pg (27.0-32.0); Mean Platelet Vol. 9.2 fl (6.2-12.0); Monocyte# 0.38 X10^3/uL; Monocyte% 6.3 % (0-10); NRBC Flagged by Analyzer 0 % (0-5); Neutrophil % 61.8 % (47-70); Platelet Count 257 K/mm3 (150-450); RBC Distribution Width SD 42.5 fl (35.1-43.9); Red Blood Count 4.46 M/mm3 (4.2-5.4)
[2019-02-22 22:39] LABS: hCG Titer Quant., Serum 321 mIU/mL (1-3)
--- NOTE | 2019-02-22 22:56 | ED.DCSUM_ITS ---
History of Present Illness Chief Complaint: Vag Bld, Preg Informant: Patient Onset: Today Narrative: Patient states she just recently found out she was on a home test. She started having some cramping last night and this morning started bleeding and passing heavy clots. Patient believes, based on date of her last period, she is approximate 6 weeks . She is G3, P2, Ab0. Blood type when reviewed in the computer is O+. Past Medical History - Allergies and Home Meds Allergies/Adverse Reactions: Allergies No Known Allergies Allergy (Verified 02/22/19 19:45) Primary Care Physician: Benedict Sharp DO [Primary Care Provider] - Prior records reviewed: Yes Past Medical History: - - Reviewed Surgical History: cholecystectomy, - - x 2. Smoking Status: Never smoker - Family History Maternal Family History: Reports: Asthma, COPD, Stroke Paternal Family History: Reports: Heart Disease, Hypertension Review of Systems General: Denies: Chills, Fever Eyes: Denies: Visual changes - bilaterally ENT: Denies: Bilateral ear pain Cardiovascular: Denies: Chest pain Respiratory: Denies: Dyspnea Gastrointestinal: Reports: Abdominal pain. Denies: Nausea, Vomiting, Diarrhea Genitourinary: Denies: Dysuria Musculoskeletal: Denies: Back pain, Extremity Pain Skin: Denies: Rash Neurological: Denies: Headache Allergy: Denies: Uticaria Physical Exam Vital Signs/Narrative: Vital Signs Temp Pulse Resp BP Pulse Ox 02/22/19 19:47 98.2 F 107 H 18 143/82 H 96 02/22/19 19:45 98 17 143/82 H 98 Inital Vital Signs reviewed: Yes General: Well nourished, Well developed Head: Normocephalic ENT: Moist mucous membranes Neck: Supple Cardiovascular: Regular rate, Regular rhythm Respiratory: No distress, CTA bilaterally Abdomen: Soft, Tender - I will lower abdominal tenderness.. Negative for: G uarding, Rebound tenderness Skin: Normal color Neurological: Alert, Oriented x3 Psychological: Normal affect Diagnostic/Tx/Re-eval Impressions Obstetrics Ultrasound 02/22/19 20:54 IMPRESSION: No perceived. Tissue within the lower uterine segment versus internal cervical os likely representing blood. In the setting of a it is possible that this tissue represents hemorrhagic gestational sac that is in the process of being aborted. No tissue identified as a fetus. No ectopic perceived. at 2231 Reported and signed by: Farhan Holley MD Electronically Signed: Farhan Holley MD at 22:30 EST Tel , Service support , 02/22/19 20:54 Transvaginal w/Preg US [US] Stat Laboratory Results 02/22/19 02/22/19 21:30 21:30 WBC 6.0 RBC 4.46 Hgb 12.7 Hct 39.7 MCV 89.0 MCH 28.5 MCHC 32.0 RDW Std Deviation 42.5 RDW Coeff of Steve 13.0 Plt Count 257 MPV 9.2 Immature Gran % (Auto) 0.300 Neut % (Auto) 61.8 Lymph % (Auto) 26.7 [place] % (Auto) 6.3 Eos % (Auto) 4.2 Baso % (Auto) 0.7 Absolute Neuts (auto) 3.7 Absolute Lymphs (auto) 1.60 Nucleated RBC % 0 HCG, Quant 321 H - Medical Decision Making Patient was given morphine, Zofran, and IV fluids. On repeat evaluation she states her cramping is starting to return and she will be redosed with pain meds. Test results are discussed with patient and at bedside. I advised her that her quant is only consistent with approximately 2-week pr egnancy. She is eating much earlier than anticipated or has miscarried in the quant is coming back down. Although she does not follow with DIRECTOR DESIGN regularly, her last baby was delivered by [facility]OR DESIGN group. I contacted Bethanie Cordero, on-call for the group. I will write the patient to have repeat labs drawn in 2 days and she is to follow-up in the office this week. She will be given a prescription for [place] to help with pain. ED Disposition - Plan for ED Patient: Disposition: Home or Assisted Living Diagnosis: Threatened miscarriage Instructions: POSSIBLE MISCARRIAGE (Threatened ) Prescriptions: Hydrocodone Bitart/Apap 5-325 [[place] 5MG-325MG] 1 tablet PO Q6H PRN PRN 3 Days #10 tablet PRN Reason: Pain Referrals: Bethanie Cordero CNM [Certified Nurse Furniture Duster] - 3-5 Days Additional Instructions: Have your labwork redrawn on Friday afternoon - you have been given an order for that test.
[2019-02-22 23:34] VITALS: BP 110/81; PULSE 87; RESP 16; O2SAT 97
== END 2019-02-22 23:34 | disposition home or self-care (01) ==
PROVIDERS: Emergency Provider Emergency Medicine; Family Provider Preventive Medicine Occupational Medicine; PCP Preventive Medicine Occupational Medicine
DX: O20.0 Threatened abortion (principal); Z3A.01 Less than 8 weeks gestation of pregnancy; Z82.49 Family history of ischemic heart disease and other diseases of the circulatory system; Z90.49 Acquired absence of other specified parts of digestive tract
CPT/HCPCS: 76817; 84702; 85025; 96361; 96374; 96375; 96376; 99283; J7030; A4216; J2405

== ENCOUNTER 2019-02-25 16:55 | Emergency (ER) | payer MEDICAID, SELFPAY ==
[2019-02-25 16:56] VITALS: BP 119/75; PULSE 115; RESP 16; TEMP 36.7; O2SAT 97; BMI 21.6
[2019-02-25] MEDS: guaiFENesin 10 ML UDC (200MG/10ML) PO (18:06)
[2019-02-25] MEDS: Acetaminophen 500 MG Tablet 1000 MG PO (18:06)
--- NOTE | 2019-02-25 18:14 | ED.VIS.FEGU ---
History of Present Illness Chief Complaint: Vag Bld, Preg Informant: Patient Pain: Pelvic Pain Onset: Days - 2-3 Context: Gradual Onset Timing: Continuous Quality: Cramping Location: Suprapubic Current Severity: Mild Maximum Severity: Moderate Worsened by: - - n/a Relieved by: - - n/a Issue: Vaginal bleeding Onset: Days - 2 Current Severity: Heavy Maximum Severity: Heavy Associated Symptoms: Negative for: Dysuria, Frequency, Urgency, Hematuria Last known menstrual period: end december Test: Positive Sexually: Active, Single Partner P: 2 Ab: 1 Narrative: Patient had bleeding and cramping that started 2 days ago during his and she was seen here the evening of the onset and had a quantitative hCG and an ultrasound that was nonspecific in its findings. She states the bleeding has become worse, she denies any syncope or near syncope, she was supposed to have a repeat 48-hour hCG quantitative yesterday but did not make it and is here for reevaluation. - Past Medical History (1) Migraines Status: Chronic Past Medical History - Allergies and Home Meds Allergies/Adverse Reactions: Allergies No Known Allergies Allergy (Verified 02/25/19 17:31) Primary Care Physician: Benedict Sharp DO [Primary Care Provider] - Surgical History: cholecystectomy, - - x 2. Lives: With Family Smoking Status: Never smoker - Family History Maternal Family History: Reports: Asthma, COPD, Stroke Paternal Family History: Reports: Heart Disease, Hypertension Review of Systems General: Denies: Chills, Fever, Sweats Eyes: Denies: Visual changes - bilaterally, Diplopia ENT: Denies: Rhinorrhea, Sore throat Cardiovascular: Denies: Chest pain, Palpitations Respiratory: Denies: Dyspnea, Cough, Dyspnea on exertion Gastrointestinal: Reports: Abdominal pain. Denies: Nausea, Vomiting, Diarrhea, Melena, Hematochezia Genitourinary: Reports: - - Vaginal bleeding. Denies: Dysuria, Hematuria, Frequency Musculoskeletal: Denies: Back pain, Extremity Pain Skin: Denies: Rash, Wounds Neurological: Denies: Headache, Weakness, Numbness Physical Exam Vital Signs/Narrative: Vital Signs Temp Pulse Resp BP Pulse Ox 02/25/19 16:56 98.1 F 115 H 16 119/75 97 Inital Vital Signs reviewed: Yes General: Well nourished, Well developed, - - Well-appearing, no acute distress Head: Normocephalic, Atraumatic Eyes: Perrl, EOMI ENT: Moist mucous membranes, No rhinorrhea Neck: Supple, Nontender Cardiovascular: Regular rate, Regular rhythm, No murmurs Respiratory: No distress, CTA bilaterally, Chest nontender Abdomen: Soft, Nondistended, Normal bowel sounds, Tender - Suprapubic. Negative for: Guarding, Rebound tenderness Back: Nontender, Normal Inspection. Negative for: CVA tenderness Extremities: Nontender, No edema Skin: Normal color, No rash, No Trauma Neurological: Alert, Oriented x3, Cranial nerves II-XII grossly intact, Normal Strength, Normal Sensation, Normal Gait Psychological: Normal affect, Normal Mood Diagnostic/Tx/Re-eval Laboratory Results 02/25/19 02/25/19 18:13 18:13 WBC 6.0 RBC 4.17 L Hgb 12.4 Hct 36.9 L MCV 88.5 MCH 29.7 MCHC 33.6 RDW Std Deviation 42.5 RDW Coeff of Steve 13.2 Plt Count 247 MPV 9.5 HCG, Quant 38 H - Medical Decision/Diagnostic Studies 3 days ago quant was 321, now it is down to 38, confirming that she is miscarrying. Her blood counts are stable she is hemodynamically and clinically stable. She was given Tylenol for the pain. She is also given something for her cold. Her bleeding is clinically stable, in 3 hours she had no significant bleeding, I do not think she needs a pelvic exam right now, she can follow-up safely as an outpatient with her OB. She was referred to Bethanie Cordero before. Of note, her blood type is O+ and RhoGam is not needed. ED Disposition - Plan for ED Patient: Disposition: Home or Assisted Living Diagnosis: Incomplete Instructions: MISCARRIAGE (Incomplete) Referrals: Bethanie Cordero CNM [Certified Nurse Permanent Mold Supervisor] - As soon as possible
[2019-02-25 18:24] LABS: Hematocrit 36.9 % (37-47); Hemoglobin 12.4 g/dL (12.0-15.0); Mean Corp Hgb Conc 33.6 g/dL (32-36); Mean Corpuscular Hgb 29.7 pg (27.0-32.0); Mean Corpuscular Volume 88.5 fL (81-99); Mean Platelet Vol. 9.5 fl (6.2-12.0); Platelet Count 247 K/mm3 (150-450); RBC Distribution Width CV 13.2 % (11.6-14.6); RBC Distribution Width SD 42.5 fl (35.1-43.9); Red Blood Count 4.17 M/mm3 (4.2-5.4)
[2019-02-25 18:56] VITALS: BP 115/72; PULSE 99; RESP 16; O2SAT 98
[2019-02-25 19:13] LABS: hCG Titer Quant., Serum 38 mIU/mL (1-3)
[2019-02-25 20:46] VITALS: BP 107/87; PULSE 88; RESP 16; O2SAT 98
== END 2019-02-25 20:46 | disposition home or self-care (01) ==
PROVIDERS: Emergency Provider Emergency Medicine; Family Provider Preventive Medicine Occupational Medicine; PCP Preventive Medicine Occupational Medicine
DX: O03.4 Incomplete spontaneous abortion without complication (principal); Z82.49 Family history of ischemic heart disease and other diseases of the circulatory system; Z90.49 Acquired absence of other specified parts of digestive tract
CPT/HCPCS: 84702; 85027; 99282

== ENCOUNTER 2019-07-27 02:58 | Emergency (ER) | payer MEDICAID, SELFPAY ==
[2019-07-27 02:59] VITALS: BP 179/102; PULSE 85; RESP 20; TEMP 36.6; O2SAT 98; BMI 24.7
--- NOTE | 2019-07-27 03:02 | CT_ITS ---
STUDY: CT ABDOMEN AND PELVIS WITHOUT CONTRAST REASON FOR EXAM: Female, 29 years old. LT FLANK PAIN, N/V X 1 HOUR RADIATION DOSAGE (If Supplied By Facility): CTDIvol = ( 6.16 ) mGy, DLP = ( 335.58 ) mGycm TECHNIQUE: Transaxial 2.5 mm images were obtained from the dome of the diaphragm to the symphysis pubis without oral contrast, and without intravenous contrast. Sagittal and coronal images were reconstructed. This examination is limited for the evaluation of gastrointestinal, solid organs and vascular structures due to the lack of intravenous and oral contrast. Individualized dose optimization techniques were used for this CT. COMPARISON: CT abdomen and pelvis 08/20/2018. 12/06/2017. 09/16/2017. FINDINGS: The visualized lung bases are unremarkable. The visualized portions of the heart are within normal limits. Normal liver. There are surgical clips in the gallbladder fossa consistent with a prior cholecystectomy. Normal spleen. Normal pancreas. Normal bilateral adrenal glands. Normal right kidney. Mild left hydronephrosis and proximal hydroureter with a 2 mm calculus in the proximal left ureter. The further distal ureter is decompressed. 1-2 mm nonobstructing left renal calculi. Normal visualized stomach. Normal small intestine. Normal colon. The appendix is visualized and appears normal. Normal abdominal aorta. Normal inferior vena cava. Normal retroperitoneum. Decompressed urinary bladder. Normal visualized uterus. There is low attenuation of the ovaries most frequently due to follicular cysts. Trace free fluid in the pelvis, which can be physiologic. Normal abdominal wall. Normal osseous structures. CT/Abdomen/Pelvis without Cont IMPRESSION: Mild left hydronephrosis and proximal hydroureter with small proximal left ureteral calculus, tiny nonobstructing left renal calculi, not visualized on previous noncontrast imaging. Electronically Signed: Katelin Smith MD at 3:52 EDT , Service support ,
[2019-07-27] MEDS: Ondansetron 4 MG/2 ML Vial IV ×3 (03:08→06:56)
[2019-07-27] MEDS: Ketorolac 30 MG/ML Syringe 15 MG IV (03:08)
[2019-07-27 03:16] LABS: Absolute Lymphocyte Count 3.81 X10^3/uL (0.83-4.51); Absolute Neutrophil Count 3.6 X10^3/uL (2.0-7.7); Basophil# 0.03 X10^3/uL; Basophil% 0.4 % (0-1); Eosinophils% 3.5 % (0-5); Hematocrit 40.6 % (37-47); Hemoglobin 13.4 g/dL (12.0-15.0); Lymphocyte # 3.81 X10^3/ul (4.0); Lymphocyte % 44.9 % (19-41); Mean Corpuscular Hgb 29.1 pg (27.0-32.0); Mean Corpuscular Volume 88.3 fL (81-99); Mean Platelet Vol. 9.4 fl (6.2-12.0); Monocyte# 0.73 X10^3/uL; Monocyte% 8.6 % (0-10); NRBC Flagged by Analyzer 0 % (0-5); Neutrophil % 42.4 % (47-70); Platelet Count 334 K/mm3 (150-450); RBC Distribution Width CV 13.1 % (11.6-14.6); RBC Distribution Width SD 42.3 fl (35.1-43.9); White Blood Count 8.5 K/mm3 (4.4-11.0)
[2019-07-27 03:30] LABS: Internal QC Validated? YES +Cl - CLEAR BKGD; Pregnancy, Serum, hCG Quali. NEGATIVE Negative
[2019-07-27 03:32] LABS: Anion Gap 6 (5-15); BUN 8 mg/dL (7-18); BUN/Creat Ratio 12.3 RATIO (10-20); Chloride 108 mmol/L (98-107); Creatinine, Serum 0.65 mg/dL (0.55-1.02); EST Glomerular Filtration Rate 115 mL/min (>60); Est Glom Filt Rate - Afr Amer 139 mL/min (>60); Estimated Creatinine Clearance 115.95 ml/min; Glucose 132 mg/dL (74-106); Potassium 3.9 mmol/L (3.5-5.1); Sodium Level 140 mmol/L (136-145)
[2019-07-27] MEDS: Morphine 4 MG/ML Syringe IV (03:51)
--- NOTE | 2019-07-27 03:59 | ED.VIS.GI ---
History of Present Illness Chief Complaint: Flank Pain Narrative: Patient presenting for evaluation secondary to flank pain. Patient has an underlying history of kidney stones in the past. Patient reports that she was awoken suddenly tonight an hour or so ago due to left-sided flank pain. Pain is severe and colicky with no exacerbating relieving factors and has been associated with nausea and vomiting. Patient denies any fevers diarrhea dysuria or hematuria associated with this. Patient reports that she has a history of a past cholecystectomy as well as section. Pain does seem to be consistent with a kidney stone. Patient denies any chance of . Review of systems otherwise negative. Past Medical History - Allergies and Home Meds Allergies/Adverse Reactions: Allergies No Known Allergies Allergy (Verified 07/27/19 02:59) Primary Care Physician: Benedict Sharp DO [Primary Care Provider] - Past Medical History: - - Passed kidney stones Surgical History: cholecystectomy, - - x 2. Smoking Status: Never smoker - Family History Maternal Family History: Reports: Asthma, COPD, Stroke Paternal Family History: Reports: Heart Disease, Hypertension Review of Systems All systems negative except as indicated General: Denies: Chills, Fever, Sweats Eyes: Denies: Visual changes - bilaterally, Diplopia ENT: Denies: Rhinorrhea, Sore throat Cardiovascular: Denies: Chest pain, Palpitations Respiratory: Denies: Dyspnea, Cough, Dyspnea on exertion Gastrointestinal: Reports: Nausea, Vomiting Genitourinary: Reports: - - flank pain Musculoskeletal: Denies: Back pain, Extremity Pain Skin: Denies: Rash, Wounds Neurological: Denies: Headache, Weakness, Numbness Physical Exam Vital Signs/Narrative: Vital Signs Temp Pulse Resp BP Pulse Ox 07/27/19 02:59 98 F 85 20 H 179/102 H 98 Inital Vital Signs reviewed: Yes General: Acute Distress - due to pain Head: Normocephalic, Atraumatic Eyes: Perrl, EOMI ENT: Moist mucous membranes, No rhinorrhea Neck: Supple, Nontender Cardiovascular: Regular rate, Regular rhythm, No murmurs Respiratory: No distress, CTA bilaterally, Chest nontender Abdomen: Soft, Nontender, Nondistended, Normal bowel sounds Back: Nontender, Normal Inspection, CVA tenderness - left sided Extremities: Nontender, No edema Skin: Normal color, No rash Neurological: Alert, Oriented x3, Cranial nerves II-XII grossly intact, Normal Strength, Normal Sensation Psychological: Tearful Diagnostic/Tx/Re-eval Clinical Impression(s) from Imaging Studies Abdomen/Pelvis CT 07/27/19 03:02 IMPRESSION: Mild left hydronephrosis and proximal hydroureter with small proximal left ureteral calculus, tiny nonobstructing left renal calculi, not visualized on previous noncontrast imaging. Electronically Signed: Katelin Smith MD at 3:52 EDT , Service support , Laboratory Data 07/27/19 07/27/19 07/27/19 03:07 03:07 03:07 WBC 8.5 RBC 4.60 Hgb 13.4 Hct 40.6 MCV 88.3 MCH 29.1 MCHC 33.0 RDW Std Deviation 42.3 RDW Coeff of Steve 13.1 Plt Count 334 MPV 9.4 Immature Gran % (Auto) 0.200 Neut % (Auto) 42.4 L Lymph % (Auto) 44.9 H [place] % (Auto) 8.6 Eos % (Auto) 3.5 Baso % (Auto) 0.4 Absolute Neuts (auto) 3.6 Absolute Lymphs (auto) 3.81 Nucleated RBC % 0 Sodium 140 Potassium 3.9 Chloride 108 H Carbon Dioxide 26.0 Anion Gap 6 BUN 8 Creatinine 0.65 Estim Creat Clear Calc 115.95 Est GFR (MDRD) Af Amer 139 Est GFR (MDRD) Non-Af 115 BUN/Creatinine Ratio 12.3 Glucose 132 H Calcium 8.0 L Serum , Qual NEGATIVE Urine Color Urine Clarity Urine pH Ur Specific [place] Urine Protein Urine Glucose (UA) Urine Ketones Urine Occult Blood Urine Nitrite Urine Bilirubin Urine Urobilinogen Ur Leukocyte Esterase Urine RBC Urine WBC Ur Squamous Epith Cells Urine Bacteria Urine Mucus 07/27/19 05:08 WBC RBC Hgb Hct MCV MCH MCHC RDW Std Deviation RDW Coeff of Steve Plt Count MPV Immature Gran % (Auto) Neut % (Auto) Lymph % (Auto) [place] % (Auto) Eos % (Auto) Baso % (Auto) Absolute Neuts (auto) Absolute Lymphs (auto) Nucleated RBC % Sodium Potassium Chloride Carbon Dioxide Anion Gap BUN Creatinine Estim Creat Clear Calc Est GFR (MDRD) Af Amer Est GFR (MDRD) Non-Af BUN/Creatinine Ratio Glucose Calcium Serum , Qual Urine Color Yellow Urine Clarity Sl. Cloudy Urine pH 6.0 Ur Specific [place] 1.020 Urine Protein 30 H Urine Glucose (UA) Normal Urine Ketones Negative Urine Occult Blood 250 H Urine Nitrite Negative Urine Bilirubin Negative Urine Urobilinogen Normal Ur Leukocyte Esterase 25 H Urine RBC 25-50 SEEN Urine WBC 5-10 SEEN Ur Squamous Epith Cells 0 SEEN Urine Bacteria RARE Urine Mucus 0 SEEN - Medical Decision Making Patient presented secondary to an onset of flank pain. Differential considerations included but are not limited to a kidney stone, diverticulitis, intra-abdominal pathology, or musculoskeletal etiology. History and physical really seemed to favor the patient to have a kidney stone. Patient was given Toradol Zofran and fluids. CBC and chemistry unremarkable, test was negative. Urinalysis shows blood but no evidence of pyuria. CT abdomen and pelvis shows a small left-sided mid ureteral partially obstructing stone. Patient required multiple doses of pain medication, but ultimately repeat evaluation at about 640 showed her to have some symptomatic improvement. She believes that she potentially passed the stone but is still having pain. Patient will be sent home with a course of Percocet and Zofran. She understands signs symptoms which to return. She will follow-up with urology. ED Disposition - Plan for ED Patient: Disposition: Home or Assisted Living Diagnosis: Urolithiasis Instructions: ED Renal Stone w Colic Prescriptions: Oxycodone HCl/Acetaminophen [Percocet 5/325] 1 tab PO Q6H PRN PRN 3 Days #12 tab PRN Reason: Pain Prescription Printed Referrals: Jake Mcgregor MD [STAFF PHYSICIAN] - 5-7 Days
[2019-07-27] MEDS: morphine 8 MG/ML Syringe 6 MG IV (04:43)
[2019-07-27 05:17] LABS: Mucous, Urine 0 SEEN /hpf (<or=2+); Squamous Epithelial Cells - UA 0 SEEN /hpf (5-10)
[2019-07-27 05:48] LABS: Color, Urine Yellow (Yellow); Glucose, Dipstick Normal (Normal); Ketone-Dipstick Negative (Negative); Leukocyte Esterase-Dipstick 25 /ul (Negative); Nitrite-Dipstick Negative (Negative); Occult Blood-Urine 250 /ul (Negative); Protein-Dipstick 30 mg/dl (Negative); Urine Bilirubin Dipstick Negative (Negative); Urine Clarity Sl. Cloudy (Clear); Urine Urobilinogen Normal (Normal)
[2019-07-27 06:27] LABS: Bacteria RARE /hpf (None Seen); Red Blood Cells-Urine 25-50 SEEN /hpf (0-5); White Blood Cells 5-10 SEEN /hpf (0-5)
[2019-07-27 06:47] VITALS: RESP 12
[2019-07-27 06:55] VITALS: BP 166/98; PULSE 60; RESP 12; O2SAT 98
[2019-07-27] MEDS: oxyCODONE 5 MG Tablet PO (06:56)
== END 2019-07-27 07:02 | disposition home or self-care (01) ==
PROVIDERS: Emergency Provider Emergency Medicine; PCP Preventive Medicine Occupational Medicine
DX: N13.2 Hydronephrosis with renal and ureteral calculous obstruction (principal); Z82.49 Family history of ischemic heart disease and other diseases of the circulatory system; Z87.442 Personal history of urinary calculi; Z90.49 Acquired absence of other specified parts of digestive tract
CPT/HCPCS: 74176; 80048; 81001; 84703; 85025; 96374; 96375; 96376; 99285; J7030; A4216; J2405

== ENCOUNTER → 2019-12-21 16:56 | Outpatient (CLI) | payer MEDICAID, SELFPAY ==
[2019-12-21 15:31] VITALS: BMI 24.7
[2019-12-21 18:40] LABS: Amphetamine Urine VISTA NEGATIVE (<1000 ng/mL); Barbiturate Urine VISTA NEGATIVE (< 200 ng/mL); Benzodiazepine Urine VISTA NEGATIVE (< 200 ng/mL); Cocaine Urine VISTA NEGATIVE (< 300 ng/mL); Ecstacy Urine VISTA NEGATIVE (< 500 ng/mL); Methadone Urine VISTA NEGATIVE (< 300 ng/mL); PCP Urine VISTA NEGATIVE (< 25 ng/mL); THC Urine VISTA NEGATIVE (< 50 ng/mL); Vista UDS pH Range 6
[2019-12-23 20:07] LABS: Chlamydia By Nucleic Acid AMP Negative (Negative)
[2019-12-23 20:47] LABS: Gonococcus By Nucleic Acid AMP Negative (Negative)
[2019-12-24 14:21] LABS: HPV Reflexed? NOT INDICATED
== END ==
PROVIDERS: PCP Preventive Medicine Occupational Medicine; Referring Provider Obstetrics & Gynecology; Visit Provider Obstetrics & Gynecology
DX: Z34.90 Encounter for supervision of normal pregnancy, unspecified, unspecified trimester (principal); Z12.4 Encounter for screening for malignant neoplasm of cervix
CPT/HCPCS: 80307; 87086; 87088; 87491; 87591; 88175; G0145

== ENCOUNTER → 2020-02-18 13:05 | Outpatient (CLI) | payer MEDICAID, SELFPAY ==
[2019-12-21 15:31] VITALS: BMI 24.7
[2020-02-18 11:57] VITALS: BMI 27.1
--- NOTE | 2020-02-18 13:06 | US_ITS ---
STUDY: SECOND AND THIRD TRIMESTER OBSTETRICAL ULTRASOUND REASON FOR EXAM: Female, 29 years old ANATOMY LMP: Unknown. TECHNIQUE: Transabdominal TECHNICAL QUALITY: Adequate. PRIOR ULTRASOUND: None. FINDINGS: There is a single intrauterine fetus. The fetus is in a cephalic presentation. There is demonstrated cardiac activity with a heart rate of 148 bpm. There is a normal amniotic fluid volume. The largest amniotic fluid pocket measures 3.8 cm. The amniotic fluid index (PETER) is 12.8 cm. The placenta is posterior in location and is not low lying. There are Grade 1 placental changes. The cervix measures 3.0 cm in length. The adnexal regions are not visualized. BIOMETRY: BPD: 7.8 cm: 31 weeks, 2 days HC: 29.07: 32 weeks, 0 days AC: 27.1 cm: 31 weeks, 1 days FL: 5.8 cm: 30 weeks, 2 days CI: 77.25 FL/BPD: 74.21 FL/HC: 19.97 FL/AC: 21.41 HC/AC: 1.07 age by current US: 31 weeks, 1 days. JEREMIAH by current US: 04/20/2020. Estimated weight: 1690 grams, +/- 254 grams, %. ANATOMY: Gender: Female Cranium: Normal lateral ventricles. Normal choroid plexus. Normal cerebellum. Normal cisterna magna. Normal face, nose and lips. Chest: Normal 4-chamber heart. Abdomen/Pelvis: Normal diaphragm. Normal stomach. Normal abdominal wall. Normal cord insertion. Normal 3 vessel cord. Normal kidneys. Normal bladder. Spine: Normal cervical spine. Normal thoracic spine. Normal lumbar spine. Normal sacrum. Extremities: Normal bilateral upper extremities. Normal bilateral lower extremities. US/OB Anatomy Scan IMPRESSION: Living intrauterine of 31 weeks 1 day as described above. Electronically Signed: Kenneth Miller MD at 10:08 EDT Tel , Service support ,
[2020-02-18 13:19] LABS: Glucose Challenge Gest 1H 50g 123 mg/dL (70-140)
[2020-02-18 13:20] LABS: Absolute Lymphocyte Count 1.38 X10^3/uL (0.83-4.51); Absolute Neutrophil Count 9.4 X10^3/uL (2.0-7.7); Basophil# 0.02 X10^3/uL; Basophil% 0.2 % (0-1); Eosinophil# 0.05 X10^3/uL; Eosinophils% 0.4 % (0-5); Lymphocyte # 1.38 X10^3/ul (4.0); Lymphocyte % 12.1 % (19-41); Mean Corp Hgb Conc 32.4 g/dL (32-36); Mean Corpuscular Hgb 29.6 pg (27.0-32.0); Mean Corpuscular Volume 91.1 fL (81-99); Monocyte# 0.48 X10^3/uL; Monocyte% 4.2 % (0-10); NRBC Flagged by Analyzer 0 % (0-5); Neutrophil # 9.37 X10^3/uL (2.7-7.7); Neutrophil % 82.5 % (47-70); Platelet Count 278 K/mm3 (150-450); RBC Distribution Width CV 13.5 % (11.6-14.6); Red Blood Count 4.06 M/mm3 (4.2-5.4); White Blood Count 11.4 K/mm3 (4.4-11.0)
[2020-02-18 14:21] LABS: HIV - WCH Non-Reactive (Nonreactive); Hepatitis B Surface Antigen Non-Reactive (Nonreactive); Hepatitis C Antibody Non-Reactive (Nonreactive)
[2020-02-18 18:13] LABS: Amphetamine Urine VISTA NEGATIVE (<1000 ng/mL); Barbiturate Urine VISTA NEGATIVE (< 200 ng/mL); Benzodiazepine Urine VISTA NEGATIVE (< 200 ng/mL); Cocaine Urine VISTA NEGATIVE (< 300 ng/mL); Ecstacy Urine VISTA NEGATIVE (< 500 ng/mL); Methadone Urine VISTA NEGATIVE (< 300 ng/mL); PCP Urine VISTA NEGATIVE (< 25 ng/mL); THC Urine VISTA NEGATIVE (< 50 ng/mL); Vista UDS pH Range 7
[2020-02-24 02:10] LABS: Rapid Plasmin Reagin (RPR) NONREACTIVE (NONREACTIVE)
== END ==
PROVIDERS: Obstetrics & Gynecology; PCP Preventive Medicine Occupational Medicine; Referring Provider Obstetrics & Gynecology; Visit Provider Obstetrics & Gynecology
DX: O26.899 Other specified pregnancy related conditions, unspecified trimester (principal); R10.2 Pelvic and perineal pain; Z3A.31 31 weeks gestation of pregnancy; O99.323 Drug use complicating pregnancy, third trimester; F12.11 Cannabis abuse, in remission
CPT/HCPCS: 36415; 76805; 80307; 82950; 85025; 86592; 86703; 86803; 86850; 86900; 86901; 87086; 87088; 87186; 87340

== ENCOUNTER → 2020-03-30 17:03 | Outpatient (CLI) | payer MEDICAID, SELFPAY ==
[2020-03-30 18:23] LABS: Amphetamine Urine VISTA NEGATIVE (<1000 ng/mL); Barbiturate Urine VISTA NEGATIVE (< 200 ng/mL); Benzodiazepine Urine VISTA NEGATIVE (< 200 ng/mL); Cocaine Urine VISTA NEGATIVE (< 300 ng/mL); Ecstacy Urine VISTA NEGATIVE (< 500 ng/mL); Methadone Urine VISTA NEGATIVE (< 300 ng/mL); PCP Urine VISTA NEGATIVE (< 25 ng/mL); THC Urine VISTA POSITIVE (< 50 ng/mL); Vista UDS pH Range 6
== END ==
PROVIDERS: PCP Preventive Medicine Occupational Medicine; Referring Provider Obstetrics & Gynecology; Visit Provider Obstetrics & Gynecology
DX: Z34.90 Encounter for supervision of normal pregnancy, unspecified, unspecified trimester (principal); F12.11 Cannabis abuse, in remission
CPT/HCPCS: 80307; 87081

== ENCOUNTER 2020-04-10 11:50 | Outpatient (CLI) | payer MEDICAID, SELFPAY ==
[2020-04-10 12:10] VITALS: BMI 30.4
[2020-04-10 12:29] VITALS: BP 119/77; PULSE 88; TEMP 36.7; O2SAT 96
[2020-04-10 12:31] VITALS: BP 119/77; PULSE 88; O2SAT 96
[2020-04-10 12:52] LABS: ROM Internal Control Test YES-OK TO RESULT pt. (Internal QC); ROM Patient Test Negative (Negative)
--- NOTE | 2020-04-11 12:42 | OB.TRI.PN_ITS ---
Progress Notes Date of Service: 04/10/20 Progress Note: Patient presents for triage evaluation secondary to false labor FHT: 140 Moderate variability reactive no decelerations category I tracing [place]: irregular Contractions Assessment and plan: false labor no cervical change Reactive NST, reassuring maternal and status patient discharged to home to follow-up []. See problem list details for additional plan information. Laboratory Studies: Laboratory Tests 04/10/20 Range/Units 12:09 Vag Amniotic Fld Detect Negative (Negative) Multi Select Codes - Urinary/Genital Urinary/Genital CPT Codes: 00574-28 non-stress test Interp
== END 2020-04-10 13:27 | disposition home or self-care (01) ==
LOC: WPOUT 11:53 → WP 11:54
PROVIDERS: PCP Preventive Medicine Occupational Medicine; Referring Provider Obstetrics & Gynecology; Visit Provider Obstetrics & Gynecology
DX: O47.9 False labor, unspecified (principal); Z3A.00 Weeks of gestation of pregnancy not specified
CPT/HCPCS: 59025; 59050; 84112; 99218; G0378

== ENCOUNTER 2020-04-13 06:40 | Inpatient (IN) | payer MEDICAID, SELFPAY ==
[2020-04-13] VITALS (20 sets, daily range): BP systolic 95–138; BP diastolic 56–101; PULSE 59–111; RESP 16–18; TEMP 36.1–36.9; O2SAT 95–100; BMI 30.4
[2020-04-13] MEDS: Lactated Ringers 1,000 ML 999 ML IV (06:50)
[2020-04-13 07:11] LABS: Absolute Lymphocyte Count 2.05 X10^3/uL (0.83-4.51); Basophil# 0.03 X10^3/uL; Basophil% 0.3 % (0-1); Eosinophil# 0.09 X10^3/uL; Eosinophils% 0.8 % (0-5); Hematocrit 39.5 % (37-47); Lymphocyte # 2.05 X10^3/ul (4.0); Mean Corp Hgb Conc 32.9 g/dL (32-36); Mean Corpuscular Hgb 28.7 pg (27.0-32.0); Mean Corpuscular Volume 87.2 fL (81-99); Mean Platelet Vol. 10.2 fl (6.2-12.0); Monocyte# 0.58 X10^3/uL; Monocyte% 5.4 % (0-10); NRBC Flagged by Analyzer 0 % (0-5); Neutrophil # 7.98 X10^3/uL (2.7-7.7); Neutrophil % 73.9 % (47-70); Platelet Count 372 K/mm3 (150-450); RBC Distribution Width CV 14.3 % (11.6-14.6); RBC Distribution Width SD 45.3 fl (35.1-43.9); Red Blood Count 4.53 M/mm3 (4.2-5.4); White Blood Count 10.8 K/mm3 (4.4-11.0)
[2020-04-13] MEDS: Acetaminophen 500 MG Tablet 1000 MG PO ×3 (07:17→18:12)
[2020-04-13] MEDS: Sodium Citrate/Citric Acid 30 ML UDC PO (07:41)
[2020-04-13] MEDS: Cefazolin 2 GM in 0.9% Normal Saline 100 ML IV (07:47)
--- NOTE | 2020-04-13 07:56 | PCM.HPOB.BLA ---
- Problem List (1) 34 weeks gestation of Status: Acute Comment: electronic covid test ordered 03/08/2020sc (scheduled for 04/13/2020 at 0955) (2) Bicornuate uterus Status: Acute (3) History of delivery Status: Acute Comment: x2, plan RLTCS with SM on 04/13 (4) Noncompliant patient Status: Acute Comment: Late to care and has missed one visit due to troubles with transportation. Measuring ~29cm on 02/17 - NOB labs and glucose test done. (5) Status: Acute Qualifiers: Comment: plan NIPT and carrier, ntd screening discussed. (6) Request for sterilization Status: Acute Comment: title 19 signed 03/30 plan laparoscopic BS at 6 weeks PP (7) Supervision of high-risk Status: Acute Comment: PRR JEREMIAH 04/20/20 girl Hawa Tara Ross ([place]) (8) UTI in Status: Acute Comment: Diagnosed 02/17. Keflex ordered. (9) Hx of cannabis abuse Status: Chronic Comment: encouraged cessation, random tox screens (10) Migraines Status: Chronic History and Physical Date of Admission: 04/13/20 Intake Vital Signs 03/30/20 BP 120/88 H Intake Visit Reasons: OB EXAM Chief Complaint: est ob Protection Manager Required: No Is patient in pain?: No Allergies No Known Allergies Allergy (Verified 02/18/20 11:21) Medications vitamin#30 30 mg iron-10 mg iron-folic acid 1 mg-omg3 capsule cap PO 12/21/19 [History Confirmed 03/30/20] promethazine 12.5 mg tablet 12.5 mg PO Q6H PRN #120 tab 12/21/19 [Rx Confirmed 03/30/20] acetaminophen 325 mg capsule 325 mg PO ONCE PRN 03/30/20 [History Confirmed 03/30/20] Last Menstral Period: 09/29/19 Zika: Zika virus screening: Negative : No PFSH PFSH Medical History Anxiety and depression (Acute) Surgical History delivery delivered (Acute) History of cholecystectomy (Acute) Family History Grandmother Diabetes Cancer lung- smoker Social History (Updated 03/30/20 @ 11:[address] 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 Date Name GA/Weeks Outcome Route Bth Weight Infant Gen Labor Lgth Anesthesia Del Locatn Provider FOB Unknown 2012 Tara 40 live - full term 6lbs Female spinal WC Unknown 2016 Domingo 39 live - full term 6lbs Male spinal [facility] Delroy Delivery Date: c/s due to possible HSV outbreak (ended up as shingles) Yael Garcia Delivery Date: repeat C/S Yael Garcia HPI OB EXAM: Details: BILLY GOLDEN is a 30 year old who presents for repeat LTCS. OB Visit JEREMIAH Calculator Estimated Delivery Date Method Current WG Current Estimate 04/20/20 Ultrasound #1 37w 0d Other Estimates 07/05/20 LMP (Certain) 26w 1d Expected Delivery Route/Plan Labor Preferences- CB/BF classes: [] labor support person: [] labor intervention preferences: [] pain management options preferred: [] cut cord/dad catch: [] : [] PP control planned: [] discussed possible routes of delivery and associated risks: [] special requests: [] Specific Issue/Plans flu vaccine: [] tdap vaccine: [] rhogam: [] LARC form signed: [] Problem list reviewed and updated with the most current plan of care details and appropriate orders placed. Relevant counseling for the gestational age provided. Continue routine care and follow up unless otherwise noted in visit notes/problem list details Initial Weight: 169 lb Date EGA Weight BP Urine Prot Glucose FHR FuHt Pres Dilation Effaced St Visit Note 12/21/19 22w 5d 169 lb (+0 oz) 114/80 150 SM- CRL- SM- fundal height 18-19 weeks, recommend US for dating and viability 02/18/20 31w 1d 168 lb 6 oz (-10 oz) 126/84 2+ Negative 145 29 GP - No LOF, VB, DFM, ctx. Has not yet had anatomy scan. Missed last visit due to issues with transportation. Measuring 29cm. Plan NOB labs and glucola today. Has appointment for dating/anatomy scan today. GP - No LOF, VB, DFM, ctx. Has not yet had anatomy scan. Missed last visit due to issues with transportation. Measuring 29cm. Plan NOB labs and glucola today. Has appointment for dating/anatomy scan today. Reports UTI symptoms. Urine dip shows signs of infection. Keflex prescribed. 03/30/20 37w 0d 120/88 145 37 SM- limited visits due to covid pandemic per patient, is wanting to proceed with RLTCS. she is wanting sterilization, title 19 signed but won't be able to do at delivery. no vb lof good fm no regular ctx Diagnostics Diagnostics Diagnostics Blood Type O POSITIVE 02/18/20 Antibody Screen NEGATIVE 02/18/20 Glucose 1 Hr 50 gm 123 mg/dL (70-140) 02/18/20 HIV 1&2 Antibody Non-Reactive (Nonreactive) 02/18/20 Hgb 12.0 g/dL (12.0-15.0) 02/18/20 Hct 37.0 % (37-47) 02/18/20 RPR NONREACTIVE (NONREACTIVE) 02/18/20 Chlamydia DNA (COLLEEN) Negative (Negative) 12/21/19 N.gonorrhoeae DNA (COLLEEN) Negative (Negative) 12/21/19 Details: HIV: Urine Culture: Sequential Screen: NIPT Screen: ROS Const Reports system reviewed and no additional complaints, except as documented Card Reports system reviewed and no additional complaints, except as documented Resp Reports system reviewed and no additional complaints, except as documented GI Reports system reviewed and no additional complaints, except as documented, Reports nausea Reports system reviewed and no additional complaints, except as documented Musc Reports system reviewed and no additional complaints, except as documented all other systems reviewed and negative Exam Const General: cooperative, healthy appearing, comfortable [facility] Head: normal to inspection Nose: external nose normal Face and sinus: normal facial exam Neck Neck: normal visual inspection, full ROM, no lymphadenopathy Thyroid: thyroid normal Chest Chest palpation & inspection: normal inspection of the chest Resp Effort & Inspection: normal respiratory effort GI Inspection: normal to inspection Palpation: soft, other (gravid uterus) Other: infant vertex and appropriate size for gestational age Other: Cervical Exam: [ ] Extrem General: pedal edema Assessment & Plan Problems 1. Migraines G43.909 2. Supervision of high-risk O09.90 PRR JEREMIAH 04/20/[address], Tara Lopez ([place]) 3. Hx of cannabis abuse F12.11 encouraged cessation, random tox screens 4. Z34.90 plan NIPT and carrier, ntd screening discussed. 5. Bicornuate uterus Q51.3 6. Noncompliant patient O09.899; Z91.19 Late to care and has missed one visit due to troubles with transportation. Measuring ~29cm on 02/17 - NOB labs and glucose test done. 7. UTI in O23.40 Diagnosed 02/17. Keflex ordered. 8. 34 weeks gestation of Z3A.34 electronic covid test ordered 03/08/2020sc (scheduled for 04/13/2020 at 0955) 9. History of delivery Z98.891 x2, plan RLTCS with SM on 04/13 10. Request for sterilization Z30.2 title 19 signed 03/30 plan laparoscopic BS at 6 weeks PP plan RLTCS at 39 weeks title 19 signed but within 30 days so will wait for sterilization Orders Orders: POC Urinalysis 2 Dip (Clinic) Today Culture, Group B Streptococcus Today Z34.90 Coding Level of Care Code Off vis,est,level 3 Diagnoses Migraines G43.909 Supervision of high-risk O09.90 Hx of cannabis abuse F12.11 Z34.90 Bicornuate uterus Q51.3 Noncompliant patient O09.899; Z91.19 UTI in O23.40 34 weeks gestation of Z3A.34 History of delivery Z98.891 Request for sterilization Z30.2
--- NOTE | 2020-04-13 07:57 | OP.PCM_ITS ---
Problem List (1) 34 weeks gestation of Status: Acute Comment: electronic covid test ordered 03/08/2020sc (scheduled for 04/13/2020 at 0955) (2) Bicornuate uterus Status: Acute (3) History of delivery Status: Acute Comment: x2, plan RLTCS with SM on 04/13 (4) Noncompliant patient Status: Acute Comment: Late to care and has missed one visit due to troubles with transportation. Measuring ~29cm on 02/17 - NOB labs and glucose test done. (5) Status: Acute Qualifiers: Comment: plan NIPT and carrier, ntd screening discussed. (6) Request for sterilization Status: Acute Comment: title 19 signed 03/30 plan laparoscopic BS at 6 weeks PP (7) Supervision of high-risk Status: Acute Comment: PRR JEREMIAH 04/20/20 girl Hawa Jaguar Rossanna darien Lopez ([place]) (8) UTI in Status: Acute Comment: Diagnosed 02/17. Keflex ordered. (9) Hx of cannabis abuse Status: Chronic Comment: encouraged cessation, random tox screens (10) Migraines Status: Chronic Report of Operation Date of Procedure: 04/13/20 Pre-Operative Diagnosis: previous cs x 2 Surgery/Procedure Performed:: rltcs Description of Surgical Findings:: vertex infant mental health professional: Meagan Pettit Type of Anesthesia:: Spinal Special Medications: none Specimen's removed: female Drains: aguirre Delivery Classification: Scheduled Final JEREMIAH: 04/20/20 Gestational age: 39 Weeks and 0 Days Type of Anesthesia:: Spinal Date of Procedure: 04/13/20 Pre-Operative Diagnosis: preivous Description of Procedure: Spinal anesthesia was placed without difficulty. Aguirre catheter was placed. The patient was placed in the dorsal supine position with leftward tilt. Patient was prepped and draped in the normal sterile fashion. Pfannenstiel skin incision was made with the scalpel and carried through to the underlying layer of fascia with the scalpel. Fascia was nicked in the midline and the incision extended laterally. The rectus bellies were dissected off superiorly and inferiorly with out complication both sharply and bluntly. The peritoneum was entered digitally. The incision was stretched and a low transverse uterine incision was made with the scalpel. The 's head was delivered atraumatically followed by the anterior and posterior shoulders without complication the rest of the delivered. The cord was clamped and cut and the infant was handed off to awaiting nurse. The placenta was delivered spontaneously immediately following and was noted to be intact and have a three- vessel cord. The uterus was exteriorized cleared of all clots and debris, and the incision was closed in a single layer closure using #1 Monocryl. The ovaries and fallopian tubes were noted to be within normal limits. The uterus was returned to the maternal abdomen and gutters were cleared of all clots and debris. The peritoneum was closed with 3-0 Monocryl in a running fashion. Gloves were changed prior to fascial closure. Fascia was closed with 0 PDS in a running fashion. Subcutaneous tissue was copiously irrigated and the skin was closed with 3-0 Monocryl in a subcuticular fashion. Mepilex dressing was applied without complication. Patient was taken to recovery in stable condition. Amniotic Membrane Rupture Type: Artificial Amniotic Fluid Description: Clear Placenta Disposition: [facility] Cord Entanglement: Around neck x 1, tight Cord Vessel Description: 3 Vessels Esitmated Blood Loss (ml): 600 Infant Gender: Female Delayed cord clamping: Yes Antibiotic Given: Ancef 2 grams IV x1 Pt instructed on risks of surgery: Bleeding, Anesthesia Risks, Infection, Injury to surrounding structure(s) including bowel and bladder Complications: None - Admit VTE Documentation VTE Present on Admission: No VTE Mechan Device Prophylaxis: SCD's Multi Select Codes - Urinary/Genital Urinary/Genital CPT Codes: 33600 delivery+ Care([facility])
[2020-04-13] MEDS: Oxytocin 30 units/NS 500 ml 30 UNITS/500 ML IV.SOLN 167 UNITS IV (09:10)
--- NOTE | 2020-04-13 10:42 | DCINST_ITS ---
Discharge Diet: No Restrictions Discharge Activity: May Not Drive - for 2 weeks, May not drive while taking narcotic pain medications., May Shower, May Take a Tub Bath - in 7 days May resume sexual activity in: 4-6 weeks Lifting Restrictions: 20 pounds Additional Activity Instructions:: Nothing in the vagina for 4-6 weeks. You may return to work/school in 6 weeks. Call your doctor if your incision/area has: Continuous Slow Oozing, Sudden Increased Bleeding, Increased Pain/ Swelling, Increased Redness, Foul Smelling Discharge Call your doctor if you observe: Fever of 101 or Higher, Using more than one pad per hour - for 2 hours Suture Line Care: Avoid Pulling/Pushing, Avoid Pinching/Bending Cleanse incision/area with: Keep Dressing Clean & Dry Additional Instructions: If you experience any of the following, contact your healthcare provider. * Bleeding that soaks a pad every hour for 2 hours * Fever 100.4 or higher * Unrelieved incision or abdominal pain * Swelling, redness, discharge or bleeding from your incision or episiotomy site * Your incision begins to separate * Problems urinating (including inability to urinate or burning while urinating). * Visual changes * Severe headache * Flu-like symptoms * Pain or redness in one of both of your breasts * Pain, warmth, tenderness or swelling in your legs, especially the calf area * Frequent nausea and vomiting * Symptoms of depression or anxiety If you experience any of the following, call 911 or go to the nearest Emergency Room. * Chest pain * Problems breathing * Seizure activity * Partial or complete paralysis of a body part, slurred speech, weakness or drooping of the face, or a sudden inability to walk or hold your balance Allergies/Adverse Reactions: Allergies No Known Allergies Allergy (Verified 02/18/20 11:21) Medications to take at Discharge vitamin#30 30 mg iron-10 mg iron-folic acid 1 mg-omg3 capsule cap PO 12/21/19 promethazine 12.5 mg tablet 12.5 mg PO Q6H PRN #120 tab 12/21/19 acetaminophen 325 mg capsule 325 mg PO ONCE PRN 03/30/20 Naproxen [Naprosyn] 250 - 500 mg PO Q8H PRN PRN #30 tab 04/13/20 Oxycodone HCl/Acetaminophen [Percocet 5-325] 1 - 2 tab PO Q6H PRN PRN 7 Days #15 tab 04/13/20 The following prescriptions were given: Naproxen [Naprosyn] 250 - 500 mg PO Q8H PRN PRN #30 tab PRN Reason: MILD PAIN Transmission Status: Received by [facility] Oxycodone HCl/Acetaminophen [Percocet 5-325] 1 - 2 tab PO Q6H PRN PRN 7 Days #15 tab PRN Reason: Pain Transmission Status: Received by [facility] Follow-Up: Call to make an appointment with your doctor for an incision check in 1-2 weeks. You will also need a 6 week post- follow up appointment. Test results from this visit will be discussed in further detail at your follow- up appointment, if applicable. Please Follow Up With: Maine Potts MD - Call to make an appointment for an incision check in 1-2 [phone] When: You will need a post- check in 6 weeks. Primary Care Physician: Benedict Sharp DO [Primary Care Provider] -
--- NOTE | 2020-04-13 11:50 | CASEMGMT ---
Social Work Assessment Labor and Delivery Unit Patient Address: [address] [place] [address] Phone number: [phone] Date of Referral: 04/13/2020 Time of Referral: 0830 Referred By: Verbal notification by nursing staff Date of Intervention: 04/13/2020 Time of Intervention: 0223-1138 Reason for Referral: Maternal history of substance use during , late and limited care, and maternal history of anxiety. History obtained from: Medical records and mother of baby (MOB) Farheen Lowry; father of baby (FOB) John Olvera also present for most of conversation. *This magnetic tape typewriter operator familiar with the MOB from prior deliveries at [facility].* Household composition: MOB, FOB, and 2 older children rent a home and have lived in his home for the last 3 years. MARIE reports concern with the home being in some disrepair, specifically with leaky ceilings to the point of placing buckets out when it is raining, and not allowing the oldest child to sleep in her own bedroom because of said leaks. Patient's parent/guardian status: MARIE is a 30-year-old single female involved with the FOB who is 26 years old, for the last 6 years. When speaking privately with the MOB, MOB denied any form of abuse, control, or intimidation in this relationship. MARIE now has 3 children, 2 of which are fathered by this current FOB. Minor children, who all live with the MOB, include: Lissette Lowry, born 01/08/2013, father is Von Caroleesalina Olvera, born 06/10/2016, father is Jorge Olvera Eads Hawa Olvera, born 04/13/2020 Medical History: MARIE is 5, para 2 now 3 after delivering baby Hawa. care was late starting at 22 weeks, with 2 subsequent visits occurring at 31 and 37 weeks. MOB and FOB report lack of care due to unreliable transportation. FOB also reports MARIE did not realize she was until about 5 months along. delivered at 39 weeks gestation, weighed 6 pounds 11 ounces, Apgars 8 and 9 at 1 and 5 minutes respectively. Substance exposure in utero as MARIE endorses use of both marijuana and Vicodin during this . Educational Status: High school. No reported issues with reading, writing, or learning comprehension. Financial Status: GARY works for at [email or web address]. Supplies: MARIE and GARY both report to have all needed infant supplies including safe sleep space in the form of bassinet and pack and play. Parents report to have car seat, clothing, diapers, and wipes. MARIE has a breast pump, and is planning to breast-feed this . Childcare/Caregiver(s): MARIE and GARY. Transportation: GARY recently lost his transit mixer driver's license and is working on getting that reinstated. Therefore transportation has been limited and parents have been relying on the MARIE's mother who is described as unreliable, and then intermittent help from the GARY's grandmother who reportedly won't drive in the rain or the dark. MARIE father would help but he does work 2 jobs. Programs/Agencies Involved: MARIE is currently involved with job and family services for food assistance and medical. [place] [facility] [place]. MARIE denies any other current agency involvement at this time. Declines help me grow referral. Agrees to a Headstart referral. Children Services/Legal Issues: MARIE has a history of children services when she was a minor due to concerns involving her mother. Children services became involved after Domingo was born, due to Domingo testing positive for marijuana at . MARIE denies any current or active cases with children services. No legal issues reported for the MOB. GARY was reportedly dealing with license suspension, which FOAvelino reports was due to a hit and skip and not having her insurance. Behavioral Health Issues: Mental Health History: MARIE has both history of anxiety and depression. When depression and anxiety discussed, the FOB reported MOB seem to be depressed after Domingo was born, but that it did not last long nor did it stop MARIE from taking care of self and the children. MARIE denies any history of suicidal ideations. No reports of, or current concerns, regarding depression or anxiety. Substance Use History: MARIE has a long history of marijuana use, with continued use during this . MARIE reports to have cut down during this , but then picked marijuana back up in the third trimester due to increased nausea. MARIE reports frequency of use more than half days during the week, but not every day. MARIE reports quit smoking marijuana 2 weeks ago and went to vaping marijuana the last 2 weeks. Last use reported as 04.12.2020. MARIE endorses use of Vicodin during this starting about the second trimester, which MOB reports was prescribed by the [facility] related to dental issues. FOB reported the MOB was prescribed 7.5 mg of Vicodin's. After this prescription ran out, it is reported by the MOB and FOB, that MOB sister Shania provided MOB with 6-10 mg Vicodin which were leftover after Shania was in a car accident. MOB reports received these Vicodin from Shania about the end of January and made them last until 04/12/2020. MOB reports she took 1 full pill the first time and it made MOB feel weird so then started taking just a half a pill at a time due to back and groin pain. MOB reports oral ingestion. MOB denies any other substance use history during this including other pills, methamphetamines, cocaine, or other opiates such as heroin. Noted in the electromagnet crane operator's history and physical that the FOB questioned whether the pills from the sister could have been laced with something. Family History: Previous social work assessment included history of MARIE's mother and siblings having substance use issues. MOB reports during this current assessment that I hope MOB's mother is not currently using any substances, but reports to know that MARIE's mother has stopped drinking. Later on when safe plan of care was discussed for the baby, the MOB voiced that sometimes MOB would get marijuana at MOB's mother's home. Drug Screens: Negative drug screens for mom on 12/21/2019 and 02/18/2020. Positive for marijuana on 03/30/2020. Drug screen from this admission pending for both MOB and . MIGUEL ANGEL: First score was a 2, and per electromagnet crane operator's note baby is to be monitored for a minimum of 3 to 5 days. Family/Social Stressors: GARY lost his license this year which has reduced GARY's ability to take larger jobs and make more money. occurring during the Covid crisis. Stress from living conditions including a leaky roof and feeling as though the landlord is not addressing concerns. Family wants to move and are trying to get on the [employer] list. Limited and late care due to unreliable transportation. Maternal history of substance use during and history of maternal mental health which is not currently treated. Support Systems: MOB reports that she and FOB support each other. Additional support includes the FOB's grandmother, MOB father, and even MOB mother. Currently MOB mother is watching the children, with the plan reported for MOB father to take over later in the day. Depression/Shaken Baby/Safe Sleeping: Broached the topic of depression anxiety, risk factors, and importance of seeking support. Information provided on both shaken baby syndrome and safe sleeping. ASSESSMENT: Met with MOB and then later joined by FOB. Confirmed with the MOB privately that all topics were safe to talk about in front of the FOB including substance use. MOB and FOB both report to have needed supplies to care for the baby at home. Addressed with both parents the need to call children services, much like after Domingo was born. MOB voiced understanding and acceptance. Addressed with MOB the recommendation for not providing breastmilk if MOB plans to continue using marijuana. MOB reports this has been discussed with MOB already by the electromagnet crane operator. MOB [id number] an attitude about using substances given by MOB sister. MOB and FOB were both calm, pleasant, and cooperative. MOB talkative and giving expansive answers. Affect was bright and eye contact normal throughout assessment, even when discussing sensitive topics. FOB participated equally in conversation. This magnetic tape typewriter operator observed MOB and FOB both to handle the baby appropriately and in a gentle manner. MOB voices having a loving connection with the baby already. Safe Plan of Care for related to substance use: After some discussion MOB was able to identify abstinence of illicit substances as primary method. MOB reports plan to attempt abstinence, but that went to formula feeding Domingo for this reason. MOB reports she nor FOB use marijuana in the home except for the FOB's vape pen, which is locked. MOB reports that typically marijuana is given by friends or at MOB mother's house; so report marijuana is not used in the home around the children. PLAN: Baby to remain in the hospital for a minimum of 3 to 5 days for MIGUEL ANGEL monitoring related to opiate exposure in utero. MOB plans to stay on hotel status at the hospital while the baby remains a patient. We will be notifying children services due to substance exposed infant. -KATERINA Melara, MELISSA *Information documented in this assessment generated with [employer]*
[2020-04-13] MEDS: Senna/Docusate Sodium 1 Tablet PO ×2 (11:55→11:56)
[2020-04-13] MEDS: Ketorolac 30 MG/ML Syringe IV ×2 (11:55→18:11)
--- NOTE | 2020-04-13 12:30 | CASEMGMT ---
Social Work Labor and Delivery Unit Summary: Phone call to [facility] children services and spoke with Dakota Small in the intake department, extension [phone]. Referral due to substance exposed in utero, reporting positive maternal drug screen in March and MOB'S endorsement of using both marijuana and Vicodin during the , with last use on 04/12/2020. Reported pending drug screens for both mom and baby for this admission, and plan for MIGUEL ANGEL monitoring of baby due to opiate exposure. MIGUEL ANGEL scoring a minimum of 3 to 5 days. Brief maternal and infant history is provided. Reported potential concern for caregivers of the other children, as this advertising copywriter uncertain if there would be any past concerns with children services agency and MOB'S mother being a caregiver to the children, due to MOB'S mother also having a history of some level of substance use. Notify that MOB'S father is set to take MOB'S oldest daughter for the evening, once gets off work. Met with the MOB and FOB again in the room. MOB on the phone with children services upon this advertising copywriter entering the room. This advertising copywriter reviewed that anticipate the baby to be in the hospital through the weekend, and MOB be voiced understanding. Reviewed with MOB resources for home-going. MOB signed a Headstart/early Headstart form for MOB son, and then agreed to place the baby on the referral as well. Assessment: MOB and FOB continue to be cooperative during social work assessment. Pleasant. FOB holding baby. This advertising copywriter observed MOB to wince in pain each time and will be moved. FOB commented that MOB just got some Toradol and thought it should be working by now. MOB nor FOB voiced any questions or concerns to this advertising copywriter. Parents voiced understanding the baby will be in the hospital for withdrawal monitoring. This advertising copywriter did observe the baby to sneeze a few times, which the parents even commented on the baby sneezing throughout the day. Educated parents that this is something the nursing staff will ask about and is important to report back. Intervention: Referral to children services completed. Headstart referral form completed, and will be faxed next week. Provided MOB with information on fair housing and landlord issues, care source Medicaid transportation benefit, WIC applications, mood and anxiety disorder packet, and awaiting [facility] resource list. Reviewed information with the MOB and FOB, including resources for mood and anxiety disorders. Plan: Social work will continue to follow and assist. Plan to see MOB again on 04/17/2020 and check on how things are going. Continue collaboration with [facility] services on appropriate disposition for baby. Monitor for drug screen results on both MOB and baby. -KATERINA Melara, CULLET CRUSHER *Information documented in this note generated via [employer] system*
[2020-04-13] MEDS: oxyCODONE 5 MG Tablet 10 MG PO ×2 (14:57→20:05)
[2020-04-13] MEDS: 0.9% Saline Lock 10 ML Syringe IV (18:12)
[2020-04-14] MEDS: Ketorolac 30 MG/ML Syringe IV ×2 (00:07→06:00)
[2020-04-14] MEDS: Acetaminophen 500 MG Tablet 1000 MG PO ×4 (00:08→19:44)
[2020-04-14] MEDS: 0.9% Saline Lock 10 ML Syringe IV ×2 (00:09→06:02)
[2020-04-14] MEDS: oxyCODONE 5 MG Tablet 10 MG PO ×2 (03:40→20:23)
[2020-04-14 03:57] VITALS: BP 108/56; PULSE 77; RESP 16; TEMP 36.4; O2SAT 96
[2020-04-14 06:35] LABS: Hematocrit 34.2 % (37-47); Hemoglobin 11.3 g/dL (12.0-15.0); Mean Corpuscular Hgb 28.9 pg (27.0-32.0); Mean Corpuscular Volume 87.5 fL (81-99); Platelet Count 256 K/mm3 (150-450); RBC Distribution Width CV 14.3 % (11.6-14.6); RBC Distribution Width SD 45.6 fl (35.1-43.9); Red Blood Count 3.91 M/mm3 (4.2-5.4); White Blood Count 9.2 K/mm3 (4.4-11.0)
[2020-04-14 07:51] VITALS: BP 103/55; PULSE 60; RESP 16; TEMP 36.5; O2SAT 97
--- NOTE | 2020-04-14 09:36 | PCM.PN.OB ---
Patient Problems: Active and Suspected Problems (Last Reviewed 03/30/20 @ 10:57 by Yael Garcia) Request for sterilization (Acute) title 19 signed 03/30 plan laparoscopic BS at 6 weeks PP History of delivery (Acute) x2, plan RLTCS with SM on 04/13 34 weeks gestation of (Acute) electronic covid test ordered 03/08/2020sc (scheduled for 04/13/2020 at 0955) UTI in (Acute) Diagnosed 02/17. Keflex ordered. Noncompliant patient (Acute) Late to care and has missed one visit due to troubles with transportation. Measuring ~29cm on 02/17 - NOB labs and glucose test done. Bicornuate uterus (Acute) (Acute) plan NIPT and carrier, ntd screening discussed. Supervision of high-risk (Acute) PRR JEREMIAH 04/20/[address], Tara Lopez ([place]) Subjective: Patient doing well without complaints. Tolerating PO. Ambulating and voiding without difficulty. feeding well. Denies chest pain, shortness of breath, calf pain/swelling, fevers, chills, lightheadedness. - Physical Exam Vitals/I&O's: Vital Signs Temp Pulse Resp BP Pulse Ox 97.7 F L 60 16 103/55 L 97 04/14/20 07:51 04/14/20 07:51 04/14/20 07:51 04/14/20 07:51 04/14/20 07:51 Oxygen Delivery Method Room Air Weight: 183 lb Body Mass Index (BMI) 30.4 Intake and Output for Last 24 Hours 04/12/20 04/13/20 04/14/20 23:59 23:59 23:59 Intake Total 1660 / 1660 200 / 200 Output Total 400 / 400 300 / 300 Balance 1260 / 1260 -100 / -100 General: Alert, Oriented x3 Microbiology Past 72 Hours 04/13/20 07:49 Mucosa - Nose SARS-CoV-2 Antigen (Rapid) - Final Laboratory Results 04/14/20 06:15: WBC 9.2, RBC 3.91 L, Hgb 11.3 L, Hct 34.2 L, MCV 87.5, MCH 28.9, MCHC 33.0, RDW Std Deviation 45.6 H, RDW Coeff of Steve 14.3, Plt Count 256, MPV 10.0 Current Medications Acetaminophen (Acetaminophen 500 Mg Tablet) 1,000 mg PO Q6 [facility] Last Admin: 04/14/20 07:50 Dose: 1,000 mg Documented by: Bisacodyl (Bisacodyl 10 Mg Suppository) 10 mg RECTAL UD PRN PRN Reason: If no BM Hydrocortisone (Hydrocortisone 2.5% Crm) 1 applic TOPICAL TID PRN PRN; Protocol PRN Reason: Discomfort Methylergonovine Maleate (Methylergonovine 0.2 Mg/Ml Ampul) 0.2 mg IM X1 PRN PRN Reason: Uterine Atony Naloxone HCl (Naloxone 0.4 Mg/Ml Syringe) 0.02 mg IV Q1M PRN PRN Reason: RR <10 and pt unresponsive Naproxen (Naproxen 250 Mg Tablet) 500 mg PO Q8 [facility] Last Admin: 04/14/20 05:32 Dose: Not Given Documented by: Ondansetron HCl (Ondansetron 4 Mg/2 Ml Vial) 4 mg IV Q4H PRN PRN PRN Reason: Nausea Oxycodone HCl (Oxycodone 5 Mg Tablet) 10 mg PO Q4H PRN PRN PRN Reason: Pain Score 6-10 Last Admin: 04/14/20 03:40 Dose: 10 mg Documented by: Prochlorperazine Edisylate (Prochlorperazine 10 Mg/2 Ml Vial) 10 mg IV Q6H PRN PRN PRN Reason: NAUSEA Senna/Docusate Sodium (Senna/Docusate Sodium 1 Tablet) 1 - 2 tablet PO DAILY [facility] Last Admin: 04/13/20 11:56 Dose: 1 tablet Documented by: Simethicone (Simethicone 80 Mg Tablet) 80 mg PO PCHS PRN PRN Reason: Indigestion/stomach pain Sodium Chloride (0.9% Saline Lock 10 Ml Syringe) 5 - 15 ml IV UD PRN PRN Reason: SALINE FLUSH Last Admin: 04/14/20 06:02 Dose: 10 ml Documented by: Medical Necessity - Tobacco Use Smoking Status: Never smoker Assessment/Plan All Active Problems (Last Reviewed 03/30/20 @ 10:57 by Yael Garcia) Request for sterilization (Acute) History of delivery (Acute) 34 weeks gestation of (Acute) UTI in (Acute) Noncompliant patient (Acute) Bicornuate uterus (Acute) (Acute) Supervision of high-risk (Acute) Abdominal pain (Resolved) Cholangitis due to bile duct calculus with obstruction (Resolved) Diarrhea (Resolved) Gastroenteritis (Resolved) Hyperemesis gravidarum (Resolved) Intractable nausea and vomiting (Resolved) Leukocytosis, unspecified (Resolved) Nausea and vomiting (Resolved) Obstructive jaundice (Resolved) Pancolitis (Resolved) Status migrainosus (Resolved) Viable intrauterine (Resolved) s/p LTCS PPD # 1 1. routine post care 2. breast feeding- support given 3. rh positive 4. rubella immune
[2020-04-14 11:00] VITALS: BP 109/78; PULSE 89; RESP 16; TEMP 36.5; O2SAT 98
[2020-04-14 15:00] VITALS: BP 125/76; PULSE 74; RESP 16; TEMP 36.6; O2SAT 96
[2020-04-14] MEDS: Naproxen 250 MG Tablet 500 MG PO (17:54)
[2020-04-14 20:24] VITALS: BP 130/71; PULSE 85; RESP 14; TEMP 37.2
[2020-04-15] MEDS: oxyCODONE 5 MG Tablet 10 MG PO ×5 (00:27→21:18)
[2020-04-15 01:59] VITALS: BP 135/66; PULSE 70; RESP 18; TEMP 36.4
[2020-04-15] MEDS: Naproxen 250 MG Tablet 500 MG PO ×3 (02:00→17:15)
[2020-04-15] MEDS: Acetaminophen 500 MG Tablet 1000 MG PO ×4 (02:01→20:04)
--- NOTE | 2020-04-15 08:32 | PN.OBGYN_ITS ---
Patient Problems: Active and Suspected Problems (Last Reviewed 03/30/20 @ 10:57 by Yael Garcia) Request for sterilization (Acute) title 19 signed 03/30 plan laparoscopic BS at 6 weeks PP History of delivery (Acute) x2, plan RLTCS with SM on 04/13 34 weeks gestation of (Acute) electronic covid test ordered 03/08/2020sc (scheduled for 04/13/2020 at 0955) UTI in (Acute) Diagnosed 02/17. Keflex ordered. Noncompliant patient (Acute) Late to care and has missed one visit due to troubles with transportation. Measuring ~29cm on 02/17 - NOB labs and glucose test done. Bicornuate uterus (Acute) (Acute) plan NIPT and carrier, ntd screening discussed. Supervision of high-risk (Acute) PRR JEREMIAH 04/20/[address], Tara Lopez ([place]) Subjective: Patient doing well without complaints. Tolerating PO. Ambulating and voiding without difficulty. Feeding well. Denies chest pain, shortness of breath, calf pain/swelling, fevers, chills, lightheadedness. Objective: Laboratory Tests 04/14/20 04/13/20 04/13/20 Range/Units 06:15 06:50 06:50 WBC 9.2 10.8 (4.4-11.0) K/mm3 RBC 3.91 L 4.53 (4.2-5.4) M/mm3 Hgb 11.3 L 13.0 (12.0-15.0) g/dL Hct 34.2 L 39.5 (37-47) % MCV 87.5 87.2 (81-99) fL MCH 28.9 28.7 (27.0-32.0) pg MCHC 33.0 32.9 (32-36) g/dL RDW Std Deviation 45.6 H 45.3 H (35.1-43.9) fl RDW Coeff of Steve 14.3 14.3 (11.6-14.6) % Plt Count 256 372 (150-450) K/mm3 MPV 10.0 10.2 (6.2-12.0) fl Immature Gran % (Auto) 0.600 (0.0-0.9) % Neut % (Auto) 73.9 H (47-70) % Lymph % (Auto) 19.0 (19-41) % [place] % (Auto) 5.4 (0-10) % Eos % (Auto) 0.8 (0-5) % Baso % (Auto) 0.3 (0-1) % Absolute Neuts (auto) 8.0 H (2.0-7.7) X10^3/uL Absolute Lymphs (auto) 2.05 (0.83-4.51) X10^3/uL Nucleated RBC % 0 (0-5) % Blood Type O POSITIVE Antibody Screen NEGATIVE - Physical Exam Vitals/I&O's: Vital Signs Temp Pulse Resp BP Pulse Ox 97.6 F L 70 18 135/66 H 96 04/15/20 01:59 04/15/20 01:59 04/15/20 01:59 04/15/20 01:59 04/14/20 15:00 Oxygen Delivery Method Room Air Weight: 183 lb Body Mass Index (BMI) 30.4 Intake and Output for Last 24 Hours 04/13/20 04/14/20 04/15/20 23:59 23:59 23:59 Intake Total 1660 / 1660 200 / 200 Output Total 400 / 400 300 / 300 Balance 1260 / 1260 -100 / -100 General: Alert, Oriented x3, Cooperative, No apparent distress, Well developed, Well nourished HEENT: Atraumatic, PERRLA, EOMI, Normocephalic Neck: Supple, No JVD Lungs: Normal air movement Cardiovascular: Regular rate Abdomen: Soft, Non Tender, Non-Distended, Passing Flatus, - - Incision c/d/i, fundus firm Extremities: No edema, No Calf Tenderness Neurological: Cranial nerves II-XII grossly intact, Neuro grossly intact Psych/Mental Status: Normal Affect, Appropriate Microbiology Past 72 Hours 04/13/20 07:49 Mucosa - Nose SARS-CoV-2 Antigen (Rapid) - Final Current Medications Acetaminophen (Acetaminophen 500 Mg Tablet) 1,000 mg PO Q6H [facility] Last Admin: 04/15/20 02:01 Dose: 1,000 mg Documented by: Bisacodyl (Bisacodyl 10 Mg Suppository) 10 mg RECTAL UD PRN PRN Reason: If no BM Hydrocortisone (Hydrocortisone 2.5% Crm) 1 applic TOPICAL TID PRN PRN; Protocol PRN Reason: Discomfort Methylergonovine Maleate (Methylergonovine 0.2 Mg/Ml Ampul) 0.2 mg IM X1 PRN PRN Reason: Uterine Atony Naloxone HCl (Naloxone 0.4 Mg/Ml Syringe) 0.02 mg IV Q1M PRN PRN Reason: RR <10 and pt unresponsive Naproxen (Naproxen 250 Mg Tablet) 500 mg PO Q8H [facility] Last Admin: 04/15/20 02:00 Dose: 500 mg Documented by: Ondansetron HCl (Ondansetron 4 Mg/2 Ml Vial) 4 mg IV Q4H PRN PRN PRN Reason: Nausea Oxycodone HCl (Oxycodone 5 Mg Tablet) 10 mg PO Q4H PRN PRN PRN Reason: Pain Score 6-10 Last Admin: 04/15/20 04:33 Dose: 10 mg Documented by: Prochlorperazine Edisylate (Prochlorperazine 10 Mg/2 Ml Vial) 10 mg IV Q6H PRN PRN PRN Reason: NAUSEA Senna/Docusate Sodium (Senna/Docusate Sodium 1 Tablet) 1 - 2 tablet PO DAILY [facility] Last Admin: 04/13/20 11:56 Dose: 1 tablet Documented by: Simethicone (Simethicone 80 Mg Tablet) 80 mg PO PCHS PRN PRN Reason: Indigestion/stomach pain Sodium Chloride (0.9% Saline Lock 10 Ml Syringe) 5 - 15 ml IV UD PRN PRN Reason: SALINE FLUSH Last Admin: 04/14/20 06:02 Dose: 10 ml Documented by: Medical Necessity - Tobacco Use Smoking Status: Never smoker Assessment/Plan All Active Problems (Last Reviewed 03/30/20 @ 10:57 by Yael Garcia) Request for sterilization (Acute) History of delivery (Acute) 34 weeks gestation of (Acute) UTI in (Acute) Noncompliant patient (Acute) Bicornuate uterus (Acute) (Acute) Supervision of high-risk (Acute) Abdominal pain (Resolved) Cholangitis due to bile duct calculus with obstruction (Resolved) Diarrhea (Resolved) Gastroenteritis (Resolved) Hyperemesis gravidarum (Resolved) Intractable nausea and vomiting (Resolved) Leukocytosis, unspecified (Resolved) Nausea and vomiting (Resolved) Obstructive jaundice (Resolved) Pancolitis (Resolved) Status migrainosus (Resolved) Viable intrauterine (Resolved)
[2020-04-15 08:34] VITALS: BP 125/97; PULSE 77; RESP 16; TEMP 36.5; O2SAT 99
[2020-04-15] MEDS: Senna/Docusate Sodium 1 Tablet PO (10:07)
[2020-04-15 14:56] VITALS: BP 123/93; PULSE 78; RESP 16; TEMP 36.4; O2SAT 96
[2020-04-15 20:06] VITALS: BP 116/77; PULSE 68; RESP 18; TEMP 36.9
[2020-04-16] MEDS: Naproxen 250 MG Tablet 500 MG PO ×3 (02:01→18:04)
[2020-04-16] MEDS: Acetaminophen 500 MG Tablet 1000 MG PO ×4 (02:02→20:05)
[2020-04-16 02:04] VITALS: BP 117/87; PULSE 77; RESP 18; TEMP 36.6
[2020-04-16] MEDS: oxyCODONE 5 MG Tablet 10 MG PO (03:09)
[2020-04-16 08:56] VITALS: BP 114/73; PULSE 75; RESP 16; TEMP 36.5; O2SAT 96
--- NOTE | 2020-04-16 09:06 | PN.OBGYN_ITS ---
Patient Problems: Active and Suspected Problems (Last Reviewed 03/30/20 @ 10:57 by Yael Garcia) Request for sterilization (Acute) title 19 signed 03/30 plan laparoscopic BS at 6 weeks PP History of delivery (Acute) x2, plan RLTCS with SM on 04/13 34 weeks gestation of (Acute) electronic covid test ordered 03/08/2020sc (scheduled for 04/13/2020 at 0955) UTI in (Acute) Diagnosed 02/17. Keflex ordered. Noncompliant patient (Acute) Late to care and has missed one visit due to troubles with transportation. Measuring ~29cm on 02/17 - NOB labs and glucose test done. Bicornuate uterus (Acute) (Acute) plan NIPT and carrier, ntd screening discussed. Supervision of high-risk (Acute) PRR JEREMIAH 04/20/[address], Tara Lopez ([place]) Subjective: Patient doing well without complaints. Tolerating PO. Ambulating and voiding without difficulty. Feeding well. Denies chest pain, shortness of breath, calf pain/swelling, fevers, chills, lightheadedness. - Physical Exam Vitals/I&O's: Vital Signs Temp Pulse Resp BP Pulse Ox 97.7 F L 75 16 114/73 96 04/16/20 08:56 04/16/20 08:56 04/16/20 08:56 04/16/20 08:56 04/16/20 08:56 Oxygen Delivery Method Room Air Weight: 183 lb Body Mass Index (BMI) 30.4 Intake and Output for Last 24 Hours 04/14/20 04/15/20 04/16/20 23:59 23:59 23:59 Intake Total 200 / 200 Output Total 300 / 300 Balance -100 / -100 General: Alert, Oriented x3, Cooperative, No apparent distress, Well developed, Well nourished HEENT: Atraumatic, PERRLA, EOMI, Normocephalic Neck: Supple, No JVD Lungs: Normal air movement Cardiovascular: Regular rate Abdomen: Soft, Non Tender, Non-Distended, - - incision c/d/i, fundus firm Extremities: No edema, No Calf Tenderness Neurological: Cranial nerves II-XII grossly intact, Neuro grossly intact Psych/Mental Status: Normal Affect, Appropriate Microbiology Past 72 Hours 04/13/20 07:49 Mucosa - Nose SARS-CoV-2 Antigen (Rapid) - Final Current Medications Acetaminophen (Acetaminophen 500 Mg Tablet) 1,000 mg PO Q6H [facility] Last Admin: 04/16/20 09:01 Dose: 1,000 mg Documented by: Bisacodyl (Bisacodyl 10 Mg Suppository) 10 mg RECTAL UD PRN PRN Reason: If no BM Hydrocortisone (Hydrocortisone 2.5% Crm) 1 applic TOPICAL TID PRN PRN; Protocol PRN Reason: Discomfort Methylergonovine Maleate (Methylergonovine 0.2 Mg/Ml Ampul) 0.2 mg IM X1 PRN PRN Reason: Uterine Atony Naloxone HCl (Naloxone 0.4 Mg/Ml Syringe) 0.02 mg IV Q1M PRN PRN Reason: RR <10 and pt unresponsive Naproxen (Naproxen 250 Mg Tablet) 500 mg PO Q8H [facility] Last Admin: 04/16/20 02:01 Dose: 500 mg Documented by: Ondansetron HCl (Ondansetron 4 Mg/2 Ml Vial) 4 mg IV Q4H PRN PRN PRN Reason: Nausea Oxycodone HCl (Oxycodone 5 Mg Tablet) 10 mg PO Q4H PRN PRN PRN Reason: Pain Score 6-10 Last Admin: 04/16/20 03:09 Dose: 10 mg Documented by: Prochlorperazine Edisylate (Prochlorperazine 10 Mg/2 Ml Vial) 10 mg IV Q6H PRN PRN PRN Reason: NAUSEA Senna/Docusate Sodium (Senna/Docusate Sodium 1 Tablet) 1 - 2 tablet PO DAILY [facility] Last Admin: 04/15/20 10:07 Dose: 2 tablet Documented by: Simethicone (Simethicone 80 Mg Tablet) 80 mg PO PCHS PRN PRN Reason: Indigestion/stomach pain Sodium Chloride (0.9% Saline Lock 10 Ml Syringe) 5 - 15 ml IV UD PRN PRN Reason: SALINE FLUSH Last Admin: 04/14/20 06:02 Dose: 10 ml Documented by: Medical Necessity - Tobacco Use Smoking Status: Never smoker Assessment/Plan All Active Problems (Last Reviewed 03/30/20 @ 10:57 by Yael M Garcia) Request for sterilization (Acute) History of delivery (Acute) 34 weeks gestation of (Acute) UTI in (Acute) Noncompliant patient (Acute) Bicornuate uterus (Acute) (Acute) Supervision of high-risk (Acute) Abdominal pain (Resolved) Cholangitis due to bile duct calculus with obstruction (Resolved) Diarrhea (Resolved) Gastroenteritis (Resolved) Hyperemesis gravidarum (Resolved) Intractable nausea and vomiting (Resolved) Leukocytosis, unspecified (Resolved) Nausea and vomiting (Resolved) Obstructive jaundice (Resolved) Pancolitis (Resolved) Status migrainosus (Resolved) Viable intrauterine (Resolved) s/p LTCS PPD # 3 1. routine post care 2. breast feeding- support given 3. rh positive 4. rubella immune
[2020-04-16] MEDS: Senna/Docusate Sodium 1 Tablet PO (10:06)
[2020-04-16 13:33] VITALS: BP 122/75; PULSE 68; RESP 16; TEMP 36.2; O2SAT 98
[2020-04-16] MEDS: oxyCODONE 5 MG Tablet PO ×2 (14:35→19:27)
--- NOTE | 2020-04-16 14:38 | NURSING ---
At 1415, this RN informed pt of new orders received for pain medication and that Alexandra RN updated Dr. Everett on pt and pain. This RN asked pt if she had walked today or been out of bed since patient is always in bed when this RN has entered the room today. Pt states she hasn't been out of bed since this morning and hardly at all today. This RN encouraged pt to shower today and ambulate in room several times this afternoon and evening. This RN informed pt that we want her to have a good recovery and manage her pain with the ability to care for herself and move around while here and to prepare for discharge. Pt verbalized understanding. Pt states her pain is a 7/10, appears in no distress at this time but makes occasional grimacing faces and noises while RN in room. Informed pt that once the new order is verified by Pharmacy that this RN will bring 1 oxyir to room per order, pt agreed with plan and smiled. Pt wanting RN to return baby to crib at this time and this RN acknowledged that pt was right to place baby in crib for safe sleep rather than holding baby and falling asleep. Pt then smiled again.
[2020-04-16 19:20] VITALS: BP 130/94; PULSE 87; RESP 18; TEMP 36.9
[2020-04-17 02:12] VITALS: BP 131/93; PULSE 65; RESP 18; TEMP 36.6
[2020-04-17] MEDS: Acetaminophen 500 MG Tablet 1000 MG PO ×3 (02:13→14:53)
[2020-04-17] MEDS: Naproxen 250 MG Tablet 500 MG PO ×2 (02:14→09:23)
[2020-04-17] MEDS: oxyCODONE 5 MG Tablet 10 MG PO ×2 (04:10→09:23)
[2020-04-17 06:57] VITALS: BP 138/81; PULSE 60; RESP 16; TEMP 36.4
[2020-04-17 07:36] VITALS: BP 132/81; PULSE 78; RESP 18; TEMP 36.6
--- NOTE | 2020-04-17 08:48 | PCM.PN.OB ---
Patient Problems: Active and Suspected Problems (Last Reviewed 03/30/20 @ 10:57 by Yael Garcia) Request for sterilization (Acute) title 19 signed 03/30 plan laparoscopic BS at 6 weeks PP History of delivery (Acute) x2, plan RLTCS with SM on 04/13 34 weeks gestation of (Acute) electronic covid test ordered 03/08/2020sc (scheduled for 04/13/2020 at 0955) UTI in (Acute) Diagnosed 02/17. Keflex ordered. Noncompliant patient (Acute) Late to care and has missed one visit due to troubles with transportation. Measuring ~29cm on 02/17 - NOB labs and glucose test done. Bicornuate uterus (Acute) (Acute) plan NIPT and carrier, ntd screening discussed. Supervision of high-risk (Acute) PRR JEREMIAH 04/20/20 girl Tara Trejo ([place]) Subjective: Patient doing well without complaints. Tolerating PO. Ambulating and voiding without difficulty. Breast feeding well. Denies chest pain, shortness of breath, calf pain/swelling, fevers, chills, lightheadedness. Children Services and involvement due to positive drug screen. - Physical Exam Vitals/I&O's: Vital Signs Temp Pulse Resp BP Pulse Ox 97.9 F 78 18 132/81 H 98 04/17/20 07:36 04/17/20 07:36 04/17/20 07:36 04/17/20 07:36 04/16/20 13:33 Oxygen Delivery Method Room Air Weight: 183 lb Body Mass Index (BMI) 30.4 General: Alert, Oriented x3, Cooperative Abdomen: Soft, Non-Distended, - - FF below U. Dressing dry and intact. Appropriately tender. Current Medications Acetaminophen (Acetaminophen 500 Mg Tablet) 1,000 mg PO Q6H [facility] Last Admin: 04/17/20 02:13 Dose: 1,000 mg Documented by: Bisacodyl (Bisacodyl 10 Mg Suppository) 10 mg RECTAL UD PRN PRN Reason: If no BM Hydrocortisone (Hydrocortisone 2.5% Crm) 1 applic TOPICAL TID PRN PRN; Protocol PRN Reason: Discomfort Methylergonovine Maleate (Methylergonovine 0.2 Mg/Ml Ampul) 0.2 mg IM X1 PRN PRN Reason: Uterine Atony Naloxone HCl (Naloxone 0.4 Mg/Ml Syringe) 0.02 mg IV Q1M PRN PRN Reason: RR <10 and pt unresponsive Naproxen (Naproxen 250 Mg Tablet) 500 mg PO Q8H [facility] Last Admin: 04/17/20 02:14 Dose: 500 mg Documented by: Ondansetron HCl (Ondansetron 4 Mg/2 Ml Vial) 4 mg IV Q4H PRN PRN PRN Reason: Nausea Oxycodone HCl (Oxycodone 5 Mg Tablet) 10 mg PO Q4H PRN PRN PRN Reason: Pain Score 8-10 Last Admin: 04/17/20 04:10 Dose: 10 mg Documented by: Oxycodone HCl (Oxycodone 5 Mg Tablet) 5 mg PO Q4H PRN PRN PRN Reason: Pain Score 5-7 Last Admin: 04/16/20 19:27 Dose: 5 mg Documented by: Prochlorperazine Edisylate (Prochlorperazine 10 Mg/2 Ml Vial) 10 mg IV Q6H PRN PRN PRN Reason: NAUSEA Senna/Docusate Sodium (Senna/Docusate Sodium 1 Tablet) 1 - 2 tablet PO DAILY [facility] Last Admin: 04/16/20 10:06 Dose: 2 tablet Documented by: Simethicone (Simethicone 80 Mg Tablet) 80 mg PO PCHS PRN PRN Reason: Indigestion/stomach pain Sodium Chloride (0.9% Saline Lock 10 Ml Syringe) 5 - 15 ml IV UD PRN PRN Reason: SALINE FLUSH Last Admin: 04/14/20 06:02 Dose: 10 ml Documented by: Medical Necessity - Tobacco Use Smoking Status: Never smoker Assessment/Plan All Active Problems (Last Reviewed 03/30/20 @ 10:57 by Yael Garcia) Request for sterilization (Acute) History of delivery (Acute) 34 weeks gestation of (Acute) UTI in (Acute) Noncompliant patient (Acute) Bicornuate uterus (Acute) (Acute) Supervision of high-risk (Acute) Abdominal pain (Resolved) Cholangitis due to bile duct calculus with obstruction (Resolved) Diarrhea (Resolved) Gastroenteritis (Resolved) Hyperemesis gravidarum (Resolved) Intractable nausea and vomiting (Resolved) Leukocytosis, unspecified (Resolved) Nausea and vomiting (Resolved) Obstructive jaundice (Resolved) Pancolitis (Resolved) Status migrainosus (Resolved) Viable intrauterine (Resolved) s/p LTCS PPD # 4 1. routine post care 2. breast feeding- support given 3. rh positive 4. rubella immune 5. Hotel status today as baby will probably not be discharged until tomorrow due to drug withdrawal protocol.
--- NOTE | 2020-04-17 08:51 | DCINST_ITS ---
Discharge Diet: No Restrictions Discharge Activity: May Not Drive - for 2 weeks, May not drive while taking narcotic pain medications., May Shower, May Take a Tub Bath - in 7 days May resume sexual activity in: 4-6 weeks Additional Activity Instructions:: Nothing in the vagina for 4-6 weeks. You may return to work/school in 6 weeks. Call your doctor if your incision/area has: Continuous Slow Oozing, Sudden Increased Bleeding, Increased Pain/ Swelling, Increased Redness, Foul Smelling Discharge Call your doctor if you observe: Fever of 101 or Higher, Using more than one pad per hour - for 2 hours Suture Line Care: Avoid Pulling/Pushing, Avoid Pinching/Bending Cleanse incision/area with: Keep Dressing Clean & Dry Additional Instructions: If you experience any of the following, contact your healthcare provider. * Bleeding that soaks a pad every hour for 2 hours * Fever 100.4 or higher * Unrelieved incision or abdominal pain * Swelling, redness, discharge or bleeding from your incision or episiotomy site * Your incision begins to separate * Problems urinating (including inability to urinate or burning while urinating). * Visual changes * Severe headache * Flu-like symptoms * Pain or redness in one of both of your breasts * Pain, warmth, tenderness or swelling in your legs, especially the calf area * Frequent nausea and vomiting * Symptoms of depression or anxiety If you experience any of the following, call 911 or go to the nearest Emergency Room. * Chest pain * Problems breathing * Seizure activity * Partial or complete paralysis of a body part, slurred speech, weakness or drooping of the face, or a sudden inability to walk or hold your balance Allergies/Adverse Reactions: Allergies No Known Allergies Allergy (Verified 02/18/20 11:21) Medications to take at Discharge vitamin#30 30 mg iron-10 mg iron-folic acid 1 mg-omg3 capsule cap PO 12/21/19 promethazine 12.5 mg tablet 12.5 mg PO Q6H PRN #120 tab 12/21/19 acetaminophen 325 mg capsule 325 mg PO ONCE PRN 03/30/20 Naproxen [Naprosyn] 250 - 500 mg PO Q8H PRN PRN #30 tab 04/13/20 Oxycodone HCl/Acetaminophen [Percocet 5-325] 1 - 2 tab PO Q6H PRN PRN 7 Days #15 tab 04/13/20 The following prescriptions were given: Naproxen [Naprosyn] 250 - 500 mg PO Q8H PRN PRN #30 tab PRN Reason: MILD PAIN Transmission Status: Received by [facility] Oxycodone HCl/Acetaminophen [Percocet 5-325] 1 - 2 tab PO Q6H PRN PRN 7 Days #15 tab PRN Reason: Pain Transmission Status: Received by [facility] Follow-Up: Call to make an appointment with your doctor for an incision check in 1-2 weeks. You will also need a 6 week post- follow up appointment. Test results from this visit will be discussed in further detail at your follow- up appointment, if applicable. Primary Care Physician: Benedict Sharp DO [Primary Care Provider] -
[2020-04-17] MEDS: Senna/Docusate Sodium 1 Tablet PO (09:23)
--- NOTE | 2020-04-17 12:33 | CASEMGMT ---
Social Work Labor and Delivery Unit Summary: Medical records reviewed for both mother of baby (MOB) and . Noted, and appreciated, nursing documentation. Concern regarding soiled diaper with specimen for baby's drug screen, found in the parents luggage. Repeated concerns noted for safe sleeping, with multiple interventions on safe sleep education. Baby's urine drug screen positive for marijuana; meconium and fentanyl screens are pending. Noted MIGUEL ANGEL scores have been ranging from 0 to 6, with most recent score a 4. Confirmed with the quill layer that baby is okay for discharge today. No drug screen performed for MOB. Called [facility] ([facility]) and spoke with Dakota Small at [phone], extension [phone]. Update given. [facility] requests call back with update when aware of discharge time frame. Met with MOB alone in room who was working on breast feeding. MOB reports the father of baby is not at hospital and will not be coming back today as is reportedly working. Through conversation MOB shared that FOB left on Friday and has not been back since. MOB reports had become uncomfortable with MOB's mother watching MOB's son Domingo, so MOB had a friend go to pick Domingo up and then FOB eventually took over care once home. MOB confirmed that MOB's father continued to watch MOB's older daughter. Explored with MOB how things are going and plan for discharge. MOB reports her father will pick the MOB and baby up at discharge, and while family welfare social work professor in the room the MOB's father called in. The father can pick MOB up no later than 1530. MOB reports breast feeding is going well and reports intent to continue with the feeding schedule. Reviewed again with the MOB recommendation for non-usage of marijuana while breast feeding. MOB shook head in the affirmative, and made comment that thinks will be able to eat now that MOB is no longer (use of marijuana during reportedly to help with nausea). This program writer addressed with MOB as to why the baby's diaper was in the parents luggage. MOB reported that she handed the diaper to the FOB, who set the diaper on the floor and then took a shower. MOB reported that initial thought FOB had thrown the diaper away. Addressed safe sleeping and reinforced this with MOB. MOB reported that she knows what she is doing, as had 2 other kids at home who are perfect, but will go along with what is being told by staff. MOB reports to know that it is not okay to have extra blankets and items in baby's sleep space. Let MOB know that [facility] will likely be making contact with MOB at some point today. Checked in with nursing and quill layer. 1529 discharge timeframe discussed. This program writer did check on what prescriptions were given to MOB for home goin count Percocet and some Naprosyn on 04.13.2020. Called Dakota at [facility] and updated to discharge time frame, MOB's responses this date, and also home going prescription given on 04.13.2020. Dakota will be following up with this family later today. No reason to hold baby. Assessment: MOB polite, cooperative, and pleasant with family welfare social work professor. Laughed when family welfare social work professor broached the diaper in the luggage concern. MOB working on breast feeding baby and appeared to handle baby appropriately. MOB continues to be in agreement for Head start referral. MOB reports to have needed items to care for the baby. Interventions: Faxed Head Start/Early Head Start referral form this date. CS updated. Plan: MOB and baby to discharge home today with [facility] to follow up later today, likely after discharge. MOB has been provided with community resource lists for home going, information on mood and anxiety disorders, and Head Start referral. No other services requested or indicated other than to monitor for pending drug screen results for baby. -CAROLYNE Melara, VARNISH MELTER
[2020-04-17] MEDS: oxyCODONE 5 MG Tablet PO (13:29)
[2020-04-17 13:35] VITALS: BP 130/87; PULSE 92; RESP 18; TEMP 37.1
--- NOTE | 2020-04-17 15:31 | NURSING ---
was told by dr chappell that the office would call her to make apt.
--- NOTE | 2020-04-17 15:45 | NURSING ---
1535- discharged off unit with baby in carseat on her lap. has scheduled ped follow up tomorrow and states she is going to wait until dr jameson office calls her to schedule her follow.
--- NOTE | 2020-04-27 11:00 | CASEMGMT ---
Social Work Labor and Delivery Unit Meconium drug screen results are back for baby, refer to baby's chart (linked to this visit record) for details. Spoke with Dakota Small at [facility] ([phone], extension [phone]) to update. No other services requested or indicated. -CAROLYNE Melara, PATIENT PARTNER
== END 2020-04-17 15:35 | disposition home or self-care (01) | DRG 540 ==
PROVIDERS: Admitting Provider Obstetrics & Gynecology; PCP Preventive Medicine Occupational Medicine; Referring Provider Obstetrics & Gynecology; Visit Provider Obstetrics & Gynecology
PROC: 10D00Z1 Extraction of Products of Conception, Low, Open Approach (ICD-10-PCS; CPT 59514; principal; 2020-04-13 07:15)
DX: O34.211 Maternal care for low transverse scar from previous cesarean delivery (principal); O69.1XX0 Labor and delivery complicated by cord around neck, with compression, not applicable or unspecified; O34.03 Maternal care for unspecified congenital malformation of uterus, third trimester; O99.354 Diseases of the nervous system complicating childbirth; G43.909 Migraine, unspecified, not intractable, without status migrainosus; F12.10 Cannabis abuse, uncomplicated; O99.324 Drug use complicating childbirth; Z3A.39 39 weeks gestation of pregnancy; Q51.3 Bicornate uterus; Z91.19 Patient's noncompliance with other medical treatment and regimen; Z37.0 Single live birth
CPT/HCPCS: 59025; 59050; 84112; 85025; 85027; 86850; 86900; 86901; 87426; 99218; J7120; A4216; G0378; J2405

== ENCOUNTER 2020-12-24 09:17 | Emergency (ER) | payer MEDICAID, SELFPAY ==
[2020-12-24 09:18] VITALS: BP 128/93; PULSE 107; RESP 14; TEMP 36.2; O2SAT 98; BMI 23.5
--- NOTE | 2020-12-24 10:17 | EX.ED.DYSGE1 ---
HPI History of Present Illness Chief Complaint: Other, Pain/Inj Informant: patient Narrative Narrative: Patient is a 30-year-old female presenting with pain and swelling from her left nose. She states is been going on for the past 2 to 3 days. It is painful in nature. Has been taking Tylenol with minimal relief. She states that she does warm compress she will get some green drainage from the outside of her nose. She denies any nasal piercing. She noted something similar on the right side about a month ago but she was able to drain it and it resolved on its own. She denies any fever or systemic symptoms. No other complaints at this time. [facility] Medical History Anxiety and depression Home Medications cephalexin 500 mg PO Q6 7 Days #28 cap 12/24/20 [Rx Last Taken Unknown] ibuprofen 600 mg PO Q6H PRN PRN #20 tab 12/24/20 [Rx Last Taken Unknown] sulfamethoxazole-trimethoprim [Bactrim DS] 1 tab PO Q12H #14 tab 12/24/20 [Rx Last Taken Unknown] Allergy/AdvReac Type Severity Reaction Status Date / Time No Known Allergies Allergy Verified 12/24/20 09:21 Family History Grandmother Diabetes Cancer lung- smoker Surgical History delivery delivered History of cholecystectomy Social History Smoking Status: Never smoker alcohol intake: never substance use type: marijuana caffeine: Yes what type of physical activity do you participate in: none seatbelt use: always do you feel safe at home: Yes 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 ROS ROS ED Constitutional Constitutional ED: Denies chills or fever(s) ENT ENT ED: Reports other Details: left nose pain ; Denies rhinorrhea or sore throat Cardiovascular Cardiovascular: Denies chest pain Respiratory/Chest Respiratory/Chest: Denies dyspnea Gastrointestinal Gastrointestinal: Denies abdominal pain or vomiting Musculoskeletal Musculoskeletal: Denies arthralgias or myalgias Integumentary Reports abscess; Denies rash Neurologic Neurologic: Denies headache(s) EXAM Physical Exam Const Vital Signs: 12/24/20 09:18 Temperature 97.1 F L Temperature Source Temporal Pulse Rate 107 H Respiratory Rate 14 Blood Pressure 128/93 H Blood Pressure Mean 104 Pulse Ox 98 Oxygen Delivery Method Room Air Positive well nourished and well developed General Appearance ED: well developed HEENT Reports normocephalic, TM's normal bilaterally and moist mucous membranes Face and Sinus: sinuses nontender Nose: nasal mucous membranes and turbinates normal and external nose abnormal nasal tenderness (left ) and nasal swelling (left) Eyes PERRL Neck no lymphadenopathy and supple Chest Wall inspection of chest normal Resp normal respiratory effort and clear to auscultation bilaterally Cardio regular rate, regular rhythm and no murmurs Extremity normal to inspection Neuro oriented x3 and CN's II-XII intact bilaterally Sensorium / Orientation: alert Psych mental status grossly normal Skin Skin Narrative: 1 cm irregular area of erythema with some slight induration and very tender to palpation over left nares. Consistent with a small abscess. MDM MDM MDM Narrative Medical decision making narrative: Patient is evaluated for pain and swelling of her left nares. She is bedside ultrasound for myself does show a very small pocket of abscess. There is no occlusion or obvious abscess of the nasal passage on the left. Attempted needle aspiration however no purulent material was expressed/obtained. Patient started on Bactrim and Keflex. Given ENT for outpatient follow-up. Given Motrin 600mg for pain control. Given first dose of all medications in the emergency room. Counseled return precautions. Counseled to continue doing warm compresses to encourage further drainage. Discharge Plan Triage Chief Complaint: Other, Pain/Inj ED Provider: Ashley Horta Dx/Rx/DC Orders Clinical Impression: Abscess of external nose Instructions: ED Abscess Antibiotic Treatment Only Prescriptions: New sulfamethoxazole-trimethoprim [Bactrim DS] 800-160 mg tablet 1 tab PO Q12H Qty: 14 RF: 0 cephalexin 500 mg capsule 500 mg PO Q6 7 Days Qty: 28 RF: 0 ibuprofen 600 mg tablet 600 mg PO Q6H PRN PRN (Reason: fever or pain) Qty: 20 RF: 0 Primary Care Provider: Benedict Sharp Referrals: Terrance Leigh MD [STAFF PHYSICIAN] - 3-5 Days if not improving Benedict Sharp DO [Primary Care Provider] - Activity Restrictions/Additional Instructions: Continue to do warm compresses multiple times a day to help encourage further drainage. Disposition Disposition: Home, Self Care
[2020-12-24] MEDS: Ibuprofen 600 MG Tablet PO (10:21)
[2020-12-24] MEDS: Cephalexin 500 MG Capsule PO (10:24)
[2020-12-24] MEDS: Smz/Tmp Ds Tablet 1 TABLET PO (10:24)
== END 2020-12-24 10:46 | disposition home or self-care (01) ==
PROVIDERS: Emergency Provider Emergency Medicine; PCP Preventive Medicine Occupational Medicine
DX: J34.0 Abscess, furuncle and carbuncle of nose (principal); F41.9 Anxiety disorder, unspecified; F32.9 Major depressive disorder, single episode, unspecified
CPT/HCPCS: 10060; 99281; 99283

== ENCOUNTER 2021-02-15 09:08 | Observation (INO) | payer MEDICAID, SELFPAY ==
[2021-02-15 09:10] VITALS: BP 136/107; PULSE 113; RESP 16; TEMP 36.7; O2SAT 100; BMI 25.0
--- NOTE | 2021-02-15 09:34 | EDS_ITS ---
HPI History of Present Illness Chief Complaint: Substance Abuse Informant: patient Onset/Context/Timing Onset: Yesterday Context: Gradual Onset Timing: Continuous Associated Symptoms Associated Symptoms: Positive for no; Negative for vomiting*, diarrhea*, fever*, rash*, seizure, tremor, palpatations, change in mental sta tus, suicidal ideation and homicidal ideation Narrative Narrative: Patient presents requesting detox from opiates. Patient states she uses fentanyl. Patient states her last use was yesterday. Patient states she has never been through detox before. Patient states she only uses a small amount. Patient states she is going through this program in order to get custody of her children back. Patient admits to occasional alcohol use but does not feel she needs detox for that. Patient denies any nausea or vomiting. Patient denies any fevers or chills. Patient denies any suicidal or homicidal ideations. [facility] Medical History Anxiety and depression Home Medications cephalexin 500 mg PO Q6 7 Days #28 cap 12/24/20 [Rx Last Taken Unknown] ibuprofen 600 mg PO Q6H PRN PRN #20 tab 12/24/20 [Rx Last Taken Unknown] sulfamethoxazole-trimethoprim [Bactrim DS] 1 tab PO Q12H #14 tab 12/24/20 [Rx Last Taken Unknown] Allergy/AdvReac Type Severity Reaction Status Date / Time No Known Allergies Allergy Verified 02/15/21 09:11 Family History Grandmother Diabetes Cancer lung- smoker Surgical History delivery delivered History of cholecystectomy Social History (Updated 02/15/21 @ 09:[address] 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 ROS ROS ED Constitutional Constitutional ED: Reports chills and subjective; Denies fever(s) Eyes Eyes: Denies blurry vision or change in vision ENT ENT ED: Denies rhinorrhea or sore throat Cardiovascular Cardiovascular: Denies chest pain or palpitations Respiratory/Chest Respiratory/Chest: Denies cough or dyspnea Gastrointestinal Gastrointestinal: Denies nausea or vomiting Genitourinary Genitourinary ED: Denies dysuria or hematuria Musculoskeletal Musculoskeletal: Denies back pain or neck pain Integumentary Denies abscess or rash Neurologic Neurologic: Denies headache(s) or weakness Allergic/Immunologic Allergic/Immunologic ED: Denies mouth swelling or urticaria EXAM Physical Exam Const Vital Signs: 02/15/21 09:10 Temperature 98.0 F Temperature Source Temporal Pulse Rate 113 H Respiratory Rate 16 Blood Pressure 136/107 H Blood Pressure Mean 116 Pulse Ox 100 Oxygen Delivery Method Room Air Positive well nourished and well developed General Appearance ED: well developed HEENT Reports moist mucous membranes Neck supple and no JVD Resp normal respiratory effort and clear to auscultation bilaterally Cardio regular rate, regular rhythm and no murmurs GI normal to inspection, nondistended, normoactive bowel sounds and non-tender Palpation: soft Extremity normal to inspection General Extremety ED: Negative for edema or tenderness General Extremity: Negative for edema Neuro oriented x3, CN's II-XII intact bilaterally and no sensory deficits noted Sensorium / Orientation: alert Motor Exam: strength 5/5 throughout Psych mental status grossly normal Skin no rashes or lesions noted MDM MDM MDM Narrative Medical decision making narrative: CBC and comprehensive metabolic profile were obtained were within normal limits. Serum alcohol level was 10. Serum hCG was negative. Case was discussed with the hospitalist. He will admit the patient to his service. Patient understands and is agreeable with the plan. All questions were answered. Lab Data Attestation: I reviewed the patient's lab results. Labs: Laboratory Results - last 24 hr 02/15/21 02/15/21 02/15/21 09:37 09:37 09:37 WBC 5.0 RBC 4.57 Hgb 12.8 Hct 39.3 MCV 86.0 MCH 28.0 MCHC 32.6 RDW Std Deviation 41.4 RDW Coeff of Steve 13.2 Plt Count 283 MPV 9.3 Immature Gran % (Auto) 0.200 Neut % (Auto) 60.7 Lymph % (Auto) 26.0 [place] % (Auto) 7.1 Eos % (Auto) 5.2 H Baso % (Auto) 0.8 Absolute Neuts (auto) 3.1 Absolute Lymphs (auto) 1.31 Nucleated RBC % 0 Sodium 140 Potassium 3.3 L Chloride 106 Carbon Dioxide 26.0 Anion Gap 8 BUN 7 Creatinine 0.68 Estim Creat Clear Calc 109.84 Est GFR (MDRD) Af Amer 132 Est GFR (MDRD) Non-Af 109 BUN/Creatinine Ratio 10.4 Glucose 98 Calcium 8.4 L Total Bilirubin 0.20 AST 15 ALT 16 Alkaline Phosphatase 80 Total Protein 6.8 Albumin 3.1 L Globulin 3.7 Albumin/Globulin Ratio 0.8 L Serum , Qual Ethyl Alcohol 10.0 02/15/21 09:37 WBC RBC Hgb Hct MCV MCH MCHC RDW Std Deviation RDW Coeff of Steve Plt Count MPV Immature Gran % (Auto) Neut % (Auto) Lymph % (Auto) [place] % (Auto) Eos % (Auto) Baso % (Auto) Absolute Neuts (auto) Absolute Lymphs (auto) Nucleated RBC % Sodium Potassium Chloride Carbon Dioxide Anion Gap BUN Creatinine Estim Creat Clear Calc Est GFR (MDRD) Af Amer Est GFR (MDRD) Non-Af BUN/Creatinine Ratio Glucose Calcium Total Bilirubin AST ALT Alkaline Phosphatase Total Protein Albumin Globulin Albumin/Globulin Ratio Serum , Qual NEGATIVE Ethyl Alcohol Treatment and Re-Evaluation Vital Sign Attestation:: Vital signs reviewed prior to admission. There is a mild tachycardia. Remaining vital signs are stable. Discharge Plan Triage Chief Complaint: Substance Abuse ED Provider: Teo Quintero Dx/Rx/DC Orders Clinical Impression: Opiate withdrawal Prescriptions: No Action sulfamethoxazole-trimethoprim [Bactrim DS] 800-160 mg tablet 1 tab PO Q12H Qty: 14 RF: 0 cephalexin 500 mg capsule 500 mg PO Q6 7 Days Qty: 28 RF: 0 ibuprofen 600 mg tablet 600 mg PO Q6H PRN PRN (Reason: fever or pain) Qty: 20 RF: 0 Primary Care Provider: Benedict Sharp Referrals: Benedict Sharp DO [Primary Care Provider] - Disposition Disposition: Acute Care Hospital [facility]
[2021-02-15 09:45] LABS: Absolute Lymphocyte Count 1.31 X10^3/uL (0.83-4.51); Absolute Neutrophil Count 3.1 X10^3/uL (2.0-7.7); Basophil# 0.04 X10^3/uL; Basophil% 0.8 % (0-1); Eosinophil# 0.26 X10^3/uL; Eosinophils% 5.2 % (0-5); Hematocrit 39.3 % (37-47); Hemoglobin 12.8 g/dL (12.0-15.0); Lymphocyte # 1.31 X10^3/ul (0.83-4.51); Mean Corp Hgb Conc 32.6 g/dL (32-36); Mean Platelet Vol. 9.3 fl (6.2-12.0); Monocyte# 0.36 X10^3/uL; Monocyte% 7.1 % (0-10); NRBC Flagged by Analyzer 0 % (0-5); Neutrophil # 3.06 X10^3/uL (2.7-7.7); Neutrophil % 60.7 % (47-70); Platelet Count 283 K/mm3 (150-450); RBC Distribution Width CV 13.2 % (11.6-14.6); RBC Distribution Width SD 41.4 fl (35.1-43.9); Red Blood Count 4.57 M/mm3 (4.2-5.4)
[2021-02-15 10:05] LABS: Internal QC Validated? YES +Cl - CLEAR BKGD; Pregnancy, Serum, hCG Quali. NEGATIVE Negative
[2021-02-15 10:07] LABS: ALB/GLOB Ratio 0.8 RATIO (0.9-2.4); AST(SGOT) 15 U/L (15-37); Alanine Aminotransfer ALT/SGPT 16 U/L (13-56); Albumin, Serum 3.1 g/dL (3.2-5.0); Alkaline Phosphatase 80 U/L (45-117); Anion Gap 8 (5-15); BUN 7 mg/dL (7-18); BUN/Creat Ratio 10.4 RATIO (10-20); Calcium,Total 8.4 mg/dL (8.5-10.1); Chloride 106 mmol/L (98-107); Creatinine, Serum 0.68 mg/dL (0.55-1.02); EST Glomerular Filtration Rate 109 mL/min (>60); Est Glom Filt Rate - Afr Amer 132 mL/min (>60); Estimated Creatinine Clearance 109.84 ml/min; Globulin 3.7 g/dL (2.2-4.2); Glucose 98 mg/dL (74-106); Potassium 3.3 mmol/L (3.5-5.1); Protein, Total 6.8 g/dL (6.4-8.2); Sodium Level 140 mmol/L (136-145)
--- NOTE | 2021-02-15 10:29 | CM.ED ---
Addendum entered by Yola Franklin 02/15/21 21:12: DORENE updated SCARLET Martinez Addiction Therapist regarding patient's admission to [facility] program. Yola BORGES Original Note: DORENE Note Referral Source: Case Find Referral Reason: LORNA CATHERINE noted that patient presented to the ED for detox. Patient reports that she is not currently linked with [facility]. She reports no past AOD or detox treatment. Patient said that she came to the ED for detox. Patient reports drug of choice is Fentanyl. Patient reports using meth a couple of times and that a friend gave me a Xanax last night. Patient reports that she recently used Fentanyl yesterday and when asked amount she said not alot. SW asked patient to quantify how much sshe uses and patient said she is not spending money on fentanyl and said that the amount she gets she splits into 2's and 3's. DORENE discussed [facility] program and guidelines and patient was in agreement with admission for detox. DORENE called MENG Martinez Addiction Counselor and left voice mail message to call this financial writer. Plan: LORNA BORGES
[2021-02-15 11:07] VITALS: BP 129/74; PULSE 76; RESP 15; TEMP 36.8; O2SAT 98
--- NOTE | 2021-02-15 11:31 | PCS.PANDOC ---
PANDEMIC DOCUMENTATION INITIATED: Date: 12/04/2020 Time: 190
[2021-02-15 11:58] VITALS: BMI 25.0
[2021-02-15 12:30] VITALS: BP 141/97; PULSE 90; RESP 16; TEMP 36.6; O2SAT 100
[2021-02-15] MEDS: Buprenorphine HCl 2 MG TAB.SUBL SL ×2 (12:42→20:16)
[2021-02-15] MEDS: Methocarbamol 750 MG Tablet 1500 MG PO ×2 (12:42→20:15)
[2021-02-15] MEDS: hydrOXYzine PAM 25 MG Capsule 50 MG PO ×2 (12:42→20:15)
--- NOTE | 2021-02-15 13:45 | PCM.HP.STD ---
Documented by User: Castro MAHAN 02/15/21 14:19 HPI - General General Date of Admission: 02/15/21 Date of Service: 02/15/21 Chief Complaint: Fentanyl detoxification HPI Narrative Farheen Lowry is a 30-year-old female who presents to the ED at [facility] on 02/15/2021 requesting detoxification from fentanyl and medical stabilization for impending withdrawal. Patient is unaware of how much fentanyl she uses, although endorses that she uses a very small amount, and that she usually snorts it. Patient reports that her last time of use was 02/14 around noon. Patient reports that she has been using fentanyl for about the past 2 months. Patient endorses fatigue and some restlessness in her legs, but is otherwise stable. Does not appear in acute distress denies chest pain, shortness of breath, palpitations, hemoptysis, sputum production, fever, chills, N/V/D. [facility] Medical History Alcohol abuse Anxiety and depression Non-smoker Substance abuse Home Medications ibuprofen 600 mg PO Q6H PRN PRN #20 tab 12/24/20 [Rx Last Taken Unknown] escitalopram oxalate [Lexapro] 10 mg PO DAILY 02/15/21 [History Last Taken Unknown] Allergy/AdvReac Type Severity Reaction Status Date / Time No Known Allergies Allergy Verified 02/15/21 09:11 Family History Grandmother Diabetes Cancer lung- smoker Surgical History delivery delivered History of cholecystectomy Social History Smoking Status: Never smoker alcohol intake: never substance use type: marijuana and opiates caffeine: Yes what type of physical activity do you participate in: none seatbelt use: always do you feel safe at home: Yes 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 ROS Constitutional Constitutional: Reports fatigue; Denies anorexia, change in weight, chills, fever(s), malaise, night sweats, weakness or other Eyes Eyes: Denies blurry vision, change in eye color, change in vision, discharge from eye(s), double vision, erythema, eye pain, loss of vision or other ENT HEENT: Denies abnormal hearing, dysphagia, ear pain, epistaxis, headache(s), hearing loss, nasal congestion, nasal discharge, post nasal drip, sinus pressure, sore throat or other Cardiovascular Cardiovascular: Denies chest pain, claudication, dyspnea on exertion, edema, lightheadedness, orthopnea, palpitations, paroxysmal nocturnal dyspnea, rapid heart rate, syncope or other Respiratory/Chest Respiratory/Chest: Denies cough, dyspnea, excessive phlegm production, hemoptysis, productive cough, shortness of breath at rest, shortness of breath with exertion, wheezing or other Gastrointestinal Gastrointestinal: Denies abdominal pain, coffee ground emesis, constipation, diarrhea, dyspepsia, hematemesis, hematochezia, loose stools, melena, nausea, vomiting or other Genitourinary Genitourinary: Denies burning urination, difficulty urinating, dysuria, hematuria, nocturia, urinary frequency, urinary hesitancy, urinary incontinence, urinary urgency or other Musculoskeletal Musculoskeletal: Denies arthralgias, back pain, joint pain, joint stiffness, joint swelling, myalgias, neck pain or other Neurologic Neurologic: Denies abnormal gait, abnormal speech, confusion, disequilibrium, dizziness, focal weakness, headache(s), numbness, paresthesias, seizure-like activity, seizures, syncope, tingling, tremor(s) or other Psychiatric Psychiatric: Denies anxiety, depression, homicidal ideation, suicidal ideation or other Endocrine Endocrinology: Denies change in body appearance, cold intolerance, excessive sweating, heat intolerance, polydipsia, polyuria or other Hematologic/Lymphatic Hematologic/Lymphatic: Denies anemia, easy bleeding, easy bruising, lymphadenopathy or other Allergic/Immunologic Allergic/Immunologic: Denies rhinitis, hives, eczemia, asthma or other Vital Signs Vital Signs Vital Signs: 02/15/21 09:10 02/15/21 11:07 02/15/21 12:30 Temperature 98.0 F 98.2 F 97.8 F Temperature Source Temporal Oral Temporal Pulse Rate 113 H 76 90 Respiratory Rate 16 15 16 Respiratory Effort Respiratory Depth Respiratory Pattern Blood Pressure 136/107 H 129/74 H 141/97 H Blood Pressure Mean 116 92 111 Blood Pressure Source Monitor Blood Pressure Position Semi-Fowlers Blood Pressure Location Left Arm Pulse Ox 100 98 100 Oxygen Delivery Method Room Air Room Air Room Air 02/15/21 12:31 Temperature Temperature Source Pulse Rate Respiratory Rate Respiratory Effort Normal Non-Labored Respiratory Depth Normal Respiratory Pattern Normal Blood Pressure Blood Pressure Mean Blood Pressure Source Blood Pressure Position Blood Pressure Location Pulse Ox Oxygen Delivery Method Room Air Weight Weight: 150 lb 2.157 oz Body Mass Index (BMI) 25.0 Physical Exam Const alert, oriented x3 and no apparent distress HEENT normocephalic, head/scalp atraumatic and hearing grossly normal bilaterally Eyes PERRL, EOMs intact bilaterally and conjunctivae normal Neck no lymphadenopathy, supple and no JVD Resp normal respiratory effort, no retractions, no use of accessory muscles and clear to auscultation bilaterally Cardio regular rate, regular rhythm, no murmurs and no JVD GI normal to inspection, nondistended, normoactive bowel sounds, soft to palpation and non-tender Extremity normal to inspection, full ROM and no clubbing, cyanosis or edema Peripheral Pulses: Yes pulses 2+ throughout Skin no rashes or lesions noted, no wounds, skin turgor normal and no jaundice Neuro CN's II-XII intact bilaterally Psych affect normal Results Lab / Micro Data Result Diagrams: 02/15/21 09:37 02/15/21 09:37 Labs: Laboratory Results - last 24 hr 02/15/21 09:37: WBC 5.0, RBC 4.57, Hgb 12.8, Hct 39.3, MCV 86.0, MCH 28.0, MCHC 32.6, RDW Std Deviation 41.4, RDW Coeff of Steve 13.2, Plt Count 283, MPV 9.3, Immature Gran % (Auto) 0.200, Neut % (Auto) 60.7, Lymph % (Auto) 26.0, [place] % (Auto) 7.1, Eos % (Auto) 5.2 H, Baso % (Auto) 0.8, Absolute Neuts (auto) 3.1, Absolute Lymphs (auto) 1.31, Nucleated RBC % 0 02/15/21 09:37: Sodium 140, Potassium 3.3 L, Chloride 106, Carbon Dioxide 26.0, Anion Gap 8, BUN 7, Creatinine 0.68, Estim Creat Clear Calc 109.84, Est GFR (MDRD) Af Amer 132, Est GFR (MDRD) Non-Af 109, BUN/Creatinine Ratio 10.4, Glucose 98, Calcium 8.4 L, Total Bilirubin 0.20, AST 15, ALT 16, Alkaline Phosphatase 80, Total Protein 6.8, Albumin 3.1 L, Globulin 3.7, Albumin/Globulin Ratio 0.8 L 02/15/21 09:37: Ethyl Alcohol 10.0 02/15/21 09:37: Serum , Qual NEGATIVE Assessment & Plan Assessment/Plan (1) Fentanyl dependence: (2) Opiate withdrawal: PLAN: Patient is a 30-year-old female who presents to the ED at [facility] on 02/15/2021 requesting detoxification from fentanyl and medical stabilization. 1) benzo dependence/impending opiate withdrawal Patient endorses a 2-month history of snorting a very small amount of fentanyl. Patient reports that her last use was 02/14 at noon. Patient endorses fatigue and restless legs, but denies any other symptoms. Plan; placed on MS to 4 observation, 180 behavioral consult ordered, initiate buprenorphine taper, Bentyl as needed, Vistaril as needed, methocarbamol as needed, clonidine as needed, trazodone as needed, Zofran as needed, Imodium as needed, Tylenol as needed, Motrin as needed. 2) depression Continue Lexapro. DVT prophylaxis - low risk, not indicated Patient seen by Castro Brewer PA-C, under the supervision of Dr. Quinones. Documented by User: Dr. Augusto Quinones DO 02/15/21 18:28 HPI - General General Date of Admission: 02/15/21 [facility] Medical History Alcohol abuse Anxiety and depression Non-smoker Substance abuse Home Medications ibuprofen 600 mg PO Q6H PRN PRN #20 tab 12/24/20 [Rx Last Taken Unknown] escitalopram oxalate [Lexapro] 10 mg PO DAILY 02/15/21 [History Last Taken Unknown] Allergy/AdvReac Type Severity Reaction Status Date / Time No Known Allergies Allergy Verified 02/15/21 09:11 Family History Grandmother Diabetes Cancer lung- smoker Surgical History delivery delivered History of cholecystectomy Social History Smoking Status: Never smoker alcohol intake: never substance use type: marijuana and opiates caffeine: Yes what type of physical activity do you participate in: none seatbelt use: always do you feel safe at home: Yes 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 Patient states she has been snorting fentanyl for several months, she has not used fentanyl before this time. Patient is having some restlessness, the last time she is fentanyl was yesterday. Patient denies any other illicit drug use other than marijuana. On examination she appeared her stated age, she does not appear to be in any distress, she appears to be slightly restless. Vital signs as documented. Skin warm and dry and without overt rashes. Neck without JVD, thyroid appears normal, trachea is midline, neck is supple. Lungs clear, normal air movement was noted. Heart exam notable for regular rhythm, normal sounds and absence of murmurs, rubs or gallops. Abdomen unremarkable and without evidence of organomegaly, masses, or abdominal aortic enlargement, bowel sounds are present in all 4 quadrants, no abdominal tenderness was noted. Extremities nonedematous, no cyanosis was noted, no clubbing was noted. Neuro: Cranial nerves II through XII are grossly intact, no focal motor deficits were noted, sensation to light touch and pinprick is intact, motor exam 5/5 throughout. Psych: Patient is alert and oriented x3, she does not appear anxious or depressed, she does not appear agitated. I have reviewed Castro Brewer's history and physical including his medical assessment and plan of care and endorse it, orders were entered using the opiate detox order set. Patient saw 180 today, she desired outpatient detox services. Visit Charges Inpatient E&M: 13762 Init Hosp L3
--- NOTE | 2021-02-15 15:11 | ADDICTION ---
This magnetic tape typewriter operator met with PT to conduct ASAM, MSE, AUDIT assessments and to plan for d/c. PT A+Ox4 and participated actively. All assessments completed, faxed to [facility] and placed in PT's chart. PT plans to f/u with individual counselor at [facility] for follow-up counseling services. PT did not indicate a need for transportation post d/c from [facility].
[2021-02-15] MEDS: Escitalopram Oxalate 10 MG Tablet PO (17:59)
[2021-02-15] MEDS: Ibuprofen 600 MG Tablet PO (17:59)
[2021-02-15] MEDS: cloNIDine HCl 0.1 MG Tablet PO (17:59)
[2021-02-15 18:04] VITALS: BP 150/88; PULSE 87; RESP 17; TEMP 36.6; O2SAT 100
[2021-02-15 20:08] VITALS: BP 143/78; PULSE 104; RESP 18; TEMP 36.6; O2SAT 93
[2021-02-15] MEDS: Acetaminophen 325 MG Tablet 650 MG PO (20:15)
[2021-02-15 23:42] VITALS: BP 135/96; PULSE 73; RESP 18; TEMP 36.4; O2SAT 97
[2021-02-15] MEDS: traZODone 100 MG Tablet PO (23:46)
[2021-02-16 00:02] LABS: Color, Urine Yellow (Yellow); Glucose, Dipstick Normal (Normal); Ketone-Dipstick 5 mg/dl (Negative); Leukocyte Esterase-Dipstick 100 /ul (Negative); Nitrite-Dipstick Negative (Negative); Occult Blood-Urine 25 /ul (Negative); Protein-Dipstick 15 mg/dl (Negative); Specific Gravity, Urine 1.015 (1.002-1.030); Urine Bilirubin Dipstick Negative (Negative); Urine Clarity Sl. Cloudy (Clear); Urine Urobilinogen Normal (Normal)
[2021-02-16 00:15] LABS: Amphetamine Urine VISTA POSITIVE (<1000 ng/mL); Barbiturate Urine VISTA NEGATIVE (< 200 ng/mL); Benzodiazepine Urine VISTA POSITIVE (< 200 ng/mL); Cocaine Urine VISTA NEGATIVE (< 300 ng/mL); Ecstacy Urine VISTA NEGATIVE (< 500 ng/mL); Methadone Urine VISTA NEGATIVE (< 300 ng/mL); PCP Urine VISTA NEGATIVE (< 25 ng/mL); THC Urine VISTA POSITIVE (< 50 ng/mL); Vista UDS pH Range 7
[2021-02-16 00:21] LABS: Bacteria 2+ /hpf (None Seen); Mucous, Urine 2+ /hpf (<or=2+); Red Blood Cells-Urine 5-10 SEEN /hpf (0-5); Squamous Epithelial Cells - UA 10-25 SEEN /hpf (5-10); Transitional Epithelial - Ur 10-25 SEEN /hpf (0-5); White Blood Cells 0-5 SEEN /hpf (0-5)
[2021-02-16 00:22] LABS: Calcium Oxalate Crystals Ur RARE /hpf (<or=2+)
[2021-02-16] MEDS: Ibuprofen 600 MG Tablet PO ×3 (02:59→22:37)
[2021-02-16] MEDS: cloNIDine HCl 0.1 MG Tablet PO ×2 (02:59→16:28)
[2021-02-16 04:33] VITALS: BP 138/83; PULSE 72; RESP 18; TEMP 36.5; O2SAT 98
[2021-02-16] MEDS: Buprenorphine HCl 2 MG TAB.SUBL SL ×3 (04:37→19:56)
[2021-02-16] MEDS: hydrOXYzine PAM 25 MG Capsule 50 MG PO ×4 (08:09→22:37)
[2021-02-16] MEDS: Methocarbamol 750 MG Tablet 1500 MG PO ×3 (08:09→22:37)
[2021-02-16] MEDS: Dicyclomine 10 MG Capsule 20 MG PO ×2 (08:10→19:58)
[2021-02-16 08:30] VITALS: BP 113/65; PULSE 76; RESP 16; TEMP 36.4; O2SAT 97
--- NOTE | 2021-02-16 10:35 | PCM.PN.HOSP ---
Documented by User: Castro MAHAN 02/16/21 10:41 Subjective Subjective Patient is a 30-year-old female comfortably resting in bed, alert and orient x3. Patient reports of mild stomach cramping although denies any N/V/D. Denies any restless legs or irritability. Does not appear to be in acute distress. Denies chest pain, shortness of breath, palpitations, hemoptysis, sputum production, fever, chills, N/V/D. Objective Data Objective Data Vital Signs: Vital Signs Temp Pulse Resp BP Pulse Ox 97.7 F L 72 18 138/83 H 98 02/16/21 04:33 02/16/21 04:33 02/16/21 04:33 02/16/21 04:33 02/16/21 04:33 Oxygen Delivery Method Room Air Weight: 150 lb 2.157 oz Body Mass Index (BMI) 25.0 Intake & Output: Intake and Output for Last 24 Hours 02/14/21 02/15/21 02/16/21 23:59 23:59 23:59 Intake Total 640 / 640 1000 / 1000 Balance 640 / 640 1000 / 1000 Lab / Micro Data Result Diagrams: 02/15/21 09:37 02/15/21 09:37 Labs: Laboratory Results - last 24 hr 02/15/21 23:55: Urine Color Yellow, Urine Clarity Sl. Cloudy, Urine pH 7.0, Ur Specific [place] 1.015, Urine Protein 15 H, Urine Glucose (UA) Normal, Urine Ketones 5 H, Urine Occult Blood 25 H, Urine Nitrite Negative, Urine Bilirubin Negative, Urine Urobilinogen Normal, Ur Leukocyte Esterase 100 H, Urine RBC 5-10 SEEN, Urine WBC 0-5 SEEN, Ur Squamous Epith Cells 10-25 SEEN, Ur Transition Epith Cell 10-25 SEEN, Calcium Oxalate Crystal RARE, Urine Bacteria 2+, Urine Mucus 2+ 02/15/21 23:55: Urine Opiates Screen NEGATIVE, Urine Methadone Screen NEGATIVE, Ur Barbiturates Screen NEGATIVE, Ur Phencyclidine Scrn NEGATIVE, Ur Amphetamines Screen POSITIVE H, U Methamphetamin-MDMA NEGATIVE, U Benzodiazepines Scrn POSITIVE H, Urine Cocaine Screen NEGATIVE, U Cannabinoids Screen POSITIVE H, Ur Drug Screen Comment Physical Exam Const alert, oriented x3 and no apparent distress HEENT head/scalp atraumatic and moist oral mucous membranes Head and Scalp: normocephalic Eyes PERRL, EOMs intact bilaterally and conjunctivae normal Neck no lymphadenopathy, supple and no JVD Resp normal respiratory effort, no retractions, no use of accessory muscles and clear to auscultation bilaterally Cardio regular rate, regular rhythm, no murmurs and no JVD GI normal to inspection, nondistended, normoactive bowel sounds, soft to palpation and non-tender Extremity normal to inspection, full ROM and no clubbing, cyanosis or edema Skin no rashes or lesions noted, no wounds, skin turgor normal and no jaundice Neuro CN's II-XII intact bilaterally Psych affect normal Assessment & Plan Assessment/Plan (1) Fentanyl dependence: (2) Opiate withdrawal: PLAN: Day 1 Discharge planning: Patient to discharge home and follow-up with 180 as an outpatient when medically ready. 1) fentanyl dependence/impending opiate withdrawal Patient endorses mild abdominal cramps which she relates to menses and not withdrawal. Denies any N/V/D, leg cramping or irritability. Plan; remain on MS to 4 observation, continue buprenorphine taper, continue as needed medications. 2) depression Continue Lexapro. DVT prophylaxis - low risk, not indicated Patient seen by Castro Brewer PA-C, under the supervision of Dr. Quinones. Documented by User: Dr. Augusto Quinones DO 02/16/21 19:30 Objective Data Lab / Micro Data Result Diagrams: 02/15/21 09:37 02/15/21 09:37 Charges/Coding Addendum Addendum: Patient was seen and examined independently of Castro Brewer, she appeared anxious this afternoon and was given Vistaril according to nursing. Patient did not have any complaints of anxiety when I saw her earlier this morning. On examination she appeared in good health and spirits, she does not appear to be in any distress. Vital signs as documented. Skin warm and dry and without overt rashes. Neck without JVD, thyroid appears normal, trachea is midline, neck is supple. Lungs clear, normal air movement was noted. Heart exam notable for regular rhythm, normal sounds and absence of murmurs, rubs or gallops. Abdomen unremarkable and without evidence of organomegaly, masses, or abdominal aortic enlargement, bowel sounds are present in all 4 quadrants, no abdominal tenderness was noted. Extremities nonedematous, no cyanosis was noted, no clubbing was noted. Neuro: Cranial nerves II through XII are grossly intact, no focal motor deficits were noted, sensation to light touch and pinprick is intact, motor exam 5/5 throughout. Psych: Patient is alert and oriented x3, she does not appear anxious or depressed, she does not appear agitated. I have reviewed Castro Brewer's progress note including his medical assessment and plan of care and endorse it. Visit Charges Inpatient E&M: 63980 Subs Hosp L2
[2021-02-16] MEDS: Escitalopram Oxalate 10 MG Tablet PO (12:08)
[2021-02-16 14:30] VITALS: BP 160/100; PULSE 85; RESP 18; TEMP 35.6; O2SAT 98
[2021-02-16] MEDS: Ondansetron 8 MG Tablet PO (16:27)
[2021-02-16] MEDS: traZODone 100 MG Tablet PO (19:58)
[2021-02-16] MEDS: Acetaminophen 325 MG Tablet 650 MG PO (19:59)
[2021-02-16 21:02] VITALS: BP 158/94; PULSE 76; RESP 20; TEMP 36.1; O2SAT 100
[2021-02-17] MEDS: Ondansetron 8 MG Tablet PO (00:56)
[2021-02-17] MEDS: Acetaminophen 325 MG Tablet 650 MG PO ×2 (00:56→08:43)
[2021-02-17] MEDS: cloNIDine HCl 0.1 MG Tablet PO ×2 (00:56→08:47)
[2021-02-17] MEDS: Calcium Carbonate 500 MG Tablet 1000 MG PO ×2 (01:24→04:59)
[2021-02-17] MEDS: hydrOXYzine PAM 25 MG Capsule 50 MG PO (05:00)
[2021-02-17] MEDS: Methocarbamol 750 MG Tablet 1500 MG PO ×2 (05:00→20:17)
[2021-02-17] MEDS: Dicyclomine 10 MG Capsule 20 MG PO ×2 (05:00→11:46)
[2021-02-17] MEDS: Buprenorphine HCl 2 MG TAB.SUBL SL ×2 (05:11→11:46)
[2021-02-17 05:13] VITALS: BP 158/90; PULSE 74; RESP 18; TEMP 36.6; O2SAT 100
[2021-02-17] MEDS: Ibuprofen 600 MG Tablet PO (05:17)
[2021-02-17 08:40] VITALS: BP 181/112; PULSE 62; RESP 16; TEMP 36.6; O2SAT 98
[2021-02-17] MEDS: Escitalopram Oxalate 10 MG Tablet PO (08:47)
[2021-02-17 10:04] VITALS: BP 154/99; PULSE 61
--- NOTE | 2021-02-17 11:09 | PCM.PN.HOSP ---
Documented by User: Castro MAHAN 02/17/21 11:14 Subjective Subjective Patient is a 30-year-old female resting in bed, alert and oriented x3. Patient reports ongoing abdominal discomfort from yesterday abdominal pain appears to be distressing patient. Denies chest pain, shortness of breath, palpitations, hemoptysis, sputum production, fever, chills, N/V/D. Objective Data Objective Data Vital Signs: Vital Signs Temp Pulse Resp BP Pulse Ox 97.9 F 61 16 154/99 H 98 02/17/21 08:40 02/17/21 10:04 02/17/21 08:40 02/17/21 10:04 02/17/21 08:40 Oxygen Delivery Method Room Air Weight: 150 lb 2.157 oz Body Mass Index (BMI) 25.0 Intake & Output: Intake and Output for Last 24 Hours 02/15/21 02/16/21 02/17/21 23:59 23:59 23:59 Intake Total 640 / 640 1720 / 1720 Balance 640 / 640 1720 / 1720 Lab / Micro Data Result Diagrams: 02/15/21 09:37 02/15/21 09:37 Physical Exam Const alert and oriented x3 HEENT head/scalp atraumatic and moist oral mucous membranes Head and Scalp: normocephalic Eyes PERRL, EOMs intact bilaterally and conjunctivae normal Neck no lymphadenopathy, supple and no JVD Resp normal respiratory effort, no retractions, no use of accessory muscles and clear to auscultation bilaterally Cardio regular rate, regular rhythm, no murmurs and no JVD GI normal to inspection, nondistended, normoactive bowel sounds and soft to palpation Palpation: tender Extremity normal to inspection, full ROM and no clubbing, cyanosis or edema Skin no rashes or lesions noted, no wounds, skin turgor normal and no jaundice Neuro CN's II-XII intact bilaterally Psych affect normal Assessment & Plan Assessment/Plan (1) Fentanyl dependence: (2) Opiate withdrawal: PLAN: Day 2 Discharge planning: Patient to discharge home and follow-up with 180 as an outpatient when medically ready. 1) fentanyl dependence/impending opiate withdrawal Patient endorses mild abdominal cramps which she relates to menses and not withdrawal. Denies any N/V/D, leg cramping or irritability. Plan; remain on MS to 4 observation, continue buprenorphine taper, continue as needed medications, Motrin increased to 800 mg. 2) depression Continue Lexapro. 3) Hypertensive Urgency Throughout admission patient has had a steady increase in blood pressure, BP was 181/112 this morning. As needed clonidine was given to patient, BP currently 154/99. We will continue to monitor, continue clonidine as needed. DVT prophylaxis - low risk, not indicated Patient seen by Castro Brewer PA-C, under the supervision of Dr. Quinones. Documented by User: Dr. Augusto Quinones, 02/17/21 19:15 Objective Data Lab / Micro Data Result Diagrams: 02/15/21 09:37 02/15/21 09:37 Charges/Coding Addendum Addendum: Patient was seen and examined today independently of Castro Brewer, she complains that she feels very nervous and restless. I inquired as to if she had any psychiatric diagnosis, she states she was diagnosed as being bipolar but she is not taking any medications, she used to be on a medication but she does not recall what the medication was. I have elected to place her on Depakote 500 mg twice daily for her bipolar disorder. On examination she appeared her stated age, she appears restless and nervous. Vital signs as documented. Skin warm and dry and without overt rashes. Neck without JVD, thyroid appears normal, trachea is midline, neck is supple. Lungs clear, normal air movement was noted. Heart exam notable for regular rhythm, normal sounds and absence of murmurs, rubs or gallops. Abdomen unremarkable and without evidence of organomegaly, masses, or abdominal aortic enlargement, bowel sounds are present in all 4 quadrants, no abdominal tenderness was noted. Extremities nonedematous, no cyanosis was noted, no clubbing was noted. Neuro: Cranial nerves II through XII are grossly intact, no focal motor deficits were noted, sensation to light touch and pinprick is intact, motor exam 5/5 throughout. Psych: Patient is alert and oriented x3, she appears restless I have reviewed Castro Jernigan's progress note including his medical assessment and plan of care and endorse it with the above additions. Visit Charges Inpatient E&M: 76484 Subs Hosp L2
[2021-02-17 11:45] VITALS: BP 155/88; PULSE 64; RESP 16; TEMP 36.4; O2SAT 96
[2021-02-17] MEDS: Ibuprofen 400 MG Tablet 800 MG PO (11:46)
[2021-02-17 17:08] VITALS: BP 117/78; PULSE 78; RESP 14; TEMP 37; O2SAT 97
[2021-02-17 20:11] VITALS: BP 132/77; PULSE 62; RESP 16; TEMP 37; O2SAT 97
[2021-02-17] MEDS: traZODone 100 MG Tablet PO (20:17)
[2021-02-18] MEDS: Ondansetron 8 MG Tablet PO ×2 (01:28→22:26)
[2021-02-18] MEDS: Buprenorphine HCl 2 MG TAB.SUBL SL (01:28)
[2021-02-18 04:39] VITALS: BP 173/103; PULSE 71; RESP 16; TEMP 37; O2SAT 100
[2021-02-18] MEDS: Methocarbamol 750 MG Tablet 1500 MG PO ×2 (04:44→20:39)
[2021-02-18] MEDS: cloNIDine HCl 0.1 MG Tablet PO ×2 (04:44→22:56)
[2021-02-18] MEDS: hydrOXYzine PAM 25 MG Capsule 50 MG PO ×3 (06:07→18:34)
[2021-02-18 08:31] VITALS: BP 161/89; PULSE 60; RESP 16; TEMP 36.6; O2SAT 96
[2021-02-18] MEDS: Escitalopram Oxalate 10 MG Tablet PO (08:34)
[2021-02-18] MEDS: Ibuprofen 400 MG Tablet 800 MG PO ×2 (08:34→18:34)
[2021-02-18] MEDS: Acetaminophen 325 MG Tablet 650 MG PO (10:35)
--- NOTE | 2021-02-18 11:54 | PN.HOSP_ITS ---
Documented by User: Castro MAHAN 02/18/21 12:05 Subjective Subjective Patient is a 30-year-old female comfortably resting in bed, alert and orient x3. Patient's abdominal pain looks improved from yesterday and patient no longer appears in acute distress. Objective Data Objective Data Vital Signs: Vital Signs Temp Pulse Resp BP Pulse Ox 97.8 F 60 16 161/89 H 96 02/18/21 08:31 02/18/21 08:31 02/18/21 08:31 02/18/21 08:31 02/18/21 08:31 Oxygen Delivery Method Room Air Weight: 150 lb 2.157 oz Body Mass Index (BMI) 25.0 Intake & Output: Intake and Output for Last 24 Hours 02/16/21 02/17/21 02/18/21 23:59 23:59 23:59 Intake Total 1720 / 1720 Balance 1720 / 1720 Lab / Micro Data Result Diagrams: 02/15/21 09:37 02/15/21 09:37 Physical Exam Const alert, oriented x3 and no apparent distress HEENT head/scalp atraumatic and moist oral mucous membranes Head and Scalp: normocephalic Eyes PERRL, EOMs intact bilaterally and conjunctivae normal Neck no lymphadenopathy, supple and no JVD Resp normal respiratory effort, no retractions, no use of accessory muscles and clear to auscultation bilaterally Cardio regular rate, regular rhythm, no murmurs and no JVD GI normal to inspection, nondistended, normoactive bowel sounds, soft to palpation and non-tender Extremity normal to inspection, full ROM and no clubbing, cyanosis or edema Skin no rashes or lesions noted, no wounds, skin turgor normal and no jaundice Neuro CN's II-XII intact bilaterally Psych affect normal Assessment & Plan Assessment/Plan (1) Fentanyl dependence: (2) Opiate withdrawal: PLAN: Day 3 Discharge planning: Patient to discharge home and follow-up with 180 as an outpatient when medically ready. 1) fentanyl dependence/impending opiate withdrawal Patient endorses mild abdominal cramps which she relates to menses and not withdrawal. Denies any N/V/D, leg cramping or irritability. Plan; remain on MS to 4 observation, continue buprenorphine taper, continue as needed medications, Motrin increased to 800 mg. 2) depression Continue Lexapro. 3) Hypertensive Urgency Throughout admission BP has been elevated, possibly secondary to withdrawal, as needed clonidine ordered. DVT prophylaxis - low risk, not indicated Patient seen by Castro Brewer PA-C, under the supervision of Dr. Quinones. Documented by User: Dr. Augusto Quinones, DO 02/18/21 17:17 Objective Data Lab / Micro Data Result Diagrams: 02/15/21 09:37 02/15/21 09:37 Charges/Coding Addendum Addendum: Patient was seen and examined today independently of Castro Brewer, she appeared to be calm and did not appear anxious at all today. She had complained earlier in the day of some chest wall discomfort, she did not complain about it to me at the time of my exam. On examination she appeared in good health and spirits, she does not appear to be in any distress. Vital signs as documented. Skin warm and dry and without overt rashes. Neck without JVD, thyroid appears normal, trachea is midline, neck is supple. Lungs clear, normal air movement was noted. Heart exam notable for regular rhythm, normal sounds and absence of murmurs, rubs or gallops. Abdomen unremarkable and without evidence of organomegaly, masses, or abdominal aortic enlargement, bowel sounds are present in all 4 quadrants, no abdominal tenderness was noted. Extremities nonedematous, no cyanosis was noted, no clubbing was noted. Neuro: Cranial nerves II through XII are grossly intact, no focal motor deficits were noted, sensation to light touch and pinprick is intact, motor exam 5/5 throughout. Psych: Patient is alert and oriented x3, she does not appear anxious or depressed, she does not appear agitated. Continue present medications for opiate withdrawal, patient states she met with addiction older adult social work specialist and plans on doing outpatient detox services. I have reviewed Castro Brewer's progress note including his medical assessment and plan of care and endorse it. Visit Charges Inpatient E&M: 86059 Subs Hosp L2
[2021-02-18 14:30] VITALS: BP 137/102; PULSE 58; RESP 16; TEMP 37; O2SAT 96
[2021-02-18 20:34] VITALS: BP 137/97; PULSE 62; RESP 16; TEMP 37.1; O2SAT 96
[2021-02-18] MEDS: traZODone 100 MG Tablet PO (20:39)
[2021-02-18] MEDS: proCHLORPERazine 10 MG/2 ML Vial 5 MG IV (23:16)
[2021-02-18 23:26] VITALS: BP 165/110; PULSE 91; RESP 18; TEMP 36.9; O2SAT 99
[2021-02-19] MEDS: hydrOXYzine PAM 25 MG Capsule 50 MG PO (00:39)
[2021-02-19] MEDS: Methocarbamol 750 MG Tablet 1500 MG PO (02:47)
[2021-02-19 03:07] VITALS: BP 174/113; PULSE 73; RESP 16; TEMP 36.8; O2SAT 96
[2021-02-19 05:07] VITALS: BP 159/104; PULSE 67; RESP 18; TEMP 36.8; O2SAT 98
[2021-02-19] MEDS: cloNIDine HCl 0.2 MG Tablet PO (05:09)
[2021-02-19 08:00] VITALS: BP 100/73; PULSE 77; RESP 12; TEMP 36.9; O2SAT 97
[2021-02-19] MEDS: Escitalopram Oxalate 10 MG Tablet PO (08:02)
--- NOTE | 2021-02-19 09:14 | DS.PCM_ITS ---
Providers Date of Admission: 02/15/21 Primary Care Physician: Dr. Benedict Sharp DO Reason For Visit: OPIOID WITHDRAWAL Diagnosis Discharge Diagnosis (1) Fentanyl dependence: Status: Acute Code(s): F11.20 - Opioid dependence, uncomplicated (2) Opiate withdrawal: Status: Acute Code(s): F11.23 - Opioid dependence with withdrawal Medications at Discharge Home Medications ibuprofen 600 mg PO Q6H PRN PRN #20 tab 12/24/20 escitalopram oxalate [Lexapro] 10 mg PO DAILY 02/15/21 Hospital Course Procedures None Summary of Care Provided Minutes Spent on Discharge: 35 Hospital Course: Patient is a 30-year-old with history of functional dependence presented with acute opioid withdrawal 1. Acute opiate withdrawal ?Patient admitted to regular nursing floor managed with Subutex taper in addit ion to adjuvant treatment. 2. Depression ?On SSRI did continue 3. Acute hypertensive urgency ?Attributed to patient's acute withdrawal blood pressure has stabilized at the time of discharge Physical Exam Narrative GENERAL: cooperative HEENT: Atraumatic; EYES; Anicteric, Normal Conjunctiva NECK; supple, normal thyroid, RESPIRATORY: Diminished to auscultation CARDIOVASCULAR: Regular S1 S2, NEURO: Awake; no lateralizing signs. SKIN: No Rash PSYCH; Flat affect Weight / BMI Weight Weight: 68.1 kg Body Mass Index (BMI) 25.0 ABG / Lab / Microbiology Data Result Diagrams: 02/15/21 09:37 02/15/21 09:37 D/C Instructions Discharge Diet: No restrictions Discharge Activity: Return to Normal Activity Call your doctor if you observe: Fever of 101 or Higher, Shortness of breath, Fainting spells and Chest pain Meaningful Use Info Meaningful Use Diagnoses (Choose all that apply): None applicable Discharge Plan Admission Admit Date/Time: 02/15/21 10:40 Attending Provider: Travon Vidales Primary Care Provider: Benedict Sharp Discharge Orders/Prescriptions Prescriptions: Continued ibuprofen 600 mg tablet 600 mg PO Q6H PRN PRN (Reason: fever or pain) Qty: 20 RF: 0 escitalopram oxalate [Lexapro] 10 mg Tablet 10 mg PO DAILY RF: 0 Referrals / Follow Up: Benedict Sharp DO [Primary Care Provider] - Within 2 Weeks Disposition Disposition (needs filled in before D/C Order can be placed): Home, Self Care Charges/Coding Visit Charges Inpatient E&M: 21402 Disch Hosp
--- NOTE | 2021-02-19 10:47 | PHA.DC.MR ---
Pharmacy Service has performed discharge medication reconciliation for this patient. The patient's discharge medication list was reviewed for discrepancies and discrepancies were resolved. Home Medications ibuprofen 600 mg PO Q6H PRN PRN #20 tab 12/24/20 escitalopram oxalate [Lexapro] 10 mg PO DAILY 02/15/21
--- NOTE | 2021-02-19 11:17 | CASEMGMT ---
Addendum entered by Vickie Lancaster 02/19/21 11:27: RISHI placed on pt's chart. Addendum entered by Vickie Lancaster 02/19/21 11:26: SW received call from pt's Court Assistant Sun Reyna. Sun asking when pt will be discharged. DORENE informed Sun that pt will be discharged today as physicians feel pt is medically ready for discharge. Sun states understanding. Original Note: Social Work Note SW received Release of [place]I[place] [facility] [place] [facility]. [place] is reporting that her plan [facility] and [facility]. Vickie Lancaster ACCOUNT STRATEGIST, EP SPECIALIST
[2021-02-19 11:45] VITALS: BP 116/75; PULSE 70; RESP 14; TEMP 36.7; O2SAT 98
== END 2021-02-19 12:35 | disposition home or self-care (01) ==
LOC: ED 10:55 → MS2 02-16 08:28 → MS3 02-18 16:16 → MS2 02-20 07:40 → MS3 02-20 07:40
PROVIDERS: Admitting Provider Internal Medicine; Emergency Provider Emergency Medicine; PCP Preventive Medicine Occupational Medicine; Visit Provider Internal Medicine
DX: F11.23 Opioid dependence with withdrawal (principal); I16.0 Hypertensive urgency; F31.9 Bipolar disorder, unspecified; Z79.899 Other long term (current) drug therapy; F41.9 Anxiety disorder, unspecified; F10.10 Alcohol abuse, uncomplicated; Y90.0 Blood alcohol level of less than 20 mg/100 ml; F13.20 Sedative, hypnotic or anxiolytic dependence, uncomplicated
CPT/HCPCS: 36415; 80053; 80307; 81001; 82077; 84703; 85025; 99283; H0012

== ENCOUNTER 2025-03-14 09:32 | Emergency (ER) | payer MEDICAID, SELFPAY ==
[2025-03-14 09:33] VITALS: BP 141/105; PULSE 78; RESP 18; TEMP 36.9; O2SAT 99; BMI 25.3
--- NOTE | 2025-03-14 10:03 | ED.VIS.GI ---
HPI HPI - GI History of Present Illness Chief Complaint: Abd Pain Informant: patient Abdominal Pain/Flank Pain Onset: Weeks (1) Context: Gradual Onset Timing: Intermittent Quality: Cramping and Sharp Location: LLQ (Left inguinal) Worsened by: - (Sitting, going up stairs) Relieved by: Nothing Nausea/Vomiting/Emesis GI Symptom: Negative for Nausea or Vomiting Diarrhea/Melena/Hematochezia GI Symptom: Negative for Diarrhea, Melena or Hematochezia Associated Symptoms Associated Symptoms: Negative for Dysuria, Frequency or Hematuria LMP: Current Narrative Narrative: Patient presents with left lower quadrant and inguinal abdominal pain that has been getting worse over the past week. Patient states it comes and goes. Patient describes it as sharp and cramping. Patient states it feels like a prior contraction. Patient states it is worse with standing and with going up stairs. Patient states nothing makes it better. Patient denies any nausea or vomiting. Patient denies any diarrhea, melena, or hematochezia. Patient denies any dysuria, frequency, or hematuria. Patient states she is currently on her menstrual cycle. [facility] Medical History Substance abuse Alcohol abuse Non-smoker Anxiety and depression Home Medications ?Medication ?Instructions ?Recorded ?Last Taken ?Type naproxen 500 mg tablet 500 mg PO BID PRN #20 tabs 03/14/25 Unknown Rx Allergy/AdvReac Type Severity Reaction Status Date / Time No Known Allergies Allergy Verified 03/14/25 09:34 Family History Grandmother Diabetes Cancer lung- smoker Surgical History History of cholecystectomy delivery delivered Social History Smoking Status: Never smoker alcohol intake: never substance use type: marijuana and opiates caffeine: Yes what type of physical activity do you participate in: none seatbelt use: always do you feel safe at home: Yes 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 ROS ROS ED Constitutional Constitutional ED: Denies chills or fever(s) Eyes Eyes: Denies blurry vision or change in vision ENT ENT ED: Denies rhinorrhea or sore throat Cardiovascular Cardiovascular: Denies chest pain or palpitations Respiratory/Chest Respiratory/Chest: Denies cough or dyspnea Gastrointestinal Gastrointestinal: Reports abdominal pain; Denies diarrhea, melena, nausea or vomiting Genitourinary Genitourinary ED: Denies dysuria or hematuria Musculoskeletal Musculoskeletal: Reports back pain; Denies neck pain Integumentary Denies abscess or rash Neurologic Neurologic: Denies headache(s) or weakness Allergic/Immunologic Allergic/Immunologic ED: Denies mouth swelling or urticaria EXAM Physical Exam Const Vital Signs: 03/14/25 09:33 03/14/25 11:32 Temperature 98.4 F Temperature Source Oral Pulse Rate 78 78 Respiratory Rate 18 14 Blood Pressure 141/105 H 116/83 H Blood Pressure Mean 117 94 Pulse Ox 99 97 Oxygen Delivery Method Room Air Room Air Positive well nourished and well developed General Appearance ED: well developed and NAD HEENT Reports moist mucous membranes Neck supple and no JVD Resp normal respiratory effort and clear to auscultation bilaterally Cardio regular rate and regular rhythm GI non-distended Palpation: soft and tender LLQ; Negative for guarding or rebound tenderness present Extremity full ROM General Extremety ED: Negative for edema or tenderness General Extremity: Negative for edema Neuro CN's II-XII intact bilaterally, moves all extremities and no sensory deficits noted Sensorium / Orientation: alert Motor Exam: strength 5/5 throughout Psych mental status grossly normal MDM MDM MDM Narrative Medical decision making narrative: Differential diagnosis includes ureteral calculus, urinary tract infection, ovarian cyst, diverticulitis, diverticulosis, colitis, pyelonephritis, endometriosis, and anxiety. CBC will be obtained to assess for leukocytosis and anemia. Basic metabolic profile will be obtained to assess for electrolyte abnormality and renal function. Urinalysis will be obtained to assess for urinary tract infection and hematuria. Serum hCG will be obtained to assess for . CT scan of the abdomen and pelvis will be obtained to assess for ureteral calculus, colitis, diverticulitis, and pyelonephritis. Lab Data Attestation: I reviewed the patient's lab results. Lab results narrative: CBC was reviewed and was within normal limits. Basic metabolic profile was reviewed and was within normal limits. Serum hCG was reviewed and was negative. Urinalysis was reviewed. There is no evidence of urinary tract infection or hematuria. Labs: Laboratory Results - last 24 hr 03/14/25 03/14/25 10:35 11:00 WBC 6.7 RBC 4.68 Hgb 13.0 Hct 39.5 MCV 84.4 MCH 27.8 MCHC 32.9 RDW Std Deviation 43.8 RDW Coeff of Steve 14.1 Plt Count 394 MPV 9.3 Immature Gran % (Auto) 0.100 Neut % (Auto) 66.7 Lymph % (Auto) 24.9 [place] % (Auto) 7.2 Eos % (Auto) 0.7 Baso % (Auto) 0.4 Absolute Neuts (auto) 4.5 Absolute Lymphs (auto) 1.67 Nucleated RBC % 0 Sodium 139 Potassium 3.7 Chloride 102 Carbon Dioxide 26.8 Anion Gap 10 BUN 12 Creatinine 0.63 L Estim Creat Clear Calc 122.86 Est GFR (MDRD) Non-Af 119 BUN/Creatinine Ratio 19.6 Glucose 99 Calcium 9.1 Serum , Qual NEGATIVE Urine Color Yellow Urine Clarity Clear Urine pH 6.0 Ur Specific [place] 1.020 Urine Protein 30 H Urine Glucose (UA) Normal Urine Ketones Negative Urine Occult Blood 250 H Urine Nitrite Negative Urine Bilirubin Negative Urine Urobilinogen Normal Ur Leukocyte Esterase Negative Urine RBC 0 SEEN Urine WBC 0 SEEN Ur Squamous Epith Cells 0-5 SEEN Urine Bacteria 0 SEEN Urine Mucus 0 SEEN Radiography Diagnostic Testing: Clinical Impression(s) from Imaging Studies Abdomen/Pelvis CT 03/14/25 10:10 IMPRESSION: 1. Cholecystectomy 2. Normal appendix 3. Left ovarian cysts versus cysts and/or hydrosalpinx. Correlate with pelvic pain. Consider pelvic ultrasound if appropriate. Reading Location: [id number] CT scan of the abdomen and pelvis was obtained. There is no evidence of appendicitis. There is left ovarian cysts. There is no free air or free fluid. This was interpreted by the radiologist. Also independently reviewed the images. I did not see any evidence of appendicitis, bowel obstruction, or perforation. Treatment and Re-Evaluation :: Patient was given IV fluids, Toradol, and Zofran. Patient was feeling better on reevaluation. Patient was advised of her findings. Patient was given a prescription for Naprosyn for pain. Patient was instructed to follow-up with her primary care physician in 5 to 7 days. Patient understood and was agreeable with the plan. All questions were answered. Discharge Plan Triage Chief Complaint: Abd Pain ED Provider: Teo Quintero Dx/Rx/DC Orders Clinical Impression: Cyst of left ovary, Left lower quadrant abdominal pain Instructions: ED Ovarian Cyst Prescriptions: New naproxen 500 mg tablet 500 mg PO BID PRN Qty: 20 0RF Primary Care Provider: Benedict Sharp Referrals: Benedict Sharp DO [Primary Care Provider, Family Practice] - 5-7 Days Print Language: Citizen Of [place] Disposition Disposition: Home, Self Care
--- NOTE | 2025-03-14 10:10 | CT_ITS ---
PROCEDURE: ABDOMEN/PELVIS W IV CONT ONLY 03/14/2025 REASON FOR EXAM: ABDOMINAL PAIN TECHNIQUE: Procedure Code: [id number] Modality: CT Procedure: ABDOMEN/PELVIS W IV CONT ONLY Coronal and Sagittal reconstruction series were provided. CONTRAST: Isovue 370 VOLUME: 96 mL One or more dose reduction techniques were used (e.g., Automated exposure control, adjustment of the mA and/or kV according to patient size, use of iterative reconstruction technique. RADIATION DOSE SUMMARY: CTDlvol: 25 mGy DLP: 1156 mGycm COMPARISON: July 27, 2019 unavailable for review FINDINGS: Lung bases: Clear Liver: Normal Gallbladder: Cholecystectomy. No biliary ductal dilation. Spleen: Normal Pancreas: Normal Adrenals: Normal Kidneys: Normal Bladder: Normal Reproductive Organs: Uterus is anteverted. Right ovary is unremarkable. Left ovarian cysts versus hydrosalpinx. Largest cystic focus 2.8 x 1.8 cm. Bowel: Stomach is unremarkable. Small bowel is unremarkable. Colon is normal. Appendix: Normal Lymph nodes: None appear enlarged Vasculature: Normal Peritoneum / Retroperitoneum: No free air, free fluid or mass Bones: No acute abnormality CT/Abdomen/Pelvis W IV Cont ONLY IMPRESSION: 1. Cholecystectomy 2. Normal appendix 3. Left ovarian cysts versus cysts and/or hydrosalpinx. Correlate with pelvic pain. Consider pelvic ultrasound if appropriate. Reading Location: [id number]
[2025-03-14] MEDS: Ketorolac 30 MG/ML Syringe IV (10:31)
[2025-03-14] MEDS: 0.9% Normal Saline (1000mL) 1,000 ML 999 ML IV (10:31)
[2025-03-14 10:51] LABS: Hematocrit 39.5 % (37-47); Hemoglobin 13.0 g/dL (12.0-15.0); Immature Granulocytes Count 0.010 X10^3/uL (0.0-0.0); Mean Corp Hgb Conc 32.9 g/dL (32-36); Mean Corpuscular Volume 84.4 fL (81-99); Mean Platelet Vol. 9.3 fl (6.2-12.0); NRBC Flagged by Analyzer 0 % (0-5); Platelet Count 394 K/mm3 (150-450); RBC Distribution Width CV 14.1 % (11.6-14.6); RBC Distribution Width SD 43.8 fl (35.1-43.9); Red Blood Count 4.68 M/mm3 (4.2-5.4); White Blood Count 6.7 K/mm3 (4.4-11.0)
[2025-03-14 11:15] LABS: Internal QC Validated? YES +Cl - CLEAR BKGD; Pregnancy, Serum, hCG Quali. NEGATIVE Negative; Record Kit Lot#, Serum Preg. 980607
[2025-03-14 11:15] LABS: Mucous, Urine 0 SEEN /hpf (<or=2+); Red Blood Cells-Urine 0 SEEN /hpf (0-5)
[2025-03-14 11:18] LABS: Color, Urine Yellow (Yellow); Glucose, Dipstick Normal (Normal); Ketone-Dipstick Negative (Negative); Leukocyte Esterase-Dipstick Negative /ul (Negative); Nitrite-Dipstick Negative (Negative); Occult Blood-Urine 250 /ul (Negative); Protein-Dipstick 30 mg/dl (Negative); Specific Gravity, Urine 1.020 (1.002-1.030); Urine Bilirubin Dipstick Negative (Negative)
[2025-03-14 11:23] LABS: Squamous Epithelial Cells - UA 0-5 SEEN /hpf (5-10)
[2025-03-14 11:27] LABS: Anion Gap 10 (5-15); BUN 12 mg/dL (4-19); BUN/Creat Ratio 19.6 RATIO (10-20); Calcium,Total 9.1 mg/dL (7.6-11.0); Carbon Dioxide 26.8 mmol/L (21.0-32.0); Chloride 102 mmol/L (98-108); Estimated Creatinine Clearance 122.86 ml/min (50-250); Glucose 99 mg/dL (70-99); Potassium 3.7 mmol/L (3.3-5.1)
[2025-03-14 11:32] VITALS: BP 116/83; PULSE 78; RESP 14; O2SAT 97
[2025-03-14 12:57] VITALS: BP 126/78; PULSE 71; RESP 16; TEMP 36.6; O2SAT 99
== END 2025-03-14 12:58 | disposition home or self-care (01) ==
PROVIDERS: Emergency Provider Emergency Medicine; PCP Preventive Medicine Occupational Medicine; Visit Provider Emergency Medicine
DX: N83.202 Unspecified ovarian cyst, left side (principal); R10.32 Left lower quadrant pain; Z90.49 Acquired absence of other specified parts of digestive tract
CPT/HCPCS: 74177; 80048; 81001; 84703; 85025; 96361; 96374; 96375; 99282; Q9967; A4216; J2405